=== PATIENT | male | born 1965 | race Two or more races ===

== ENCOUNTER 2025-02-19 16:00 | Inpatient (IN) | payer OTHER ==
[~2025-02-19] VITALS: Ht 193 cm; Wt 175.6 kg
[~2025-02-19 16:00] MED LIST: ALBU108A5 INH; METF-370 PO; METO-158 PO; MORP30TA5 PO; OXYC325T14 PO; PANT40T PO; PIOG1TAB37 PO; SUCR1TAB PO
[2025-02-19 16:13] VITALS: PULSE 155; RESP 22; O2SAT 96
--- NOTE | 2025-02-19 16:29 | ED.PDOC ---
GI ASSESSMENT HPI Comments 59-year-old male is brought in by ambulance for chief complaint of GI bleed. EMS reports, patient is coming from [facility] where he was transferred for admission due to possible GI hemorrhage. Per EMS, transferring physician spoke to Dr. Aragon d/t not having GI at initial facility or CT. Upon arrival to the emergency department, patient appears pale and has right colostomy in place with bright red bloody stool. Patient reports, he has had x2days of bright red bloody stools which has since, worsened today (02/19/25). No other symptoms or modifying factors are present at this time. 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, Medications, Allergies Allergies: Coded Allergies: NO KNOWN ALLERGIES (Unverified , 02/19/25) Information Source: Patient, Emergency Med Personnel Mode of Arrival: EMS Timing: Days Duration: Since onset Prehospital treatment: None Vomitus: None Stool: Other (Bloody stool) Severity: Moderate Recent: None Recent Hx of: Abdominal Operations (Colostomy) Pain Location: None Modifying Factors: Nothing Associated sign and symptoms: Blood in Stool Past Medical History PAST MEDICAL HISTORY: Denies Family History Family History: Unknown Social History Smoker: Non-Smoker Alcohol: Denies ETOH Use Drugs: Denies Drug Use Lives In: Home Constitutional: reports: fatigue; denies: chills, diaphoresis, fever, malaise, sweats, weakness, others EENTM: denies: blurred vision, double vision, ear bleeding, ear discharge, ear drainage, ear pain, ear ringing, eye pain, eye redness, hearing loss, mouth pain, mouth swelling, nasal discharge, nose bleeding, nose congestion, nose pain, photophobia, tearing, throat pain, throat swelling, voice changes, others Respiratory: denies: cough, hemoptysis, orthopnea, SOB at rest, shortness of breath, SOB with excertion, stridor, wheezing, others Cardiovascular: denies: chest pain, dizzy spells, diaphoresis, Dyspnea on exertion, edema, irregular heart beat, left arm pain, lightheadedness, palpitations, PND, syncope, others Gastrointestinal: denies: abdomen distended, abdominal pain, blood streaked bowels, constipated, diarrhea, dysphagia, difficulty swallowing, hematemesis, melena, nausea, poor appetite, poor fluid intake, rectal bleeding, rectal pain, vomiting, others Genitourinary: denies: burning, dysuria, flank pain, frequency, hematuria, incontinence, penile discharge, penile sore, pain, testicle pain, testicle swelling, urgency, others Neurological: denies: dizziness, fainting, headache, left sided numbness, left sided weakness, numbness, paresthesia, pre-existing deficit, right sided numbness, right sided weakness, seizure, speech problems, tingling, tremors, weakness, others Musculoskeletal: denies: back pain, gout, joint pain, joint swelling, muscle pain, muscle stiffness, neck pain, others Integumetry: denies: bruises, change in color, change in hair/nails, dryness, laceration, lesions, lumps, rash, wounds, others Allergic/Immunocompromised: denies: Difficulty Healing, Frequent Infections, Hives, Itching, others Hematologic/Lymphatic: denies: anemia, blood clots, easy bleeding, easy bruising, swollen glands, others Endocrine: denies: excessive hunger, excessive sweating, excessive thirst, excessive urination, flushing, intolerance to cold, intolerance to heat, unexplained weight gain, unexplained weight loss, others Psychiatric: denies: anxiety, bipolar disorder, depression, hopeless, panic disorder, schizophrenia, sleepless, suicidal, others All Other Systems: Reviewed and Negative Physical Exam General Appearance: Normal, Other (Pale-appearing) HEENT: Normal ENT Inspection, Pharynx Normal Neck: Full Range of Motion, Non-Tender, Normal, Normal Inspection Respiratory: Chest Non-Tender, Lungs Clear, No Accessory Muscle Use, No Respiratory Distress, Normal Breath Sounds Cardiovascular: No Edema, No Murmur, No Gallop, Normal Peripheral Pulses, Regular Rate/Rhythm Breast Exam: Deferred Gastrointestinal: No Organomegaly, No Pulsatile Mass, Normal Bowel Sounds, Soft, Other (Colostomy to right lower abdomen, bright-red feces noted, erythema) Genitalia: Deferred Pelvic: Deferred Rectal: Deferred Extremities: No calf tenderness, Normal capillary refill, Normal inspection, Normal range of motion, Non-tender, No pedal edema Musculoskeletal : Apperance: Normal Neurologic: Alert, oral communication instructor II-XII nml as Tested, No Motor Deficits, Normal Affect, Normal Mood, No Sensory Deficits Cerebellar Function: Normal Reflexes: Normal Skin: Dry, Normal Color, Warm Lymphatic: No Adenopathy Was a procedure done? Was a procedure done?: No GI differential Dx Differential Diagnosis: GI hemorrhage X-Ray, Labs, Meds, VS Vital Signs Date Time Temp Pulse Resp B/P (MAP) Pulse Ox O2 Delivery O2 Flow Rate FiO2 02/19/25 18:12 154 21 126/51 (76) 99 02/19/25 17:46 156 23 125/81 (96) 99 02/19/25 16:20 155 02/19/25 16:13 155 02/19/25 16:13 22 96 Nasal Cannula* 3 32 02/19/25 16:13 98.9 155 22 166/56 (92) 96 98.9 02/19/25 16:13 155 22 96 Nasal Cannula* 3 32 02/19/25 16:00 98.2 150 22 100/59 96 98.2 Lab Test 02/19/25 16:45 02/19/25 16:14 Range/Units Blood Gas Specimen Type Arterial Blood Gas Sample Site Right radial Blood Gas Patient Temperature 37.0 Arterial Blood Date Drawn [id number] Arterial Blood pH 7.512 H 7.350-7.450 Arterial Blood Partial Pressure CO2 37.6 35.0-48.0 mmHg Arterial Blood Partial Pressure O2 105.4 83.0-108.0 mmHg Arterial Blood HCO3 29.5 H 21.0-28.0 mmol/L Arterial Blood Oxygen Saturation 97.6 94.0-98.0 % Arterial Blood Base Excess 6.0 H -2.0-3.0 mmol/L Arterial Blood Oxyhemoglobin 94.3 94.0-98.0 % Arterial Blood Carboxyhemoglobin 3.0 H 0.5-1.5 % Arterial Blood Methemoglobin 0.4 0.0-1.5 % Juwan Test Yes Blood Gas Total Hemoglobin 7.80 L 13.5-17.5 g/dL Blood Gas Liter Flow 4.00 Blood Gas Modality Nasal cannula FiO2 % 36.0 White Blood Count 10.3 4.4-10.8 10^3/uL Red Blood Count 2.44 L 4.5-5.90 10^6/uL Hemoglobin 7.4 L 13.5-17.5 g/dL Hematocrit 22.4 L 41.0-53.0 % Mean Corpuscular Volume 91.9 80.0-100.0 fL Mean Corpuscular Hemoglobin 30.2 28.0-32.0 pg Mean Corpuscular Hemoglobin Concent 32.9 32.0-36.0 g/dL Red Cell Distribution Width 17.3 H 11.8-14.3 % Platelet Count 158 140-450 10^3/uL Mean Platelet Volume 10.2 6.9-10.8 fL Neutrophils (%) (Auto) 76.8 37.0-80.0 % Lymphocytes (%) (Auto) 11.8 10.0-50.0 % Monocytes (%) (Auto) 11.1 0.0-12.0 % Eosinophils (%) (Auto) 0.1 0.0-7.0 % Basophils (%) (Auto) 0.2 0.0-2.0 % Neutrophils # (Auto) 7.9 1.6-8.6 10 ^3/uL Lymphocytes # (Auto) 1.2 0.4-5.4 10 ^3/uL Monocytes # (Auto) 1.1 0-1.3 10 ^3/uL Eosinophils # (Auto) 0 0-0.8 10 ^3/uL Basophils # (Auto) 0 0-0.2 10 ^3/uL Nucleated Red Blood Cells 0.1 % Prothrombin Time 16.5 H 9.3-11.8 sec Prothrombin Time INR 1.63 H 0.9-1.15 Activated Partial Thromboplast Time 25.0 24.5-34.5 SEC Sodium Level 133 L 136-145 mmol/L Potassium Level 4.5 3.5-5.1 mmol/L Chloride Level 97 L 98-107 mmol/L Carbon Dioxide Level 32 H 20-31 mmol/L Anion Gap 4 L 5-15 Blood Urea Nitrogen 35 H 9-23 mg/dL Creatinine 1.09 0.700-1.30 mg/dL Glomerular Filtration Rate Calc 79 >90 mL/min BUN/Creatinine Ratio 32.1 H 10.0-20.0 Serum Glucose 487 *H 74-106 mg/dL Calcium Level 8.3 L 8.7-10.4 mg/dL Total Bilirubin 1.7 H 0.2-1.0 mg/dL Aspartate Amino Transferase (AST) 22 13-40 U/L Alanine Aminotransferase (ALT) 10 7-40 U/L Alkaline Phosphatase 87 46-116 U/L B-Type Natriuretic Peptide 517.71 0-100 pg/mL Total Protein 4.6 L 5.7-8.2 g/dL Albumin 2.6 L 3.2-4.8 g/dL Current Medications Medications (Trade) Dose Ordered Sig/Neha Route Start Time Stop Time Status Last Admin Sodium Chloride 1,000 ml @ 1,000 mls/hr Q1H ONCE IV 02/19/25 16:45 02/19/25 17:44 DC 02/19/25 16:59 Amiodarone HCl 100 ml @ 600 mls/hr ONCE ONCE IV 02/19/25 17:45 02/19/25 17:54 DC 02/19/25 17:50 Amiodarone HCL/ Dextrose 200 ml @ 33.33 mls/ hr ONCE ONCE IV 02/19/25 18:00 02/20/25 00:00 02/19/25 18:12 Time of 1ST Reevaluation: 16:30 Reevaluation 1ST: Unchanged Patient Education/Counseling: Diagnosis, Treatment Family Education/Counseling: No Family Present SEPSIS Sepsis Screen Physician Orders Ct Ab Pel With Iv Con Only (02/19/25 16:06) Chest Portable (02/19/25 16:06) Electrocardigram (02/19/25 16:27) Abg W/ Co-Ox (02/19/25 16:39) Amiodarone 360mg/200ml Premix (Nexterone (02/19/25 18:00) Amiodarone 360mg/200ml Premix (Nexterone (02/20/25 00:00) Calcium Ivpb (02/19/25 18:45) Vital Signs Date Time Temp Pulse Resp B/P (MAP) Pulse Ox O2 Delivery O2 Flow Rate FiO2 02/19/25 18:12 154 21 126/51 (76) 99 02/19/25 17:46 156 23 125/81 (96) 99 02/19/25 16:20 155 02/19/25 16:13 155 02/19/25 16:13 22 96 Nasal Cannula* 3 32 02/19/25 16:13 98.9 155 22 166/56 (92) 96 98.9 02/19/25 16:13 155 22 96 Nasal Cannula* 3 32 02/19/25 16:00 98.2 150 22 100/59 96 98.2 Laboratory Tests Test 02/19/25 16:14 White Blood Count 10.3 10^3/uL (4.4-10.8) Medications Medications Dose Ordered Sig/Neha Route Start Time Stop Time Status Last Admin Dose Admin Amiodarone HCl 100 ml @ 600 mls/hr ONCE ONCE IV 02/19/25 17:45 02/19/25 17:54 DC 02/19/25 17:50 Amiodarone HCL/ Dextrose 200 ml @ 33.33 mls/ hr ONCE ONCE IV 02/19/25 18:00 02/20/25 00:00 02/19/25 18:12 Sodium Chloride 1,000 ml @ 1,000 mls/hr Q1H ONCE IV 02/19/25 16:45 02/19/25 17:44 DC 02/19/25 16:59 Departure 1 Departure Time of Disposition: 18:45 (Patient with active gi bleed. will admit for blood transfusion and gi constultation) Impression: Primary Impression: GI bleed Qualified Codes: K92.2 - Gastrointestinal hemorrhage, unspecified Additional Impression: Colostomy hemorrhage Disposition: ADMITTED INPATIENT Admit to: [facility] Condition: Critical Critical Care Note Critical Care Time?: Yes Critical care comment: Active GI Bleed Authorized and Performed by: Ada Rahman MD Total critical care time: Approximately 47 minutes Due to a high probability of clinically significant, life threatening deterioration, the patient required my highest level of preparedness to intervene emergently and I personally spent this critical care time directly and personally managing the patient. This critical care time included obtaining a history; examining the patient; pulse oximetry; ordering and review of studies; arranging urgent treatment with development of a management plan; evaluation of patient's response to treatment; frequent reassessment; and, discussions with other providers. This critical care time was performed to assess and manage the high probability of imminent, life-threatening deterioration that could result in multi-organ failure. It was exclusive of separately billable procedures and treating other patients and teaching time. Please see my other sections and the rest of the note for further information on patient assessment and treatment. Stability Stability form required: No Heart Score Heart Score: Heart Score Response (Comments) Value History N/A 0 EKG N/A 0 Age N/A 0 Risk Factors N/A 0 Troponin N/A 0 Total 0 I personally scribed for ADA RAHMAN MD ([email or web address]) on 02/19/25 at 16:28. Electronically submitted by Elana Blank ([email or web address]). I personally scribed for ADA RAHMAN MD ([email or web address]) on 02/19/25 at 16:40. Electronically submitted by Elana Blank ([email or web address]). ADA RAHMAN MD Feb 19, 2025 16:28
[2025-02-19 16:35] LABS: Mean Corpuscular Hemoglobin 30.2 pg (28.0-32.0)
[2025-02-19 16:36] LABS: Hematocrit 22.4 % (41.0-53.0); Hemoglobin 7.4 g/dL (13.5-17.5); Mean Corpuscular Volume 91.9 fL (80.0-100.0); Nucleated Red Blood Cells % 0.1 %
--- NOTE | 2025-02-19 16:42 | DVH ---
CHEST RADIOGRAPH Indication: Gi bleed Technique: Single frontal view of the chest was obtained COMPARISON: None FINDINGS: Lines and Tubes: None Lungs: Congestion Pleura: No effusion. No pneumothorax. Cardiomediastinal contours: Unremarkable Bones: Unremarkable IMPRESSION: Increased interstital prominence. This may represent pulmonary vascular congestion and/or viral pneum onia. Clinical correlation advised.
[2025-02-19 16:48] LABS: INR 1.63 (0.9-1.15); Partial Thromboplastin Time 25.0 SEC (24.5-34.5); Prothrombin Time 16.5 sec (9.3-11.8)
[2025-02-19 16:50] LABS: Alanine Aminotransferase 10 U/L (7-40); Alkaline Phosphatase 87 U/L (46-116); Anion Gap 4 (5-15); BUN/Creatinine Ratio 32.1 (10.0-20.0); Potassium 4.5 mmol/L (3.5-5.1)
[2025-02-19 16:52] LABS: Albumin 2.6 g/dL (3.2-4.8); Bilirubin, Total 1.7 mg/dL (0.2-1.0); Blood Urea Nitrogen 35 mg/dL (9-23); Calcium 8.3 mg/dL (8.7-10.4); Carbon Dioxide 32 mmol/L (20-31); Chloride 97 mmol/L (98-107); Sodium 133 mmol/L (136-145); Total Protein 4.6 g/dL (5.7-8.2)
[2025-02-19 16:53] LABS: Glucose 487 mg/dL (74-106)
[2025-02-19 16:56] LABS: Base Excess 6.0 mmol/L (-2.0-3.0)
[2025-02-19] MEDS: SODIUM CHLORIDE 0.9% 1,000 ML IV ONE ×2 (16:59→21:45)
[2025-02-19] MEDS: IOHEXOL 300 MG/ML 100ML BOTTLE IJ ONE (17:34)
[2025-02-19] MEDS: AMIODARONE BOLUS KIT 100 ML IV ONE (17:50)
[2025-02-19] MEDS: AMIODARONE 360mg/200mL PREMIX 200 ML IV ONE (18:12)
--- NOTE | 2025-02-19 18:35 | DVH ---
Exam: CT CT AB PEL WITH IV CON ONLY History: gi bleed Comparison Study: None TECHNIQUE: A digital fats and oils loader image was obtained. During the uneventful, intravenous administration of c ontrast material, multislice data acquisition was obtained through the abdomen and pelvis. The data s et was subsequently reconstructed into axial images. Images reviewed on a wrist examination is an exa mination of axial and multiplanar reformations using a variety of window levels and settings. RADIATION DOSE: DLP 1516.71 mGy.cm; CTDI vol 26.61 mGy. Findings: Lungs: Trace bilateral pleural effusions. Heart: No cardiomegaly or pericardial effusion. Liver: Unremarkable. Gallbladder: Cholelithiasis without evidence of acute cholecystitis. Spleen: Unremarkable Pancreas: Unremarkable Adrenals: Unremarkable Kidneys: Bilateral renal cortical atrophy. GI tract: Duodenal wall thickening with adjacent inflammatory changes. : Unremarkable. Vasculature: Mild to moderate aortoiliac atherosclerosis. Lymphadenopathy: Absent Peritoneum: No ascites Musculoskeletal: Unremarkable Soft tissues: Partially visualized large right spigelian hernia containing mesenteric fat and bowel. Subcutaneous inflammatory changes along the bilateral hip and lower back. Impression: 1. No acute abdominopelvic abnormalities. 2. Duodenal wall thickening with adjacent inflammatory changes. Correlate for duodenitis. 3. Lithiasis without evidence of acute cholecystitis. 4. Partially visualized large right spigelian hernia containing mesenteric fat and bowel.
[2025-02-19] MEDS: CALCIUM GLUC 1,000mg/50ml-NS 50 ML IV SCH (18:59)
[2025-02-19] MEDS: InsuLIN REG 1unit/0.01ml Soln (100units/ml) IV ONE (18:59)
[2025-02-19] MEDS ORDERED: DEXTROSE (50%) 50ML SYRG IV PRN (20:30)
[2025-02-19] MEDS ORDERED: NITROGLYCERIN 0.4 MG SL TAB SL PRN (20:30)
[2025-02-19 21:39] LABS: Nucleated Red Blood Cells % 0.1 %
[2025-02-19] MEDS: PANTOPRAZOLE 40 MG/10 ML VIAL INJ IV ONE (21:39)
[2025-02-19 21:42] LABS: Hematocrit 22.4 % (41.0-53.0); Hemoglobin 7.5 g/dL (13.5-17.5); Mean Corpuscular Hemoglobin 31.3 pg (28.0-32.0); Mean Corpuscular Volume 93.3 fL (80.0-100.0)
[2025-02-19] MEDS: InsuLIN REG 1unit/0.01ml Soln (100units/ml) SC SCH (22:47)
--- NOTE | 2025-02-19 23:37 | DVHHP ---
ADMIT DATE: 02/19/2025 CHIEF COMPLAINT: Coming in for abdominal pain and bright red blood in his colostomy. 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 Apparently, the patient states he had episode of blood clots in his colostomy on Sunday and then apparently in the last 24 hours has been seeing bright red blood draining through his colostomy, which is normal for him. He denies any fevers or chills. He has had one episode of bleeding into his colostomy bag about 5 years ago, but does not recollect what was the cause of it at that time. The patient says he has not eaten today. He apparently denies any fevers or chills or any shortness of breath, but he is requiring minimal amount of oxygen currently on transfer here to [facility]. The patient says he has got some sharp pains in his chest, but no chest pressure, no nausea, no vomiting symptoms. He does have a mild cough without any phlegm. He did receive apparently 3 units of blood at [facility] and was transitioned here for further assessment and evaluation. The patient prior to transfer case was discussed with his livestock handler, Dr. Aragon, who is aware of the patient's transfer here to our facility. PAST MEDICAL HISTORY: Diabetes mellitus type 2, history of colostomy bag, history of hypertension, morbid obesity, acid reflux and chronic pain syndrome. PAST SURGICAL HISTORY: Had intracranial brain mass removal 5 years ago, had abdominal surgery with colostomy placement about 9 years ago, tonsillectomy and right knee surgery. SOCIAL HISTORY: Smokes tobacco since age 19. Currently about quarter of pack to half a pack a day. Occasional drinker. No illicit drugs. MEDICATIONS AT HOME: Include morphine extended-release tablets 30 mg 1 tablet a day, oxycodone/acetaminophen 10/325 p.r.n. t.i.d., pioglitazone 30 mg p.o. daily, albuterol handheld inhaler p.r.n. q. 4, pantoprazole 40 mg p.o. daily, Trulicity injections, metformin 500 mg 3 times a day and metoprolol 50 mg. MEDICATION ALLERGIES: No known drug allergies. REVIEW OF SYSTEMS: A 10-point review of systems was covered with the patient and was negative with the exception to what was present in history of present illness. PHYSICAL EXAMINATION: VITAL SIGNS: Temp 98.9, pulse rate 155, respiratory rate 22, blood pressure of 166/56, pulse ox about 96% on 2 liters nasal cannula. GENERAL: Seems to be alert and oriented to self, time, and place, not in acute distress, male, lying in bed, morbidly obese. HEENT: Normocephalic, atraumatic. Extraocular muscles are intact. Pupils are equally round and reactive to light and accommodation. Mucous membranes looked moist. CARDIOVASCULAR: S1, S2 positive. Irregularly irregular rhythm. No rubs, gallops or murmurs. LUNGS: Seem to be bilateral inspiratory rhonchi. Otherwise, no rales. ABDOMEN: Seems to be obese. Soft. Tenderness is kind of diffuse in the right mid, upper and lower abdominal quadrants. No guarding. No rebound. No abdominal rigidity. Bowel sounds again are present. The patient does have a colostomy present in the left lower mid quadrant area. There seems to be coffee ground-like material within the colostomy bag. EXTREMITIES: Lower extremity does have chronic venous skin changes with darkening of the skin. No edema. No clubbing. No cyanosis. NEUROLOGIC: No focal deficits. Cranial nerves testing II through XII overall seems to be intact. LABORATORY WORKUP: Shows white count of 10.3, H and H of 7.4 and 22.4, platelet count of 158,000. INR of 1.63. Sodium 132, potassium 4.5, chloride 97, carbon dioxide of 32, anion gap of 4, BUN of 35, creatinine 1.09, glucose of 487, hemoglobin A1c of 8.3, total bilirubin 1.7, AST of 22, ALT of 10, alkaline phosphatase 87, BNP of 517.71, albumin 2.6. Arterial blood gas was also completed and showed a pH of 7.512, pCO2 of 37.6, PaO2 of 105.4, bicarbonate 29.5. This is on 4 liters of nasal cannula oxygen. IMAGING: Chest x-ray shows increased interstitial prominence. This may represent pulmonary vascular congestion or viral pneumonia. Clinical correlation was advised. Abdominal pelvis CT with IV contrast was completed, shows no acute abdominopelvic abnormalities. Duodenal wall thickening with adjacent inflammatory changes correlate for duodenitis, lithiasis without evidence of acute cholecystitis, partially visualized large right spigelian hernia containing mesenteric fat and bowel. DIAGNOSES: * Acute GI bleeding. * New onset atrial fibrillation with rapid ventricular response. * Abdominal wall thickening, possibly duodenitis. * Acute blood loss anemia. * Diabetes mellitus type 2 with hyperglycemia. PLAN: The patient will be admitted to the medical telemetry floor for continuous cardiopulmonary monitoring. Consultation with Dr. Harper Aragon has been placed and is aware of the patient's arrival here to the hospital. The patient did have a CT of his abdomen and pelvis with IV contrast which shows duodenal wall thickening possibly due to duodenitis. The patient will be maintained at this point in time may be with fluid hydration with NS of 125 mL an hour. The patient will be started on Zosyn 3.375 IV q. 6 hours prophylactically. The patient has received 3 units of blood in the [facility]. We will order an additional unit of blood to keep the patient's hemoglobin above 8. The patient does have CBCs q. 6 hours. The patient will be placed on Protonix 40 b.i.d. We will order H. pylori stool testing to rule out possibility of ulcer. We will await further recommendations by Gastroenterology. The patient is also presenting with new onset of atrial fibrillation with rapid ventricular response. The patient says he has no history of this and does not take any anticoagulants. The patient's documentation from [place] says that this is a chronic finding; however, [facility] documentation does not reflect any history of atrial fibrillation. The patient currently denies it. The patient is not an anticoagulant candidate at this time due to acute GI bleeding and cardiology consultation has been requested by Dr. Olman Nunes. The patient will have an echocardiogram ordered for tomorrow morning. The patient has been initiated amiodarone protocol by the ER and will be continued on admission. The patient otherwise will be given Zofran 4 mg IV p.r.n. for nausea and vomiting. The patient is to have morning labs with CBC and BMP. The patient is a full code. SCDs to bilateral lower extremities for DVT prophylaxis. The patient has been placed on Accu-Cheks q. 6 hours with aggressive sliding scale insulin. Further recommendations given the patient's progression. Anupam Gray MD LM/BRENNA/CHAUNCEY TID: [id number] RECEIPT: [id number]
[2025-02-20] VITALS (8 sets, daily range): BP systolic 112–146; BP diastolic 48–100; PULSE 150–155; RESP 20–25; TEMP 97.8–98.6; O2SAT 98–99
[2025-02-20] MEDS: ACCU-CHEK COMFORT CURVE STRIP VI SCH (00:02)
[2025-02-20] MEDS: AMIODARONE 360mg/200mL PREMIX 200 ML IV SCH (00:17)
[2025-02-20] MEDS: PIPERACILLIN-TAZOB 3.375GM 100 ML IV SCH (00:25)
--- NOTE | 2025-02-20 00:49 | DVHINCON2 ---
Date of service: Feb 19, 2025 Referring Physician Yolanda Reason for Consultation Afib RVR History of Present Illness This is a 59-year-old male with a PMH of DM, HTN, HLD, Atrial fib, Colostomy bag who is transferred to [facility] [place] from [facility] by ambulance due to GI bleeding into his colostomy bag. The patient received 3 units PRBC at [facility]. Patient reports, he has had 2 days of bright red bloody stools which worsened today. W 10.3, Hgb 5.1 > 7.4, Plt 158, Na 133, K 4.5, Bun 35, Creatinine 1.09, Glucose 487, T Bili 1.7, LFTs normal, ALB 2.6, INR 1.63. CT ABD PEL shows duodenal wall thickening with adjacent inflammatory changes. Chest x-ray showed increased pulmonary vascular congestion. EKG: atrial fib with RVR 152. Patient was admitted to the hospital. I am asked to consult on this patient. Allergies: Coded Allergies: NO KNOWN ALLERGIES (Unverified , 02/19/25) Current Medications Current Medications Medications (Trade) Dose Ordered Sig/Neha Route PRN Reason Start Time Stop Time Status Last Admin Amiodarone HCL/ Dextrose 200 ml @ 16.66 mls/ hr Q12H IV 02/20/25 00:00 Calcium Gluconate/ Sodium Chloride 50 ml @ 100 mls/hr Q30M IV 02/19/25 18:45 02/19/25 19:44 DC 02/19/25 19:40 Pantoprazole Sodium (Protonix) 40 mg BID IV 02/20/25 10:00 Piperacillin Sod/ Tazobactam Sod 100 ml @ 25 mls/hr Q6HR IV 02/20/25 00:00 Ondansetron HCl (Zofran) 4 mg Q4HPRN PRN IV NAUSEA / VOMITING 02/19/25 20:30 Diagnostic Test (Pha) (Accu-Chek Comfort Curve T) 1 strip Q6HR 02/20/25 00:00 Insulin Human Regular (InsuLIN R) Q6HR SC 02/20/25 00:00 Dextrose 50 ml UD PRN IV Blood Sugar LESS THAN 60 02/19/25 20:30 Nitroglycerin (Ntrostat Sublingual) 0.4 mg Q5MINP PRN SL FOR CHEST PAIN 02/19/25 20:30 Morphine Sulfate 2 mg Q30M PRN IV FOR CHEST PAIN 02/19/25 20:30 Review of Systems Constitutional: reports: fatigue; denies: chills, diaphoresis, fever, malaise, sweats, weakness, others EENTM: denies: blurred vision, double vision, ear bleeding, ear discharge, ear drainage, ear pain, ear ringing, eye pain, eye redness, hearing loss, mouth pain, mouth swelling, nasal discharge, nose bleeding, nose congestion, nose pain, photophobia, tearing, throat pain, throat swelling, voice changes, others Respiratory: denies: cough, hemoptysis, orthopnea, SOB at rest, shortness of breath, SOB with excertion, stridor, wheezing, others Cardiovascular: denies: chest pain, dizzy spells, diaphoresis, Dyspnea on exertion, edema, irregular heart beat, left arm pain, lightheadedness, palpitations, PND, syncope, others Gastrointestinal: denies: abdomen distended, abdominal pain, blood streaked bowels, constipated, diarrhea, dysphagia, difficulty swallowing, hematemesis, melena, nausea, poor appetite, poor fluid intake, rectal bleeding, rectal pain, vomiting, others Genitourinary: denies: burning, dysuria, flank pain, frequency, hematuria, incontinence, penile discharge, penile sore, pain, testicle pain, testicle sw elling, urgency, others Neurological: denies: dizziness, fainting, headache, left sided numbness, left sided weakness, numbness, paresthesia, pre-existing deficit, right sided numbness, right sided weakness, seizure, speech problems, tingling, tremors, weakness, others Musculoskeletal: denies: back pain, gout, joint pain, joint swelling, muscle pain, muscle stiffness, neck pain, others Integumetry: denies: bruises, change in color, change in hair/nails, dryness, laceration, lesions, lumps, rash, wounds, others Allergic/Immunocompromised: denies: Difficulty Healing, Frequent Infections, Hives, Itching, others Hematologic/Lymphatic: denies: anemia, blood clots, easy bleeding, easy bruising, swollen glands, others Endocrine: denies: excessive hunger, excessive sweating, excessive thirst, excessive urination, flushing, intolerance to cold, intolerance to heat, unexplained weight gain, unexplained weight loss, others Psychiatric: denies: anxiety, bipolar disorder, depression, hopeless, panic disorder, schizophrenia, sleepless, suicidal, others All Other Systems: Reviewed and Negative Vital Signs Vital Signs Date Time Temp Pulse Resp B/P (MAP) Pulse Ox O2 Delivery O2 Flow Rate FiO2 02/19/25 21:00 97.8 152 16 117/64 (81) 98 97.8 02/19/25 19:30 Nasal Cannula* 4 36 Physical Exam GENERAL: Alert and oriented x 3. No acute distress. Pale appearing. EYES: PERRL, EOMI. Anicteric. HENT: Moist mucous membranes. LUNGS: Clear to auscultation bilaterally. CARDIOVASCULAR: Regular rate and rhythm. ABDOMEN: Colostomy to right lower abdomen, bright-red feces. EXTREMITIES: No edema. NEUROLOGIC: No focal neurological deficits. SKIN: Warm, dry. Labs/Diagnostic Data Labs Test 02/19/25 21:05 02/19/25 16:45 02/19/25 16:14 Range/Units White Blood Count 10.0 4.4-10.8 10^3/uL Red Blood Count 2.40 L 4.5-5.90 10^6/uL Hemoglobin 7.5 L 13.5-17.5 g/dL Hematocrit 22.4 L 41.0-53.0 % Mean Corpuscular Volume 93.3 80.0-100.0 fL Mean Corpuscular Hemoglobin 31.3 28.0-32.0 pg Mean Corpuscular Hemoglobin Concent 33.6 32.0-36.0 g/dL Red Cell Distribution Width 18.3 H 11.8-14.3 % Platelet Count 144 140-450 10^3/uL Mean Platelet Volume 9.9 6.9-10.8 fL Neutrophils (%) (Auto) 76.2 37.0-80.0 % Lymphocytes (%) (Auto) 11.7 10.0-50.0 % Monocytes (%) (Auto) 11.8 0.0-12.0 % Eosinophils (%) (Auto) 0.2 0.0-7.0 % Basophils (%) (Auto) 0.1 0.0-2.0 % Neutrophils # (Auto) 7.6 1.6-8.6 10 ^3/uL Lymphocytes # (Auto) 1.2 0.4-5.4 10 ^3/uL Monocytes # (Auto) 1.2 0-1.3 10 ^3/uL Eosinophils # (Auto) 0 0-0.8 10 ^3/uL Basophils # (Auto) 0 0-0.2 10 ^3/uL Nucleated Red Blood Cells 0.1 % Lactic Acid Level 1.9 0.4-2.0 mmol/L Troponin I High Sensitivity 11 </=54 ng/L Blood Gas Specimen Type Arterial Blood Gas Sample Site Right radial Blood Gas Patient Temperature 37.0 Arterial Blood Date Drawn [id number] Arterial Blood pH 7.512 H 7.350-7.450 Arterial Blood Partial Pressure CO2 37.6 35.0-48.0 mmHg Arterial Blood Partial Pressure O2 105.4 83.0-108.0 mmHg Arterial Blood HCO3 29.5 H 21.0-28.0 mmol/L Arterial Blood Oxygen Saturation 97.6 94.0-98.0 % Arterial Blood Base Excess 6.0 H -2.0-3.0 mmol/L Arterial Blood Oxyhemoglobin 94.3 94.0-98.0 % Arterial Blood Carboxyhemoglobin 3.0 H 0.5-1.5 % Arterial Blood Methemoglobin 0.4 0.0-1.5 % Juwan Test Yes Blood Gas Total Hemoglobin 7.80 L 13.5-17.5 g/dL Blood Gas Liter Flow 4.00 Blood Gas Modality Nasal cannula FiO2 % 36.0 Prothrombin Time 16.5 H 9.3-11.8 sec Prothrombin Time INR 1.63 H 0.9-1.15 Activated Partial Thromboplast Time 25.0 24.5-34.5 SEC Sodium Level 133 L 136-145 mmol/L Potassium Level 4.5 3.5-5.1 mmol/L Chloride Level 97 L 98-107 mmol/L Carbon Dioxide Level 32 H 20-31 mmol/L Anion Gap 4 L 5-15 Blood Urea Nitrogen 35 H 9-23 mg/dL Creatinine 1.09 0.700-1.30 mg/dL Glomerular Filtration Rate Calc 79 >90 mL/min BUN/Creatinine Ratio 32.1 H 10.0-20.0 Serum Glucose 487 *H 74-106 mg/dL Hemoglobin A1c 8.3 H <5.7 % A1C Calcium Level 8.3 L 8.7-10.4 mg/dL Total Bilirubin 1.7 H 0.2-1.0 mg/dL Aspartate Amino Transferase (AST) 22 13-40 U/L Alanine Aminotransferase (ALT) 10 7-40 U/L Alkaline Phosphatase 87 46-116 U/L B-Type Natriuretic Peptide 517.71 0-100 pg/mL Total Protein 4.6 L 5.7-8.2 g/dL Albumin 2.6 L 3.2-4.8 g/dL Assessment A Fib with RVR. GI bleed. Abdominal wall thickening. Acute blood loss anemia. Diabetes mellitus type 2 with hyperglycemia. HTN. HLD. Plan/Recommendation I agree with your ongoing assessment and care of plan. Trend troponin. Echocardiogram. IV Amiodarone. Morphine for pain management. GI prophylactics. IV antibiotics as ordered. Additional plan as per the hospital course. A total of 45 minutes was spent reviewing the patient record, examining the patient, making a diagnostic and therapeutic plan, discussing this plan with medical personnel, following up on diagnostic studies and following the patient for clinical stability excluding any and all procedures. At least 50% of this time was spent in direct, [id number] contact. Plan discussed with: Patient WEST MARTEL MD Feb 19, 2025 22:17
[2025-02-20] MEDS: MORPHINE SULFATE INJ 2 MG/ml SYRG IV PRN (01:01)
[2025-02-20] MEDS: INSULIN LANTUS (GLARGINE) 1 /0.01ml (100units/ml) SC SCH (01:02)
[2025-02-20 02:48] LABS: Hematocrit 24.1 % (41.0-53.0); Hemoglobin 7.8 g/dL (13.5-17.5); Mean Corpuscular Hemoglobin 29.9 pg (28.0-32.0); Mean Corpuscular Volume 92.4 fL (80.0-100.0); Nucleated Red Blood Cells % 0.1 %
[2025-02-20] MEDS: DIGOXIN (250MCG/ML) 2 ML AMPULE IV ONE ×2 (03:16→17:18)
[2025-02-20 05:03] LABS: Chloride 100 mmol/L (98-107); Potassium 3.8 mmol/L (3.5-5.1)
[2025-02-20 05:04] LABS: Anion Gap 3 (5-15)
[2025-02-20 05:09] LABS: BUN/Creatinine Ratio 24.0 (10.0-20.0)
[2025-02-20 05:12] LABS: Iron 56.0 ug/dL (65-175)
[2025-02-20 05:17] LABS: Total Iron Binding Capacity 285.0 ug/dL (250-425)
[2025-02-20 05:19] LABS: Blood Urea Nitrogen 25 mg/dL (9-23); Calcium 8.2 mg/dL (8.7-10.4); Carbon Dioxide 32 mmol/L (20-31); Glucose 324 mg/dL (74-106); Sodium 135 mmol/L (136-145)
--- NOTE | 2025-02-20 07:21 | DVHPN2 ---
Progress Note Date Seen: Feb 20, 2025 Medical Necessity Reason Pt with a Central, PICC or Fol: No Subjective Review of Systems: HEENT:Normal, CVS:Normal, RESPIRATORY:Normal, GI:Abnormal Objective vital signs Vital Sign Date Time Temp Pulse Resp B/P (MAP) Pulse Ox O2 Delivery O2 Flow Rate FiO2 02/20/25 05:25 152 23 131/57 (81) 98 02/20/25 05:11 98.3 98.3 02/19/25 19:30 Nasal Cannula* 4 36 Total Intake and Output 02/19/25 02/19/25 02/20/25 15:00 23:00 07:00 Intake Total 1183.33 ml Output Total 300 ml Balance 883.33 ml medications Current Medications Medications Dose Ordered Sig/Neha Route Start Time Stop Time Status Last Admin Dose Admin Amiodarone HCL/ Dextrose 200 ml @ 16.66 mls/ hr Q12H IV 02/20/25 00:00 02/20/25 00:17 16.66 MLS/HR Pantoprazole Sodium 40 mg BID IV 02/20/25 10:00 Piperacillin Sod/ Tazobactam Sod 100 ml @ 25 mls/hr Q6HR IV 02/20/25 00:00 02/20/25 05:30 25 MLS/HR Ondansetron HCl 4 mg Q4HPRN PRN IV 02/19/25 20:30 Diagnostic Test (Pha) 1 strip Q6HR 02/20/25 00:00 02/20/25 05:30 1 STRIP Insulin Human Regular Q6HR SC 02/20/25 00:00 02/20/25 05:31 16 UNITS Dextrose 50 ml UD PRN IV 02/19/25 20:30 Nitroglycerin 0.4 mg Q5MINP PRN SL 02/19/25 20:30 Morphine Sulfate 2 mg Q30M PRN IV 02/19/25 20:30 Morphine Sulfate 2 mg Q6HPRN PRN IV 02/20/25 00:45 02/20/25 01:01 2 MG Insulin Glargine 10 units HS SC 02/20/25 00:00 02/20/25 01:02 10 UNITS Examination: GENERAL:Normal, LUNGS:Normal, CVS:Abnormal laboratory and microbiology Laboratory Tests 02/20/25 04:03 Test 8/29/25 04:03 Range/Units Serum Glucose 324 #H 74-106 mg/dL Problem List/Assessment/Plan Problem List/Assessment/Plan 1) GI bleed 2) Anemia 2/2 above s/p PRBC transfusion 3) Afib RVR 4) Duodenitis/colitis 5) Obesity 6) HTN 7) s/p colostomy, done 9 years ago 8) Chronic pain Sx plan; 02/20----patient hgb most recent 7.8 and will transfuse blood as necessary for Hgb <7, will continue to trend H/H q6h, on IV ABx zosyn, PPI IV, GI consulted on the case and patient is NPO. amio gtt started due to afib RVR with cardiology consult, echo pending, continue all care, daily labs, datapower consultant input appreciated, will follow along Plan discussed with: Other (n) YASIR MARTIN MD Feb 20, 2025 07:20
[2025-02-20 08:14] LABS: Hematocrit 19.8 % (41.0-53.0)
[2025-02-20 08:15] LABS: Mean Corpuscular Hemoglobin 30.2 pg (28.0-32.0); Mean Corpuscular Volume 90.8 fL (80.0-100.0); Nucleated Red Blood Cells % 0.0 %
[2025-02-20 08:31] LABS: INR 1.39 (0.9-1.15); Prothrombin Time 14.3 sec (9.3-11.8)
[2025-02-20 08:36] LABS: Hemoglobin 6.6 g/dL (13.5-17.5)
[2025-02-20] MEDS: AMIODARONE BOLUS KIT 100 ML IV ONE (09:37)
[2025-02-20] MEDS: AMIODARONE 360mg/200mL PREMIX 200 ML IV ONE (10:03)
[2025-02-20] MEDS: phytonadione 10 MG in SODIUM CHL 0.9% 50 ML IV ONE (10:13)
[2025-02-20] MEDS: PANTOPRAZOLE 40 MG/10 ML VIAL INJ IV SCH (10:29)
[2025-02-20] MEDS: ONDANSETRON HCL 4 MG/2 ML VIAL IV PRN (11:33)
[2025-02-20] MEDS: ADENOSINE 6 MG/2 ML INJ IV ONE ×2 (13:02→13:05)
--- NOTE | 2025-02-20 13:25 | DVHINCON2 ---
GI Consult Consult Note GI consult note Date of Consultation: 02/20/2025 Chief Complaint: GI bleed Referring Physician: Dr. Rahman H&P: 59-year-old male seen in ER bed 11 for GI bleed, transferred from [facility]. Patient has mild lower abdominal epigastric pain on and off for the past one-week. No nausea or vomiting. Denies hematemesis. Patient has noticed black stool for one day along with red blood and jelly-like consistency in colostomy bag. Patient also had stool rectally one-week ago. Last EGD 3-4 years ago unsure about results. Patient has history of anemia last transfusion 2-1/2 years ago Past Medical History: Diabetes mellitus type 2, history of colostomy bag, history of hypertension, morbid obesity, acid reflux and chronic pain syndrome. Past Surgical History: Intracranial brain mass removal five years ago, abdominal surgery with colostomy nine years ago, tonsillectomy and right knee surgery Social History: + smoking, occasional drinking ETOH and denies use of illegal drugs. Family History: Noncontributory . Review of Systems: Constitutional: no fever, chill, weight loss HEENT: no eye pain, no hearing loss, no oral lesion, no scleral icterus Heart: no chest pain, no chest pressure Lung: no cough, no dyspnea with exertion Abdomen: see HPI Physical exam: General: NAD, AAOX3 Chest: lung mtz clear to auscultation Heart: RRR, no murmur Abdomen: Mild lower abdomen tenderness to palpation, +BS Labs: Labs Test 02/20/25 07:57 02/20/25 05:21 02/20/25 04:03 02/20/25 03:04 Range/Units White Blood Count 10.5 4.4-10.8 10^3/uL Red Blood Count 2.18 L 4.5-5.90 10^6/uL Hemoglobin 6.6 #*L 13.5-17.5 g/dL Hematocrit 19.8 #L 41.0-53.0 % Mean Corpuscular Volume 90.8 80.0-100.0 fL Mean Corpuscular Hemoglobin 30.2 28.0-32.0 pg Mean Corpuscular Hemoglobin Concent 33.3 32.0-36.0 g/dL Red Cell Distribution Width 17.8 H 11.8-14.3 % Platelet Count 133 L 140-450 10^3/uL Mean Platelet Volume 9.7 6.9-10.8 fL Neutrophils (%) (Auto) 81.4 H 37.0-80.0 % Lymphocytes (%) (Auto) 10.0 10.0-50.0 % Monocytes (%) (Auto) 7.6 0.0-12.0 % Eosinophils (%) (Auto) 0.7 0.0-7.0 % Basophils (%) (Auto) 0.3 0.0-2.0 % Neutrophils # (Auto) 8.5 1.6-8.6 10 ^3/uL Lymphocytes # (Auto) 1.1 0.4-5.4 10 ^3/uL Monocytes # (Auto) 0.8 0-1.3 10 ^3/uL Eosinophils # (Auto) 0.1 0-0.8 10 ^3/uL Basophils # (Auto) 0 0-0.2 10 ^3/uL Nucleated Red Blood Cells 0.0 % Prothrombin Time 14.3 H 9.3-11.8 sec Prothrombin Time INR 1.39 H 0.9-1.15 POC Glucose 333 H 70-106 mg/dl Sodium Level 135 L 136-145 mmol/L Potassium Level 3.8 3.5-5.1 mmol/L Chloride Level 100 98-107 mmol/L Carbon Dioxide Level 32 H 20-31 mmol/L Anion Gap 3 L 5-15 Blood Urea Nitrogen 25 #H 9-23 mg/dL Creatinine 1.04 0.700-1.30 mg/dL Glomerular Filtration Rate Calc 83 >90 mL/min BUN/Creatinine Ratio 24.0 H 10.0-20.0 Serum Glucose 324 #H 74-106 mg/dL Calcium Level 8.2 L 8.7-10.4 mg/dL Iron Level 56 L 65-175 ug/dL Total Iron Binding Capacity 285 250-425 ug/dL Percent Iron Saturation 19.6 L 20-55 % D-Dimer, Quantitative 1.64 H 0.0-0.49 mg/L FEU Test 02/20/25 02:21 02/19/25 23:55 02/19/25 21:05 02/19/25 16:45 Range/Units Troponin I High Sensitivity 9 </=54 ng/L Lactic Acid Level 1.9 0.4-2.0 mmol/L Blood Gas Specimen Type Arterial Blood Gas Sample Site Right radial Blood Gas Patient Temperature 37.0 Arterial Blood Date Drawn [id number] Arterial Blood pH 7.512 H 7.350-7.450 Arterial Blood Partial Pressure CO2 37.6 35.0-48.0 mmHg Arterial Blood Partial Pressure O2 105.4 83.0-108.0 mmHg Arterial Blood HCO3 29.5 H 21.0-28.0 mmol/L Arterial Blood Oxygen Saturation 97.6 94.0-98.0 % Arterial Blood Base Excess 6.0 H -2.0-3.0 mmol/L Arterial Blood Oxyhemoglobin 94.3 94.0-98.0 % Arterial Blood Carboxyhemoglobin 3.0 H 0.5-1.5 % Arterial Blood Methemoglobin 0.4 0.0-1.5 % Juwan Test Yes Blood Gas Total Hemoglobin 7.80 L 13.5-17.5 g/dL Blood Gas Liter Flow 4.00 Blood Gas Modality Nasal cannula FiO2 % 36.0 Test 02/19/25 16:14 Range/Units Activated Partial Thromboplast Time 25.0 24.5-34.5 SEC Hemoglobin A1c 8.3 H <5.7 % A1C Total Bilirubin 1.7 H 0.2-1.0 mg/dL Aspartate Amino Transferase (AST) 22 13-40 U/L Alanine Aminotransferase (ALT) 10 7-40 U/L Alkaline Phosphatase 87 46-116 U/L B-Type Natriuretic Peptide 517.71 0-100 pg/mL Total Protein 4.6 L 5.7-8.2 g/dL Albumin 2.6 L 3.2-4.8 g/dL Imaging: CT abdomen pelvis Impression: 1. No acute abdominopelvic abnormalities. 2. Duodenal wall thickening with adjacent inflammatory changes. Correlate for duodenitis. 3. Lithiasis without evidence of acute cholecystitis. 4. Partially visualized large right spigelian hernia containing mesenteric fat and bowel. Assessment: GI bleed Severe anemia Duodenitis Possible colitis Status post abdominal surgery with colostomy bag AFib with rapid rate Plan: Discussed with Dr. Mahesh Cortez with goal of hemoglobin of 7 IV Protonix b.i.d. Monitor labs Hold blood thinners Possible GI procedures when patient is stable from a cardiac point of view and has cardiac clearance We will continue to monitor patient Discussed plan with patient, family at bedside and RN Thank you for this consult Date of Service: Feb 20, 2025 Billing Provider: LINDY PARDO Common Visit Codes: CONSULT ONLY Consultation Codes: [id number] CONSULT <60MIN LINDY PARDO Feb 20, 2025 13:25
[2025-02-20] MEDS: HEPARIN SODIUM (PORCINE) 5000 UNITS/ML 1ML VIAL ONE (13:36)
[2025-02-20] MEDS ORDERED: dilTIAZem 25 MG/5 ML VIAL IV ONE (15:15)
[2025-02-20 16:00] LABS: Hemoglobin 7.5 g/dL (13.5-17.5)
[2025-02-20 16:02] LABS: Hematocrit 22.4 % (41.0-53.0); Mean Corpuscular Hemoglobin 30.4 pg (28.0-32.0); Mean Corpuscular Volume 90.6 fL (80.0-100.0); Nucleated Red Blood Cells % 0.2 %
[2025-02-20 20:08] LABS: Hematocrit 23.3 % (41.0-53.0); Hemoglobin 7.9 g/dL (13.5-17.5)
--- NOTE | 2025-02-20 22:20 | DVHPN2 ---
Progress Note - Dictate Date Seen: Feb 20, 2025 Medical Necessity Reason Pt with a Central, PICC or Fol: No Subjective Patient was seen and evaluated in follow up. Patient is on 3 LPM NC. Patient is complaining of abdominal pain. HGB 6.6, HCT 19.8, patient is receiving PRBC transfusion. Echocardiogram is ordered/pending. Telemetry reviewed. vital signs Vital Sign Date Time Temp Pulse Resp B/P (MAP) Pulse Ox O2 Delivery O2 Flow Rate FiO2 02/20/25 11:33 152 28 114/45 02/20/25 11:00 97.8 97.8 02/20/25 07:26 99 02/19/25 19:30 Nasal Cannula* 4 36 Total Intake and Output 02/19/25 02/19/25 02/20/25 15:00 23:00 07:00 Intake Total 1183.33 ml Output Total 300 ml Balance 883.33 ml medications Current Medications Medications Dose Ordered Sig/Neha Route Start Time Stop Time Status Last Admin Dose Admin Pantoprazole Sodium 40 mg BID IV 02/20/25 10:00 02/20/25 10:29 40 MG Piperacillin Sod/ Tazobactam Sod 100 ml @ 25 mls/hr Q6HR IV 02/20/25 00:00 02/20/25 05:30 25 MLS/HR Ondansetron HCl 4 mg Q4HPRN PRN IV 02/19/25 20:30 02/20/25 11:33 4 MG Diagnostic Test (Pha) 1 strip Q6HR 02/20/25 00:00 02/20/25 05:30 1 STRIP Insulin Human Regular Q6HR SC 02/20/25 00:00 02/20/25 05:31 16 UNITS Dextrose 50 ml UD PRN IV 02/19/25 20:30 Nitroglycerin 0.4 mg Q5MINP PRN SL 02/19/25 20:30 Morphine Sulfate 2 mg Q30M PRN IV 02/19/25 20:30 Morphine Sulfate 2 mg Q6HPRN PRN IV 02/20/25 00:45 02/20/25 11:33 2 MG Insulin Glargine 10 units HS SC 02/20/25 00:00 02/20/25 01:02 10 UNITS objective GENERAL: Alert and oriented x 3. No acute distress. Pale appearing. EYES: PERRL, EOMI. Anicteric. HENT: Moist mucous membranes. LUNGS: Clear to auscultation bilaterally. CARDIOVASCULAR: Regular rate and rhythm. ABDOMEN: Colostomy to right lower abdomen, bright-red feces. EXTREMITIES: No edema. NEUROLOGIC: No focal neurological deficits. SKIN: Warm, dry. laboratory and microbiology Laboratory Tests 02/20/25 07:57 02/20/25 04:03 Test 02/20/25 04:03 Range/Units Serum Glucose 324 #H 74-106 mg/dL Problem List A Fib with RVR. GI bleed. Abdominal wall thickening. Acute blood loss anemia. Diabetes mellitus type 2 with hyperglycemia. HTN. HLD. Assessment/Plan Continued all current supportive medical care. Echocardiogram. IV Amiodarone. Morphine for pain management. GI prophylactics. IV antibiotics as ordered. Additional plan as per the hospital course. Plan discussed with: Patient CC Plasma Assessment Blood Product Administration S: [id number] WEST MARTEL MD Feb 20, 2025 11:55
--- NOTE | 2025-02-20 23:24 | ECG ---
[facility] Test Date: 2025-02-19 Test Time: 16:20:28 Pat Name: LUIS FERNANDO JOSHI Department: Room: [address] [place] [address] Gender: M Certified Shorthand Reporter: GUILLAUME : 1965 Requested By: ADA HOWELL Order Number: [id number] Reading MD: Francisco Walton Measurements Intervals [place] Rate: 155 P: 0 ME: 0 QRS: -56 QRSD: 135 T: 94 QT: 371 QTc: 596 Interpretive Statements sinus tachycardia with a right bundle branch block Electronically Signed On 02-21-2025 16:22:57 PDT by Francisco Walton Please click the below link to view image of tracing.
[2025-02-21] VITALS (82 sets, daily range): BP systolic 61–155; BP diastolic 24–114; PULSE 107–201; RESP 11–31; TEMP 97.8–99.8; O2SAT 92–100
[2025-02-21] MEDS: MIDAZOLAM HCL 2MG/2ML 2ml VIAL (1mg/ml) ONE ×2 (01:33→01:34)
[2025-02-21] MEDS: MIDAZOLAM HCL 2MG/2ML 2ml VIAL (1mg/ml) IV ONE ×2 (02:06)
[2025-02-21] MEDS: METOPROLOL TARTRATE 1MG/1ML-5ML VIAL IV ONE (03:32)
[2025-02-21] MEDS: AMIODARONE 360mg/200mL PREMIX 200 ML IV SCH (03:43)
[2025-02-21] MEDS: AMIODARONE BOLUS KIT 100 ML IV ONE (03:43)
--- NOTE | 2025-02-21 04:33 | DVHOP ---
DATE OF SURGERY: 02/21/2025 TECHNIQUES PERFORMED: * Emergency case. * Electrical cardioversion. * Management of the conscious sedation. ASSISTANTS: Assisted by our staff over here is Apryl, she is an ICU nurse; Kortney, she is also an ICU nurse. LOCATION OF THE PATIENT: Emergency Room #9. INDICATIONS: The patient had atrial flutter with a rapid ventricular response, did not respond to IV amiodarone, did not respond to intravenous digoxin treatment also. DESCRIPTION OF PROCEDURE: Risks and benefits discussed, counseling done, questions answered. Information given. He had given me informed consent. He was given IV Versed 2 mg. Conscious sedation obtained. The electrical pads had been applied. It had been electrical cardioversion machine. He was put on a synchronous joules of 120 joules. After that, he was given 120 joules in a synchronous manner. The patient converted to sinus tachycardia. His heart rate was 160, now it is 115 per minute with underlying sinus tachycardia. CONCLUSION: Successful electrical cardioversion, no complications. PLAN OF ACTION: As follows: At this time, this patient needs to have endoscopy, so we are going to start him on IV amiodarone treatment, Cardizem treatment at this time, but he is cardiac clear. Ricky Nunes MD MP/AMANDEEP/DIEGO TID: [id number] RECEIPT: [id number] MTDD
[2025-02-21 04:38] LABS: Hematocrit 26.7 % (41.0-53.0); Hemoglobin 8.9 g/dL (13.5-17.5); Mean Corpuscular Hemoglobin 30.6 pg (28.0-32.0); Mean Corpuscular Volume 91.4 fL (80.0-100.0); Nucleated Red Blood Cells % 0.1 %
[2025-02-21 04:51] LABS: Chloride 103 mmol/L (98-107); Potassium 3.8 mmol/L (3.5-5.1); Sodium 137 mmol/L (136-145)
[2025-02-21 04:52] LABS: Anion Gap 7 (5-15); Carbon Dioxide 27 mmol/L (20-31)
[2025-02-21 04:53] LABS: Calcium 8.8 mg/dL (8.7-10.4)
[2025-02-21 04:58] LABS: BUN/Creatinine Ratio 12.0 (10.0-20.0); Blood Urea Nitrogen 12 mg/dL (9-23)
[2025-02-21 04:59] LABS: Glucose 154 mg/dL (74-106)
[2025-02-21] MEDS: MAGNESIUM SULFATE 1GM/100ML 100 ML IV SCH (05:48)
--- NOTE | 2025-02-21 07:39 | DVHPN2 ---
Progress Note Date Seen: Feb 21, 2025 Medical Necessity Reason Pt with a Central, PICC or Fol: No Subjective Patient reports: No new complaints Review of Systems: HEENT:Normal, CVS:Abnormal, RESPIRATORY:Normal, GI:Abnormal Objective vital signs Vital Sign Date Time Temp Pulse Resp B/P (MAP) Pulse Ox O2 Delivery O2 Flow Rate FiO2 02/21/25 06:30 123 18 114/39 (64) 100 02/21/25 04:01 98.8 98.8 02/21/25 02:15 Nasal Cannula* 2 28 Total Intake and Output 02/20/25 02/20/25 02/21/25 15:00 23:00 07:00 Intake Total 751 ml 900 ml 348.29 ml Output Total 0 ml 450 ml 465 ml Balance 751 ml 450 ml -116.71 ml medications Current Medications Medications Dose Ordered Sig/Neha Route Start Time Stop Time Status Last Admin Dose Admin Pantoprazole Sodium 40 mg BID IV 02/20/25 10:00 02/20/25 21:44 40 MG Piperacillin Sod/ Tazobactam Sod 100 ml @ 25 mls/hr Q6HR IV 02/20/25 00:00 02/21/25 05:47 25 MLS/HR Ondansetron HCl 4 mg Q4HPRN PRN IV 02/19/25 20:30 02/20/25 18:16 4 MG Diagnostic Test (Pha) 1 strip Q6HR 02/20/25 00:00 02/21/25 05:47 1 STRIP Insulin Human Regular Q6HR SC 02/20/25 00:00 02/20/25 14:32 4 UNITS Dextrose 50 ml UD PRN IV 02/19/25 20:30 Nitroglycerin 0.4 mg Q5MINP PRN SL 02/19/25 20:30 Morphine Sulfate 2 mg Q30M PRN IV 02/19/25 20:30 Morphine Sulfate 2 mg Q6HPRN PRN IV 02/20/25 00:45 02/21/25 00:43 2 MG Insulin Glargine 10 units HS SC 02/20/25 00:00 02/20/25 21:44 10 UNITS Amiodarone HCL/ Dextrose 200 ml @ 33.33 mls/ hr Q12H IV 02/21/25 01:45 02/21/25 03:43 33.33 MLS/HR Diltiazem HCl 125 ml @ 0 mls/hr Q0M IV 02/21/25 01:45 02/21/25 04:08 5 MLS/HR Magnesium Sulfate/ Dextrose 100 ml @ 100 mls/hr Q1HR IV 02/21/25 06:00 02/21/25 09:59 02/21/25 06:39 100 MLS/HR Examination: GENERAL:Normal, LUNGS:Normal, CVS:Abnormal, ABDOMEN:Abnormal laboratory and microbiology Laboratory Tests 02/21/25 03:52 Test 02/21/25 03:52 Range/Units Serum Glucose 154 #H 74-106 mg/dL Problem List/Assessment/Plan Problem List/Assessment/Plan 1) GI bleed 2) Anemia 2/2 above s/p PRBC transfusion 3) Afib RVR s/p DCCV 4) Duodenitis/colitis 5) Obesity 6) HTN 7) s/p colostomy, done 9 years ago 8) Chronic pain Sx plan; 02/20----patient hgb most recent 7.8 and will transfuse blood as necessary for Hgb <7, will continue to trend H/H q6h, on IV ABx zosyn, PPI IV, GI consulted on the case and patient is NPO. amio gtt started due to afib RVR with cardiology consult, echo pending, continue all care, daily labs, wellness consultant input appreciated, will follow along 02/21---most recent hgb 8.9 after 2 units PRBCs transfused yesterday, will continue to trend H/H, on IV ABx with Zosyn, remains NPO, was seen by cardiology earlier this AM and underwent successful DCCV as he was in afib HR 150s now cardioverted and is now sinus tachycardia, he is still on amio gtt and started on cardizem gtt fixed rate as per cardiology and is to continue these drips until endoscopy is done, GI on board and will plan for EGD, he is cardiac cleared to have endoscopy, continue all care, daily labs, will follow along Plan discussed with: Other (n) YASIR MARTIN MD Feb 21, 2025 07:39
--- NOTE | 2025-02-21 13:33 | DVHSR ---
APPROVED REPORT EXAM: Two-dimensional and M-mode echocardiogram with Doppler and color Doppler. Blood Pressure: 131/57 mmHg INDICATION Atrial fib with RVR RISK FACTORS Height: 74, Weight: 350 DIMENSIONS LVDd5.3 (3.8-5.7cm)LA (2D)5.2 (1.9-4.0cm)Aortic Root4.0 (2.0-3.7cm) LVDs3.9 (2.5-4.0cm)LA (MM) (1.9-4.0cm)Aortic Cusp Exc2.2 (1.5-2.0cm) EF (%) 52.0 (55-70%)Rt. Atrium5.6 (1.9-4.0cm)Asc. Aorta cm IVSd1.1 (0.7-1.1cm)RV (D) (1.8-2.4cm) PWd1.9 (0.7-1.1cm) Mitral Valve MitralMitral Stenosis E wave1.22m/sMV Mean GR.mmHg E/A ratio0.02D MVAcm2 Aortic Valve Aortic ValveAortic Stenosis V10.99m/Dimitri Mean GR.4mmHg V21.33m/Dimitri Peak GR.7mmHg LVOT Diameter2.5 (1.8-2.4cm)Doppler AVA3.65cm2 Pulmonic Valve V21.04m/s Tricuspid Valve TR Velocity2.37m/s [id number] Other Information Technically limited study due to high heart rate. Patient was laying flat on his back during exam. Conclusion Technically good study. Underlying tachycardia Biatrial enlargement. Concentric LVH. RV enlargement. Mild mitral annular calcification. Mild aortic sclerosis. Left ventricular function is preserved at 60% with normal RV function Trace MR. Mild PI. Mild TR. No pericardial effusion masses or vegetations.
[2025-02-21] MEDS: PANTOPRAZOLE 40mg/50ML NS AE 50 ML IV SCH (14:37)
[2025-02-21] MEDS: HYALURONIDASE 150 UNIT/1 ML SUBCUT ONE (14:45)
[2025-02-21 14:47] LABS: Hematocrit 16.6 % (41.0-53.0)
[2025-02-21 14:55] LABS: Hemoglobin 5.4 g/dL (13.5-17.5)
[2025-02-21] MEDS: NOREPINEPHRINE 8 MG/250ML KIT 250 ML IV SCH (15:15)
[2025-02-21] MEDS: OCTREOTIDE ACETATE 500 MCG in SODIUM CHL 0.9% 99 ML IV SCH (16:23)
[2025-02-21] MEDS: LIDOCAINE 1% (LOCAL ANESTH.) PF 5ml SDV ID ONE (17:43)
--- NOTE | 2025-02-21 18:59 | ECG ---
[facility] Test Date: 2025-02-21 Test Time: 01:43:12 Pat Name: LUIS FERNANDO JOSHI Department: Room: [address] [place] [address] A Gender: M Patient Registration Manager: IVON : 1965 Requested By: WEST MARTEL Order Number: [id number] Reading MD: Francisco Walton Measurements Intervals [place] Rate: 116 P: -2 IN: 179 QRS: -12 QRSD: 138 T: 146 QT: 384 QTc: 534 Interpretive Statements Sinus tachycardia Probable left atrial enlargement Nonspecific intraventricular conduction delay Repol abnrm suggests ischemia, anterolateral Electronically Signed On 02-22-2025 17:56:26 PDT by Francisco Walton Please click the below link to view image of tracing.
--- NOTE | 2025-02-21 19:24 | DVHPN2 ---
Progress Note - Dictate Date Seen: Feb 21, 2025 Medical Necessity Reason Pt with a Central, PICC or Fol: No Subjective Patient was seen and evaluated in follow up in the ICU. Patient underwent successful electrical cardioversion, no complications. At this time, this patient needs to have endoscopy, so we are going to start him on IV amiodarone treatment, Cardizem treatment at this time. The patient is cardiac clear. Patient is on 3 LPM NC. HGB 8.9, HCT 26.7, GLUC 202. vital signs Vital Sign Date Time Temp Pulse Resp B/P (MAP) Pulse Ox O2 Delivery O2 Flow Rate FiO2 02/21/25 07:30 119 19 95 Room Air* 0 21 02/21/25 06:30 114/39 (64) 02/21/25 04:01 98.8 98.8 Total Intake and Output 02/20/25 02/20/25 02/21/25 15:00 23:00 07:00 Intake Total 751 ml 900 ml 348.29 ml Output Total 0 ml 450 ml 465 ml Balance 751 ml 450 ml -116.71 ml medications Current Medications Medications Dose Ordered Sig/Neha Route Start Time Stop Time Status Last Admin Dose Admin Piperacillin Sod/ Tazobactam Sod 100 ml @ 25 mls/hr Q6HR IV 02/20/25 00:00 02/21/25 11:47 25 MLS/HR Ondansetron HCl 4 mg Q4HPRN PRN IV 02/19/25 20:30 02/20/25 18:16 4 MG Diagnostic Test (Pha) 1 strip Q6HR 02/20/25 00:00 02/21/25 05:47 1 STRIP Insulin Human Regular Q6HR SC 02/20/25 00:00 02/20/25 14:32 4 UNITS Dextrose 50 ml UD PRN IV 02/19/25 20:30 Nitroglycerin 0.4 mg Q5MINP PRN SL 02/19/25 20:30 Morphine Sulfate 2 mg Q30M PRN IV 02/19/25 20:30 Morphine Sulfate 2 mg Q6HPRN PRN IV 02/20/25 00:45 02/21/25 00:43 2 MG Insulin Glargine 10 units HS SC 02/20/25 00:00 02/20/25 21:44 10 UNITS Amiodarone HCL/ Dextrose 200 ml @ 33.33 mls/ hr Q12H IV 02/21/25 01:45 02/21/25 09:11 33.33 MLS/HR Diltiazem HCl 125 ml @ 0 mls/hr Q0M IV 02/21/25 01:45 02/21/25 04:08 5 MLS/HR Pantoprazole Sodium 80 mg BID IV 02/21/25 22:00 objective GENERAL: Alert and oriented x 3. No acute distress. Pale appearing. EYES: PERRL, EOMI. Anicteric. HENT: Moist mucous membranes. LUNGS: Clear to auscultation bilaterally. CARDIOVASCULAR: Regular rate and rhythm. ABDOMEN: Colostomy to right lower abdomen, bright-red feces. EXTREMITIES: No edema. NEUROLOGIC: No focal neurological deficits. SKIN: Warm, dry. laboratory and microbiology Laboratory Tests 02/21/25 03:52 Test 02/21/25 03:52 Range/Units Serum Glucose 154 #H 74-106 mg/dL Problem List A Fib with RVR. GI bleed. Abdominal wall thickening. Acute blood loss anemia. Diabetes mellitus type 2 with hyperglycemia. HTN. HLD. Assessment/Plan Continued all current supportive medical care. Echocardiogram. IV Amiodarone. IV Cardizem. Morphine for pain management. GI prophylactics. IV antibiotics as ordered. Additional plan as per the hospital course. Critical care time of 45 minutes provided to include time spent evaluation of patient at bedside, when appropriate patient/family education for diagnosis, treatment plan, review of pertinent medical information and discussion of care with specialty providers and PCP. Plan discussed with: Patient CC Plasma Assessment Blood Product Administration S: 10:45 WEST MARTEL MD Feb 21, 2025 12:15
[2025-02-21] MEDS: SODIUM CHLOR 0.9% PF (SALINE LOCK) 10ML VIAL/SYR IV SCH (21:07)
[2025-02-21] MEDS ORDERED: PANTOPRAZOLE 40 MG/10 ML VIAL INJ IV SCH (22:00)
[2025-02-21] MEDS: SODIUM CHLORIDE 0.9% 1,000 ML IV SCH (22:30)
[2025-02-21 22:34] LABS: Hematocrit 19.0 % (41.0-53.0)
[2025-02-21 22:49] LABS: Hemoglobin 6.3 g/dL (13.5-17.5)
--- NOTE | 2025-02-21 23:06 | DVHPN2 ---
Progress Note - Dictate Date Seen: Feb 21, 2025 (Late entryPatient seen at 10:00 a.m.) Medical Necessity Reason Pt with a Central, PICC or Fol: No Subjective Patient underwent cardioversion this morning and converted successfully to sinus rhythm Patient has had sinus tachycardia, patient had a hemoglobin of 8.9 this morning and was hemodynamically stable However later this afternoon the nurse reported a moderate amount of bleeding via the colostomy are most 1500 mL were reported His hemoglobin dropped down to 5.4. Patient has since received two more units of PRBC and last hemoglobin is reported at 6.3 Total 4 units PRBC during this admission and I believe patient may have received 2 units PRBC and [facility] Patient is known to me from [facility]. Patient had a similar episode of GI bleeding in October of 2021 I believe at that time his endoscopy had been suggestive of a duodenal ulcer that was treated with PPI, records have to be reviewed Patient has had a history of morbid obesity and a large right spigelian hernia containing mesenteric fat and bowel. Patient had followed up with MORENA Ochoa for possible repair of this hernia however he had been advised to lose weight vital signs Vital Sign Date Time Temp Pulse Resp B/P (MAP) Pulse Ox O2 Delivery O2 Flow Rate FiO2 02/21/25 22:28 110 17 107/55 02/21/25 20:40 98.3 98.3 02/21/25 18:45 100 02/21/25 07:30 Room Air* 0 21 Total Intake and Output 02/20/25 02/20/25 02/21/25 15:00 23:00 07:00 Intake Total 751 ml 900 ml 348.29 ml Output Total 0 ml 450 ml 465 ml Balance 751 ml 450 ml -116.71 ml medications Current Medications Medications Dose Ordered Sig/Neha Route Start Time Stop Time Status Last Admin Dose Admin Piperacillin Sod/ Tazobactam Sod 100 ml @ 25 mls/hr Q6HR IV 02/20/25 00:00 02/21/25 17:15 25 MLS/HR Ondansetron HCl 4 mg Q4HPRN PRN IV 02/19/25 20:30 02/20/25 18:16 4 MG Diagnostic Test (Pha) 1 strip Q6HR 02/20/25 00:00 02/21/25 17:15 1 STRIP Insulin Human Regular Q6HR SC 02/20/25 00:00 02/21/25 18:22 8 UNITS Dextrose 50 ml UD PRN IV 02/19/25 20:30 Nitroglycerin 0.4 mg Q5MINP PRN SL 02/19/25 20:30 Morphine Sulfate 2 mg Q30M PRN IV 02/19/25 20:30 Morphine Sulfate 2 mg Q6HPRN PRN IV 02/20/25 00:45 02/21/25 22:28 2 MG Insulin Glargine 10 units HS SC 02/20/25 00:00 02/20/25 21:44 10 UNITS Amiodarone HCL/ Dextrose 200 ml @ 33.33 mls/ hr Q12H IV 02/21/25 01:45 02/21/25 19:56 33.33 MLS/HR Diltiazem HCl 125 ml @ 0 mls/hr Q0M IV 02/21/25 01:45 02/21/25 21:52 5 MLS/HR Pantoprazole Sodium 80 mg BID IV 02/21/25 22:00 Cancel Pantoprazole Sodium 50 ml @ 10 mls/hr Q5H IV 02/21/25 13:45 02/21/25 21:51 10 MLS/HR Norepinephrine Bitartrate 250 ml @ 3.75 mls/hr Q24H IV 02/21/25 15:15 Octreotide Acetate 500 mcg/ Sodium Chloride 100 ml @ 10 mls/hr Q10H IV 02/21/25 15:15 02/21/25 21:53 10 MLS/HR Sodium Chloride 10 ml QSHIFT@10,22 IV 02/21/25 22:00 02/21/25 21:07 10 ML Sodium Chloride 1,000 ml @ 125 mls/hr Q8H IV 02/21/25 22:30 objective GENERAL: Sleeping not in acute distress, male, lying in bed, morbidly obese. HEENT: Normocephalic, atraumatic. Extraocular muscles are intact. Pupils are equally round and reactive to light and accommodation. Mucous membranes looked moist. CARDIOVASCULAR: S1, S2 positive. Irregularly irregular rhythm. No rubs, gallops or murmurs. LUNGS: Bilateral inspiratory rhonchi. Otherwise, no rales. ABDOMEN: Obese. Soft. Tenderness is kind of diffuse in the right mid, upper and lower abdominal quadrants. No guarding. No rebound. No abdominal rigidity. Bowel sounds again are present. The patient does have a colostomy present in the left lower mid quadrant area. There seems to be coffee ground-like material within the colostomy bag. EXTREMITIES: Lower extremity does have chronic venous skin changes with darkening of the skin. No edema. No clubbing. No cyanosis. NEUROLOGIC: No focal deficits. laboratory and microbiology Laboratory Tests 02/21/25 22:30 02/21/25 03:52 Test 02/21/25 03:52 Range/Units Serum Glucose 154 #H 74-106 mg/dL Problems(with codes): (1) Anemia (2) Colostomy hemorrhage (3) GI bleed Prognosis Plan Patient is going to be transfused two more units PRBC, two of FFP and one pack of platelets We are going to continue to monitor labs H&H every 8 hours IV Protonix drip at 10 milligrams/hour IV Sandostatin drip at 50 mics per hour Patient is also on a Cardizem and amiodarone drip for his AFib Cardiology is monitoring closely I will follow up patient with you I have tentatively schedule the patient for an endoscopy on 02/22/2025 but we will be standing by for an earlier endoscopy if patient's condition deteriorates Plan discussed with: Other (ICU Nurse) CC Plasma Assessment Blood Product Administration S: 10:45 EL NUNES MD Feb 21, 2025 23:06
[2025-02-22] VITALS (106 sets, daily range): BP systolic 95–129; BP diastolic 20–98; PULSE 105–110; RESP 11–22; TEMP 98.1–99.1; O2SAT 84–100
[2025-02-22] MEDS: SODIUM CHLORIDE 0.9% 1,000 ML IV SCH (01:57)
[2025-02-22 04:10] LABS: Hematocrit 21.9 % (41.0-53.0); Hemoglobin 7.5 g/dL (13.5-17.5); Nucleated Red Blood Cells % 0.1 %
[2025-02-22 04:20] LABS: Chloride 103 mmol/L (98-107); Potassium 3.6 mmol/L (3.5-5.1); Sodium 138 mmol/L (136-145)
[2025-02-22 04:21] LABS: Anion Gap 2 (5-15)
[2025-02-22 04:26] LABS: BUN/Creatinine Ratio 16.0 (10.0-20.0); Blood Urea Nitrogen 13 mg/dL (9-23); Mean Corpuscular Hemoglobin 30.5 pg (28.0-32.0); Mean Corpuscular Volume 89.4 fL (80.0-100.0)
[2025-02-22 04:59] LABS: Calcium 7.3 mg/dL (8.7-10.4); Carbon Dioxide 33 mmol/L (20-31); Glucose 216 mg/dL (74-106); Magnesium 1.5 mg/dL (1.6-2.6)
--- NOTE | 2025-02-22 07:00 | DVHPN2 ---
Progress Note Date Seen: Feb 22, 2025 Medical Necessity Reason Pt with a Central, PICC or Fol: No Subjective Patient reports: No new complaints Review of Systems: CVS:Normal, RESPIRATORY:Normal, GI:Abnormal Objective vital signs Vital Sign Date Time Temp Pulse Resp B/P (MAP) Pulse Ox O2 Delivery O2 Flow Rate FiO2 02/22/25 06:33 108 14 113/36 02/22/25 05:41 99.0 99.0 02/22/25 02:15 95 02/21/25 20:00 Room Air* 4 N/A Nasal Cannula* Total Intake and Output 02/21/25 02/21/25 02/22/25 15:00 23:00 07:00 Intake Total 616.64 ml 778.31 ml 812.48 ml Output Total 1700 ml 560 ml Balance 616.64 ml -921.69 ml 252.48 ml medications Current Medications Medications Dose Ordered Sig/Neha Route Start Time Stop Time Status Last Admin Dose Admin Piperacillin Sod/ Tazobactam Sod 100 ml @ 25 mls/hr Q6HR IV 02/20/25 00:00 02/22/25 06:24 25 MLS/HR Ondansetron HCl 4 mg Q4HPRN PRN IV 02/19/25 20:30 02/20/25 18:16 4 MG Diagnostic Test (Pha) 1 strip Q6HR 02/20/25 00:00 02/22/25 06:42 1 STRIP Insulin Human Regular Q6HR SC 02/20/25 00:00 02/22/25 06:44 8 UNITS Dextrose 50 ml UD PRN IV 02/19/25 20:30 Nitroglycerin 0.4 mg Q5MINP PRN SL 02/19/25 20:30 Morphine Sulfate 2 mg Q30M PRN IV 02/19/25 20:30 Morphine Sulfate 2 mg Q6HPRN PRN IV 02/20/25 00:45 02/22/25 06:33 2 MG Insulin Glargine 10 units HS SC 02/20/25 00:00 02/20/25 21:44 10 UNITS Amiodarone HCL/ Dextrose 200 ml @ 33.33 mls/ hr Q12H IV 02/21/25 01:45 02/22/25 06:23 33.33 MLS/HR Diltiazem HCl 125 ml @ 0 mls/hr Q0M IV 02/21/25 01:45 02/21/25 21:52 5 MLS/HR Pantoprazole Sodium 80 mg BID IV 02/21/25 22:00 Cancel Pantoprazole Sodium 50 ml @ 10 mls/hr Q5H IV 02/21/25 13:45 02/22/25 06:25 10 MLS/HR Norepinephrine Bitartrate 250 ml @ 3.75 mls/hr Q24H IV 02/21/25 15:15 02/21/25 23:12 3.75 MLS/HR Octreotide Acetate 500 mcg/ Sodium Chloride 100 ml @ 10 mls/hr Q10H IV 02/21/25 15:15 02/21/25 21:53 10 MLS/HR Sodium Chloride 10 ml QSHIFT@10,22 IV 02/21/25 22:00 02/21/25 21:07 10 ML Sodium Chloride 1,000 ml @ 125 mls/hr Q8H IV 02/21/25 22:30 02/22/25 23:30 02/21/25 22:30 125 MLS/HR Sodium Chloride 1,000 ml @ 75 mls/hr [id number] IV 02/22/25 01:45 02/22/25 01:57 75 MLS/HR Examination: GENERAL:Normal, LUNGS:Normal, CVS:Normal, ABDOMEN:Normal laboratory and microbiology Laboratory Tests 02/22/25 03:10 Test 02/22/25 03:10 Range/Units Serum Glucose 216 H 74-106 mg/dL Problem List/Assessment/Plan Problem List/Assessment/Plan 1) GI bleed 2) Anemia 2/2 above s/p PRBC transfusion 3) Afib RVR s/p DCCV 4) Duodenitis/colitis 5) Obesity 6) HTN 7) s/p colostomy, done 9 years ago 8) Chronic pain Sx plan; 02/20----patient hgb most recent 7.8 and will transfuse blood as necessary for Hgb <7, will continue to trend H/H q6h, on IV ABx zosyn, PPI IV, GI consulted on the case and patient is NPO. amio gtt started due to afib RVR with cardiology consult, echo pending, continue all care, daily labs, pre sales technical consultant input appreciated, will follow along 02/21---most recent hgb 8.9 after 2 units PRBCs transfused yesterday, will continue to trend H/H, on IV ABx with Zosyn, remains NPO, was seen by cardiology earlier this AM and underwent successful DCCV as he was in afib HR 150s now cardioverted and is now sinus tachycardia, he is still on amio gtt and started on cardizem gtt fixed rate as per cardiology and is to continue these drips until endoscopy is done, GI on board and will plan for EGD, he is cardiac cleared to have endoscopy, continue all care, daily labs, will follow along 02/22---Hgb yesterday dropped from 8.9 to 5.4 and he was transfused 2 units and repeat Hgb was 6.3 and thus another 2 more units of blood were ordered for transfusion and most recent hgb is 7.5 with the last unit transfusing now, he is now started on levophed for vasopressor support currently on 10 mcg levophed, GI is planning for EGD today, he is on PPI/octreotide gtt. NS at 125 ml/hr for hydration, as mentioned yesterday 02/21 the patient was cardioverted by cardiology for afib/flutter and now is sinus tachycardia on cardizem and amio gtts which are to be continued until endoscopy is done, will continue to trend Hgb and transfuse blood as needed, daily labs, supportive care, GI/cardiology consults appreciated, will continue to follow along with you Plan discussed with: Other (n) YASIR MARTIN MD Feb 22, 2025 07:00
[2025-02-22 07:38] LABS: INR 1.16 (0.9-1.15); Prothrombin Time 12.1 sec (9.3-11.8)
[2025-02-22] MEDS ORDERED: fentaNYL CITRATE 100 MCG/2 ML VL ONE (09:31)
--- NOTE | 2025-02-22 10:01 | DVHOP2 ---
Operative Report DATE OF OPERATION: 02/22/25 PROCEDURE: Upper Endoscopy with biopsy PREOPERATIVE INDICATION: The patient is a 59 -year-old male undergoing endoscopy for massive GI bleeding via ileostomy and prior history of duodenal ulcer disease and anemia POSTOPERATIVE DIAGNOSES: 1. Multiple and extensive ulceration of the postbulbar area of the duodenal with the surrounding duodenitis but no visible vessel or active bleeding at this time 2. 1-2 cm sliding-type hiatal hernia, minimal gastritis, otherwise normal examination up to the 2nd and 3rd part of the duodenal with no fresh or old blood in the upper GI tract PROCEDURE PERFORMED BY: [facility] NURSE: Janeth SCOPE: Olympus videoendoscope. ASA CLASS: 3 PREOPERATIVE MEDICATIONS: Mac sedationDr. Anderson PROCEDURE IN DETAIL: After obtaining an informed consent, the patient was placed on left lateral decubitus position. The patient was then sedated with the above medications. A bite block was placed between his teeth. The endoscope was then passed through the oropharynx, into the esophagus, and through the stomach and pylorus up to the second and third part of the duodenum. The endoscope was then withdrawn. The 2nd and 3rd part of the duodenum were normal. Patient had moderate duod enitis with extensive ulceration in the postbulbar area of the duodenum There were multiple medium and larger sized duodenal ulcers in this area. There were Shahab classification C with no active bleeding and no visible vessel at this time There was no fresh or old blood in the upper GI tract at this time. Patient had minimal gastritis. Duodenal and gastric biopsies were obtained. On retroflexion the fundus and cardia were normal. The endoscope was then withdrawn into the distal esophagus Patient had a 1-2 cm sliding-type hiatal hernia with no significant erosive esophagitis The remaining distal and proximal esophagus and oropharynx were unremarkable The patient tolerated the procedure well without difficulty. COMPLICATIONS : None SPECIMENS: Duodenal biopsies Gastric biopsies DISPOSITION: Transfer back to the ICU Stable PLAN: 1. Await for biopsy result 2. Continue Protonix drip at 10 milligrams/hour 3. Taper off IV Sandostatin drip once the current bag finishes 4. Trial of ice chips only and monitor labs 5. Carafate suspension 1 g p.o. 4 times a day 6. Patient has been extensively counseled about discontinuing aspirin and NSAIDs. Patient does take NSAIDs intermittently 7. 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
[2025-02-22] MEDS: SUCRALFATE 1 GM/10 ML ORAL SUSP PO SCH (11:35)
--- NOTE | 2025-02-22 16:27 | DVH ---
RIGHT UPPER EXTREMITY VENOUS DUPLEX REASON FOR EXAMINATION: RUE swelling, redness, and pain. COMPARISON: None TECHNIQUE: Using real-time freeze-frame technique with a high-frequency transducer, multiple longitu dinal and transverse sections were obtained. Simultaneous color flow and spectral Doppler imaging wa s performed. FINDINGS: Deep veins Internal jugular vein: Compressible. No thrombus identified. Expected Doppler flow. Subclavian vein: Expected Doppler flow. Axillary vein: Compressible. No thrombus identified. Expected Doppler flow. Brachial vein: Compressible. No thrombus identified. Expected Doppler flow. Radial vein: Compressible. No thrombus identified. Expected Doppler flow. Ulnar vein: Compressible. No thrombus identified. Expected Doppler flow. Superficial veins Cephalic vein: Compressible. No thrombus identified. Expected Doppler flow. Basilic vein: Compressible. No thrombus identified. Expected Doppler flow. There is edema of the subcutaneous tissues in the right upper extremity. IMPRESSION: No evidence of deep venous thrombosis.
--- NOTE | 2025-02-22 16:38 | DVH ---
VASCULAR ACCESS PROCEDURE REASON FOR EXAM: picc line placement FINDINGS: A single sonographic image was submitted. The Sherlock 3CG tip confirmation system image wa s also saved. Please refer to the operative report for details. IMPRESSION: Vascular access procedure. Please refer to the operative report for details.
[2025-02-22 23:00] LABS: Nucleated Red Blood Cells % 0.1 %
[2025-02-22 23:02] LABS: Hematocrit 17.6 % (41.0-53.0); Mean Corpuscular Hemoglobin 30.0 pg (28.0-32.0); Mean Corpuscular Volume 89.4 fL (80.0-100.0)
[2025-02-22 23:20] LABS: Hemoglobin 5.9 g/dL (13.5-17.5)
--- NOTE | 2025-02-22 23:52 | DVHPN2 ---
Progress Note - Dictate Date Seen: Feb 22, 2025 Medical Necessity Reason Pt with a Central, PICC or Fol: No Subjective Patient was seen and evaluated in follow up in the ICU. Patient is on 4 LPM NC. Patient went upper endoscopy which showed multiple and extensive ulceration of the postbulbar area of the duodenal with the surrounding duodenitis but no visible vessel or active bleeding at this time, 1-2 cm sliding-type hiatal hernia, minimal gastritis, otherwise normal examination up to the 2nd and 3rd part of the duodenal with no fresh or old blood in the upper GI tract. HGB 7.5, HCT 21.9, CO2 33, CA 7.3. Patient on Amiodarone, Levophed and Octreotide drips. vital signs Vital Sign Date Time Temp Pulse Resp B/P (MAP) Pulse Ox O2 Delivery O2 Flow Rate FiO2 02/22/25 12:00 106 02/22/25 11:45 19 117/48 (71) 96 02/22/25 11:18 98.7 98.7 02/22/25 07:30 Room Air* 4 N/A Nasal Cannula* Total Intake and Output 02/21/25 02/21/25 02/22/25 15:00 23:00 07:00 Intake Total 616.64 ml 778.31 ml 1981.64 ml Output Total 1700 ml 560 ml Balance 616.64 ml -921.69 ml 1421.64 ml medications Current Medications Medications Dose Ordered Sig/Neha Route Start Time Stop Time Status Last Admin Dose Admin Piperacillin Sod/ Tazobactam Sod 100 ml @ 25 mls/hr Q6HR IV 02/20/25 00:00 02/22/25 11:35 25 MLS/HR Ondansetron HCl 4 mg Q4HPRN PRN IV 02/19/25 20:30 02/20/25 18:16 4 MG Diagnostic Test (Pha) 1 strip Q6HR 02/20/25 00:00 02/22/25 11:37 1 STRIP Insulin Human Regular Q6HR SC 02/20/25 00:00 02/22/25 06:44 8 UNITS Dextrose 50 ml UD PRN IV 02/19/25 20:30 Nitroglycerin 0.4 mg Q5MINP PRN SL 02/19/25 20:30 Morphine Sulfate 2 mg Q30M PRN IV 02/19/25 20:30 Morphine Sulfate 2 mg Q6HPRN PRN IV 02/20/25 00:45 02/22/25 06:33 2 MG Insulin Glargine 10 units HS SC 02/20/25 00:00 02/20/25 21:44 10 UNITS Amiodarone HCL/ Dextrose 200 ml @ 33.33 mls/ hr Q12H IV 02/21/25 01:45 02/22/25 12:18 33.33 MLS/HR Diltiazem HCl 125 ml @ 0 mls/hr Q0M IV 02/21/25 01:45 02/21/25 21:52 5 MLS/HR Pantoprazole Sodium 80 mg BID IV 02/21/25 22:00 Cancel Pantoprazole Sodium 50 ml @ 10 mls/hr Q5H IV 02/21/25 13:45 02/22/25 11:36 10 MLS/HR Norepinephrine Bitartrate 250 ml @ 3.75 mls/hr Q24H IV 02/21/25 15:15 02/22/25 11:36 11.25 MLS/HR Octreotide Acetate 500 mcg/ Sodium Chloride 100 ml @ 10 mls/hr Q10H IV 02/21/25 15:15 02/22/25 08:30 10 MLS/HR Sodium Chloride 10 ml QSHIFT@10,22 IV 02/21/25 22:00 02/22/25 10:42 10 ML Sodium Chloride 1,000 ml @ 125 mls/hr Q8H IV 02/21/25 22:30 02/22/25 23:30 02/21/25 22:30 125 MLS/HR Sodium Chloride 1,000 ml @ 75 mls/hr [id number] IV 02/22/25 01:45 02/22/25 01:57 75 MLS/HR Sucralfate 1 gm QID@0600,1130,1700,2200 PO 02/22/25 11:30 02/22/25 11:35 1 GM objective GENERAL: Alert and oriented x 3. No acute distress. Pale appearing. EYES: PERRL, EOMI. Anicteric. HENT: Moist mucous membranes. LUNGS: Clear to auscultation bilaterally. CARDIOVASCULAR: Regular rate and rhythm. ABDOMEN: Colostomy to right lower abdomen, bright-red feces. EXTREMITIES: No edema. NEUROLOGIC: No focal neurological deficits. SKIN: Warm, dry. laboratory and microbiology Laboratory Tests 02/22/25 03:10 Test 02/22/25 03:10 Range/Units Serum Glucose 216 H 74-106 mg/dL Problem List A Fib with RVR. GI bleed. Abdominal wall thickening. Acute blood loss anemia. Diabetes mellitus type 2 with hyperglycemia. HTN. HLD. Assessment/Plan Continued all current supportive medical care. Echocardiogram. IV Amiodarone. IV Cardizem. Morphine for pain management. GI prophylactics. IV antibiotics as ordered. Vasopressors for hemodynamic support. Additional plan as per the hospital course. Critical care time of 45 minutes provided to include time spent evaluation of patient at bedside, when appropriate patient/family education for diagnosis, treatment plan, review of pertinent medical information and discussion of care with specialty providers and PCP. Plan discussed with: Patient CC Plasma Assessment Blood Product Administration S: 10:45 WEST MARTEL MD Feb 22, 2025 13:30
[2025-02-23] VITALS (114 sets, daily range): BP systolic 82–147; BP diastolic 29–92; PULSE 104–119; RESP 12–25; TEMP 98.1–98.9; O2SAT 83–99
[2025-02-23 06:24] LABS: Anion Gap 3 (5-15); Chloride 104 mmol/L (98-107); Potassium 3.5 mmol/L (3.5-5.1); Sodium 140 mmol/L (136-145)
[2025-02-23 06:28] LABS: Calcium 6.6 mg/dL (8.7-10.4); Carbon Dioxide 33 mmol/L (20-31)
[2025-02-23 06:30] LABS: BUN/Creatinine Ratio 11.3 (10.0-20.0)
[2025-02-23 06:35] LABS: Blood Urea Nitrogen 8 mg/dL (9-23); Glucose 199 mg/dL (74-106)
[2025-02-23 06:45] LABS: Nucleated Red Blood Cells % 0.2 %
[2025-02-23 06:47] LABS: Hematocrit 18.9 % (41.0-53.0); Mean Corpuscular Hemoglobin 29.3 pg (28.0-32.0); Mean Corpuscular Volume 85.6 fL (80.0-100.0)
[2025-02-23 07:32] LABS: Hemoglobin 6.5 g/dL (13.5-17.5)
--- NOTE | 2025-02-23 10:50 | DVHPN2 ---
Progress Note - Dictate Date Seen: Feb 23, 2025 Medical Necessity Reason Pt with a Central, PICC or Fol: No Subjective Patient was seen and evaluated in follow up in the ICU. Patient is on 4 LPM NC. Patient is complaining of RUE pain. Patient had a drop in H&H and is receiving PRBC transfusion. MG 1.3, magnesium is being replaced. MRSA is positive. vital signs Vital Sign Date Time Temp Pulse Resp B/P (MAP) Pulse Ox O2 Delivery O2 Flow Rate FiO2 02/23/25 07:45 106 15 127/46 (73) 97 02/23/25 07:30 Room Air* 4 N/A Nasal Cannula* 02/23/25 04:42 98.1 98.1 Total Intake and Output 02/22/25 02/22/25 02/23/25 15:00 23:00 07:00 Intake Total 975.39 ml 2373.89 ml 2322.89 ml Output Total 830 ml 2700 ml Balance 975.39 ml 1543.89 ml -377.11 ml medications Current Medications Medications Dose Ordered Sig/Neha Route Start Time Stop Time Status Last Admin Dose Admin Piperacillin Sod/ Tazobactam Sod 100 ml @ 25 mls/hr Q6HR IV 02/20/25 00:00 02/23/25 05:34 25 MLS/HR Ondansetron HCl 4 mg Q4HPRN PRN IV 02/19/25 20:30 02/20/25 18:16 4 MG Diagnostic Test (Pha) 1 strip Q6HR 02/20/25 00:00 02/23/25 05:44 1 STRIP Insulin Human Regular Q6HR SC 02/20/25 00:00 02/23/25 05:49 4 UNITS Dextrose 50 ml UD PRN IV 02/19/25 20:30 Nitroglycerin 0.4 mg Q5MINP PRN SL 02/19/25 20:30 Morphine Sulfate 2 mg Q30M PRN IV 02/19/25 20:30 Morphine Sulfate 2 mg Q6HPRN PRN IV 02/20/25 00:45 02/23/25 02:05 2 MG Insulin Glargine 10 units HS SC 02/20/25 00:00 02/22/25 21:42 10 UNITS Amiodarone HCL/ Dextrose 200 ml @ 33.33 mls/ hr Q12H IV 02/21/25 01:45 02/23/25 06:42 33.33 MLS/HR Diltiazem HCl 125 ml @ 0 mls/hr Q0M IV 02/21/25 01:45 02/23/25 00:18 5 MLS/HR Pantoprazole Sodium 80 mg BID IV 02/21/25 22:00 Cancel Pantoprazole Sodium 50 ml @ 10 mls/hr Q5H IV 02/21/25 13:45 02/23/25 08:39 10 MLS/HR Norepinephrine Bitartrate 250 ml @ 3.75 mls/hr Q24H IV 02/21/25 15:15 02/23/25 03:14 18.75 MLS/HR Octreotide Acetate 500 mcg/ Sodium Chloride 100 ml @ 10 mls/hr Q10H IV 02/21/25 15:15 02/23/25 03:14 10 MLS/HR Sodium Chloride 10 ml QSHIFT@10,22 IV 02/21/25 22:00 02/22/25 21:41 10 ML Sodium Chloride 1,000 ml @ 75 mls/hr [id number] IV 02/22/25 01:45 02/22/25 15:05 75 MLS/HR Sucralfate 1 gm QID@0600,1130,1700,2200 PO 02/22/25 11:30 02/23/25 05:33 1 GM objective GENERAL: Alert and oriented x 3. No acute distress. Pale appearing. EYES: PERRL, EOMI. Anicteric. HENT: Moist mucous membranes. LUNGS: Clear to auscultation bilaterally. CARDIOVASCULAR: Regular rate and rhythm. ABDOMEN: Colostomy to right lower abdomen, bright-red feces. EXTREMITIES: No edema. NEUROLOGIC: No focal neurological deficits. SKIN: Warm, dry. laboratory and microbiology Laboratory Tests 02/23/25 05:45 Test 02/23/25 05:45 Range/Units Serum Glucose 199 H 74-106 mg/dL Problem List A Fib with RVR. GI bleed. Abdominal wall thickening. Acute blood loss anemia. Diabetes mellitus type 2 with hyperglycemia. HTN. HLD. Assessment/Plan Continued all current supportive medical care. Echocardiogram. IV Amiodarone. IV Cardizem. Morphine for pain management. GI prophylactics. IV antibiotics as ordered. Vasopressors for hemodynamic support. Additional plan as per the hospital course. Critical care time of 45 minutes provided to include time spent evaluation of patient at bedside, when appropriate patient/family education for diagnosis, treatment plan, review of pertinent medical information and discussion of care with specialty providers and PCP. Dietary Evaluation Review Comments: 1) If patient remains NPO > 7 days, consider EN/TPN to meet at least 75% of estimated daily needs 2) Advance to 60g CCHO cardiac diet when medically feasible 3) Refer to outpatient RD/CDCES for weight management 4) Continue to monitor I&O, labs, and skin integrity Expected Outcomes/Goals: 1) patient to receive nutritional support within 7 days of NPO status 2) labs to improve 3) diet to advance 4) f/u in 3-5 days Plan discussed with: Patient CC Plasma Assessment Blood Product Administration S: 10:45 WEST MARTEL MD Feb 23, 2025 10:50
--- NOTE | 2025-02-23 11:13 | MEDREC ---
[facility] Intervention Section I [facility] Intervention: Review courses of therapy (MRSA SCREEN POSITIVE CONSIDER ADDING MUPIROCIN 2% OINTMENT 1 APPLICATION IN EACH NOSTRIL BID FOR 5 DAYS ) NADINE HAUSER PHARMACIST Feb 23, 2025 11:13
[2025-02-23] MEDS ORDERED: PROPOFOL 10 MG/ML IV ONE (11:17)
[2025-02-23 12:45] LABS: Hematocrit 15.0 % (41.0-53.0)
[2025-02-23 12:50] LABS: Hemoglobin 5.1 g/dL (13.5-17.5)
--- NOTE | 2025-02-23 13:20 | DVHPN2 ---
Progress Note - Dictate Date Seen: Feb 23, 2025 Has the PT tested + for MRSA If YES, has PT been informed?: Yes Medical Necessity Reason Pt with a Central, PICC or Fol: No Subjective Patient overnight had large amount of blood loss through ileostomy. Patient hemoglobin dropped and patient is slightly tachycardic this morning and he recieved 2 units of PRBC transfusion overnight. Patient has been ordered an additional 2 more units this morning. GI has been notified of patient profuse bleeding. Patient is currently on minimal levophed. vital signs Vital Sign Date Time Temp Pulse Resp B/P (MAP) Pulse Ox O2 Delivery O2 Flow Rate FiO2 02/23/25 12:43 98.9 108 15 113/58 98.9 02/23/25 07:45 97 02/23/25 07:30 Room Air* 4 N/A Nasal Cannula* Total Intake and Output 02/22/25 02/22/25 02/23/25 15:00 23:00 07:00 Intake Total 975.39 ml 2373.89 ml 2322.89 ml Output Total 830 ml 2700 ml Balance 975.39 ml 1543.89 ml -377.11 ml medications Current Medications Medications Dose Ordered Sig/Neha Route Start Time Stop Time Status Last Admin Dose Admin Piperacillin Sod/ Tazobactam Sod 100 ml @ 25 mls/hr Q6HR IV 02/20/25 00:00 02/23/25 11:26 25 MLS/HR Ondansetron HCl 4 mg Q4HPRN PRN IV 02/19/25 20:30 02/20/25 18:16 4 MG Diagnostic Test (Pha) 1 strip Q6HR 02/20/25 00:00 02/23/25 11:26 1 STRIP Insulin Human Regular Q6HR SC 02/20/25 00:00 02/23/25 05:49 4 UNITS Dextrose 50 ml UD PRN IV 02/19/25 20:30 Nitroglycerin 0.4 mg Q5MINP PRN SL 02/19/25 20:30 Morphine Sulfate 2 mg Q30M PRN IV 02/19/25 20:30 Morphine Sulfate 2 mg Q6HPRN PRN IV 02/20/25 00:45 02/23/25 10:46 2 MG Insulin Glargine 10 units HS SC 02/20/25 00:00 02/22/25 21:42 10 UNITS Amiodarone HCL/ Dextrose 200 ml @ 33.33 mls/ hr Q12H IV 02/21/25 01:45 02/23/25 12:35 33.33 MLS/HR Diltiazem HCl 125 ml @ 0 mls/hr Q0M IV 02/21/25 01:45 02/23/25 00:18 5 MLS/HR Pantoprazole Sodium 80 mg BID IV 02/21/25 22:00 Cancel Pantoprazole Sodium 50 ml @ 10 mls/hr Q5H IV 02/21/25 13:45 02/23/25 08:39 10 MLS/HR Norepinephrine Bitartrate 250 ml @ 3.75 mls/hr Q24H IV 02/21/25 15:15 02/23/25 03:14 18.75 MLS/HR Octreotide Acetate 500 mcg/ Sodium Chloride 100 ml @ 10 mls/hr Q10H IV 02/21/25 15:15 02/23/25 12:35 10 MLS/HR Sodium Chloride 10 ml QSHIFT@10,22 IV 02/21/25 22:00 02/23/25 10:46 10 ML Sodium Chloride 1,000 ml @ 75 mls/hr [id number] IV 02/22/25 01:45 02/22/25 15:05 75 MLS/HR Sucralfate 1 gm QID@0600,1130,1700,2200 PO 02/22/25 11:30 02/23/25 11:26 1 GM objective GEN: Morbidly Obese Male, Pale Looking HEENT: NC/AT, Dry MM CV: S1S2+, Tachycardia Lungs: Clear To auscultation bilaterally, no wheezing, rhonchi, or rales Abd: Right LQ ileostomy that is full of blood, soft, non tender, + BS LE: chronic venous stasis changes, no LE edema, onychomycosis of multiple nails laboratory and microbiology Laboratory Tests 02/23/25 12:31 02/23/25 05:45 Test 02/23/25 05:45 Range/Units Serum Glucose 199 H 74-106 mg/dL Problem List 1) Acute GI bleed 2) Acute Blood Loss Anemia 2/2 above s/p PRBC transfusion 3) Afib RVR s/p DCCV 4) Duodenitis/colitis Secondary Diagnosis: 5) Morbid Obesity 6) Essential HTN 7) Ileostomy, 8) Chronic pain syndrome Assessment/Plan 02/20----patient hgb most recent 7.8 and will transfuse blood as necessary for Hgb <7, will continue to trend H/H q6h, on IV ABx zosyn, PPI IV, GI consulted on the case and patient is NPO. amio gtt started due to afib RVR with cardiology consult, echo pending, continue all care, daily labs, organizational consultant input appreciated, will follow along 02/21---most recent hgb 8.9 after 2 units PRBCs transfused yesterday, will continue to trend H/H, on IV ABx with Zosyn, remains NPO, was seen by cardiology earlier this AM and underwent successful DCCV as he was in afib HR 150s now cardioverted and is now sinus tachycardia, he is still on amio gtt and started on cardizem gtt fixed rate as per cardiology and is to continue these drips until endoscopy is done, GI on board and will plan for EGD, he is cardiac cleared to have endoscopy, continue all care, daily labs, will follow along 02/22---Hgb yesterday dropped from 8.9 to 5.4 and he was transfused 2 units and repeat Hgb was 6.3 and thus another 2 more units of blood were ordered for transfusion and most recent hgb is 7.5 with the last unit transfusing now, he is now started on levophed for vasopressor support currently on 10 mcg levophed, GI is planning for EGD today, he is on PPI/octreotide gtt. NS at 125 ml/hr for hydration, as mentioned yesterday 02/21 the patient was cardioverted by cardiology for afib/flutter and now is sinus tachycardia on cardizem and amio gtts which are to be continued until endoscopy is done, will continue to trend Hgb and transfuse blood as needed, daily labs, supportive care, GI/cardiology consults appreciated, will continue to follow along with you. 02/23--- Patient overnight continues to have profuse bleeding with Hgb dropping to 5.9 and receiving additional 2 units of PRBC overnight. Patient Hgb Dropped to 5.1 this morning again. Patient has been ordered an additional 2 more units of PRBC in addition to FPP. GI is aware of patient blood loss and IR has been consulted for Arterial Immobilization. Patient to continue Levophed PRN To maintain MAPs > 65. Patient is currently on Zosyn IV Day 3 prophylactically. Patient to be discontinued of Diltiazem Drip and will maintain Amio drip. Patient will be initiated on SCDs for DVT prophylaxis. Incentive Spirometer to be started for 10x/hour. Dietary Evaluation Review Comments: 1) If patient remains NPO > 7 days, consider EN/TPN to meet at least 75% of estimated daily needs 2) Advance to 60g CCHO cardiac diet when medically feasible 3) Refer to outpatient RD/CDCES for weight management 4) Continue to monitor I&O, labs, and skin integrity Expected Outcomes/Goals: 1) patient to receive nutritional support within 7 days of NPO status 2) labs to improve 3) diet to advance 4) f/u in 3-5 days Plan discussed with: Patient CC Plasma Assessment Blood Product Administration S: 10:45 HODAN COSTELLO MD Feb 23, 2025 13:20
--- NOTE | 2025-02-23 17:04 | DVHPN2 ---
Progress Note Date Seen: Feb 23, 2025 Resident Creating Document: ALEXANDRIA BENZ RESIDENT Has the PT tested + for MRSA If YES, has PT been informed?: Yes Medical Necessity Reason Pt with a Central, PICC or Fol: No Subjective Review of Systems Patient seen and examined at bedside 2 L bloody output removed from the colostomy today Scheduled for procedure by IR in the a.m. Objective vital signs Vital Sign Date Time Temp Pulse Resp B/P (MAP) Pulse Ox O2 Delivery O2 Flow Rate FiO2 02/23/25 16:22 105 02/23/25 16:15 17 115/59 (77) 98 02/23/25 16:00 98.5 98.5 02/23/25 07:30 Room Air* 4 N/A Nasal Cannula* Total Intake and Output 02/22/25 02/22/25 02/23/25 15:00 23:00 07:00 Intake Total 975.39 ml 2373.89 ml 2322.89 ml Output Total 830 ml 2700 ml Balance 975.39 ml 1543.89 ml -377.11 ml medications Current Medications Medications Dose Ordered Sig/Neha Route Start Time Stop Time Status Last Admin Dose Admin Piperacillin Sod/ Tazobactam Sod 100 ml @ 25 mls/hr Q6HR IV 02/20/25 00:00 02/23/25 11:26 25 MLS/HR Ondansetron HCl 4 mg Q4HPRN PRN IV 02/19/25 20:30 02/20/25 18:16 4 MG Diagnostic Test (Pha) 1 strip Q6HR 02/20/25 00:00 02/23/25 11:26 1 STRIP Insulin Human Regular Q6HR SC 02/20/25 00:00 02/23/25 05:49 4 UNITS Dextrose 50 ml UD PRN IV 02/19/25 20:30 Nitroglycerin 0.4 mg Q5MINP PRN SL 02/19/25 20:30 Morphine Sulfate 2 mg Q30M PRN IV 02/19/25 20:30 Morphine Sulfate 2 mg Q6HPRN PRN IV 02/20/25 00:45 02/23/25 10:46 2 MG Insulin Glargine 10 units HS SC 02/20/25 00:00 02/22/25 21:42 10 UNITS Amiodarone HCL/ Dextrose 200 ml @ 33.33 mls/ hr Q12H IV 02/21/25 01:45 02/23/25 12:35 33.33 MLS/HR Diltiazem HCl 125 ml @ 0 mls/hr Q0M IV 02/21/25 01:45 02/23/25 00:18 5 MLS/HR Pantoprazole Sodium 80 mg BID IV 02/21/25 22:00 Cancel Pantoprazole Sodium 50 ml @ 10 mls/hr Q5H IV 02/21/25 13:45 02/23/25 13:25 10 MLS/HR Norepinephrine Bitartrate 250 ml @ 3.75 mls/hr Q24H IV 02/21/25 15:15 02/23/25 03:14 18.75 MLS/HR Octreotide Acetate 500 mcg/ Sodium Chloride 100 ml @ 10 mls/hr Q10H IV 02/21/25 15:15 02/23/25 12:35 10 MLS/HR Sodium Chloride 10 ml QSHIFT@10,22 IV 02/21/25 22:00 02/23/25 10:46 10 ML Sodium Chloride 1,000 ml @ 75 mls/hr [id number] IV 02/22/25 01:45 02/22/25 15:05 75 MLS/HR Sucralfate 1 gm QID@0600,1130,1700,2200 PO 02/22/25 11:30 02/23/25 11:26 1 GM Examination General Appearance: Cooperative. Well developed. Well nourished. NAD Pulmonary/Respiratory: Chest non-tender. Clear bilateral breath sounds, no crackles, no wheezing. Abdominal Exam: Normal bowel sounds. Soft. normal abdomen, no visible veins, Nontender. No hepatospenomegaly. Colostomy bag noted on the right abdominal wall, filled with dark red blood. Lower extremities: Leathery skin noted on left lower extremity, bilateral lower extremity scales noted. Neuro/Mental Status: A&O x4. Coherent. Thoughts/Psych: Normal thought pattern. Appropriate mood and affect. Good judgement and insight Skin Exam: Normal inspection. Normal color. Warm. Dry laboratory and microbiology Laboratory Tests 02/23/25 12:31 02/23/25 05:45 Test 02/23/25 05:45 Range/Units Serum Glucose 199 H 74-106 mg/dL Microbiology Date/Time Source Procedure Growth Status 02/21/25 17:30 Nose MRSA Screen - Final Methicillin Resistant S.aureus Complete Labs and/or images reviewed: Labs reviewed by me, Image(s) reviewed by me Problem List/Assessment/Plan Problem List/Assessment/Plan Acute blood loss anemia GI bleed Colostomy hemorrhage Plan: Transfuse another PRBC, platelet x1 Have 4 PRBCs standby use as needed NPO, no ice chips, no p.o. meds. Surgical consult Scheduled for procedure with IR in the a.m. IV Protonix IV octreotide Carafate Cardizem drip, amiodarone Cardiology on board Thank you so much for the opportunity to consult on your patient. GI team will follow the patient. In case of any questions or concerns please feel free to reach out. Plan discussed with Dr. Aragon Plan discussed with: Patient, Other (RN) Dietary Evaluation Review Comments: 1) If patient remains NPO > 7 days, consider EN/TPN to meet at least 75% of estimated daily needs 2) Advance to 60g CCHO cardiac diet when medically feasible 3) Refer to outpatient RD/CDCES for weight management 4) Continue to monitor I&O, labs, and skin integrity Expected Outcomes/Goals: 1) patient to receive nutritional support within 7 days of NPO status 2) labs to improve 3) diet to advance 4) f/u in 3-5 days CC Plasma Assessment Blood Product Administration S: 10:45 ALEXANDRIA BENZ RESIDENT Feb 23, 2025 17:04
--- NOTE | 2025-02-23 17:14 | DVHINCON2 ---
Date of service: Feb 23, 2025 History of Present Illness 59-year-old male transferred from [facility] secondary to GI bleeding. Patient underwent EGD by Dr. Aragon which showed multiple ulcers in the 1st po rtion of the duodenum. At the time of the scope there was no active bleeding however since then he has required 10 units of PRBC transfusion. Patient is currently pending possible IR embolization tomorrow. Past Medical History Diabetes mellitus. Hypertension. Morbid obesity. Acid reflux. Chronic pain syndrome. 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 Past Surgical History Laparoscopic diverting ileostomy. Right knee surgery. Family History: Patient reports no known family medical history. Family History Noncontributory Social History No alcohol, tobacco, IV drug abuse Allergies: Coded Allergies: NO KNOWN ALLERGIES (Unverified , 02/19/25) Home Meds Reported Medications Metoprolol Tartrate (Metoprolol Tartrate) 50 Mg Tab, 1 TAB PO BID for 100 Days, #200 02/20/25 Oxycodone W/ Acetaminophen (Apap/Oxycodone) 1 Tab Tab, 1 TAB PO TID for 30 Days, #90 02/20/25 Morphine Sulfate (Morphine Sulfate Cr) 30 Mg Tab, 1 TAB PO DAILY for 30 Days, #30 02/20/25 Sucralfate (Sucralfate) 1 Gm Tab, 1 TAB PO TID for 30 Days, #90 02/20/25 Pantoprazole Sodium Sesquihydr (Pantoprazole Sodium) 40 Mg Tab, 1 TAB PO DAILY for 90 Days, #90 02/20/25 Albuterol Sulfate (Albuterol Sulfate Hfa) 108 Mcg/Act Aer, 2 PUFF INH Q4-6HR PRN for 16 Days, #8.5 02/20/25 Pioglitazone Hydrochloride (PIOGLITAZONE HCL) 30 Mg Tab, 1 TAB PO DAILY for 100 Days, #100 02/20/25 Metformin Hydrochloride (Metformin Hcl) 500 Mg Tab, 1 TAB PO BID for 90 Days, #180 02/20/25 Vital Signs Vital Signs Date Time Temp Pulse Resp B/P (MAP) Pulse Ox O2 Delivery O2 Flow Rate FiO2 02/23/25 16:22 105 02/23/25 16:15 17 115/59 (77) 98 02/23/25 16:00 98.5 98.5 02/23/25 07:30 Room Air* 4 N/A Nasal Cannula* Physical Exam GEN: Morbidly obese male in no acute distress. Alert. HEENT: Normocephalic atraumatic. Moist mucous membranes. Anicteric sclerae. CV: RRR Respiratory: CTAB ABD: Obese abdomen. There was a right lower quadrant ileostomy with a large peristomal hernia. Abdomen is otherwise soft. Nontender. Labs/Diagnostic Data Labs Test 02/23/25 12:31 02/23/25 11:25 02/23/25 05:45 02/22/25 03:10 Range/Units Hemoglobin 5.1 #*L 13.5-17.5 g/dL Hematocrit 15.0 #L 41.0-53.0 % POC Glucose 175 H 70-106 mg/dl White Blood Count 5.0 # 4.4-10.8 10^3/uL Red Blood Count 2.21 L 4.5-5.90 10^6/uL Mean Corpuscular Volume 85.6 # 80.0-100.0 fL Mean Corpuscular Hemoglobin 29.3 28.0-32.0 pg Mean Corpuscular Hemoglobin Concent 34.3 32.0-36.0 g/dL Red Cell Distribution Width 19.5 H 11.8-14.3 % Platelet Count 113 L 140-450 10^3/uL Mean Platelet Volume 8.9 6.9-10.8 fL Neutrophils (%) (Auto) 62.4 37.0-80.0 % Lymphocytes (%) (Auto) 16.7 10.0-50.0 % Monocytes (%) (Auto) 14.0 H 0.0-12.0 % Eosinophils (%) (Auto) 5.7 0.0-7.0 % Basophils (%) (Auto) 1.2 0.0-2.0 % Neutrophils # (Auto) 3.1 1.6-8.6 10 ^3/uL Lymphocytes # (Auto) 0.8 0.4-5.4 10 ^3/uL Monocytes # (Auto) 0.7 0-1.3 10 ^3/uL Eosinophils # (Auto) 0.3 0-0.8 10 ^3/uL Basophils # (Auto) 0.1 0-0.2 10 ^3/uL Nucleated Red Blood Cells 0.2 % Sodium Level 140 136-145 mmol/L Potassium Level 3.5 3.5-5.1 mmol/L Chloride Level 104 98-107 mmol/L Carbon Dioxide Level 33 H 20-31 mmol/L Anion Gap 3 L 5-15 Blood Urea Nitrogen 8 L 9-23 mg/dL Creatinine 0.71 0.700-1.30 mg/dL Glomerular Filtration Rate Calc 106 >90 mL/min BUN/Creatinine Ratio 11.3 10.0-20.0 Serum Glucose 199 H 74-106 mg/dL Calcium Level 6.6 L 8.7-10.4 mg/dL Magnesium Level 1.3 L 1.6-2.6 mg/dL Prothrombin Time 12.1 H 9.3-11.8 sec Prothrombin Time INR 1.16 H 0.9-1.15 Test 02/20/25 04:03 02/20/25 03:04 02/20/25 02:21 02/19/25 23:55 Range/Units Iron Level 56 L 65-175 ug/dL Total Iron Binding Capacity 285 250-425 ug/dL Percent Iron Saturation 19.6 L 20-55 % D-Dimer, Quantitative 1.64 H 0.0-0.49 mg/L FEU Troponin I High Sensitivity 9 </=54 ng/L Helicobacter pylori Antigen Screen Negative Negative Test 02/19/25 21:05 02/19/25 16:45 02/19/25 16:14 Range/Units Lactic Acid Level 1.9 0.4-2.0 mmol/L Blood Gas Specimen Type Arterial Blood Gas Sample Site Right radial Blood Gas Patient Temperature 37.0 Arterial Blood Date Drawn [id number] Arterial Blood pH 7.512 H 7.350-7.450 Arterial Blood Partial Pressure CO2 37.6 35.0-48.0 mmHg Arterial Blood Partial Pressure O2 105.4 83.0-108.0 mmHg Arterial Blood HCO3 29.5 H 21.0-28.0 mmol/L Arterial Blood Oxygen Saturation 97.6 94.0-98.0 % Arterial Blood Base Excess 6.0 H -2.0-3.0 mmol/L Arterial Blood Oxyhemoglobin 94.3 94.0-98.0 % Arterial Blood Carboxyhemoglobin 3.0 H 0.5-1.5 % Arterial Blood Methemoglobin 0.4 0.0-1.5 % Juwan Test Yes Blood Gas Total Hemoglobin 7.80 L 13.5-17.5 g/dL Blood Gas Liter Flow 4.00 Blood Gas Modality Nasal cannula FiO2 % 36.0 Activated Partial Thromboplast Time 25.0 24.5-34.5 SEC Hemoglobin A1c 8.3 H <5.7 % A1C Total Bilirubin 1.7 H 0.2-1.0 mg/dL Aspartate Amino Transferase (AST) 22 13-40 U/L Alanine Aminotransferase (ALT) 10 7-40 U/L Alkaline Phosphatase 87 46-116 U/L B-Type Natriuretic Peptide 517.71 0-100 pg/mL Total Protein 4.6 L 5.7-8.2 g/dL Albumin 2.6 L 3.2-4.8 g/dL Microbiology Date/Time Source Procedure Growth Status 02/21/25 17:30 Nose MRSA Screen - Final Methicillin Resistant S.aureus Complete Assessment 1. Likely duodenal ulcer bleeding Plan/Recommendation 1. Agree with GI for IR consultation for possible embolization. Plan discussed with: Patient CEM LUTHER MD Feb 23, 2025 17:14
[2025-02-23 18:22] LABS: Hematocrit 18.4 % (41.0-53.0)
[2025-02-23 18:28] LABS: Hemoglobin 6.2 g/dL (13.5-17.5)
[2025-02-23] MEDS: PANTOPRAZOLE 40 MG/10 ML VIAL INJ IV ONE (20:17)
[2025-02-23] MEDS: MAGNESIUM SULFATE 1GM/100ML 100 ML IV SCH (21:06)
[2025-02-23] MEDS: PANTOPRAZOLE 40 MG/10 ML VIAL INJ IV SCH (22:30)
[2025-02-24] VITALS (103 sets, daily range): BP systolic 59–152; BP diastolic 24–110; PULSE 93–118; RESP 10–25; TEMP 98–99.8; O2SAT 83–100
[2025-02-24 03:38] LABS: Hematocrit 20.7 % (41.0-53.0); Mean Corpuscular Hemoglobin 28.6 pg (28.0-32.0); Mean Corpuscular Volume 84.1 fL (80.0-100.0); Nucleated Red Blood Cells % 0.2 %
[2025-02-24 03:41] LABS: Hemoglobin 7.0 g/dL (13.5-17.5)
[2025-02-24 03:46] LABS: Anion Gap 1 (5-15); Chloride 104 mmol/L (98-107); Potassium 3.7 mmol/L (3.5-5.1); Sodium 139 mmol/L (136-145)
[2025-02-24 03:51] LABS: Calcium 6.1 mg/dL (8.7-10.4); Carbon Dioxide 34 mmol/L (20-31)
[2025-02-24 03:53] LABS: BUN/Creatinine Ratio 11.1 (10.0-20.0)
[2025-02-24 03:56] LABS: Blood Urea Nitrogen 7 mg/dL (9-23); Glucose 189 mg/dL (74-106); Magnesium 1.6 mg/dL (1.6-2.6)
--- NOTE | 2025-02-24 07:36 | ECG ---
[facility] Test Date: 2025-02-23 Test Time: 20:00:13 Pat Name: LUIS FERNANDO JOSHI Department: icu Room: [address] [place] [address] A Gender: M Forming Operator: sarthak : 1965 Requested By: HODAN COSTELLO Order Number: [id number] Reading MD: Francisco Walton Measurements Intervals [place] Rate: 106 P: -53 NV: 162 QRS: -38 QRSD: 160 T: 121 QT: 411 QTc: 546 Interpretive Statements Ectopic atrial tachycardia, unifocal Right bundle branch block Abnormal lateral Q waves Electronically Signed On 02-26-2025 14:31:37 PDT by Francisco Walton Please click the below link to view image of tracing.
[2025-02-24 07:55] LABS: Hematocrit 19.6 % (41.0-53.0)
[2025-02-24 07:58] LABS: Hemoglobin 6.8 g/dL (13.5-17.5)
--- NOTE | 2025-02-24 08:14 | DVHPN2 ---
Progress Note - Dictate Date Seen: Feb 24, 2025 Has the PT tested + for MRSA If YES, has PT been informed?: Yes Medical Necessity Reason Pt with a Central, PICC or Fol: No Subjective E: cont to have high bloody output from ileostomy. latest Hgb is 6.8. getting 2 more units. no complaints. vital signs Vital Sign Date Time Temp Pulse Resp B/P (MAP) Pulse Ox O2 Delivery O2 Flow Rate FiO2 02/24/25 07:30 107 23 92/44 (60) 96 02/24/25 06:25 98.4 98.4 02/23/25 20:00 Nasal Cannula* 4 36 Total Intake and Output 02/23/25 02/23/25 02/24/25 15:00 23:00 07:00 Intake Total 1216.64 ml 2946.14 ml 2454.56 ml Output Total 3150 ml 1125 ml Balance 1216.64 ml -203.86 ml 1329.56 ml medications Current Medications Medications Dose Ordered Sig/Neha Route Start Time Stop Time Status Last Admin Dose Admin Piperacillin Sod/ Tazobactam Sod 100 ml @ 25 mls/hr Q6HR IV 02/20/25 00:00 02/24/25 06:11 25 MLS/HR Ondansetron HCl 4 mg Q4HPRN PRN IV 02/19/25 20:30 02/20/25 18:16 4 MG Diagnostic Test (Pha) 1 strip Q6HR 02/20/25 00:00 02/24/25 06:00 1 STRIP Insulin Human Regular Q6HR SC 02/20/25 00:00 02/24/25 06:41 4 UNITS Dextrose 50 ml UD PRN IV 02/19/25 20:30 Nitroglycerin 0.4 mg Q5MINP PRN SL 02/19/25 20:30 Morphine Sulfate 2 mg Q30M PRN IV 02/19/25 20:30 Morphine Sulfate 2 mg Q6HPRN PRN IV 02/20/25 00:45 02/24/25 01:26 2 MG Insulin Glargine 10 units HS SC 02/20/25 00:00 02/23/25 21:45 10 UNITS Amiodarone HCL/ Dextrose 200 ml @ 33.33 mls/ hr Q12H IV 02/21/25 01:45 02/24/25 06:10 33.33 MLS/HR Diltiazem HCl 125 ml @ 0 mls/hr Q0M IV 02/21/25 01:45 02/23/25 00:18 5 MLS/HR Pantoprazole Sodium 80 mg BID IV 02/21/25 22:00 Cancel Norepinephrine Bitartrate 250 ml @ 3.75 mls/hr Q24H IV 02/21/25 15:15 02/23/25 03:14 18.75 MLS/HR Octreotide Acetate 500 mcg/ Sodium Chloride 100 ml @ 10 mls/hr Q10H IV 02/21/25 15:15 02/23/25 22:41 10 MLS/HR Sodium Chloride 10 ml QSHIFT@10,22 IV 02/21/25 22:00 02/23/25 10:46 10 ML Sodium Chloride 1,000 ml @ 75 mls/hr [id number] IV 02/22/25 01:45 02/23/25 17:45 75 MLS/HR Sucralfate 1 gm QID@0600,1130,1700,2200 PO 02/22/25 11:30 02/23/25 11:26 1 GM Pantoprazole Sodium 80 mg TID IV 02/23/25 22:00 02/24/25 06:11 80 MG objective GEN: NAD ABD: soft. ileostomy with bloody output. laboratory and microbiology Laboratory Tests 02/24/25 07:35 02/24/25 03:05 Test 02/24/25 03:05 Range/Units Serum Glucose 189 H 74-106 mg/dL Assessment/Plan A: 1. Likely duodenal ulcer bleeding s/p multiple PRBC transfusions (lastest count is 16 units) P: 1. IR intervention today. Dietary Evaluation Review Comments: 1) If patient remains NPO > 7 days, consider EN/TPN to meet at least 75% of estimated daily needs 2) Advance to 60g CCHO cardiac diet when medically feasible 3) Refer to outpatient RD/CDCES for weight management 4) Continue to monitor I&O, labs, and skin integrity Expected Outcomes/Goals: 1) patient to receive nutritional support within 7 days of NPO status 2) labs to improve 3) diet to advance 4) f/u in 3-5 days Plan discussed with: Patient CC Plasma Assessment Blood Product Administration S: 10:45 CEM LUTHER MD Feb 24, 2025 08:14
[2025-02-24 08:29] LABS: INR 1.33 (0.9-1.15); Partial Thromboplastin Time 35.2 SEC (24.5-34.5); Prothrombin Time 13.7 sec (9.3-11.8)
[2025-02-24] MEDS: MORPHINE SULFATE INJ 2 MG/ml SYRG IV PRN (08:46)
--- NOTE | 2025-02-24 11:37 | DVHPN2 ---
Progress Note - Dictate Date Seen: Feb 24, 2025 Has the PT tested + for MRSA If YES, has PT been informed?: Yes Medical Necessity Reason Pt with a Central, PICC or Fol: No Subjective Patient denies any pain this AM. Reviewed medical history with patient. Discussed plan for today. vital signs Vital Sign Date Time Temp Pulse Resp B/P (MAP) Pulse Ox O2 Delivery O2 Flow Rate FiO2 02/24/25 11:19 99.3 109 11 112/92 99.3 02/24/25 10:15 96 02/24/25 08:00 Nasal Cannula* 4 36 Total Intake and Output 02/23/25 02/23/25 02/24/25 15:00 23:00 07:00 Intake Total 1216.64 ml 2946.14 ml 2576.64 ml Output Total 3150 ml 1125 ml Balance 1216.64 ml -203.86 ml 1451.64 ml medications Current Medications Medications Dose Ordered Sig/Neha Route Start Time Stop Time Status Last Admin Dose Admin Piperacillin Sod/ Tazobactam Sod 100 ml @ 25 mls/hr Q6HR IV 02/20/25 00:00 02/24/25 06:11 25 MLS/HR Ondansetron HCl 4 mg Q4HPRN PRN IV 02/19/25 20:30 02/20/25 18:16 4 MG Diagnostic Test (Pha) 1 strip Q6HR 02/20/25 00:00 02/24/25 06:00 1 STRIP Insulin Human Regular Q6HR SC 02/20/25 00:00 02/24/25 06:41 4 UNITS Dextrose 50 ml UD PRN IV 02/19/25 20:30 Nitroglycerin 0.4 mg Q5MINP PRN SL 02/19/25 20:30 Morphine Sulfate 2 mg Q30M PRN IV 02/19/25 20:30 02/24/25 08:46 2 MG Morphine Sulfate 2 mg Q6HPRN PRN IV 02/20/25 00:45 02/24/25 01:26 2 MG Insulin Glargine 10 units HS SC 02/20/25 00:00 02/23/25 21:45 10 UNITS Amiodarone HCL/ Dextrose 200 ml @ 33.33 mls/ hr Q12H IV 02/21/25 01:45 02/24/25 06:10 33.33 MLS/HR Diltiazem HCl 125 ml @ 0 mls/hr Q0M IV 02/21/25 01:45 02/23/25 00:18 5 MLS/HR Pantoprazole Sodium 80 mg BID IV 02/21/25 22:00 Cancel Norepinephrine Bitartrate 250 ml @ 3.75 mls/hr Q24H IV 02/21/25 15:15 02/23/25 03:14 18.75 MLS/HR Octreotide Acetate 500 mcg/ Sodium Chloride 100 ml @ 10 mls/hr Q10H IV 02/21/25 15:15 02/24/25 08:47 10 MLS/HR Sodium Chloride 10 ml QSHIFT@10,22 IV 02/21/25 22:00 02/24/25 08:48 10 ML Sodium Chloride 1,000 ml @ 75 mls/hr [id number] IV 02/22/25 01:45 02/24/25 08:48 75 MLS/HR Sucralfate 1 gm QID@0600,1130,1700,2200 PO 02/22/25 11:30 02/23/25 11:26 1 GM Pantoprazole Sodium 80 mg TID IV 02/23/25 22:00 02/24/25 06:11 80 MG objective General appearance: No acute distress. Obese Respiratory: Fine bibasilar crackles Cardiovascular: Regular rate and rhythm, no murmurs. No edema Abdomen: Soft, nondistended, nontender, bowel sounds present. Colostomy bag present. MSK: Normal range of motion. Neuro: Alert, no neurological deficits Psych: Appropriate mood and affect. laboratory and microbiology Laboratory Tests 02/24/25 07:35 02/24/25 03:05 Test 02/24/25 03:05 Range/Units Serum Glucose 189 H 74-106 mg/dL Assessment/Plan 1) Acute GI bleed 2) Acute Blood Loss Anemia 2/2 above s/p PRBC transfusion 3) Afib RVR s/p DCCV 4) Duodenitis/colitis Secondary Diagnosis: 5) Morbid Obesity 6) Essential HTN 7) Ileostomy, 8) Chronic pain syndrome Assessment/Plan 02/20----patient hgb most recent 7.8 and will transfuse blood as necessary for Hgb <7, will continue to trend H/H q6h, on IV ABx zosyn, PPI IV, GI consulted on the case and patient is NPO. amio gtt started due to afib RVR with cardiology consult, echo pending, continue all care, daily labs, c consultant input appreciated, will follow along 02/21---most recent hgb 8.9 after 2 units PRBCs transfused yesterday, will continue to trend H/H, on IV ABx with Zosyn, remains NPO, was seen by cardiology earlier this AM and underwent successful DCCV as he was in afib HR 150s now cardioverted and is now sinus tachycardia, he is still on amio gtt and started on cardizem gtt fixed rate as per cardiology and is to continue these drips until endoscopy is done, GI on board and will plan for EGD, he is cardiac cleared to have endoscopy, continue all care, daily labs, will follow along 02/22---Hgb yesterday dropped from 8.9 to 5.4 and he was transfused 2 units and repeat Hgb was 6.3 and thus another 2 more units of blood were ordered for transfusion and most recent hgb is 7.5 with the last unit transfusing now, he is now started on levophed for vasopressor support currently on 10 mcg levophed, GI is planning for EGD today, he is on PPI/octreotide gtt. NS at 125 ml/hr for hydration, as mentioned yesterday 02/21 the patient was cardioverted by cardiology for afib/flutter and now is sinus tachycardia on cardizem and amio gtts which are to be continued until endoscopy is done, will continue to trend Hgb and transfuse blood as needed, daily labs, supportive care, GI/cardiology consults appreciated, will continue to follow along with you. 02/23--- Patient overnight continues to have profuse bleeding with Hgb dropping to 5.9 and receiving additional 2 units of PRBC overnight. Patient Hgb Dropped to 5.1 this morning again. Patient has been ordered an additional 2 more units of PRBC in addition to FPP. GI is aware of patient blood loss and IR has been consulted for Arterial Immobilization. Patient to continue Levophed PRN To maintain MAPs > 65. Patient is currently on Zosyn IV Day 3 prophylactically. Patient to be discontinued of Diltiazem Drip and will maintain Amio drip. Patient will be initiated on SCDs for DVT prophylaxis. Incentive Spirometer to be started for 10x/hour. 9/2- Hgb noted to be 6.8 this AM, continues to be tachycardic with dark bloody output from colostomy bag. Pending arterial embolization with IR today. Remains on levophed. Amio drip to be continued. Plan for 2 additional units PRBC this AM. Dietary Evaluation Review Comments: 1) If patient remains NPO > 7 days, consider EN/TPN to meet at least 75% of estimated daily needs 2) Advance to 60g [facility] cardiac diet when medically feasible 3) Refer to outpatient RD/CDCES for weight management 4) Continue to monitor I&O, labs, and skin integrity Expected Outcomes/Goals: 1) patient to receive nutritional support within 7 days of NPO status 2) labs to improve 3) diet to advance 4) f/u in 3-5 days Plan discussed with: Patient CC Plasma Assessment Blood Product Administration S: 10:45 FLORENCIA VELASCO DO Feb 24, 2025 11:37
[2025-02-24] MEDS: IODIXANOL 320MG/ML 100ML BTL IV ONE (12:49)
[2025-02-24] MEDS: HEPARIN IN NS 1000Units/500mL 1,500 ML ONE (12:49)
[2025-02-24] MEDS: LIDOCAINE 2%HCL (LOCAL ANESTH.) INJ 20ML MDV ONE (13:47)
[2025-02-24] MEDS: fentaNYL CITRATE 100 MCG/2 ML VL ONE (13:47)
[2025-02-24] MEDS: MIDAZOLAM HCL 2MG/2ML 2ml VIAL (1mg/ml) ONE (13:47)
--- NOTE | 2025-02-24 14:23 | DVHPN2 ---
Progress Note Date Seen: Feb 24, 2025 Resident Creating Document: ALEXANDRIA BENZ RESIDENT Has the PT tested + for MRSA If YES, has PT been informed?: Yes Medical Necessity Reason Pt with a Central, PICC or Fol: No Subjective Review of Systems Patient seen and examined at bedside today Increasing pallor noted 475 mL bloody output from the colostomy today 575 mL bloody output from colostomy overnight Scheduled to undergo embolization with IR today Objective vital signs Vital Sign Date Time Temp Pulse Resp B/P (MAP) Pulse Ox O2 Delivery O2 Flow Rate FiO2 02/24/25 13:31 108 13 105/81 (89) 97 02/24/25 13:28 99.7 99.7 02/24/25 08:00 Nasal Cannula* 4 36 Total Intake and Output 02/23/25 02/23/25 02/24/25 15:00 23:00 07:00 Intake Total 1216.64 ml 2946.14 ml 2576.64 ml Output Total 3150 ml 1125 ml Balance 1216.64 ml -203.86 ml 1451.64 ml medications Current Medications Medications Dose Ordered Sig/Neha Route Start Time Stop Time Status Last Admin Dose Admin Piperacillin Sod/ Tazobactam Sod 100 ml @ 25 mls/hr Q6HR IV 02/20/25 00:00 02/24/25 06:11 25 MLS/HR Ondansetron HCl 4 mg Q4HPRN PRN IV 02/19/25 20:30 02/20/25 18:16 4 MG Diagnostic Test (Pha) 1 strip Q6HR 02/20/25 00:00 02/24/25 13:21 1 STRIP Insulin Human Regular Q6HR SC 02/20/25 00:00 02/24/25 13:22 4 UNITS Dextrose 50 ml UD PRN IV 02/19/25 20:30 Nitroglycerin 0.4 mg Q5MINP PRN SL 02/19/25 20:30 Morphine Sulfate 2 mg Q30M PRN IV 02/19/25 20:30 02/24/25 08:46 2 MG Morphine Sulfate 2 mg Q6HPRN PRN IV 02/20/25 00:45 02/24/25 01:26 2 MG Insulin Glargine 10 units HS SC 02/20/25 00:00 02/23/25 21:45 10 UNITS Amiodarone HCL/ Dextrose 200 ml @ 33.33 mls/ hr Q12H IV 02/21/25 01:45 02/24/25 06:10 33.33 MLS/HR Diltiazem HCl 125 ml @ 0 mls/hr Q0M IV 02/21/25 01:45 02/23/25 00:18 5 MLS/HR Pantoprazole Sodium 80 mg BID IV 02/21/25 22:00 Cancel Norepinephrine Bitartrate 250 ml @ 3.75 mls/hr Q24H IV 02/21/25 15:15 02/23/25 03:14 18.75 MLS/HR Octreotide Acetate 500 mcg/ Sodium Chloride 100 ml @ 10 mls/hr Q10H IV 02/21/25 15:15 02/24/25 08:47 10 MLS/HR Sodium Chloride 10 ml QSHIFT@10,22 IV 02/21/25 22:00 02/24/25 08:48 10 ML Sodium Chloride 1,000 ml @ 75 mls/hr [id number] IV 02/22/25 01:45 02/24/25 08:48 75 MLS/HR Sucralfate 1 gm QID@0600,1130,1700,2200 PO 02/22/25 11:30 02/23/25 11:26 1 GM Pantoprazole Sodium 80 mg TID IV 02/23/25 22:00 02/24/25 06:11 80 MG Examination General Appearance: Cooperative. Well developed. Well nourished. NAD Pulmonary/Respiratory: Chest non-tender. Clear bilateral breath sounds, no crackles, no wheezing. Abdominal Exam: Normal bowel sounds. Soft. normal abdomen, no visible veins, Nontender. No hepatospenomegaly. Colostomy bag noted on the right abdominal wall, filled with dark red blood. Lower extremities: Leathery skin noted on left lower extremity, bilateral lower extremity scales noted. Neuro/Mental Status: A&O x4. Coherent. Thoughts/Psych: Normal thought pattern. Appropriate mood and affect. Good judgement and insight Skin Exam: Normal inspection. Normal color. Warm. Dry laboratory and microbiology Laboratory Tests 02/24/25 07:35 02/24/25 03:05 Test 02/24/25 03:05 Range/Units Serum Glucose 189 H 74-106 mg/dL Microbiology Date/Time Source Procedure Growth Status 02/21/25 17:30 Nose MRSA Screen - Final Methicillin Resistant S.aureus Complete Labs and/or images reviewed: Labs reviewed by me, Image(s) reviewed by me Problem List/Assessment/Plan Problem List/Assessment/Plan Acute blood loss anemia GI bleed Colostomy hemorrhage Plan: Transfuse as needed to keep hemoglobin greater than 8 NPO, no ice chips, no p.o. meds. Surgical consult Scheduled for procedure with IR today IV Protonix IV octreotide Carafate Cardizem drip, amiodarone Cardiology on board EGD performed on 02/22/2025 showed multiple and extensive ulceration of the postbulbar area of the duodenum with a surrounding duodenitis but no visible vessel or active bleeding at this time. 1-2 cm sliding-type hiatal hernia, minimal gastritis, otherwise normal examination up to the 2nd and 3rd part of the duodenum with no fresh or old blood in the upper GI tract. Thank you so much for the opportunity to consult on your patient. GI team will follow the patient. In case of any questions or concerns please feel free to reach out. Plan discussed with Dr. Aragon Plan discussed with: Patient, Other (RN) Dietary Evaluation Review Comments: 1) If patient remains NPO > 7 days, consider EN/TPN to meet at least 75% of estimated daily needs 2) Advance to 60g CCHO cardiac diet when medically feasible 3) Refer to outpatient RD/[facility] for weight management 4) Continue to monitor I&O, labs, and skin integrity Expected Outcomes/Goals: 1) patient to receive nutritional support within 7 days of NPO status 2) labs to improve 3) diet to advance 4) f/u in 3-5 days CC Plasma Assessment Blood Product Administration S: 10:45 ALEXANDRIA BENZ RESIDENT Feb 24, 2025 14:23
--- NOTE | 2025-02-24 15:55 | DVH ---
XY ARTER/VENOUS EMBOLIZATION HISTORY: GDA EMBOLIZATION due to UGI hemorrhage s/p 14 u pRBC and hemodynamic instability with duoden al ulcer seen on endoscopy. PROCEDURE: Informed consent was obtained . The patient was positioned supine on the interventional ta ble. The right groin was prepped with chlorhexidine which was allowed to dry and then draped sterilel y. Time out was performed. The right common femoral artery was accessed with real-time ultrasound gu idance using a micropuncture set, an image documenting patency recorded to PACS, and a 6 Fr vascular sheath placed. The celiac artery was accessed with a SOS catheter and an angiogram was performed. The SMA was access ed with the SOS catheter and an angiogram was performed. Next, a microcatheter was microwire were use d to select for the replaced common hepatic artery and an angiogram was performed. The microcatheter was then placed into the replaced GDA /right gastroepiploic artery and angiogram was performed. A 4 m m x 30 cm cameron coil was deployed into the replaced GDA /right gastroepiploic artery. A completion ang iogram was performed. The catheter/sheath were removed and the arteriotomy closed using an angiosea l device.. No immediate complication was identified. FLUOROSCOPY TIME: 8.1 minutes. CONTRAST USED: 30 mL. DAP 94.35 SEDATION: Dr. Liudmila Tello was personally responsible for the administration of moderate sedation during the procedure performed, including the use of an independent trained observer who had no other duties during the procedure. The drugs utilized were IV fentanyl and versed (see nursing log for details). The total time of supervision by the attending physician was approximately 75 minutes. FINDINGS: Abnormal variant anatomy with a replaced common hepatic artery from the superior mesenteri c artery and an atrophic /short replaced GDA / prominent right gastroepiploic artery from the replace d common hepatic artery. Small branches were seen from the atrophic /short replaced GDA / prominent r ight gastroepiploic artery toward the duodenum. A coil was placed to near stasis with decreased vascu larity of the branches. IMPRESSION: Abnormal variant anatomy with a replaced common hepatic artery from the superior mesenteric artery an d an atrophic /short replaced GDA / prominent right gastroepiploic artery from the replaced common he patic artery. Small arterial branches were visualized toward the duodenum. A coil was placed to near stasis with d ecreased vascularity of the branches. No active contrast extravasation visualized in the branches from the SMA. PLAN: Right leg straight for 2 hours. Continue cares per ICU, continue to follow hemoglobin.
--- NOTE | 2025-02-24 15:56 | DVH ---
US US GUIDANCE FOR NEEDLE PLACEME, HISTORY: vascular access TECHNICAL DATA: Transverse and longitudinal sonographic images were obtained of the right common femo ral artery. COMPARISON: US US GUIDED VASCULAR ACCESS on DOS: 02/21/25 FINDINGS: IMPRESSION: US guidance for arterial access to the right common femoral artery.
[2025-02-24 20:11] LABS: Hemoglobin 7.3 g/dL (13.5-17.5)
[2025-02-24 20:12] LABS: Hematocrit 22.3 % (41.0-53.0)
--- NOTE | 2025-02-24 23:49 | DVHPN2 ---
Progress Note - Dictate Date Seen: Feb 24, 2025 Has the PT tested + for MRSA If YES, has PT been informed?: Yes Medical Necessity Reason Pt with a Central, PICC or Fol: No Subjective Patient was seen and evaluated in follow up in the ICU. Patient is on 4 LPM NC. Patient continues to have high bloody output from ileostomy. Pending arterial embolization with IR today. Drop in H&H, receiving PRBC transfusion. Patient remains on Levophed and Amiodarone drips. vital signs Vital Sign Date Time Temp Pulse Resp B/P (MAP) Pulse Ox O2 Delivery O2 Flow Rate FiO2 02/24/25 22:46 95 17 124/94 (104) 96 02/24/25 22:10 98.4 98.4 02/24/25 20:00 Nasal Cannula* 4 36 Total Intake and Output 02/23/25 02/23/25 02/24/25 15:00 23:00 07:00 Intake Total 1216.64 ml 2946.14 ml 2576.64 ml Output Total 3150 ml 1125 ml Balance 1216.64 ml -203.86 ml 1451.64 ml medications Current Medications Medications Dose Ordered Sig/Neha Route Start Time Stop Time Status Last Admin Dose Admin Piperacillin Sod/ Tazobactam Sod 100 ml @ 25 mls/hr Q6HR IV 02/20/25 00:00 02/24/25 17:24 25 MLS/HR Ondansetron HCl 4 mg Q4HPRN PRN IV 02/19/25 20:30 02/20/25 18:16 4 MG Diagnostic Test (Pha) 1 strip Q6HR 02/20/25 00:00 02/24/25 17:25 1 STRIP Insulin Human Regular Q6HR SC 02/20/25 00:00 02/24/25 17:31 4 UNITS Dextrose 50 ml UD PRN IV 02/19/25 20:30 Nitroglycerin 0.4 mg Q5MINP PRN SL 02/19/25 20:30 Morphine Sulfate 2 mg Q30M PRN IV 02/19/25 20:30 02/24/25 08:46 2 MG Morphine Sulfate 2 mg Q6HPRN PRN IV 02/20/25 00:45 02/24/25 22:11 2 MG Insulin Glargine 10 units HS SC 02/20/25 00:00 02/24/25 21:58 10 UNITS Amiodarone HCL/ Dextrose 200 ml @ 33.33 mls/ hr Q12H IV 02/21/25 01:45 02/24/25 18:01 33.33 MLS/HR Diltiazem HCl 125 ml @ 0 mls/hr Q0M IV 02/21/25 01:45 02/23/25 00:18 5 MLS/HR Pantoprazole Sodium 80 mg BID IV 02/21/25 22:00 Cancel Norepinephrine Bitartrate 250 ml @ 3.75 mls/hr Q24H IV 02/21/25 15:15 02/23/25 03:14 18.75 MLS/HR Octreotide Acetate 500 mcg/ Sodium Chloride 100 ml @ 10 mls/hr Q10H IV 02/21/25 15:15 02/24/25 18:01 10 MLS/HR Sodium Chloride 10 ml QSHIFT@10,22 IV 02/21/25 22:00 02/24/25 21:57 10 ML Sodium Chloride 1,000 ml @ 75 mls/hr [id number] IV 02/22/25 01:45 02/24/25 08:48 75 MLS/HR Sucralfate 1 gm QID@0600,1130,1700,2200 PO 02/22/25 11:30 02/24/25 17:24 1 GM Pantoprazole Sodium 80 mg TID IV 02/23/25 22:00 02/24/25 21:57 80 MG objective GENERAL: Alert and oriented x 3. No acute distress. Pale appearing. EYES: PERRL, EOMI. Anicteric. HENT: Moist mucous membranes. LUNGS: Clear to auscultation bilaterally. CARDIOVASCULAR: Regular rate and rhythm. ABDOMEN: Colostomy to right lower abdomen, bright-red feces. EXTREMITIES: No edema. NEUROLOGIC: No focal neurological deficits. SKIN: Warm, dry. laboratory and microbiology Laboratory Tests 02/24/25 19:52 02/24/25 03:05 Test 02/24/25 03:05 Range/Units Serum Glucose 189 H 74-106 mg/dL Problem List A Fib with RVR. GI bleed. Abdominal wall thickening. Acute blood loss anemia. Diabetes mellitus type 2 with hyperglycemia. HTN. HLD. Assessment/Plan Continued all current supportive medical care. Echocardiogram. IV Amiodarone. IV Cardizem. Morphine for pain management. GI prophylactics. IV antibiotics as ordered. Vasopressors for hemodynamic support. Additional plan as per the hospital course. Critical care time of 45 minutes provided to include time spent evaluation of patient at bedside, when appropriate patient/family education for diagnosis, treatment plan, review of pertinent medical information and discussion of care with specialty providers and PCP. Dietary Evaluation Review Comments: 1) If patient remains NPO > 7 days, consider EN/TPN to meet at least 75% of estimated daily needs 2) Advance to 60g CCHO cardiac diet when medically feasible 3) Refer to outpatient RD/[facility] for weight management 4) Continue to monitor I&O, labs, and skin integrity Expected Outcomes/Goals: 1) patient to receive nutritional support within 7 days of NPO status 2) labs to improve 3) diet to advance 4) f/u in 3-5 days Plan discussed with: Patient CC Plasma Assessment Blood Product Administration S: 10:45 WEST MARTEL MD Feb 24, 2025 23:49
[2025-02-25] VITALS (94 sets, daily range): BP systolic 52–143; BP diastolic 21–106; PULSE 77–131; RESP 8–28; TEMP 97.8–98.7; O2SAT 73–100
[2025-02-25] MEDS: FUROSEMIDE 20 MG/2 ML VIAL IV ONE (02:11)
[2025-02-25 02:13] LABS: Nucleated Red Blood Cells % 0.1 %
[2025-02-25 02:15] LABS: Hematocrit 22.4 % (41.0-53.0); Hemoglobin 7.4 g/dL (13.5-17.5); Mean Corpuscular Hemoglobin 29.2 pg (28.0-32.0); Mean Corpuscular Volume 87.8 fL (80.0-100.0)
--- NOTE | 2025-02-25 02:31 | DVH ---
RIGHT Upper Extremity Venous Duplex Clinical History: SWELLING OF THE ARM Comparison: US RT UPPER DVT on DOS: 02/22/25, US US GUIDED VASCULAR ACCESS on DOS: 02/21/25 Technique: Duplex Doppler evaluation of the venous system of the RIGHT lower neck and upper extremity including color Doppler and spectral/pulsed waveform analysis was performed. Findings: The internal jugular vein demonstrates appropriate compressibility and waveform variability. The subclavian vein is patent on color Doppler evaluation without intraluminal thrombus and demonstra quincy waveform variability. The visualized portion of the brachiocephalic vein is patent on color Doppler evaluation without intr aluminal thrombus and demonstrates waveform variability. The axillary vein demonstrates appropriate compressibility and waveform variability. The brachial veins demonstrate appropriate compressibility and patency on Doppler evaluation. The basilic vein demonstrates appropriate compressibility and patency on Doppler evaluation. The cephalic vein demonstrates appropriate compressibility and patency on Doppler evaluation. Impression: 1. No venous thrombus identified in the RIGHT upper extremity vessels evaluated above. 2. If clinical concern/symptoms persist or worsen, short-interval follow-up study is suggested.
[2025-02-25 04:02] LABS: Alkaline Phosphatase 52 U/L (46-116); Anion Gap 1 (5-15); BUN/Creatinine Ratio 9.4 (10.0-20.0); Blood Urea Nitrogen 9 mg/dL (9-23); Chloride 106 mmol/L (98-107); Magnesium 1.6 mg/dL (1.6-2.6); Potassium 3.9 mmol/L (3.5-5.1); Sodium 138 mmol/L (136-145)
[2025-02-25 04:04] LABS: Bilirubin, Total 0.7 mg/dL (0.2-1.0)
[2025-02-25 04:12] LABS: Alanine Aminotransferase < 9 U/L (7-40); Albumin 1.6 g/dL (3.2-4.8); Carbon Dioxide 31 mmol/L (20-31); Glucose 207 mg/dL (74-106); Total Protein 3.2 g/dL (5.7-8.2)
[2025-02-25 04:13] LABS: Calcium 5.8 mg/dL (8.7-10.4)
[2025-02-25] MEDS ORDERED: CALCIUM GLUC 1,000mg/50ml-NS 50 ML IV SCH (06:00)
[2025-02-25] MEDS: MAGNESIUM SULFATE 1GM/100ML 100 ML IV ONE (09:20)
--- NOTE | 2025-02-25 09:20 | DVHPN2 ---
Progress Note Date Seen: Feb 25, 2025 Has the PT tested + for MRSA If YES, has PT been informed?: Yes Medical Necessity Reason Pt with a Central, PICC or Fol: No Objective vital signs Vital Sign Date Time Temp Pulse Resp B/P (MAP) Pulse Ox O2 Delivery O2 Flow Rate FiO2 02/25/25 09:07 98.2 90 13 122/35 98.2 02/25/25 06:15 96 02/24/25 20:00 Nasal Cannula* 4 36 Total Intake and Output 02/24/25 02/24/25 02/25/25 15:00 23:00 07:00 Intake Total 1140.39 ml 2050.14 ml 1417.06 ml Output Total 1075 ml 900 ml Balance 1140.39 ml 975.14 ml 517.06 ml medications Current Medications Medications Dose Ordered Sig/Neha Route Start Time Stop Time Status Last Admin Dose Admin Piperacillin Sod/ Tazobactam Sod 100 ml @ 25 mls/hr Q6HR IV 02/20/25 00:00 02/25/25 04:46 25 MLS/HR Ondansetron HCl 4 mg Q4HPRN PRN IV 02/19/25 20:30 02/20/25 18:16 4 MG Diagnostic Test (Pha) 1 strip Q6HR 02/20/25 00:00 02/25/25 06:03 1 STRIP Insulin Human Regular Q6HR SC 02/20/25 00:00 02/25/25 05:09 4 UNITS Dextrose 50 ml UD PRN IV 02/19/25 20:30 Nitroglycerin 0.4 mg Q5MINP PRN SL 02/19/25 20:30 Morphine Sulfate 2 mg Q30M PRN IV 02/19/25 20:30 02/24/25 08:46 2 MG Morphine Sulfate 2 mg Q6HPRN PRN IV 02/20/25 00:45 02/25/25 04:50 2 MG Insulin Glargine 10 units HS SC 02/20/25 00:00 02/24/25 21:58 10 UNITS Amiodarone HCL/ Dextrose 200 ml @ 33.33 mls/ hr Q12H IV 02/21/25 01:45 02/25/25 04:48 33.33 MLS/HR Diltiazem HCl 125 ml @ 0 mls/hr Q0M IV 02/21/25 01:45 02/23/25 00:18 5 MLS/HR Pantoprazole Sodium 80 mg BID IV 02/21/25 22:00 Cancel Norepinephrine Bitartrate 250 ml @ 3.75 mls/hr Q24H IV 02/21/25 15:15 02/25/25 04:48 18.75 MLS/HR Octreotide Acetate 500 mcg/ Sodium Chloride 100 ml @ 10 mls/hr Q10H IV 02/21/25 15:15 02/24/25 23:57 10 MLS/HR Sodium Chloride 10 ml QSHIFT@10,22 IV 02/21/25 22:00 02/24/25 21:57 10 ML Sodium Chloride 1,000 ml @ 75 mls/hr [id number] IV 02/22/25 01:45 02/24/25 08:48 75 MLS/HR Sucralfate 1 gm QID@0600,1130,1700,2200 PO 02/22/25 11:30 02/24/25 17:24 1 GM Pantoprazole Sodium 80 mg TID IV 02/23/25 22:00 02/25/25 04:47 80 MG laboratory and microbiology Laboratory Tests 02/25/25 03:05 02/25/25 02:00 Test 02/25/25 03:05 Range/Units Serum Glucose 207 H 74-106 mg/dL Problem List/Assessment/Plan Problem List/Assessment/Plan 02/25/25 ASSUMED CARE FROM , PATIENT ADMITS TO DRINKING ALCOHOL; HAD EMBOLIZATION OF BLEEDING ULCER BY RADIOLOGIST YESTERDAY, NOW STILL SOME BLOOD PER ILEOSTOMY BUT NOT VOLUMINOUS PREVIOUSLY, MOST LIKELY JUST ALREADY SHED BLOOD, WILL FOLLOW Plan discussed with: Patient, Other Dietary Evaluation Review Comments: 1) If patient remains NPO > 7 days, consider EN/TPN to meet at least 75% of estimated daily needs 2) Advance to 60g CCHO cardiac diet when medically feasible 3) Refer to outpatient RD/CD[facility] for weight management 4) Continue to monitor I&O, labs, and skin integrity Expected Outcomes/Goals: 1) patient to receive nutritional support within 7 days of NPO status 2) labs to improve 3) diet to advance 4) f/u in 3-5 days ANNABELLA BEASLEY MD Feb 25, 2025 09:19
--- NOTE | 2025-02-25 13:58 | DVHPN2 ---
Progress Note Date Seen: Feb 25, 2025 Resident Creating Document: ALEXANDRIA BENZ RESIDENT Has the PT tested + for MRSA If YES, has PT been informed?: Yes Medical Necessity Reason Pt with a Central, PICC or Fol: No Subjective Review of Systems Patient seen and examined at bedside today 200 mL coffee-ground output from colostomy today, 500 mL yesterday Minimal to no urine output today, 350 mL yesterday Patient reports feeling better than yesterday Currently s/p 17 PRBCs, 3 FFP, 2 platelets transfusions. Objective vital signs Vital Sign Date Time Temp Pulse Resp B/P (MAP) Pulse Ox O2 Delivery O2 Flow Rate FiO2 02/25/25 12:30 92 17 112/82 (92) 97 02/25/25 12:00 97.9 97.9 02/25/25 08:00 Nasal Cannula* 4 36 Total Intake and Output 02/24/25 02/24/25 02/25/25 15:00 23:00 07:00 Intake Total 1140.39 ml 2050.14 ml 1417.06 ml Output Total 1075 ml 900 ml Balance 1140.39 ml 975.14 ml 517.06 ml medications Current Medications Medications Dose Ordered Sig/Neha Route Start Time Stop Time Status Last Admin Dose Admin Piperacillin Sod/ Tazobactam Sod 100 ml @ 25 mls/hr Q6HR IV 02/20/25 00:00 02/25/25 13:23 25 MLS/HR Ondansetron HCl 4 mg Q4HPRN PRN IV 02/19/25 20:30 02/20/25 18:16 4 MG Diagnostic Test (Pha) 1 strip Q6HR 02/20/25 00:00 02/25/25 13:24 1 STRIP Insulin Human Regular Q6HR SC 02/20/25 00:00 02/25/25 13:30 4 UNITS Dextrose 50 ml UD PRN IV 02/19/25 20:30 Nitroglycerin 0.4 mg Q5MINP PRN SL 02/19/25 20:30 Morphine Sulfate 2 mg Q30M PRN IV 02/19/25 20:30 02/24/25 08:46 2 MG Morphine Sulfate 2 mg Q6HPRN PRN IV 02/20/25 00:45 02/25/25 10:52 2 MG Insulin Glargine 10 units HS SC 02/20/25 00:00 02/24/25 21:58 10 UNITS Amiodarone HCL/ Dextrose 200 ml @ 33.33 mls/ hr Q12H IV 02/21/25 01:45 02/25/25 10:42 33.33 MLS/HR Diltiazem HCl 125 ml @ 0 mls/hr Q0M IV 02/21/25 01:45 02/23/25 00:18 5 MLS/HR Pantoprazole Sodium 80 mg BID IV 02/21/25 22:00 Cancel Norepinephrine Bitartrate 250 ml @ 3.75 mls/hr Q24H IV 02/21/25 15:15 02/25/25 04:48 18.75 MLS/HR Octreotide Acetate 500 mcg/ Sodium Chloride 100 ml @ 10 mls/hr Q10H IV 02/21/25 15:15 02/24/25 23:57 10 MLS/HR Sodium Chloride 10 ml QSHIFT@10,22 IV 02/21/25 22:00 02/25/25 10:42 10 ML Sodium Chloride 1,000 ml @ 75 mls/hr [id number] IV 02/22/25 01:45 02/24/25 08:48 75 MLS/HR Sucralfate 1 gm QID@0600,1130,1700,2200 PO 02/22/25 11:30 02/24/25 17:24 1 GM Pantoprazole Sodium 80 mg TID IV 02/23/25 22:00 02/25/25 04:47 80 MG Mupirocin 1 applic BID EACHNOSTRI 02/25/25 22:00 03/02/25 21:59 Examination General Appearance: Cooperative. Well developed. Well nourished. NAD Pulmonary/Respiratory: Chest non-tender. Clear bilateral breath sounds, no crackles, no wheezing. Abdominal Exam: Normal bowel sounds. Soft. normal abdomen, no visible veins, Nontender. No hepatospenomegaly. Colostomy bag noted on the right abdominal wall, filled with dark red blood. Lower extremities: Leathery skin noted on left lower extremity, bilateral lower extremity scales noted. Neuro/Mental Status: A&O x4. Coherent. Thoughts/Psych: Normal thought pattern. Appropriate mood and affect. Good judgement and insight Skin Exam: Normal inspection. Normal color. Warm. Dry laboratory and microbiology Laboratory Tests 02/25/25 03:05 02/25/25 02:00 Test 02/25/25 03:05 Range/Units Serum Glucose 207 H 74-106 mg/dL Microbiology Date/Time Source Procedure Growth Status 02/21/25 17:30 Nose MRSA Screen - Final Methicillin Resistant S.aureus Complete Labs and/or images reviewed: Labs reviewed by me, Image(s) reviewed by me Problem List/Assessment/Plan Problem List/Assessment/Plan Acute blood loss anemia GI bleed Colostomy hemorrhage Questionable hypovolemic shock Plan: Levophed 4 microgram/minutes Transfuse as needed to keep hemoglobin greater than 8 NPO, no ice chips, no p.o. meds. Surgical consult S/p arterial embolization IV Protonix IV octreotide Carafate amiodarone Cardiology on board EGD performed on 02/22/2025 showed multiple and extensive ulceration of the postbulbar area of the duodenum with a surrounding duodenitis but no visible vessel or active bleeding at this time. 1-2 cm sliding-type hiatal hernia, minimal gastritis, otherwise normal examination up to the 2nd and 3rd part of the duodenum with no fresh or old blood in the upper GI tract. Thank you so much for the opportunity to consult on your patient. GI team will follow the patient. In case of any questions or concerns please feel free to reach out. Plan discussed with Dr. Aragon Plan discussed with: Patient, Other (Father, RN) My Orders My Orders Orders - ALEXANDRIA BENZ RESIDENT Procedure Category Date Status Time Mupirocin 2% Oint PHA 02/25/25 In Process Mrsa Nares (Bactroban 22:00 Dietary Evaluation Review Comments: 1) If patient remains NPO > 7 days, consider EN/TPN to meet at least 75% of estimated daily needs 2) Advance to 60g CCHO cardiac diet when medically feasible 3) Refer to outpatient RD/CD[facility] for weight management 4) Continue to monitor I&O, labs, and skin integrity Expected Outcomes/Goals: 1) patient to receive nutritional support within 7 days of NPO status 2) labs to improve 3) diet to advance 4) f/u in 3-5 days CC Plasma Assessment Blood Product Administration S: 10:45 ALEXANDRIA BENZ RESIDENT Feb 25, 2025 13:58
--- NOTE | 2025-02-25 14:02 | DVHPN2 ---
Progress Note - Dictate Date Seen: Feb 25, 2025 Has the PT tested + for MRSA If YES, has PT been informed?: Yes Medical Necessity Reason Pt with a Central, PICC or Fol: No Subjective Patient denies any pain this AM. Reviewed medical history with patient. Discussed plan for today. Advised patient need to turn to avoid worsening sacral ulcer. vital signs Vital Sign Date Time Temp Pulse Resp B/P (MAP) Pulse Ox O2 Delivery O2 Flow Rate FiO2 02/25/25 12:30 92 17 112/82 (92) 97 02/25/25 12:00 97.9 97.9 02/25/25 08:00 Nasal Cannula* 4 36 Total Intake and Output 02/24/25 02/24/25 02/25/25 14:59 22:59 06:59 Intake Total 1132.89 ml 2042.64 ml 1554.14 ml Output Total 1075 ml 900 ml Balance 1132.89 ml 967.64 ml 654.14 ml medications Current Medications Medications Dose Ordered Sig/Neha Route Start Time Stop Time Status Last Admin Dose Admin Piperacillin Sod/ Tazobactam Sod 100 ml @ 25 mls/hr Q6HR IV 02/20/25 00:00 02/25/25 13:23 25 MLS/HR Ondansetron HCl 4 mg Q4HPRN PRN IV 02/19/25 20:30 02/20/25 18:16 4 MG Diagnostic Test (Pha) 1 strip Q6HR 02/20/25 00:00 02/25/25 13:24 1 STRIP Insulin Human Regular Q6HR SC 02/20/25 00:00 02/25/25 13:30 4 UNITS Dextrose 50 ml UD PRN IV 02/19/25 20:30 Nitroglycerin 0.4 mg Q5MINP PRN SL 02/19/25 20:30 Morphine Sulfate 2 mg Q30M PRN IV 02/19/25 20:30 02/24/25 08:46 2 MG Morphine Sulfate 2 mg Q6HPRN PRN IV 02/20/25 00:45 02/25/25 10:52 2 MG Insulin Glargine 10 units HS SC 02/20/25 00:00 02/24/25 21:58 10 UNITS Amiodarone HCL/ Dextrose 200 ml @ 33.33 mls/ hr Q12H IV 02/21/25 01:45 02/25/25 10:42 33.33 MLS/HR Diltiazem HCl 125 ml @ 0 mls/hr Q0M IV 02/21/25 01:45 02/23/25 00:18 5 MLS/HR Pantoprazole Sodium 80 mg BID IV 02/21/25 22:00 Cancel Norepinephrine Bitartrate 250 ml @ 3.75 mls/hr Q24H IV 02/21/25 15:15 02/25/25 04:48 18.75 MLS/HR Octreotide Acetate 500 mcg/ Sodium Chloride 100 ml @ 10 mls/hr Q10H IV 02/21/25 15:15 02/24/25 23:57 10 MLS/HR Sodium Chloride 10 ml QSHIFT@10,22 IV 02/21/25 22:00 02/25/25 10:42 10 ML Sodium Chloride 1,000 ml @ 75 mls/hr [id number] IV 02/22/25 01:45 02/24/25 08:48 75 MLS/HR Sucralfate 1 gm QID@0600,1130,1700,2200 PO 02/22/25 11:30 02/24/25 17:24 1 GM Pantoprazole Sodium 80 mg TID IV 02/23/25 22:00 02/25/25 04:47 80 MG Mupirocin 1 applic BID EACHNOSTRI 02/25/25 22:00 03/02/25 21:59 objective General appearance: No acute distress. Obese Respiratory: Fine bibasilar crackles Cardiovascular: Regular rate and rhythm, no murmurs. No edema Abdomen: Soft, nondistended, nontender, bowel sounds present. Colostomy bag present. MSK: Normal range of motion. Neuro: Alert, no neurological deficits Psych: Appropriate mood and affect. laboratory and microbiology Laboratory Tests 02/25/25 03:05 02/25/25 02:00 Test 02/25/25 03:05 Range/Units Serum Glucose 207 H 74-106 mg/dL Assessment/Plan 1) Acute GI bleed 2) Acute Blood Loss Anemia 2/2 above s/p PRBC transfusion 3) Afib RVR s/p DCCV 4) Duodenitis/colitis Secondary Diagnosis: 5) Morbid Obesity 6) Essential HTN 7) Ileostomy, 8) Chronic pain syndrome Assessment/Plan 02/20----patient hgb most recent 7.8 and will transfuse blood as necessary for Hgb <7, will continue to trend H/H q6h, on IV ABx zosyn, PPI IV, GI consulted on the case and patient is NPO. amio gtt started due to afib RVR with cardiology consult, echo pending, continue all care, daily labs, office 365 consultant input appreciated, will follow along 02/21---most recent hgb 8.9 after 2 units PRBCs transfused yesterday, will continue to trend H/H, on IV ABx with Zosyn, remains NPO, was seen by cardiology earlier this AM and underwent successful DCCV as he was in afib HR 150s now cardioverted and is now sinus tachycardia, he is still on amio gtt and started on cardizem gtt fixed rate as per cardiology and is to continue these drips until endoscopy is done, GI on board and will plan for EGD, he is cardiac cleared to have endoscopy, continue all care, daily labs, will follow along 02/22---Hgb yesterday dropped from 8.9 to 5.4 and he was transfused 2 units and repeat Hgb was 6.3 and thus another 2 more units of blood were ordered for transfusion and most recent hgb is 7.5 with the last unit transfusing now, he is now started on levophed for vasopressor support currently on 10 mcg levophed, GI is planning for EGD today, he is on PPI/octreotide gtt. NS at 125 ml/hr for hydration, as mentioned yesterday 02/21 the patient was cardioverted by cardiology for afib/flutter and now is sinus tachycardia on cardizem and amio gtts which are to be continued until endoscopy is done, will continue to trend Hgb and transfuse blood as needed, daily labs, supportive care, GI/cardiology consults appreciated, will continue to follow along with you. 02/23--- Patient overnight continues to have profuse bleeding with Hgb dropping to 5.9 and receiving additional 2 units of PRBC overnight. Patient Hgb Dropped to 5.1 this morning again. Patient has been ordered an additional 2 more units of PRBC in addition to FPP. GI is aware of patient blood loss and IR has been consulted for Arterial Immobilization. Patient to continue Levophed PRN To maintain MAPs > 65. Patient is currently on Zosyn IV Day 3 prophylactically. Patient to be discontinued of Diltiazem Drip and will maintain Amio drip. Patient will be initiated on SCDs for DVT prophylaxis. Incentive Spirometer to be started for 10x/hour. 02/24- Hgb noted to be 6.8 this AM, continues to be tachycardic with dark bloody output from colostomy bag. Pending arterial embolization with IR today. Remains on levophed. Amio drip to be continued. Plan for 2 additional units PRBC this AM. 02/25: Hgb stable at 7.4 this AM. Receiving additional unit PRBC. Underwent arterial embolization with IR on 02/24. Continues to have some dark output from colostomy but quantity decreased. Target BP goal SBP 100 given wide pulse pressure. Currently on levophed. Dietary Evaluation Review Comments: 1) If patient remains NPO > 7 days, consider EN/TPN to meet at least 75% of estimated daily needs 2) Advance to 60g CCHO cardiac diet when medically feasible 3) Refer to outpatient RD/[facility] for weight management 4) Continue to monitor I&O, labs, and skin integrity Expected Outcomes/Goals: 1) patient to receive nutritional support within 7 days of NPO status 2) labs to improve 3) diet to advance 4) f/u in 3-5 days Plan discussed with: Patient CC Plasma Assessment Blood Product Administration S: 10:45 FLORENCIA VELASCO DO Feb 25, 2025 14:02
--- NOTE | 2025-02-25 16:27 | DVHPN2 ---
Progress Note - Dictate Date Seen: Feb 25, 2025 Has the PT tested + for MRSA If YES, has PT been informed?: Yes Medical Necessity Reason Pt with a Central, PICC or Fol: No Subjective Patient was seen and evaluated in follow up in the ICU. Patient is on 4 LPM NC. Patient's family is at bedside. Patient is s/p embolization of bleeding ulcer by IR. Patient has some bloody output from ileostomy however bloody output has decreased from yesterday Patient received PRBC transfusion. HGB 7.4, HCT 22.4, CA 5.8. RUE Venous duplex showed no venous thrombus identified in the right upper extremity vessels. vital signs Vital Sign Date Time Temp Pulse Resp B/P (MAP) Pulse Ox O2 Delivery O2 Flow Rate FiO2 02/25/25 12:30 92 17 112/82 (92) 97 02/25/25 12:00 97.9 97.9 02/25/25 08:00 Nasal Cannula* 4 36 Total Intake and Output 02/24/25 02/24/25 02/25/25 15:00 23:00 07:00 Intake Total 1140.39 ml 2050.14 ml 1417.06 ml Output Total 1075 ml 900 ml Balance 1140.39 ml 975.14 ml 517.06 ml medications Current Medications Medications Dose Ordered Sig/Neha Route Start Time Stop Time Status Last Admin Dose Admin Piperacillin Sod/ Tazobactam Sod 100 ml @ 25 mls/hr Q6HR IV 02/20/25 00:00 02/25/25 04:46 25 MLS/HR Ondansetron HCl 4 mg Q4HPRN PRN IV 02/19/25 20:30 02/20/25 18:16 4 MG Diagnostic Test (Pha) 1 strip Q6HR 02/20/25 00:00 02/25/25 06:03 1 STRIP Insulin Human Regular Q6HR SC 02/20/25 00:00 02/25/25 05:09 4 UNITS Dextrose 50 ml UD PRN IV 02/19/25 20:30 Nitroglycerin 0.4 mg Q5MINP PRN SL 02/19/25 20:30 Morphine Sulfate 2 mg Q30M PRN IV 02/19/25 20:30 02/24/25 08:46 2 MG Morphine Sulfate 2 mg Q6HPRN PRN IV 02/20/25 00:45 02/25/25 10:52 2 MG Insulin Glargine 10 units HS SC 02/20/25 00:00 02/24/25 21:58 10 UNITS Amiodarone HCL/ Dextrose 200 ml @ 33.33 mls/ hr Q12H IV 02/21/25 01:45 02/25/25 10:42 33.33 MLS/HR Diltiazem HCl 125 ml @ 0 mls/hr Q0M IV 02/21/25 01:45 02/23/25 00:18 5 MLS/HR Pantoprazole Sodium 80 mg BID IV 02/21/25 22:00 Cancel Norepinephrine Bitartrate 250 ml @ 3.75 mls/hr Q24H IV 02/21/25 15:15 02/25/25 04:48 18.75 MLS/HR Octreotide Acetate 500 mcg/ Sodium Chloride 100 ml @ 10 mls/hr Q10H IV 02/21/25 15:15 02/24/25 23:57 10 MLS/HR Sodium Chloride 10 ml QSHIFT@10,22 IV 02/21/25 22:00 02/25/25 10:42 10 ML Sodium Chloride 1,000 ml @ 75 mls/hr [id number] IV 02/22/25 01:45 02/24/25 08:48 75 MLS/HR Sucralfate 1 gm QID@0600,1130,1700,2200 PO 02/22/25 11:30 02/24/25 17:24 1 GM Pantoprazole Sodium 80 mg TID IV 02/23/25 22:00 02/25/25 04:47 80 MG Mupirocin 1 applic BID EACHNOSTRI 02/25/25 22:00 03/02/25 21:59 objective GENERAL: Alert and oriented x 3. No acute distress. Pale appearing. EYES: PERRL, EOMI. Anicteric. HENT: Moist mucous membranes. LUNGS: Clear to auscultation bilaterally. CARDIOVASCULAR: Regular rate and rhythm. ABDOMEN: Colostomy to right lower abdomen, bright-red feces. EXTREMITIES: No edema. NEUROLOGIC: No focal neurological deficits. SKIN: Warm, dry. laboratory and microbiology Laboratory Tests 02/25/25 03:05 02/25/25 02:00 Test 02/25/25 03:05 Range/Units Serum Glucose 207 H 74-106 mg/dL Problem List A Fib with RVR. GI bleed. Abdominal wall thickening. Acute blood loss anemia. Diabetes mellitus type 2 with hyperglycemia. HTN. HLD. Assessment/Plan Continued all current supportive medical care. Echocardiogram. IV Amiodarone. GI prophylactics. IV antibiotics as ordered. Vasopressors for hemodynamic support. Additional plan as per the hospital course. Critical care time of 45 minutes provided to include time spent evaluation of patient at bedside, when appropriate patient/family education for diagnosis, treatment plan, review of pertinent medical information and discussion of care with specialty providers and PCP. Dietary Evaluation Review Comments: 1) If patient remains NPO > 7 days, consider EN/TPN to meet at least 75% of estimated daily needs 2) Advance to 60g CCHO cardiac diet when medically feasible 3) Refer to outpatient RD/CDCES for weight management 4) Continue to monitor I&O, labs, and skin integrity Expected Outcomes/Goals: 1) patient to receive nutritional support within 7 days of NPO status 2) labs to improve 3) diet to advance 4) f/u in 3-5 days Plan discussed with: Patient CC Plasma Assessment Blood Product Administration S: 10:45 WEST MARTEL MD Feb 25, 2025 13:24
[2025-02-25 16:51] LABS: Hematocrit 21.4 % (41.0-53.0); Hemoglobin 7.1 g/dL (13.5-17.5)
[2025-02-25] MEDS: MUPIROCIN 2% OINT 15gm or 22gm FOR MRSA NARES EACHNOSTRI SCH (22:01)
[2025-02-26] VITALS (95 sets, daily range): BP systolic 64–137; BP diastolic 26–86; PULSE 84–110; RESP 10–29; TEMP 98.4–101.5; O2SAT 88–100
[2025-02-26 03:31] LABS: Nucleated Red Blood Cells % 0.0 %
[2025-02-26 03:34] LABS: Hematocrit 21.3 % (41.0-53.0); Hemoglobin 7.3 g/dL (13.5-17.5); Mean Corpuscular Hemoglobin 28.9 pg (28.0-32.0); Mean Corpuscular Volume 85.0 fL (80.0-100.0)
[2025-02-26 03:44] LABS: Alkaline Phosphatase 74 U/L (46-116); Anion Gap 3 (5-15); BUN/Creatinine Ratio 13.1 (10.0-20.0); Blood Urea Nitrogen 13 mg/dL (9-23); Carbon Dioxide 31 mmol/L (20-31); Chloride 104 mmol/L (98-107); Potassium 3.7 mmol/L (3.5-5.1); Sodium 138 mmol/L (136-145)
[2025-02-26 03:45] LABS: Bilirubin, Total 0.6 mg/dL (0.2-1.0)
[2025-02-26 03:49] LABS: Alanine Aminotransferase < 9 U/L (7-40); Albumin 1.7 g/dL (3.2-4.8); Calcium 6.2 mg/dL (8.7-10.4); Glucose 135 mg/dL (74-106); Total Protein 3.3 g/dL (5.7-8.2)
--- NOTE | 2025-02-26 10:25 | DVHPN2 ---
Progress Note Date Seen: Feb 26, 2025 Resident Creating Document: ALEXANDRIA BENZ RESIDENT Has the PT tested + for MRSA If YES, has PT been informed?: Yes Medical Necessity Reason Pt with a Central, PICC or Fol: No Subjective Review of Systems Patient seen and examined at bedside Reports feeling better than yesterday Overnight transfusion reaction noted with shortness of breaths, chills, tachycardia and was placed on 10 L via Oxymizer Currently on 7 L 50 mL colostomy output, dark brown overnight No further colostomy output today Objective vital signs Vital Sign Date Time Temp Pulse Resp B/P (MAP) Pulse Ox O2 Delivery O2 Flow Rate FiO2 02/26/25 06:45 86 23 117/39 (65) 96 02/26/25 00:00 100.6 100.6 02/25/25 20:00 Nasal Cannula* 4 36 Total Intake and Output 02/25/25 02/25/25 02/26/25 15:00 23:00 07:00 Intake Total 1326.64 ml 1201.64 ml 1263.31 ml Output Total 900 ml 500 ml Balance 1326.64 ml 301.64 ml 763.31 ml medications Current Medications Medications Dose Ordered Sig/Neha Route Start Time Stop Time Status Last Admin Dose Admin Piperacillin Sod/ Tazobactam Sod 100 ml @ 25 mls/hr Q6HR IV 02/20/25 00:00 02/26/25 05:30 25 MLS/HR Ondansetron HCl 4 mg Q4HPRN PRN IV 02/19/25 20:30 02/20/25 18:16 4 MG Diagnostic Test (Pha) 1 strip Q6HR 02/20/25 00:00 02/26/25 06:00 1 STRIP Insulin Human Regular Q6HR SC 02/20/25 00:00 02/26/25 05:29 2 UNITS Dextrose 50 ml UD PRN IV 02/19/25 20:30 Nitroglycerin 0.4 mg Q5MINP PRN SL 02/19/25 20:30 Morphine Sulfate 2 mg Q30M PRN IV 02/19/25 20:30 02/24/25 08:46 2 MG Morphine Sulfate 2 mg Q6HPRN PRN IV 02/20/25 00:45 02/26/25 05:30 2 MG Insulin Glargine 10 units HS SC 02/20/25 00:00 02/25/25 22:10 10 UNITS Amiodarone HCL/ Dextrose 200 ml @ 33.33 mls/ hr Q12H IV 02/21/25 01:45 02/26/25 05:41 33.33 MLS/HR Diltiazem HCl 125 ml @ 0 mls/hr Q0M IV 02/21/25 01:45 02/23/25 00:18 5 MLS/HR Pantoprazole Sodium 80 mg BID IV 02/21/25 22:00 Cancel Norepinephrine Bitartrate 250 ml @ 3.75 mls/hr Q24H IV 02/21/25 15:15 02/25/25 17:23 7.5 MLS/HR Octreotide Acetate 500 mcg/ Sodium Chloride 100 ml @ 10 mls/hr Q10H IV 02/21/25 15:15 02/26/25 00:52 10 MLS/HR Sodium Chloride 10 ml QSHIFT@10,22 IV 02/21/25 22:00 02/25/25 22:01 10 ML Sodium Chloride 1,000 ml @ 75 mls/hr [id number] IV 02/22/25 01:45 02/25/25 22:23 75 MLS/HR Sucralfate 1 gm QID@0600,1130,1700,2200 PO 02/22/25 11:30 02/24/25 17:24 1 GM Pantoprazole Sodium 80 mg TID IV 02/23/25 22:00 02/26/25 05:30 80 MG Mupirocin 1 applic BID EACHNOSTRI 02/25/25 22:00 03/02/25 21:59 02/25/25 22:01 1 APPLIC Examination General Appearance: Cooperative. Well developed. Well nourished. NAD Pulmonary/Respiratory: Chest non-tender. Clear bilateral breath sounds, no crackles, no wheezing. Abdominal Exam: Normal bowel sounds. Soft. normal abdomen, no visible veins, Nontender. No hepatospenomegaly. Colostomy bag noted on the right abdominal wall Lower extremities: Leathery skin noted on left lower extremity, bilateral lower extremity scales noted. Neuro/Mental Status: A&O x4. Coherent. Thoughts/Psych: Normal thought pattern. Appropriate mood and affect. Good judgement and insight Skin Exam: Normal inspection. Normal color. Warm. Dry laboratory and microbiology Laboratory Tests 02/26/25 02:59 Test 02/26/25 02:59 Range/Units Serum Glucose 135 H 74-106 mg/dL Microbiology Date/Time Source Procedure Growth Status 02/21/25 17:30 Nose MRSA Screen - Final Methicillin Resistant S.aureus Complete Labs and/or images reviewed: Labs reviewed by me, Image(s) reviewed by me Problem List/Assessment/Plan Problem List/Assessment/Plan Acute blood loss anemia GI bleed Colostomy hemorrhage Questionable hypovolemic shock Plan: Okay to have ice chips Transfuse as needed to keep hemoglobin greater than 8 NPO, no p.o. meds. S/p arterial embolization IV Protonix IV octreotide Carafate amiodarone Cardiology on board EGD performed on 02/22/2025 showed multiple and extensive ulceration of the postbulbar area of the duodenum with a surrounding duodenitis but no visible vessel or active bleeding at this time. 1-2 cm sliding-type hiatal hernia, minimal gastritis, otherwise normal examination up to the 2nd and 3rd part of the duodenum with no fresh or old blood in the upper GI tract. Thank you so much for the opportunity to consult on your patient. We will sign off, in case of any questions or concerns please reach out to the covering mortar worker Dr. Paul. Plan discussed with Dr. Aragon Plan discussed with: Patient, Other (Father, RN) My Orders My Orders Orders - ALEXANDRIA BENZ RESIDENT Procedure Category Date Status Time Mupirocin 2% Oint PHA 02/25/25 In Process Mrsa Nares (Bactroban 22:00 Communication Order ORDERS 02/25/25 Transmitted 14:15 Npo Except Ice Chips JENNIFER 02/26/25 In Process 10:22 Npo (Nothing By DIET 02/26/25 Transmitted Mouth) Diet Lunch Dietary Evaluation Review Comments: 1) If patient remains NPO > 7 days, consider EN/TPN to meet at least 75% of estimated daily needs 2) Advance to 60g CCHO cardiac diet when medically feasible 3) Refer to outpatient RD/CD[facility] for weight management 4) Continue to monitor I&O, labs, and skin integrity Expected Outcomes/Goals: 1) patient to receive nutritional support within 7 days of NPO status 2) labs to improve 3) diet to advance 4) f/u in 3-5 days CC Plasma Assessment Blood Product Administration S: 10:45 ALEXANDRIA BENZ RESIDENT Feb 26, 2025 10:25
[2025-02-26] MEDS: NOREPINEPHRINE 8 MG/250ML KIT 250 ML IV SCH (11:10)
[2025-02-26] MEDS ORDERED: TPN PER PHARMACY 0 ML IV SCH (11:45)
--- NOTE | 2025-02-26 12:27 | DVHPN2 ---
Progress Note - Dictate Date Seen: Feb 26, 2025 Has the PT tested + for MRSA If YES, has PT been informed?: Yes Medical Necessity Reason Pt with a Central, PICC or Fol: No Subjective Patient was seen and evaluated in follow up in the ICU. Overnight per RN, the patient experienced PRBC transfusion reaction with shortness of breath, chills and tachycardia and was placed on 10 L via Oxymizer. Patient had 50 mL colostomy output, dark brown overnight. No further colostomy output noted during the day. WBC 17.7, HGB 7.3, HCT 21.3, CA 6.2. vital signs Vital Sign Date Time Temp Pulse Resp B/P (MAP) Pulse Ox O2 Delivery O2 Flow Rate FiO2 02/26/25 11:37 96/73 02/26/25 06:45 86 23 96 02/26/25 00:00 100.6 100.6 02/25/25 20:00 Nasal Cannula* 4 36 Total Intake and Output 02/25/25 02/25/25 02/26/25 15:00 23:00 07:00 Intake Total 1326.64 ml 1201.64 ml 1263.31 ml Output Total 900 ml 500 ml Balance 1326.64 ml 301.64 ml 763.31 ml medications Current Medications Medications Dose Ordered Sig/Neha Route Start Time Stop Time Status Last Admin Dose Admin Piperacillin Sod/ Tazobactam Sod 100 ml @ 25 mls/hr Q6HR IV 02/20/25 00:00 02/26/25 05:30 25 MLS/HR Ondansetron HCl 4 mg Q4HPRN PRN IV 02/19/25 20:30 02/20/25 18:16 4 MG Diagnostic Test (Pha) 1 strip Q6HR 02/20/25 00:00 02/26/25 06:00 1 STRIP Insulin Human Regular Q6HR SC 02/20/25 00:00 02/26/25 05:29 2 UNITS Dextrose 50 ml UD PRN IV 02/19/25 20:30 Nitroglycerin 0.4 mg Q5MINP PRN SL 02/19/25 20:30 Morphine Sulfate 2 mg Q30M PRN IV 02/19/25 20:30 02/24/25 08:46 2 MG Morphine Sulfate 2 mg Q6HPRN PRN IV 02/20/25 00:45 02/26/25 05:30 2 MG Insulin Glargine 10 units HS SC 02/20/25 00:00 02/25/25 22:10 10 UNITS Amiodarone HCL/ Dextrose 200 ml @ 33.33 mls/ hr Q12H IV 02/21/25 01:45 02/26/25 11:23 33.33 MLS/HR Diltiazem HCl 125 ml @ 0 mls/hr Q0M IV 02/21/25 01:45 02/23/25 00:18 5 MLS/HR Pantoprazole Sodium 80 mg BID IV 02/21/25 22:00 Cancel Octreotide Acetate 500 mcg/ Sodium Chloride 100 ml @ 10 mls/hr Q10H IV 02/21/25 15:15 02/26/25 11:08 10 MLS/HR Sodium Chloride 10 ml QSHIFT@10,22 IV 02/21/25 22:00 02/26/25 10:41 10 ML Sodium Chloride 1,000 ml @ 75 mls/hr [id number] IV 02/22/25 01:45 02/26/25 11:23 75 MLS/HR Sucralfate 1 gm QID@0600,1130,1700,2200 PO 02/22/25 11:30 02/24/25 17:24 1 GM Pantoprazole Sodium 80 mg TID IV 02/23/25 22:00 02/26/25 05:30 80 MG Mupirocin 1 applic BID EACHNOSTRI 02/25/25 22:00 03/02/25 21:59 02/26/25 10:42 1 APPLIC Norepinephrine Bitartrate 250 ml @ 3.75 mls/hr Q24H IV 02/26/25 11:00 02/26/25 11:10 26.25 MLS/HR Amino Acids 0 ml @ 0 mls/hr PER PHARMACY IV 02/26/25 11:45 UNV objective GENERAL: Alert and oriented x 3. No acute distress. Pale appearing. EYES: PERRL, EOMI. Anicteric. HENT: Moist mucous membranes. LUNGS: Clear to auscultation bilaterally. CARDIOVASCULAR: Regular rate and rhythm. ABDOMEN: Colostomy to right lower abdomen, bright-red feces. EXTREMITIES: No edema. NEUROLOGIC: No focal neurological deficits. SKIN: Warm, dry. laboratory and microbiology Laboratory Tests 02/26/25 02:59 Test 02/26/25 02:59 Range/Units Serum Glucose 135 H 74-106 mg/dL Problem List A Fib with RVR. GI bleed. Abdominal wall thickening. Acute blood loss anemia. Diabetes mellitus type 2 with hyperglycemia. HTN. HLD. Assessment/Plan Continued all current supportive medical care. Echocardiogram. IV Amiodarone. GI prophylactics. IV antibiotics as ordered. Morphine for pain management. Vasopressors for hemodynamic support. Additional plan as per the hospital course. Critical care time of 45 minutes provided to include time spent evaluation of patient at bedside, when appropriate patient/family education for diagnosis, treatment plan, review of pertinent medical information and discussion of care with specialty providers and PCP. Dietary Evaluation Review Comments: 1) If patient remains NPO > 7 days, consider EN/TPN to meet at least 75% of estimated daily needs 2) Advance to 60g CCHO cardiac diet when medically feasible 3) Refer to outpatient RD/[facility] for weight management 4) Continue to monitor I&O, labs, and skin integrity Expected Outcomes/Goals: 1) patient to receive nutritional support within 7 days of NPO status 2) labs to improve 3) diet to advance 4) f/u in 3-5 days Plan discussed with: Patient CC Plasma Assessment Blood Product Administration S: 10:45 WEST MARTEL MD Feb 26, 2025 12:07
[2025-02-26] MEDS ORDERED: ACETAMINOPHEN IV 1000 MG/100ML (10MG/ML) IV PRN (12:30)
[2025-02-26] MEDS: MAGNESIUM SULFATE 1GM/100ML 100 ML IV SCH (13:15)
--- NOTE | 2025-02-26 13:27 | DVH ---
INDICATION: increasing o2 requirement TECHNIQUE: Single frontal view of the chest was obtained COMPARISON: XY CHEST PORTABLE on DOS: 02/19/25, XR CHEST 1 VIEW on DOS: 02/17/23, XR CHEST 1 VIEW on DO S: 01/13/22, XR ACUTE ABDOM SERIES/PA CXR on DOS: 10/28/21, XY CHEST PORTABLE on DOS: 02/19/25 FINDINGS: Lines and Tubes: None Lungs: Congestion Pleura: No effusion. No pneumothorax. Cardiomediastinal contours: Unremarkable Bones: Unremarkable IMPRESSION: Increased interstital prominence. This may represent pulmonary vascular congestion and/or viral pneum onia. Clinical correlation advised.
--- NOTE | 2025-02-26 13:47 | DVHPN2 ---
Progress Note - Dictate Date Seen: Feb 26, 2025 Has the PT tested + for MRSA If YES, has PT been informed?: Yes Medical Necessity Reason Pt with a Central, PICC or Fol: No Subjective Patient requesting diet. Per GI, only ice chips. vital signs Vital Sign Date Time Temp Pulse Resp B/P (MAP) Pulse Ox O2 Delivery O2 Flow Rate FiO2 02/26/25 13:11 98 20 112/41 02/26/25 06:45 96 02/26/25 00:00 100.6 100.6 02/25/25 20:00 Nasal Cannula* 4 36 Total Intake and Output 02/25/25 02/25/25 02/26/25 15:00 23:00 07:00 Intake Total 1326.64 ml 1201.64 ml 1263.31 ml Output Total 900 ml 500 ml Balance 1326.64 ml 301.64 ml 763.31 ml medications Current Medications Medications Dose Ordered Sig/Neha Route Start Time Stop Time Status Last Admin Dose Admin Piperacillin Sod/ Tazobactam Sod 100 ml @ 25 mls/hr Q6HR IV 02/20/25 00:00 02/26/25 12:45 25 MLS/HR Ondansetron HCl 4 mg Q4HPRN PRN IV 02/19/25 20:30 02/20/25 18:16 4 MG Diagnostic Test (Pha) 1 strip Q6HR 02/20/25 00:00 02/26/25 12:03 1 STRIP Insulin Human Regular Q6HR SC 02/20/25 00:00 02/26/25 12:05 2 UNITS Dextrose 50 ml UD PRN IV 02/19/25 20:30 Nitroglycerin 0.4 mg Q5MINP PRN SL 02/19/25 20:30 Morphine Sulfate 2 mg Q30M PRN IV 02/19/25 20:30 02/24/25 08:46 2 MG Morphine Sulfate 2 mg Q6HPRN PRN IV 02/20/25 00:45 02/26/25 13:11 2 MG Insulin Glargine 10 units HS SC 02/20/25 00:00 02/25/25 22:10 10 UNITS Amiodarone HCL/ Dextrose 200 ml @ 33.33 mls/ hr Q12H IV 02/21/25 01:45 02/26/25 11:23 33.33 MLS/HR Diltiazem HCl 125 ml @ 0 mls/hr Q0M IV 02/21/25 01:45 02/23/25 00:18 5 MLS/HR Pantoprazole Sodium 80 mg BID IV 02/21/25 22:00 Cancel Octreotide Acetate 500 mcg/ Sodium Chloride 100 ml @ 10 mls/hr Q10H IV 02/21/25 15:15 02/26/25 11:08 10 MLS/HR Sodium Chloride 10 ml QSHIFT@10,22 IV 02/21/25 22:00 02/26/25 10:41 10 ML Sodium Chloride 1,000 ml @ 75 mls/hr [id number] IV 02/22/25 01:45 02/26/25 11:23 75 MLS/HR Sucralfate 1 gm QID@0600,1130,1700,2200 PO 02/22/25 11:30 02/24/25 17:24 1 GM Pantoprazole Sodium 80 mg TID IV 02/23/25 22:00 02/26/25 05:30 80 MG Mupirocin 1 applic BID EACHNOSTRI 02/25/25 22:00 03/02/25 21:59 02/26/25 10:42 1 APPLIC Norepinephrine Bitartrate 250 ml @ 3.75 mls/hr Q24H IV 02/26/25 11:00 02/26/25 11:10 26.25 MLS/HR Amino Acids 0 ml @ 0 mls/hr PER PHARMACY IV 02/26/25 11:45 Magnesium Sulfate/ Dextrose 100 ml @ 100 mls/hr Q1HR IV 02/26/25 13:00 02/26/25 14:59 02/26/25 13:15 100 MLS/HR Sodium Chloride 10 meq/Calcium Gluconate 6.975 meq/Magnesium Sulfate 10 meq/ Multivitamins 10 ml/Chromium/ Copper/Manganese/ Zinc 1 ml/Insulin Human Regular 5 units/Potassium Chloride 20 meq/ Amino Acids/ Dextrose/Purified Water 1,041.05 ml @ 43 mls/hr [id number] IV 02/26/25 22:00 02/27/25 21:59 objective General appearance: No acute distress. Obese Respiratory: Fine bibasilar crackles Cardiovascular: Regular rate and rhythm, no murmurs. No edema Abdomen: Soft, nondistended, nontender, bowel sounds present. Colostomy bag present. MSK: Normal range of motion. Neuro: Alert, no neurological deficits Psych: Appropriate mood and affect. laboratory and microbiology Laboratory Tests 02/26/25 02:59 Test 02/26/25 02:59 Range/Units Serum Glucose 135 H 74-106 mg/dL Assessment/Plan 1) Acute GI bleed 2) Acute Blood Loss Anemia 2/2 above s/p PRBC transfusion 3) Afib RVR s/p DCCV 4) Duodenitis/colitis Secondary Diagnosis: 5) Morbid Obesity 6) Essential HTN 7) Ileostomy, 8) Chronic pain syndrome Assessment/Plan 02/20----patient hgb most recent 7.8 and will transfuse blood as necessary for Hgb <7, will continue to trend H/H q6h, on IV ABx zosyn, PPI IV, GI consulted on the case and patient is NPO. amio gtt started due to afib RVR with cardiology consult, echo pending, continue all care, daily labs, color consultant input appreciated, will follow along 02/21---most recent hgb 8.9 after 2 units PRBCs transfused yesterday, will continue to trend H/H, on IV ABx with Zosyn, remains NPO, was seen by cardiology earlier this AM and underwent successful DCCV as he was in afib HR 150s now cardioverted and is now sinus tachycardia, he is still on amio gtt and started on cardizem gtt fixed rate as per cardiology and is to continue these drips until endoscopy is done, GI on board and will plan for EGD, he is cardiac cleared to have endoscopy, continue all care, daily labs, will follow along 02/22---Hgb yesterday dropped from 8.9 to 5.4 and he was transfused 2 units and repeat Hgb was 6.3 and thus another 2 more units of blood were ordered for transfusion and most recent hgb is 7.5 with the last unit transfusing now, he is now started on levophed for vasopressor support currently on 10 mcg levophed, GI is planning for EGD today, he is on PPI/octreotide gtt. NS at 125 ml/hr for hydration, as mentioned yesterday 02/21 the patient was cardioverted by cardiology for afib/flutter and now is sinus tachycardia on cardizem and amio gtts which are to be continued until endoscopy is done, will continue to trend Hgb and transfuse blood as needed, daily labs, supportive care, GI/cardiology consults appreciated, will continue to follow along with you. 02/23--- Patient overnight continues to have profuse bleeding with Hgb dropping to 5.9 and receiving additional 2 units of PRBC overnight. Patient Hgb Dropped to 5.1 this morning again. Patient has been ordered an additional 2 more units of PRBC in addition to FPP. GI is aware of patient blood loss and IR has been consulted for Arterial Immobilization. Patient to continue Levophed PRN To maintain MAPs > 65. Patient is currently on Zosyn IV Day 3 prophylactically. Patient to be discontinued of Diltiazem Drip and will maintain Amio drip. Patient will be initiated on SCDs for DVT prophylaxis. Incentive Spirometer to be started for 10x/hour. 02/24- Hgb noted to be 6.8 this AM, continues to be tachycardic with dark bloody output from colostomy bag. Pending arterial embolization with IR today. Remains on levophed. Amio drip to be continued. Plan for 2 additional units PRBC this AM. 02/25: Hgb stable at 7.4 this AM. Receiving additional unit PRBC. Underwent arterial embolization with IR on 02/24. Continues to have some dark output from colostomy but quantity decreased. Target BP goal SBP 100 given wide pulse pressure. Currently on levophed. 02/26: Requiring increased levophed today. Colostomy output reviewed, 50c overnight, improving. Patient noted to have blood transfusion reaction last night. Transfusion aborted. Likely due to sensitization to cumulative blood products. Patient noted to spike fever today of 1.4. Blood cultures lactic acid ordered. IV Tylenol ordered as patient [id number]. Chest x-ray shows increased interstitial prominence with increased oxygen requirement. Likely secondary to fluid overload. Will decrease IV fluids. Per GI, only ice chips at this time. Will start TPN. Dietary Evaluation Review Comments: 1) If patient remains NPO > 7 days, consider EN/TPN to meet at least 75% of estimated daily needs 2) [facility] when medically feasible 3) Refer to outpatient RD/[facility] for weight management 4) Continue to monitor I&O, labs, and skin integrity Expected Outcomes/Goals: 1) patient to receive nutritional support within 7 days of NPO status 2) labs to improve 3) diet to advance 4) f/u in 3-5 days Plan discussed with: Patient CC Plasma Assessment Blood Product Administration S: 10:45 FLORENCIA VELASCO DO Feb 26, 2025 13:47
[2025-02-26] MEDS: SODIUM CHLORIDE 0.9% 1,000 ML IV SCH (14:00)
[2025-02-26 15:29] LABS: Hematocrit 22.0 % (41.0-53.0); Hemoglobin 7.2 g/dL (13.5-17.5)
[2025-02-26 15:42] LABS: Triglycerides 107 mg/dL (< 150)
[2025-02-26] MEDS: CALCIUM GLUC 1,000mg/50ml-NS 50 ML IV ONE (17:37)
--- NOTE | 2025-02-26 19:43 | DVHCONRES ---
Date Seen: Feb 26, 2025 Resident Creating Document: JASON WILSON RESIDENT Reason for Consultation oliguria History of Present Illness 81-year-old male patient with past medical history of diabetes mellitus type 2, history of colostomy bag, history of hypertension, morbid obesity acid reflux and chronic pain syndrome presented with complaints of abdominal pain associated with bright red blood in the colostomy. GI was consulted and patient had colonoscopy 1st which revealed Multiple and extensive ulceration of the postbulbar area of the duodenum, has been transfused with 18 units of PRBC, 3 units of FFP, 2 units of platelets. Patient underwent arterial embolization with IR on 02/24. Patient started having increased with movement of norepinephrine. Nephrology was consulted for oliguria Patient seen and examined at bedside Currently on oxygen at 2 L On norepinephrine drip and TPN As per nurse, patient had 400 cc of urine last night and 525 cc in the morning Past Medical History As described in the HPI Past Surgical History As described in the HPI Family History: Patient reports no known family medical history. Allergies: Coded Allergies: NO KNOWN ALLERGIES (Unverified , 02/19/25) Home Meds Reported Medications Metoprolol Tartrate (Metoprolol Tartrate) 50 Mg Tab, 1 TAB PO BID for 100 Days, #200 02/20/25 Oxycodone W/ Acetaminophen (Apap/Oxycodone) 1 Tab Tab, 1 TAB PO TID for 30 Days, #90 02/20/25 Morphine Sulfate (Morphine Sulfate Cr) 30 Mg Tab, 1 TAB PO DAILY for 30 Days, #30 02/20/25 Sucralfate (Sucralfate) 1 Gm Tab, 1 TAB PO TID for 30 Days, #90 02/20/25 Pantoprazole Sodium Sesquihydr (Pantoprazole Sodium) 40 Mg Tab, 1 TAB PO DAILY for 90 Days, #90 02/20/25 Albuterol Sulfate (Albuterol Sulfate Hfa) 108 Mcg/Act Aer, 2 PUFF INH Q4-6HR PRN for 16 Days, #8.5 02/20/25 Pioglitazone Hydrochloride (PIOGLITAZONE HCL) 30 Mg Tab, 1 TAB PO DAILY for 100 Days, #100 02/20/25 Metformin Hydrochloride (Metformin Hcl) 500 Mg Tab, 1 TAB PO BID for 90 Days, #180 02/20/25 Current Medications Current Medications Medications (Trade) Dose Ordered Sig/Neha Route PRN Reason Start Time Stop Time Status Last Admin Mupirocin (Bactroban 2% Ointment) 1 applic BID EACHNOSTRI 02/25/25 22:00 03/02/25 21:59 02/26/25 10:42 Norepinephrine Bitartrate 250 ml @ 3.75 mls/hr Q24H IV 02/26/25 11:00 02/26/25 15:21 Amino Acids 0 ml @ 0 mls/hr PER PHARMACY IV 02/26/25 11:45 Acetaminophen (Ofirmev) 1,000 mg [id number] PRN IV PAIN SCALE 1-3 OR TEMP>100.4 02/26/25 12:30 02/26/25 12:31 DC Magnesium Sulfate/ Dextrose 100 ml @ 100 mls/hr Q1HR IV 02/26/25 13:00 02/26/25 14:59 DC 02/26/25 14:43 Sodium Chloride 10 meq/Calcium Gluconate 6.975 meq/Magnesium Sulfate 10 meq/ Multivitamins 10 ml/Chromium/ Copper/Manganese/ Zinc 1 ml/Insulin Human Regular 5 units/Potassium Chloride 20 meq/ Amino Acids/ Dextrose/Purified Water 1,041.05 ml @ 43 mls/hr [id number] IV 02/26/25 22:00 02/27/25 21:59 Sodium Chloride 1,000 ml @ 40 mls/hr Q24H IV 02/26/25 14:00 02/26/25 14:00 Review of Systems ROS Constitutional: No: Fever, Chills, Sweats, Weakness, Malaise, Other Eyes: No: Pain, Vision change, Conjunctivae inflammation, Eyelid inflammation, Other, Redness ENT: No: Ear pain, Ear discharge, Nose pain, Nose discharge, Nose congestion, Mouth pain, Mouth swelling, Throat pain, Throat swelling, Other Respiratory: No: Cough, Dry, Shortness of breath, SOB with excertion, Wheezing, Hemoptysis, Pleuritic Pain, Sputum, Wheezing, Other Cardiovascular: No: Chest Pain, Palpitations, Orthopnea, Paroxysmal Noc. Dyspnea, Edema, Lt Headedness, Other Gastrointestinal: GI bleed No: Nausea, Vomiting, Abdominal Pain, Diarrhea, Constipation, Melena, Hematochezia, Other Musculoskeletal: No: other, neck pain, shoulder pain, arm pain, back pain, hand pain, leg pain, foot pain Neurological:; No: Weakness, Numbness, Incoordination, Change in speech, Confusion, Seizures Vital Signs Vital Signs Date Time Temp Pulse Resp B/P (MAP) Pulse Ox O2 Delivery O2 Flow Rate FiO2 02/26/25 18:25 85/46 02/26/25 16:00 97 02/26/25 14:45 23 94 02/26/25 12:00 100.4 100.4 02/26/25 08:00 Nasal Cannula* 6 44 Physical Exam Examination General Appearance: Alert, Oriented X3, Cooperative, No acute distress HEENT: EOMI Respiratory: Clear to auscultation, Normal air movement Cardiovascular: Regular rate, Normal S1, Normal S2 Abdominal: Colostomy bag present Extremities: No cyanosis, No edema, Normal pulses, No tenderness/swelling Skin: No rashes, No breakdown Neuro: Normal speech and tone Labs/Diagnostic Data Labs Test 02/26/25 17:44 02/26/25 15:18 02/26/25 12:58 02/26/25 02:59 Range/Units POC Glucose 197 H 70-106 mg/dl Hemoglobin 7.2 L 13.5-17.5 g/dL Hematocrit 22.0 L 41.0-53.0 % Lactic Acid Level 1.9 0.4-2.0 mmol/L White Blood Count 17.7 #H 4.4-10.8 10^3/uL Red Blood Count 2.51 L 4.5-5.90 10^6/uL Mean Corpuscular Volume 85.0 80.0-100.0 fL Mean Corpuscular Hemoglobin 28.9 28.0-32.0 pg Mean Corpuscular Hemoglobin Concent 34.0 32.0-36.0 g/dL Red Cell Distribution Width 17.0 H 11.8-14.3 % Platelet Count 151 140-450 10^3/uL Mean Platelet Volume 8.5 6.9-10.8 fL Neutrophils (%) (Auto) 88.7 H 37.0-80.0 % Lymphocytes (%) (Auto) 3.9 L 10.0-50.0 % Monocytes (%) (Auto) 6.9 0.0-12.0 % Eosinophils (%) (Auto) 0.1 0.0-7.0 % Basophils (%) (Auto) 0.4 0.0-2.0 % Neutrophils # (Auto) 15.7 H 1.6-8.6 10 ^3/uL Lymphocytes # (Auto) 0.7 0.4-5.4 10 ^3/uL Monocytes # (Auto) 1.2 0-1.3 10 ^3/uL Eosinophils # (Auto) 0 0-0.8 10 ^3/uL Basophils # (Auto) 0.1 0-0.2 10 ^3/uL Nucleated Red Blood Cells 0.0 % Sodium Level 138 136-145 mmol/L Potassium Level 3.7 3.5-5.1 mmol/L Chloride Level 104 98-107 mmol/L Carbon Dioxide Level 31 20-31 mmol/L Anion Gap 3 L 5-15 Blood Urea Nitrogen 13 9-23 mg/dL Creatinine 0.99 0.700-1.30 mg/dL Glomerular Filtration Rate Calc 88 >90 mL/min BUN/Creatinine Ratio 13.1 10.0-20.0 Serum Glucose 135 H 74-106 mg/dL Calcium Level 6.2 L 8.7-10.4 mg/dL Phosphorus Level 1.6 L 2.4-5.1 mg/dL Magnesium Level 1.4 L 1.6-2.6 mg/dL Total Bilirubin 0.6 0.2-1.0 mg/dL Aspartate Amino Transferase (AST) 21 13-40 U/L Alanine Aminotransferase (ALT) < 9 7-40 U/L Alkaline Phosphatase 74 46-116 U/L Total Protein 3.3 L 5.7-8.2 g/dL Albumin 1.7 L 3.2-4.8 g/dL Prealbumin < 3.0 L 10.0-40.0 md/dL Triglycerides Level 107 < 150 mg/dL Test 02/24/25 08:02 02/20/25 04:03 02/20/25 03:04 02/20/25 02:21 Range/Units Prothrombin Time 13.7 H 9.3-11.8 sec Prothrombin Time INR 1.33 H 0.9-1.15 Activated Partial Thromboplast Time 35.2 H 24.5-34.5 SEC Iron Level 56 L 65-175 ug/dL Total Iron Binding Capacity 285 250-425 ug/dL Percent Iron Saturation 19.6 L 20-55 % D-Dimer, Quantitative 1.64 H 0.0-0.49 mg/L FEU Troponin I High Sensitivity 9 </=54 ng/L Test 02/19/25 23:55 02/19/25 16:45 02/19/25 16:14 Range/Units Helicobacter pylori Antigen Screen Negative Negative Blood Gas Specimen Type Arterial Blood Gas Sample Site Right radial Blood Gas Patient Temperature 37.0 Arterial Blood Date Drawn [id number] Arterial Blood pH 7.512 H 7.350-7.450 Arterial Blood Partial Pressure CO2 37.6 35.0-48.0 mmHg Arterial Blood Partial Pressure O2 105.4 83.0-108.0 mmHg Arterial Blood HCO3 29.5 H 21.0-28.0 mmol/L Arterial Blood Oxygen Saturation 97.6 94.0-98.0 % Arterial Blood Base Excess 6.0 H -2.0-3.0 mmol/L Arterial Blood Oxyhemoglobin 94.3 94.0-98.0 % Arterial Blood Carboxyhemoglobin 3.0 H 0.5-1.5 % Arterial Blood Methemoglobin 0.4 0.0-1.5 % Juwan Test Yes Blood Gas Total Hemoglobin 7.80 L 13.5-17.5 g/dL Blood Gas Liter Flow 4.00 Blood Gas Modality Nasal cannula FiO2 % 36.0 Hemoglobin A1c 8.3 H <5.7 % A1C B-Type Natriuretic Peptide 517.71 0-100 pg/mL Microbiology Date/Time Source Procedure Growth Status 02/21/25 17:30 Nose MRSA Screen - Final Methicillin Resistant S.aureus Complete Assessment Assessment # ?Oliguria -creatinine 0.99, previous 0.96 Input/Plan 3900/1400ml with a 2555 ml 30 ml of contrast used during the procedure # Shock # Acute GI bleed # Acute Blood Loss Anemia 2/2 above s/p PRBC transfusion # Afib RVR s/p DCCV # Duodenitis/colitis Plan/Recommendation Plan Strict I and O Monitor Kidney function and electrolytes pt is currently in shock, on vasopressors will monitor kidney function, currently normal kidney function, but might refle ct in later labs and/or urine output. Case discussion with Dr Mosley. Plan discussed with: Patient, Other JASON WILSON RESIDENT Feb 26, 2025 19:43
[2025-02-26] MEDS: TPN PER PHARMACY IV NR (21:27)
[2025-02-26 22:25] LABS: Hematocrit 16.5 % (41.0-53.0)
[2025-02-26 22:28] LABS: Hemoglobin 5.4 g/dL (13.5-17.5)
[2025-02-26] MEDS: ACETAMINOPHEN IV 1000 MG/100ML (10MG/ML) IV ONE (23:32)
[2025-02-26] MEDS: diphenhdrAMINE HCL 50 MG/1 ML VL IV ONE (23:33)
[2025-02-27] VITALS (110 sets, daily range): BP systolic 66–162; BP diastolic 31–94; PULSE 79–108; RESP 9–22; TEMP 98.2–99.1; O2SAT 82–100
[2025-02-27 04:01] LABS: Hematocrit 17.9 % (41.0-53.0)
[2025-02-27 04:13] LABS: INR 1.57 (0.9-1.15); Partial Thromboplastin Time 43.4 SEC (24.5-34.5); Prothrombin Time 15.9 sec (9.3-11.8)
[2025-02-27 04:17] LABS: Hemoglobin 6.2 g/dL (13.5-17.5)
[2025-02-27 04:51] LABS: Alkaline Phosphatase 80 U/L (46-116); Anion Gap 2 (5-15); BUN/Creatinine Ratio 14.9 (10.0-20.0); Blood Urea Nitrogen 15 mg/dL (9-23); Carbon Dioxide 30 mmol/L (20-31); Chloride 103 mmol/L (98-107); Magnesium 1.7 mg/dL (1.6-2.6); Potassium 3.8 mmol/L (3.5-5.1)
[2025-02-27 04:53] LABS: Bilirubin, Total 0.6 mg/dL (0.2-1.0)
[2025-02-27 04:56] LABS: Alanine Aminotransferase < 9 U/L (7-40); Albumin 1.3 g/dL (3.2-4.8); Calcium 5.9 mg/dL (8.7-10.4); Glucose 249 mg/dL (74-106); Sodium 135 mmol/L (136-145); Total Protein 2.9 g/dL (5.7-8.2)
[2025-02-27] MEDS: PHENYLEPHRINE IV 250 ML IV SCH (05:45)
[2025-02-27] MEDS: CALCIUM GLUC 1,000mg/50ml-NS 50 ML IV SCH (05:56)
[2025-02-27] MEDS: diphenhdrAMINE HCL 50 MG/1 ML VL IV PRN (06:30)
--- NOTE | 2025-02-27 09:11 | DVHPN2 ---
Progress Note Date Seen: Feb 27, 2025 Has the PT tested + for MRSA If YES, has PT been informed?: Yes Medical Necessity Reason Pt with a Central, PICC or Fol: No Objective vital signs Vital Sign Date Time Temp Pulse Resp B/P (MAP) Pulse Ox O2 Delivery O2 Flow Rate FiO2 02/27/25 08:51 98.5 85 14 140/62 98.5 02/27/25 06:15 93 02/26/25 18:00 Nasal Cannula* 6 44 Total Intake and Output 02/26/25 02/26/25 02/27/25 15:00 23:00 07:00 Intake Total 1672.89 ml 1322.64 ml 1077.50 ml Output Total 525 ml 50 ml Balance 1147.89 ml 1272.64 ml 1077.50 ml medications Current Medications Medications Dose Ordered Sig/Neha Route Start Time Stop Time Status Last Admin Dose Admin Piperacillin Sod/ Tazobactam Sod 100 ml @ 25 mls/hr Q6HR IV 02/20/25 00:00 02/27/25 06:07 25 MLS/HR Ondansetron HCl 4 mg Q4HPRN PRN IV 02/19/25 20:30 02/20/25 18:16 4 MG Diagnostic Test (Pha) 1 strip Q6HR 02/20/25 00:00 02/27/25 05:57 1 STRIP Insulin Human Regular Q6HR SC 02/20/25 00:00 02/27/25 06:04 12 UNITS Dextrose 50 ml UD PRN IV 02/19/25 20:30 Nitroglycerin 0.4 mg Q5MINP PRN SL 02/19/25 20:30 Morphine Sulfate 2 mg Q30M PRN IV 02/19/25 20:30 02/26/25 22:06 2 MG Morphine Sulfate 2 mg Q6HPRN PRN IV 02/20/25 00:45 02/26/25 13:11 2 MG Insulin Glargine 10 units HS SC 02/20/25 00:00 02/26/25 22:11 10 UNITS Amiodarone HCL/ Dextrose 200 ml @ 33.33 mls/ hr Q12H IV 02/21/25 01:45 02/26/25 23:25 33.33 MLS/HR Diltiazem HCl 125 ml @ 0 mls/hr Q0M IV 02/21/25 01:45 02/23/25 00:18 5 MLS/HR Pantoprazole Sodium 80 mg BID IV 02/21/25 22:00 Cancel Octreotide Acetate 500 mcg/ Sodium Chloride 100 ml @ 10 mls/hr Q10H IV 02/21/25 15:15 02/27/25 06:49 10 MLS/HR Sodium Chloride 10 ml QSHIFT@10,22 IV 02/21/25 22:00 02/26/25 22:09 10 ML Sucralfate 1 gm QID@0600,1130,1700,2200 PO 02/22/25 11:30 02/27/25 05:56 1 GM Pantoprazole Sodium 80 mg TID IV 02/23/25 22:00 02/27/25 05:55 80 MG Mupirocin 1 applic BID EACHNOSTRI 02/25/25 22:00 03/02/25 21:59 02/26/25 22:13 1 APPLIC Norepinephrine Bitartrate 250 ml @ 3.75 mls/hr Q24H IV 02/26/25 11:00 02/27/25 06:41 56.25 MLS/HR Amino Acids 0 ml @ 0 mls/hr PER PHARMACY IV 02/26/25 11:45 Sodium Chloride 10 meq/Calcium Gluconate 6.975 meq/Magnesium Sulfate 10 meq/ Multivitamins 10 ml/Chromium/ Copper/Manganese/ Zinc 1 ml/Insulin Human Regular 5 units/Potassium Chloride 20 meq/ Amino Acids/ Dextrose/Purified Water 1,041.05 ml @ 43 mls/hr [id number] IV 02/26/25 22:00 02/27/25 21:59 02/26/25 21:27 43 MLS/HR Sodium Chloride 1,000 ml @ 40 mls/hr Q24H IV 02/26/25 14:00 02/26/25 14:00 40 MLS/HR Phenylephrine HCl 250 ml @ 30 mls/hr Q8H20M IV 02/27/25 05:45 Diphenhydramine HCl 50 mg QHSP PRN IV 02/27/25 06:30 02/27/25 06:30 50 MG laboratory and microbiology Laboratory Tests 02/27/25 03:00 02/26/25 02:59 Test 02/27/25 03:00 Range/Units Serum Glucose 249 #H 74-106 mg/dL Problem List/Assessment/Plan Problem List/Assessment/Plan 02/25/25 ASSUMED CARE FROM , PATIENT ADMITS TO DRINKING ALCOHOL; HAD EMBOLIZATION OF BLEEDING ULCER BY RADIOLOGIST YESTERDAY, NOW STILL SOME BLOOD PER ILEOSTOMY BUT NOT VOLUMINOUS PREVIOUSLY, MOST LIKELY JUST ALREADY SHED BLOOD, WILL FOLLOW 02/27/25 continues to require transfusions(Unit# 20) ,when I told patient that he mayh need an operation he said "The only place whjere I would allow them to operate on me would be at [facility], I will n ot be operated on here" I recommend transferring patient to [facility] urgently! Plan discussed with: Patient Dietary Evaluation Review Comments: 1) If patient remains NPO > 7 days, consider EN/TPN to meet at least 75% of estimated daily needs 2) Advance to 60g CCHO cardiac diet when medically feasible 3) Refer to outpatient RD/[facility] for weight management 4) Continue to monitor I&O, labs, and skin integrity Expected Outcomes/Goals: 1) patient to receive nutritional support within 7 days of NPO status 2) labs to improve 3) diet to advance 4) f/u in 3-5 days ANNABELLA BEASLEY MD Feb 27, 2025 09:10
[2025-02-27] MEDS: VASOPRESSIN 20 UNITS in SODIUM CHL 0.9% 99 ML IV SCH (10:30)
--- NOTE | 2025-02-27 11:44 | DVHPN2 ---
Progress Note Date Seen: Feb 27, 2025 Resident Creating Document: JASON WILSON RESIDENT Has the PT tested + for MRSA If YES, has PT been informed?: Yes Medical Necessity Reason Pt with a Central, PICC or Fol: No Subjective Review of Systems History of Present Illness 81-year-old male patient with past medical history of diabetes mellitus type 2, history of colostomy bag, history of hypertension, morbid obesity acid reflux and chronic pain syndrome presented with complaints of abdominal pain associated with bright red blood in the colostomy. GI was consulted and patient had colonoscopy 1st which revealed Multiple and extensive ulceration of the postbulbar area of the duodenum, has been transfused with 18 units of PRBC, 3 units of FFP, 2 units of platelets. Patient underwent arterial embolization with IR on 02/24. Patient started having increased with movement of norepinephrine. Nephrology was consulted for oliguria Patient seen and examined at bedside Currently on oxygen at 2 L On norepinephrine drip and TPN As per nurse, patient had 400 cc of urine last night and 525 cc in the morning Past Medical History As described in the HPI Past Surgical History As described in the HPI Family History: Patient reports no known family medical history Interval Events 02/27/25 pt seen and examined at bedside on 2L Nasal Canula Input/Output 4.2 Lt/2.8Lt with a net of + 1.4Lt Objective vital signs Vital Sign Date Time Temp Pulse Resp B/P (MAP) Pulse Ox O2 Delivery O2 Flow Rate FiO2 02/27/25 11:00 136/39 02/27/25 10:31 90 13 98 02/27/25 10:25 98.6 98.6 02/27/25 09:32 Nasal Cannula* 6 44 Total Intake and Output 02/26/25 02/26/25 02/27/25 15:00 23:00 07:00 Intake Total 1672.89 ml 1322.64 ml 1310.08 ml Output Total 525 ml 50 ml 2250 ml Balance 1147.89 ml 1272.64 ml -939.92 ml medications Current Medications Medications Dose Ordered Sig/Neha Route Start Time Stop Time Status Last Admin Dose Admin Piperacillin Sod/ Tazobactam Sod 100 ml @ 25 mls/hr Q6HR IV 02/20/25 00:00 02/27/25 06:07 25 MLS/HR Ondansetron HCl 4 mg Q4HPRN PRN IV 02/19/25 20:30 02/20/25 18:16 4 MG Diagnostic Test (Pha) 1 strip Q6HR 02/20/25 00:00 02/27/25 05:57 1 STRIP Insulin Human Regular Q6HR SC 02/20/25 00:00 02/27/25 06:04 12 UNITS Dextrose 50 ml UD PRN IV 02/19/25 20:30 Nitroglycerin 0.4 mg Q5MINP PRN SL 02/19/25 20:30 Morphine Sulfate 2 mg Q30M PRN IV 02/19/25 20:30 02/26/25 22:06 2 MG Morphine Sulfate 2 mg Q6HPRN PRN IV 02/20/25 00:45 02/26/25 13:11 2 MG Insulin Glargine 10 units HS SC 02/20/25 00:00 02/26/25 22:11 10 UNITS Amiodarone HCL/ Dextrose 200 ml @ 33.33 mls/ hr Q12H IV 02/21/25 01:45 02/27/25 10:25 33.33 MLS/HR Diltiazem HCl 125 ml @ 0 mls/hr Q0M IV 02/21/25 01:45 02/23/25 00:18 5 MLS/HR Pantoprazole Sodium 80 mg BID IV 02/21/25 22:00 Cancel Octreotide Acetate 500 mcg/ Sodium Chloride 100 ml @ 10 mls/hr Q10H IV 02/21/25 15:15 02/27/25 06:49 10 MLS/HR Sodium Chloride 10 ml QSHIFT@10,22 IV 02/21/25 22:00 02/26/25 22:09 10 ML Sucralfate 1 gm QID@0600,1130,1700,2200 PO 02/22/25 11:30 02/27/25 05:56 1 GM Pantoprazole Sodium 80 mg TID IV 02/23/25 22:00 02/27/25 05:55 80 MG Mupirocin 1 applic BID EACHNOSTRI 02/25/25 22:00 03/02/25 21:59 02/26/25 22:13 1 APPLIC Norepinephrine Bitartrate 250 ml @ 3.75 mls/hr Q24H IV 02/26/25 11:00 02/27/25 10:25 56.25 MLS/HR Amino Acids 0 ml @ 0 mls/hr PER PHARMACY IV 02/26/25 11:45 Sodium Chloride 10 meq/Calcium Gluconate 6.975 meq/Magnesium Sulfate 10 meq/ Multivitamins 10 ml/Chromium/ Copper/Manganese/ Zinc 1 ml/Insulin Human Regular 5 units/Potassium Chloride 20 meq/ Amino Acids/ Dextrose/Purified Water 1,041.05 ml @ 43 mls/hr [id number] IV 02/26/25 22:00 02/27/25 21:59 02/26/25 21:27 43 MLS/HR Sodium Chloride 1,000 ml @ 40 mls/hr Q24H IV 02/26/25 14:00 02/26/25 14:00 40 MLS/HR Phenylephrine HCl 250 ml @ 30 mls/hr Q8H20M IV 02/27/25 05:45 Diphenhydramine HCl 50 mg QHSP PRN IV 02/27/25 06:30 02/27/25 06:30 50 MG Fat Emulsion Intravenous 50 ml/ Sodium Chloride 30 meq/Potassium Phosphate 15 meq/ Calcium Gluconate 9.3 meq/Magnesium Sulfate 14 meq/ Multivitamins 10 ml/Chromium/ Copper/Manganese/ Zinc 1 ml/Insulin Human Regular 10 units/Amino Acids/ Dextrose/Purified Water 1,045.5091 ml @ 43 mls/hr [id number] IV 02/27/25 22:00 02/28/25 21:59 Vasopressin 20 units/Sodium Chloride 100 ml @ 9 mls/hr Q11H7M IV 02/27/25 10:30 UNV Examination Examination General Appearance: Alert, Oriented X3, Cooperative, No acute distress HEENT: EOMI Respiratory: Clear to auscultation, Normal air movement Cardiovascular: Regular rate, Normal S1, Normal S2 Abdominal: Colostomy bag present Extremities: No cyanosis, No edema, Normal pulses, No tenderness/swelling Skin: No rashes, No breakdown Neuro: Normal speech and tone laboratory and microbiology Laboratory Tests 02/27/25 03:00 02/26/25 02:59 Test 02/27/25 03:00 Range/Units Serum Glucose 249 #H 74-106 mg/dL Microbiology Date/Time Source Procedure Growth Status 02/26/25 12:58 Blood Blood Culture - Preliminary Resulted 02/21/25 17:30 Nose MRSA Screen - Final Methicillin Resistant S.aureus Complete Labs and/or images reviewed: Labs reviewed by me, Image(s) reviewed by me Problem List/Assessment/Plan Problem List/Assessment/Plan Assessment and Plan # ?Oliguria -creatinine 0.99 increased to 1.01 today Input/Output 4.2 Lt /2.8Lt with a net of + 1.4Lt # Shock # Severe Anemia requiring Blood transfusion # Acute GI bleed # Acute Blood Loss Anemia 2/2 above s/p PRBC transfusion # Afib RVR s/p DCCV # Duodenitis/colitis Plan Strict I and O Monitor Kidney function and electrolytes pt is currently in shock, on vasopressors, IV fluids will monitor kidney function, currently normal kidney function, but might reflect in later labs and/or urine output Case discussion with Dr Mosley. Plan discussed with: Patient, Other Dietary Evaluation Review Comments: 1) If patient remains NPO > 7 days, consider EN/TPN to meet at least 75% of estimated daily needs 2) Advance to 60g CCHO cardiac diet when medically feasible 3) Refer to outpatient RD/[facility] for weight management 4) Continue to monitor I&O, labs, and skin integrity Expected Outcomes/Goals: 1) patient to receive nutritional support within 7 days of NPO status 2) labs to improve 3) diet to advance 4) f/u in 3-5 days CC Plasma Assessment Blood Product Administration S: 10:45 JASON WILSON RESIDENT Feb 27, 2025 11:44
--- NOTE | 2025-02-27 12:12 | DVHPN2 ---
Progress Note Date Seen: Feb 27, 2025 Resident Creating Document: ALEXANDRIA BENZ RESIDENT Has the PT tested + for MRSA If YES, has PT been informed?: Yes Medical Necessity Reason Pt with a Central, PICC or Fol: No Subjective Review of Systems Patient seen and examined at bedside Overnight 2200 mL bloody output from the colostomy, 200 mL bloody output from the colostomy so far today on 02/27/2025 Hemoglobin 6.2 and downtrending Blood culture growing Gram-negative rods Objective vital signs Vital Sign Date Time Temp Pulse Resp B/P (MAP) Pulse Ox O2 Delivery O2 Flow Rate FiO2 02/27/25 11:54 91 16 120/46 02/27/25 11:49 98.7 98.7 02/27/25 10:31 98 02/27/25 09:32 Nasal Cannula* 6 44 Total Intake and Output 02/26/25 02/26/25 02/27/25 15:00 23:00 07:00 Intake Total 1672.89 ml 1322.64 ml 1310.08 ml Output Total 525 ml 50 ml 2250 ml Balance 1147.89 ml 1272.64 ml -939.92 ml medications Current Medications Medications Dose Ordered Sig/Neha Route Start Time Stop Time Status Last Admin Dose Admin Piperacillin Sod/ Tazobactam Sod 100 ml @ 25 mls/hr Q6HR IV 02/20/25 00:00 02/27/25 11:41 25 MLS/HR Ondansetron HCl 4 mg Q4HPRN PRN IV 02/19/25 20:30 02/20/25 18:16 4 MG Diagnostic Test (Pha) 1 strip Q6HR 02/20/25 00:00 02/27/25 05:57 1 STRIP Insulin Human Regular Q6HR SC 02/20/25 00:00 02/27/25 11:46 12 UNITS Dextrose 50 ml UD PRN IV 02/19/25 20:30 Nitroglycerin 0.4 mg Q5MINP PRN SL 02/19/25 20:30 Morphine Sulfate 2 mg Q30M PRN IV 02/19/25 20:30 02/26/25 22:06 2 MG Morphine Sulfate 2 mg Q6HPRN PRN IV 02/20/25 00:45 02/27/25 11:54 2 MG Insulin Glargine 10 units HS SC 02/20/25 00:00 02/26/25 22:11 10 UNITS Amiodarone HCL/ Dextrose 200 ml @ 33.33 mls/ hr Q12H IV 02/21/25 01:45 02/27/25 10:25 33.33 MLS/HR Diltiazem HCl 125 ml @ 0 mls/hr Q0M IV 02/21/25 01:45 02/23/25 00:18 5 MLS/HR Pantoprazole Sodium 80 mg BID IV 02/21/25 22:00 Cancel Octreotide Acetate 500 mcg/ Sodium Chloride 100 ml @ 10 mls/hr Q10H IV 02/21/25 15:15 02/27/25 06:49 10 MLS/HR Sodium Chloride 10 ml QSHIFT@10,22 IV 02/21/25 22:00 02/26/25 22:09 10 ML Sucralfate 1 gm QID@0600,1130,1700,2200 PO 02/22/25 11:30 02/27/25 11:41 1 GM Pantoprazole Sodium 80 mg TID IV 02/23/25 22:00 02/27/25 05:55 80 MG Mupirocin 1 applic BID EACHNOSTRI 02/25/25 22:00 03/02/25 21:59 02/26/25 22:13 1 APPLIC Norepinephrine Bitartrate 250 ml @ 3.75 mls/hr Q24H IV 02/26/25 11:00 02/27/25 10:25 56.25 MLS/HR Amino Acids 0 ml @ 0 mls/hr PER PHARMACY IV 02/26/25 11:45 Sodium Chloride 10 meq/Calcium Gluconate 6.975 meq/Magnesium Sulfate 10 meq/ Multivitamins 10 ml/Chromium/ Copper/Manganese/ Zinc 1 ml/Insulin Human Regular 5 units/Potassium Chloride 20 meq/ Amino Acids/ Dextrose/Purified Water 1,041.05 ml @ 43 mls/hr [id number] IV 02/26/25 22:00 02/27/25 21:59 02/26/25 21:27 43 MLS/HR Sodium Chloride 1,000 ml @ 40 mls/hr Q24H IV 02/26/25 14:00 02/26/25 14:00 40 MLS/HR Phenylephrine HCl 250 ml @ 30 mls/hr Q8H20M IV 02/27/25 05:45 Diphenhydramine HCl 50 mg QHSP PRN IV 02/27/25 06:30 02/27/25 06:30 50 MG Fat Emulsion Intravenous 50 ml/ Sodium Chloride 30 meq/Potassium Phosphate 15 meq/ Calcium Gluconate 9.3 meq/Magnesium Sulfate 14 meq/ Multivitamins 10 ml/Chromium/ Copper/Manganese/ Zinc 1 ml/Insulin Human Regular 10 units/Amino Acids/ Dextrose/Purified Water 1,045.5091 ml @ 43 mls/hr [id number] IV 02/27/25 22:00 02/28/25 21:59 Vasopressin 20 units/Sodium Chloride 100 ml @ 9 mls/hr Q11H7M IV 02/27/25 10:30 Examination General Appearance: Cooperative. Well developed. Well nourished. NAD Pulmonary/Respiratory: Chest non-tender. Clear bilateral breath sounds, no crackles, no wheezing. Abdominal Exam: Normal bowel sounds. Soft. normal abdomen, no visible veins, Nontender. No hepatospenomegaly. Colostomy bag noted on the right abdominal wall Lower extremities: Leathery skin noted on left lower extremity, bilateral lower extremity scales noted. Neuro/Mental Status: A&O x4. Coherent. Thoughts/Psych: Normal thought pattern. Appropriate mood and affect. Good judgement and insight Skin Exam: Normal inspection. Normal color. Warm. Dry laboratory and microbiology Laboratory Tests 02/27/25 03:00 02/26/25 02:59 Test 02/27/25 03:00 Range/Units Serum Glucose 249 #H 74-106 mg/dL Microbiology Date/Time Source Procedure Growth Status 02/26/25 12:58 Blood Blood Culture - Preliminary Resulted 02/21/25 17:30 Nose MRSA Screen - Final Methicillin Resistant S.aureus Complete Labs and/or images reviewed: Labs reviewed by me, Image(s) reviewed by me Problem List/Assessment/Plan Problem List/Assessment/Plan Acute blood loss anemia GI bleed Colostomy hemorrhage Questionable hypovolemic shock Blood culture + GNR Plan: Strict NPO, no ice chips no p.o. medication Transfuse as needed to keep hemoglobin greater than 8 Patient refusing surgical intervention at the [facility], would like to be transferred to higher level of care Hand Bobbin Cleaner on board for transfer to higher level of care Reconsulted interventional radiology to re-evaluate for embolization Continue Clinimix S/p arterial embolization IV Protonix IV octreotide Carafate amiodarone Cardiology on board EGD performed on 02/22/2025 showed multiple and extensive ulceration of the postbulbar area of the duodenum with a surrounding duodenitis but no visible vessel or active bleeding at this time. 1-2 cm sliding-type hiatal hernia, minimal gastritis, otherwise normal examination up to the 2nd and 3rd part of the duodenum with no fresh or old blood in the upper GI tract. Thank you so much for the opportunity to consult on your patient. We will sign off, in case of any questions or concerns please reach out to the covering director of early childhood Dr. Paul on 02/27/[address] Neely over the weekend Plan discussed with Dr. Aragon Plan discussed with: Patient, Other (Father, RN) My Orders My Orders Orders - ALEXANDRIA BENZ RESIDENT Procedure Category Date Status Time * Radiologist Consult CONS 02/27/25 Transmitted 12:01 Dietary Evaluation Review Comments: 1) If patient remains NPO > 7 days, consider EN/TPN to meet at least 75% of estimated daily needs 2) Advance to 60g CCHO cardiac diet when medically feasible 3) Refer to outpatient RD/CDCES for weight management 4) Continue to monitor I&O, labs, and skin integrity Expected Outcomes/Goals: 1) patient to receive nutritional support within 7 days of NPO status 2) labs to improve 3) diet to advance 4) f/u in 3-5 days CC Plasma Assessment Blood Product Administration S: 10:45 ALEXANDRIA BEZN RESIDENT Feb 27, 2025 12:12
--- NOTE | 2025-02-27 13:19 | DVHPN2 ---
Progress Note - Dictate Date Seen: Feb 27, 2025 Has the PT tested + for MRSA If YES, has PT been informed?: Yes Medical Necessity Reason Pt with a Central, PICC or Fol: No Subjective Noted to have drop in Hgb overnight with over 2L colostomy output, concern for rebleed. vital signs Vital Sign Date Time Temp Pulse Resp B/P (MAP) Pulse Ox O2 Delivery O2 Flow Rate FiO2 02/27/25 13:00 96 16 129/42 (71) 92 02/27/25 12:15 Nasal Cannula* 6 44 02/27/25 11:49 98.7 98.7 Total Intake and Output 02/26/25 02/26/25 02/27/25 15:00 23:00 07:00 Intake Total 1672.89 ml 1322.64 ml 1310.08 ml Output Total 525 ml 50 ml 2250 ml Balance 1147.89 ml 1272.64 ml -939.92 ml medications Current Medications Medications Dose Ordered Sig/Neha Route Start Time Stop Time Status Last Admin Dose Admin Piperacillin Sod/ Tazobactam Sod 100 ml @ 25 mls/hr Q6HR IV 02/20/25 00:00 02/27/25 11:41 25 MLS/HR Ondansetron HCl 4 mg Q4HPRN PRN IV 02/19/25 20:30 02/20/25 18:16 4 MG Diagnostic Test (Pha) 1 strip Q6HR 02/20/25 00:00 02/27/25 12:00 1 STRIP Insulin Human Regular Q6HR SC 02/20/25 00:00 02/27/25 11:46 12 UNITS Dextrose 50 ml UD PRN IV 02/19/25 20:30 Nitroglycerin 0.4 mg Q5MINP PRN SL 02/19/25 20:30 Morphine Sulfate 2 mg Q30M PRN IV 02/19/25 20:30 02/26/25 22:06 2 MG Morphine Sulfate 2 mg Q6HPRN PRN IV 02/20/25 00:45 02/27/25 11:54 2 MG Insulin Glargine 10 units HS SC 02/20/25 00:00 02/26/25 22:11 10 UNITS Amiodarone HCL/ Dextrose 200 ml @ 33.33 mls/ hr Q12H IV 02/21/25 01:45 02/27/25 10:25 33.33 MLS/HR Diltiazem HCl 125 ml @ 0 mls/hr Q0M IV 02/21/25 01:45 02/23/25 00:18 5 MLS/HR Pantoprazole Sodium 80 mg BID IV 02/21/25 22:00 Cancel Octreotide Acetate 500 mcg/ Sodium Chloride 100 ml @ 10 mls/hr Q10H IV 02/21/25 15:15 02/27/25 06:49 10 MLS/HR Sodium Chloride 10 ml QSHIFT@10,22 IV 02/21/25 22:00 02/26/25 22:09 10 ML Sucralfate 1 gm QID@0600,1130,1700,2200 PO 02/22/25 11:30 02/27/25 11:41 1 GM Pantoprazole Sodium 80 mg TID IV 02/23/25 22:00 02/27/25 05:55 80 MG Mupirocin 1 applic BID EACHNOSTRI 02/25/25 22:00 03/02/25 21:59 02/26/25 22:13 1 APPLIC Norepinephrine Bitartrate 250 ml @ 3.75 mls/hr Q24H IV 02/26/25 11:00 02/27/25 10:25 56.25 MLS/HR Amino Acids 0 ml @ 0 mls/hr PER PHARMACY IV 02/26/25 11:45 Sodium Chloride 10 meq/Calcium Gluconate 6.975 meq/Magnesium Sulfate 10 meq/ Multivitamins 10 ml/Chromium/ Copper/Manganese/ Zinc 1 ml/Insulin Human Regular 5 units/Potassium Chloride 20 meq/ Amino Acids/ Dextrose/Purified Water 1,041.05 ml @ 43 mls/hr [id number] IV 02/26/25 22:00 02/27/25 21:59 02/26/25 21:27 43 MLS/HR Sodium Chloride 1,000 ml @ 40 mls/hr Q24H IV 02/26/25 14:00 02/26/25 14:00 40 MLS/HR Phenylephrine HCl 250 ml @ 30 mls/hr Q8H20M IV 02/27/25 05:45 Diphenhydramine HCl 50 mg QHSP PRN IV 02/27/25 06:30 02/27/25 06:30 50 MG Fat Emulsion Intravenous 50 ml/ Sodium Chloride 30 meq/Potassium Phosphate 15 meq/ Calcium Gluconate 9.3 meq/Magnesium Sulfate 14 meq/ Multivitamins 10 ml/Chromium/ Copper/Manganese/ Zinc 1 ml/Insulin Human Regular 10 units/Amino Acids/ Dextrose/Purified Water 1,045.5091 ml @ 43 mls/hr [id number] IV 02/27/25 22:00 02/28/25 21:59 Vasopressin 20 units/Sodium Chloride 100 ml @ 9 mls/hr Q11H7M IV 02/27/25 10:30 objective General appearance: No acute distress. Obese Respiratory: Fine bibasilar crackles Cardiovascular: Regular rate and rhythm, no murmurs. No edema Abdomen: Soft, nondistended, nontender, bowel sounds present. Colostomy bag present. MSK: Normal range of motion. Neuro: Alert, no neurological deficits Psych: Appropriate mood and affect. laboratory and microbiology Laboratory Tests 02/27/25 03:00 02/26/25 02:59 Test 02/27/25 03:00 Range/Units Serum Glucose 249 #H 74-106 mg/dL Assessment/Plan 1) Acute GI bleed 2) Acute Blood Loss Anemia 2/2 above s/p PRBC transfusion 3) Afib RVR s/p DCCV 4) Duodenitis/colitis Secondary Diagnosis: 5) Morbid Obesity 6) Essential HTN 7) Ileostomy, 8) Chronic pain syndrome Assessment/Plan 02/20----patient hgb most recent 7.8 and will transfuse blood as necessary for Hgb <7, will continue to trend H/H q6h, on IV ABx zosyn, PPI IV, GI consulted on the case and patient is NPO. amio gtt started due to afib RVR with cardiology consult, echo pending, continue all care, daily labs, leadership development consultant input appreciated, will follow along 02/21---most recent hgb 8.9 after 2 units PRBCs transfused yesterday, will continue to trend H/H, on IV ABx with Zosyn, remains NPO, was seen by cardiology earlier this AM and underwent successful DCCV as he was in afib HR 150s now cardioverted and is now sinus tachycardia, he is still on amio gtt and started on cardizem gtt fixed rate as per cardiology and is to continue these drips until endoscopy is done, GI on board and will plan for EGD, he is cardiac cleared to have endoscopy, continue all care, daily labs, will follow along 02/22---Hgb yesterday dropped from 8.9 to 5.4 and he was transfused 2 units and repeat Hgb was 6.3 and thus another 2 more units of blood were ordered for transfusion and most recent hgb is 7.5 with the last unit transfusing now, he is now started on levophed for vasopressor support currently on 10 mcg levophed, GI is planning for EGD today, he is on PPI/octreotide gtt. NS at 125 ml/hr for hydration, as mentioned yesterday 02/21 the patient was cardioverted by cardiology for afib/flutter and now is sinus tachycardia on cardizem and amio gtts which are to be continued until endoscopy is done, will continue to trend Hgb and transfuse blood as needed, daily labs, supportive care, GI/cardiology consults appreciated, will continue to follow along with you. 02/23--- Patient overnight continues to have profuse bleeding with Hgb dropping to 5.9 and receiving additional 2 units of PRBC overnight. Patient Hgb Dropped to 5.1 this morning again. Patient has been ordered an additional 2 more units of PRBC in addition to FPP. GI is aware of patient blood loss and IR has been consulted for Arterial Immobilization. Patient to continue Levophed PRN To maintain MAPs > 65. Patient is currently on Zosyn IV Day 3 prophylactically. Patient to be discontinued of Diltiazem Drip and will maintain Amio drip. Patient will be initiated on SCDs for DVT prophylaxis. Incentive Spirometer to be started for 10x/hour. 02/24- Hgb noted to be 6.8 this AM, continues to be tachycardic with dark bloody output from colostomy bag. Pending arterial embolization with IR today. Remains on levophed. Amio drip to be continued. Plan for 2 additional units PRBC this AM. 02/25: Hgb stable at 7.4 this AM. Receiving additional unit PRBC. Underwent arterial embolization with IR on 02/24. Continues to have some dark output from colostomy but quantity decreased. Target BP goal SBP 100 given wide pulse pressure. Currently on levophed. 9/4: Requiring increased levophed today. Colostomy output reviewed, 50c overnight, improving. Patient noted to have blood transfusion reaction last night. Transfusion aborted. Likely due to sensitization to cumulative blood products. Patient noted to spike fever today of 1.4. Blood cultures lactic acid ordered. IV Tylenol ordered as patient [id number]. Chest x-ray shows increased interstitial prominence with increased oxygen requirement. Likely secondary to fluid overload. Will decrease IV fluids. Per GI, only ice chips at this time. Will start TPN. 02/27: Increased Levophed requirement to 30 mcg. Vasopressin added as second line agent. Currently receiving 2 units PRBC with repeat H&H every 8 hours. Per GI, recommend transfer to higher level of care. Dietary Evaluation Review Comments: 1) If patient remains NPO > 7 days, consider EN/TPN to meet at least 75% of estimated daily needs 2) Advance to 60g CCHO cardiac diet when medically feasible 3) Refer to outpatient RD/CD[facility] for weight management 4) Continue to monitor I&O, labs, and skin integrity Expected Outcomes/Goals: 1) patient to receive nutritional support within 7 days of NPO status 2) labs to improve 3) diet to advance 4) f/u in 3-5 days Plan discussed with: Patient CC Plasma Assessment Blood Product Administration S: 10:45 FLORENCIA VELASCO DO Feb 27, 2025 13:19
[2025-02-27 14:15] LABS: Hematocrit 17.4 % (41.0-53.0)
[2025-02-27 14:17] LABS: Hemoglobin 5.6 g/dL (13.5-17.5)
[2025-02-27] MEDS: VASOPRESSIN 20 UNIT/ML ONE (14:52)
--- NOTE | 2025-02-27 17:05 | DVH ---
Exam: CT ANGIO AORTIC ABDOMINAL History: Revaluate;Arterial embolization Comparison Study: CTA ABDOMEN PELVIS on DOS: 10/28/21, CT-ABDOMEN PELVIS W on DOS: 04/08/20 Contrast: Type of contrast: Omnipaque 350 Contrast injected: 100 mL Contrast wasted: 0 TECHNIQUE: A digital ssn/ssbn weapons equipment operator image was obtained. During the uneventful, intravenous administration of c ontrast material, multislice data acquisition was obtained through the abdomen and pelvis. The data s et was subsequently reconstructed into axial images. Images were reviewed on a work station using a c ombination of axial and multiplanar using a variety of window levels and settings. Radiation Dose Information: CT Dose: CTDI volume is 8.88 mGy. Dose-length product is 1486.79 mGy*cm Omnipaque 350: 100 mL FINDINGS: Lung Bases: Small bibasilar pleural effusions and areas of atelectasis.. Normal heart size. No pleur al or pericardial effusion. Liver: The liver is normal in size. No focal lesions. Normal hepatic vascular enhancement. Gallbladder and Biliary Tree: Cholelithiasis Spleen: Unremarkable Pancreas: The pancreas is normal in appearance without focal lesions or abnormal enhancement. Adrenal Glands: Unremarkable Kidneys: Kidneys demonstrate normal symmetric enhancement without focal lesions, calculi or hydroneph rosis. Bladder: Unremarkable Bowel: The stomach is grossly normal in appearance. Small bowel and colon are normal in caliber and d istribution. The appendix is not visualized; however, no secondary findings of acute appendicitis erna ntified. Ascites: Scattered around liver spleen abdomen and pelvis Lymphadenopathy: No mesenteric, retroperitoneal or periportal lymphadenopathy. Abdominal Wall and Mesentery: Prominent ventral hernia to the right of midline with a defect in the a nterior abdominal wall measuring 5-6 cm with herniation of bowel and mesenteric fat into the subcutan eous tissues. Measurements are inaccurate since much of the contents of the hernia are out of field -of-view. Vasculature: The visualized abdominal aorta is normal in size and caliber. Aorta at diaphragm measure s 2.3 cm ; aorta below superior mesenteric artery measures 2.2 cm. Aorta below renal arteries measure s 1.7 cm. Aorta aortic bifurcation measures 11 12 mm. Right common iliac artery measures 8.4 mm ; lef t common iliac artery same level measures 10 mm. Abdominal and pelvic vessels demonstrate normal enha ncement. Pelvic Organs: Unremarkable Musculoskeletal: No aggressive focal bony lesions, acute fractures or dislocation. Soft tissues: Unremarkable. IMPRESSION: 1. Small bibasilar pleural effusions and areas of atelectasis are present. 2. Cholelithiasis. 3. Scattered ascites is seen around the liver, spleen, abdomen and pelvis. 4. Prominent ventral hernia to the right of midline with a 5-6 cm anterior abdominal wall defect and herniation of bowel and mesenteric fat into the subcutaneous tissues; measurements are limited by fie ld-of-view. 5. Kidneys demonstrate normal symmetric enhancement without focal lesions, calculi or hydronephrosis. 6. Bladder is unremarkable. 7. No mesenteric, retroperitoneal or periportal lymphadenopathy. 8. No aggressive focal bony lesions, acute fractures or dislocation. 9. Otherwise, normal CT of the abdomen and pelvis. 10. Embolic material visualized. No contrast noted distally.
--- NOTE | 2025-02-27 17:32 | DVHPN2 ---
Progress Note Date Seen: Feb 27, 2025 Has the PT tested + for MRSA If YES, has PT been informed?: Yes Medical Necessity Reason Pt with a Central, PICC or Fol: No Subjective Patient reports: Other (Patient continu to have bleeding via his ostomy. He is pending transfer to [facility]. 4 units PRBC and 4 units FFP ordered) Review of Systems: HEENT:Normal, CVS:Normal, RESPIRATORY:Normal, GI:Normal, :Normal, MSK:Normal, NEURO:Normal Objective vital signs Vital Sign Date Time Temp Pulse Resp B/P (MAP) Pulse Ox O2 Delivery O2 Flow Rate FiO2 02/27/25 17:08 98.7 93 16 119/44 98.7 02/27/25 16:00 98 Nasal Cannula* 6 44 Total Intake and Output 02/26/25 02/26/25 02/27/25 15:00 23:00 07:00 Intake Total 1672.89 ml 1322.64 ml 1310.08 ml Output Total 525 ml 50 ml 2250 ml Balance 1147.89 ml 1272.64 ml -939.92 ml medications Current Medications Medications Dose Ordered Sig/Neha Route Start Time Stop Time Status Last Admin Dose Admin Piperacillin Sod/ Tazobactam Sod 100 ml @ 25 mls/hr Q6HR IV 02/20/25 00:00 02/27/25 11:41 25 MLS/HR Ondansetron HCl 4 mg Q4HPRN PRN IV 02/19/25 20:30 02/20/25 18:16 4 MG Diagnostic Test (Pha) 1 strip Q6HR 02/20/25 00:00 02/27/25 12:00 1 STRIP Insulin Human Regular Q6HR SC 02/20/25 00:00 02/27/25 11:46 12 UNITS Dextrose 50 ml UD PRN IV 02/19/25 20:30 Nitroglycerin 0.4 mg Q5MINP PRN SL 02/19/25 20:30 Morphine Sulfate 2 mg Q30M PRN IV 02/19/25 20:30 02/26/25 22:06 2 MG Morphine Sulfate 2 mg Q6HPRN PRN IV 02/20/25 00:45 02/27/25 11:54 2 MG Insulin Glargine 10 units HS SC 02/20/25 00:00 02/26/25 22:11 10 UNITS Diltiazem HCl 125 ml @ 0 mls/hr Q0M IV 02/21/25 01:45 02/23/25 00:18 5 MLS/HR Pantoprazole Sodium 80 mg BID IV 02/21/25 22:00 Cancel Octreotide Acetate 500 mcg/ Sodium Chloride 100 ml @ 10 mls/hr Q10H IV 02/21/25 15:15 02/27/25 06:49 10 MLS/HR Sodium Chloride 10 ml QSHIFT@10,22 IV 02/21/25 22:00 02/26/25 22:09 10 ML Sucralfate 1 gm QID@0600,1130,1700,2200 PO 02/22/25 11:30 02/27/25 11:41 1 GM Pantoprazole Sodium 80 mg TID IV 02/23/25 22:00 02/27/25 05:55 80 MG Mupirocin 1 applic BID EACHNOSTRI 02/25/25 22:00 03/02/25 21:59 02/26/25 22:13 1 APPLIC Norepinephrine Bitartrate 250 ml @ 3.75 mls/hr Q24H IV 02/26/25 11:00 02/27/25 10:25 56.25 MLS/HR Amino Acids 0 ml @ 0 mls/hr PER PHARMACY IV 02/26/25 11:45 Sodium Chloride 10 meq/Calcium Gluconate 6.975 meq/Magnesium Sulfate 10 meq/ Multivitamins 10 ml/Chromium/ Copper/Manganese/ Zinc 1 ml/Insulin Human Regular 5 units/Potassium Chloride 20 meq/ Amino Acids/ Dextrose/Purified Water 1,041.05 ml @ 43 mls/hr [id number] IV 02/26/25 22:00 02/27/25 21:59 02/26/25 21:27 43 MLS/HR Sodium Chloride 1,000 ml @ 40 mls/hr Q24H IV 02/26/25 14:00 02/26/25 14:00 40 MLS/HR Phenylephrine HCl 250 ml @ 30 mls/hr Q8H20M IV 02/27/25 05:45 Diphenhydramine HCl 50 mg QHSP PRN IV 02/27/25 06:30 02/27/25 06:30 50 MG Fat Emulsion Intravenous 50 ml/ Sodium Chloride 30 meq/Potassium Phosphate 15 meq/ Calcium Gluconate 9.3 meq/Magnesium Sulfate 14 meq/ Multivitamins 10 ml/Chromium/ Copper/Manganese/ Zinc 1 ml/Insulin Human Regular 10 units/Amino Acids/ Dextrose/Purified Water 1,045.5091 ml @ 43 mls/hr [id number] IV 02/27/25 22:00 02/28/25 21:59 Vasopressin 20 units/Sodium Chloride 100 ml @ 9 mls/hr Q11H7M IV 02/27/25 10:30 02/27/25 14:52 9 MLS/HR Amiodarone HCl 200 ml @ 33.33 mls/ hr Q12H IV 02/27/25 17:30 Examination: GENERAL:Normal, HEENT:Normal, NECK:Normal, ABDOMEN:Abnormal (Ostomy bag right upper quadrant), MSK:Normal, NEURO:Normal laboratory and microbiology Laboratory Tests 02/27/25 14:00 02/27/25 03:00 02/26/25 02:59 Test 02/27/25 03:00 Range/Units Serum Glucose 249 #H 74-106 mg/dL Microbiology Date/Time Source Procedure Growth Status 02/26/25 13:09 Blood Blood Culture - Preliminary NO GROWTH AFTER 24 HOURS OF INCUBATION. Resulted 02/21/25 17:30 Nose MRSA Screen - Final Methicillin Resistant S.aureus Complete Problem List/Assessment/Plan Problems(with codes): (1) GI bleed (2) Colostomy hemorrhage (3) Anemia Problem List/Assessment/Plan 1. Agree with transfer to higher level of care at [facility]. 2. Transfuse PRBC and FFP 3. Follow H&H 4. Consider EGD, enteroscopy, and scope via ostomy if the patient is not transferred 5. Continue current medications 6. We will follow Plan discussed with: Patient Dietary Evaluation Review Comments: 1) If patient remains NPO > 7 days, consider EN/TPN to meet at least 75% of estimated daily needs 2) Advance to 60g CCHO cardiac diet when medically feasible 3) Refer to outpatient RD/CDCES for weight management 4) Continue to monitor I&O, labs, and skin integrity Expected Outcomes/Goals: 1) patient to receive nutritional support within 7 days of NPO status 2) labs to improve 3) diet to advance 4) f/u in 3-5 days CC Plasma Assessment Blood Product Administration S: 10:45 JUAN C GARCIA MD Feb 27, 2025 17:32
[2025-02-27] MEDS: AMIODARONE 450 MG/250 ML IV SCH (17:40)
[2025-02-27] MEDS: TPN PER PHARMACY IV NR (21:42)
--- NOTE | 2025-02-27 23:15 | DVHPN2 ---
Progress Note - Dictate Date Seen: Feb 27, 2025 Has the PT tested + for MRSA If YES, has PT been informed?: Yes Medical Necessity Reason Pt with a Central, PICC or Fol: No Subjective Patient was seen and evaluated in follow up in the ICU. Patient is on 6 LPM NC. Patient is on vasopressors for hemodynamic support. Patient is receiving TPN for nutritional support. Patient states he prefers to go to [facility] for HLOC. HGB 6.2, HCT 17.9, GLUC 264, CA 5.9. Chest x-ray shows increased interstitial prominence. vital signs Vital Sign Date Time Temp Pulse Resp B/P (MAP) Pulse Ox O2 Delivery O2 Flow Rate FiO2 02/27/25 11:49 98.7 91 16 111/50 98.7 02/27/25 10:31 98 02/27/25 09:32 Nasal Cannula* 6 44 Total Intake and Output 02/26/25 02/26/25 02/27/25 14:59 22:59 06:59 Intake Total 1489.14 ml 1507.64 ml 1259.58 ml Output Total 525 ml 50 ml 2250 ml Balance 964.14 ml 1457.64 ml -990.42 ml medications Current Medications Medications Dose Ordered Sig/Neha Route Start Time Stop Time Status Last Admin Dose Admin Piperacillin Sod/ Tazobactam Sod 100 ml @ 25 mls/hr Q6HR IV 02/20/25 00:00 02/27/25 11:41 25 MLS/HR Ondansetron HCl 4 mg Q4HPRN PRN IV 02/19/25 20:30 02/20/25 18:16 4 MG Diagnostic Test (Pha) 1 strip Q6HR 02/20/25 00:00 02/27/25 05:57 1 STRIP Insulin Human Regular Q6HR SC 02/20/25 00:00 02/27/25 11:46 12 UNITS Dextrose 50 ml UD PRN IV 02/19/25 20:30 Nitroglycerin 0.4 mg Q5MINP PRN SL 02/19/25 20:30 Morphine Sulfate 2 mg Q30M PRN IV 02/19/25 20:30 02/26/25 22:06 2 MG Morphine Sulfate 2 mg Q6HPRN PRN IV 02/20/25 00:45 02/26/25 13:11 2 MG Insulin Glargine 10 units HS SC 02/20/25 00:00 02/26/25 22:11 10 UNITS Amiodarone HCL/ Dextrose 200 ml @ 33.33 mls/ hr Q12H IV 02/21/25 01:45 02/27/25 10:25 33.33 MLS/HR Diltiazem HCl 125 ml @ 0 mls/hr Q0M IV 02/21/25 01:45 02/23/25 00:18 5 MLS/HR Pantoprazole Sodium 80 mg BID IV 02/21/25 22:00 Cancel Octreotide Acetate 500 mcg/ Sodium Chloride 100 ml @ 10 mls/hr Q10H IV 02/21/25 15:15 02/27/25 06:49 10 MLS/HR Sodium Chloride 10 ml QSHIFT@10,22 IV 02/21/25 22:00 02/26/25 22:09 10 ML Sucralfate 1 gm QID@0600,1130,1700,2200 PO 02/22/25 11:30 02/27/25 11:41 1 GM Pantoprazole Sodium 80 mg TID IV 02/23/25 22:00 02/27/25 05:55 80 MG Mupirocin 1 applic BID EACHNOSTRI 02/25/25 22:00 03/02/25 21:59 02/26/25 22:13 1 APPLIC Norepinephrine Bitartrate 250 ml @ 3.75 mls/hr Q24H IV 02/26/25 11:00 02/27/25 10:25 56.25 MLS/HR Amino Acids 0 ml @ 0 mls/hr PER PHARMACY IV 02/26/25 11:45 Sodium Chloride 10 meq/Calcium Gluconate 6.975 meq/Magnesium Sulfate 10 meq/ Multivitamins 10 ml/Chromium/ Copper/Manganese/ Zinc 1 ml/Insulin Human Regular 5 units/Potassium Chloride 20 meq/ Amino Acids/ Dextrose/Purified Water 1,041.05 ml @ 43 mls/hr [id number] IV 02/26/25 22:00 02/27/25 21:59 02/26/25 21:27 43 MLS/HR Sodium Chloride 1,000 ml @ 40 mls/hr Q24H IV 02/26/25 14:00 02/26/25 14:00 40 MLS/HR Phenylephrine HCl 250 ml @ 30 mls/hr Q8H20M IV 02/27/25 05:45 Diphenhydramine HCl 50 mg QHSP PRN IV 02/27/25 06:30 02/27/25 06:30 50 MG Fat Emulsion Intravenous 50 ml/ Sodium Chloride 30 meq/Potassium Phosphate 15 meq/ Calcium Gluconate 9.3 meq/Magnesium Sulfate 14 meq/ Multivitamins 10 ml/Chromium/ Copper/Manganese/ Zinc 1 ml/Insulin Human Regular 10 units/Amino Acids/ Dextrose/Purified Water 1,045.5091 ml @ 43 mls/hr [id number] IV 02/27/25 22:00 02/28/25 21:59 Vasopressin 20 units/Sodium Chloride 100 ml @ 9 mls/hr Q11H7M IV 02/27/25 10:30 objective GENERAL: Alert and oriented x 3. No acute distress. Pale appearing. EYES: PERRL, EOMI. Anicteric. HENT: Moist mucous membranes. LUNGS: Clear to auscultation bilaterally. CARDIOVASCULAR: Regular rate and rhythm. ABDOMEN: Colostomy to right lower abdomen, bright-red feces. EXTREMITIES: No edema. NEUROLOGIC: No focal neurological deficits. SKIN: Warm, dry. laboratory and microbiology Laboratory Tests 02/27/25 03:00 02/26/25 02:59 Test 02/27/25 03:00 Range/Units Serum Glucose 249 #H 74-106 mg/dL Problem List A Fib with RVR. GI bleed. Abdominal wall thickening. Acute blood loss anemia. Diabetes mellitus type 2 with hyperglycemia. HTN. HLD. Assessment/Plan Continued all current supportive medical care. Echocardiogram. IV Amiodarone. GI prophylactics. IV antibiotics as ordered. Vasopressors for hemodynamic support. Additional plan as per the hospital course. Critical care time of 45 minutes provided to include time spent evaluation of patient at bedside, when appropriate patient/family education for diagnosis, treatment plan, review of pertinent medical information and discussion of care with specialty providers and PCP. Dietary Evaluation Review Comments: 1) If patient remains NPO > 7 days, consider EN/TPN to meet at least 75% of estimated daily needs 2) [facility] when medically feasible 3) Refer to outpatient RD/[facility] for weight management 4) Continue to monitor I&O, labs, and skin integrity Expected Outcomes/Goals: 1) patient to receive nutritional support within 7 days of NPO status 2) labs to improve 3) diet to advance 4) f/u in 3-5 days Plan discussed with: Patient CC Plasma Assessment Blood Product Administration S: 10:45 WEST MARTEL MD Feb 27, 2025 11:58
[2025-02-28] VITALS (111 sets, daily range): BP systolic 47–165; BP diastolic 29–126; PULSE 74–120; RESP 9–25; TEMP 97.5–98.8; O2SAT 83–100
[2025-02-28] MEDS: AMIODARONE 450mg/250ml AE 250 ML IV SCH (01:19)
[2025-02-28 01:53] LABS: Hemoglobin 8.1 g/dL (13.5-17.5)
[2025-02-28 01:55] LABS: Hematocrit 24.4 % (41.0-53.0)
[2025-02-28 06:49] LABS: Hematocrit 16.8 % (41.0-53.0)
[2025-02-28 06:58] LABS: Hemoglobin 5.5 g/dL (13.5-17.5)
[2025-02-28 07:04] LABS: Alkaline Phosphatase 68 U/L (46-116); Anion Gap 5 (5-15); BUN/Creatinine Ratio 17.5 (10.0-20.0); Blood Urea Nitrogen 22 mg/dL (9-23); Carbon Dioxide 27 mmol/L (20-31); Chloride 102 mmol/L (98-107); Potassium 4.1 mmol/L (3.5-5.1)
[2025-02-28 07:05] LABS: Bilirubin, Total 0.7 mg/dL (0.2-1.0)
[2025-02-28] MEDS: IOHEXOL 350 MG/ML 100ML IJ ONE (07:29)
[2025-02-28 07:31] LABS: Alanine Aminotransferase < 9 U/L (7-40); Albumin 1.3 g/dL (3.2-4.8); Calcium 6.1 mg/dL (8.7-10.4); Glucose 338 mg/dL (74-106); Magnesium 1.5 mg/dL (1.6-2.6); Sodium 134 mmol/L (136-145); Total Protein 2.8 g/dL (5.7-8.2)
[2025-02-28] MEDS: CALCIUM GLUC 1,000mg/50ml-NS 50 ML IV SCH (11:19)
[2025-02-28] MEDS ORDERED: AMIODARONE 360mg/200mL PREMIX 200 ML IV SCH (11:30)
[2025-02-28] MEDS: PHENYLEPHRINE INJ 80 MG in SODIUM CHL 0.9% 242 ML IV SCH (12:00)
[2025-02-28] MEDS: NOREPINEPHRINE BITARTRATE 32 MG in SODIUM CHL 0.9% 218 ML IV SCH (12:15)
--- NOTE | 2025-02-28 13:36 | DVHINCON2 ---
Date of service: Feb 28, [address] Pepper Reason for Consultation Line placement History of Present Illness History Source: Patient Exam Limitations: No limitations HPI Patient is a 59-year old gentleman with a history of morbid obesity, diabetes, hypertension and colostomy who presented with blood noted from his colostomy. Was seen in the emergency room where he was found to be anemic requiring transfusion of blood products and he was admitted for further workup. Patient al so required pressors for hemodynamic support and was transferred to the ICU for management. Pulmonology was consulted to assist in placement of arterial line. Home Meds Reported Medications Metoprolol Tartrate (Metoprolol Tartrate) 50 Mg Tab, 1 TAB PO BID for 100 Days, #200 02/20/25 Oxycodone W/ Acetaminophen (Apap/Oxycodone) 1 Tab Tab, 1 TAB PO TID for 30 Days, #90 02/20/25 Morphine Sulfate (Morphine Sulfate Cr) 30 Mg Tab, 1 TAB PO DAILY for 30 Days, #30 02/20/25 Sucralfate (Sucralfate) 1 Gm Tab, 1 TAB PO TID for 30 Days, #90 02/20/25 Pantoprazole Sodium Sesquihydr (Pantoprazole Sodium) 40 Mg Tab, 1 TAB PO DAILY for 90 Days, #90 02/20/25 Albuterol Sulfate (Albuterol Sulfate Hfa) 108 Mcg/Act Aer, 2 PUFF INH Q4-6HR PRN for 16 Days, #8.5 02/20/25 Pioglitazone Hydrochloride (PIOGLITAZONE HCL) 30 Mg Tab, 1 TAB PO DAILY for 100 Days, #100 02/20/25 Metformin Hydrochloride (Metformin Hcl) 500 Mg Tab, 1 TAB PO BID for 90 Days, #180 02/20/25 Past Medical History Cardiac: HTN Pulmonary: No pertinent Hx Central Nervous System: No pertinent Hx GI: No pertinent Hx Hemotology/Oncology: No pertinent Hx Hepatobiliary: No pertinent Hx Psychiatric: No pertinent Hx Musculoskeletal: No pertinent Hx Rheumotologic: No pertinent Hx Infectious Disease: No peritnent Hx ENT: No pertinent Hx Renal/: No pertinent Hx Endocrine: NIDDM Dermatology: No pertinent Hx Past Surgical History: Other (colostomy ) Family History: No pertinent Hx Patient Family History: Patient reports no known family medical history. Smoker: No Hx (Negative) Alocohol: None Drugs: None Lives with: With family Domestic Violence: Neg Review of Systems Constitutional: No symptom reported Ears, Nose, & Throat: No symptom reported Eyes: No symptom reported Pulmonary/Respiratory: No symptom reported Cardiovascular: No symptom reported Gastrointestinal: Abnormal Stool Genitourinary: No symptom reported Musculoskeletal: No symptom reported Skin: No symptom reported Psychiatric: No symptom reported Endocrine: No symptom reported Hemotologic/Lymphatic: No symptom reported H&P Exam Vital Signs Vital Signs Date Time Temp Pulse Resp B/P (MAP) Pulse Ox O2 Delivery O2 Flow Rate FiO2 02/28/25 13:18 121 16 138/56 02/28/25 13:00 97 02/28/25 09:28 97.7 97.7 02/28/25 08:00 Nasal Cannula* 6 44 General Appeara: Well developed, Well nourished, Normal Appearance Head Exam: Normal inspection Neck Exam: Normal inspection, Non-tender, Normal alignment Eye Exam: bilateral eye Normal inspection, bilateral eye PERRL, bilateral eye EOMI Ear Exam: bilateral ear Auricle normal, bilateral ear Canal normal, bilateral ear TM normal Nasal Exam: Normal inspection Mouth: Normal Inspection Pulmonary/Respiratory: Decreased breath sounds Cardiovascular/Chest: Normal inspection Peripheral Pulses: 4+ Radial (R), 4+ Radial (L), 4+ Brachial (R), 4+ Brachial (L) Abdominal Exam: Normal bowel sounds Labs/Xrays Labs Test 02/28/25 12:27 02/28/25 11:05 02/28/25 06:37 02/27/25 03:00 Range/Units POC Glucose 333 H 70-106 mg/dl Fibrinogen 123 L 177-375 mg/dL Hemoglobin 5.5 #*L 13.5-17.5 g/dL Hematocrit 16.8 #L 41.0-53.0 % Sodium Level 134 L 136-145 mmol/L Potassium Level 4.1 3.5-5.1 mmol/L Chloride Level 102 98-107 mmol/L Carbon Dioxide Level 27 20-31 mmol/L Anion Gap 5 5-15 Blood Urea Nitrogen 22 9-23 mg/dL Creatinine 1.26 0.700-1.30 mg/dL Glomerular Filtration Rate Calc 66 >90 mL/min BUN/Creatinine Ratio 17.5 10.0-20.0 Serum Glucose 338 H 74-106 mg/dL Calcium Level 6.1 L 8.7-10.4 mg/dL Phosphorus Level 2.4 2.4-5.1 mg/dL Magnesium Level 1.5 L 1.6-2.6 mg/dL Total Bilirubin 0.7 0.2-1.0 mg/dL Aspartate Amino Transferase (AST) 25 13-40 U/L Alanine Aminotransferase (ALT) < 9 7-40 U/L Alkaline Phosphatase 68 46-116 U/L Total Protein 2.8 L 5.7-8.2 g/dL Albumin 1.3 L 3.2-4.8 g/dL Prothrombin Time 15.9 H 9.3-11.8 sec Prothrombin Time INR 1.57 H 0.9-1.15 Activated Partial Thromboplast Time 43.4 H 24.5-34.5 SEC Test 02/26/25 12:58 02/26/25 02:59 02/20/25 04:03 02/20/25 03:04 Range/Units Lactic Acid Level 1.9 0.4-2.0 mmol/L White Blood Count 17.7 #H 4.4-10.8 10^3/uL Red Blood Count 2.51 L 4.5-5.90 10^6/uL Mean Corpuscular Volume 85.0 80.0-100.0 fL Mean Corpuscular Hemoglobin 28.9 28.0-32.0 pg Mean Corpuscular Hemoglobin Concent 34.0 32.0-36.0 g/dL Red Cell Distribution Width 17.0 H 11.8-14.3 % Platelet Count 151 140-450 10^3/uL Mean Platelet Volume 8.5 6.9-10.8 fL Neutrophils (%) (Auto) 88.7 H 37.0-80.0 % Lymphocytes (%) (Auto) 3.9 L 10.0-50.0 % Monocytes (%) (Auto) 6.9 0.0-12.0 % Eosinophils (%) (Auto) 0.1 0.0-7.0 % Basophils (%) (Auto) 0.4 0.0-2.0 % Neutrophils # (Auto) 15.7 H 1.6-8.6 10 ^3/uL Lymphocytes # (Auto) 0.7 0.4-5.4 10 ^3/uL Monocytes # (Auto) 1.2 0-1.3 10 ^3/uL Eosinophils # (Auto) 0 0-0.8 10 ^3/uL Basophils # (Auto) 0.1 0-0.2 10 ^3/uL Nucleated Red Blood Cells 0.0 % Prealbumin < 3.0 L 10.0-40.0 md/dL Triglycerides Level 107 < 150 mg/dL Iron Level 56 L 65-175 ug/dL Total Iron Binding Capacity 285 250-425 ug/dL Percent Iron Saturation 19.6 L 20-55 % D-Dimer, Quantitative 1.64 H 0.0-0.49 mg/L FEU Test 02/20/25 02:21 02/19/25 23:55 02/19/25 16:45 02/19/25 16:14 Range/Units Troponin I High Sensitivity 9 </=54 ng/L Helicobacter pylori Antigen Screen Negative Negative Blood Gas Specimen Type Arterial Blood Gas Sample Site Right radial Blood Gas Patient Temperature 37.0 Arterial Blood Date Drawn [id number] Arterial Blood pH 7.512 H 7.350-7.450 Arterial Blood Partial Pressure CO2 37.6 35.0-48.0 mmHg Arterial Blood Partial Pressure O2 105.4 83.0-108.0 mmHg Arterial Blood HCO3 29.5 H 21.0-28.0 mmol/L Arterial Blood Oxygen Saturation 97.6 94.0-98.0 % Arterial Blood Base Excess 6.0 H -2.0-3.0 mmol/L Arterial Blood Oxyhemoglobin 94.3 94.0-98.0 % Arterial Blood Carboxyhemoglobin 3.0 H 0.5-1.5 % Arterial Blood Methemoglobin 0.4 0.0-1.5 % Juwan Test Yes Blood Gas Total Hemoglobin 7.80 L 13.5-17.5 g/dL Blood Gas Liter Flow 4.00 Blood Gas Modality Nasal cannula FiO2 % 36.0 Hemoglobin A1c 8.3 H <5.7 % A1C B-Type Natriuretic Peptide 517.71 0-100 pg/mL Microbiology Date/Time Source Procedure Growth Status 02/26/25 13:09 Blood Blood Culture - Preliminary NO GROWTH AFTER 48 HOURS OF INCUBATION. Resulted 02/21/25 17:30 Nose MRSA Screen - Final Methicillin Resistant S.aureus Complete Assessment/Plan Plan Impression Acute hypoxemic respiratory failure Hemorrhagic shock Pneumonia Anemia Patient seen and examined in ICU Events Low oxygen requirements On 2 liters nasal cannula On pressors for hemodynamic support Right axillary arterial line was placed for hemodynamic monitoring See separate note for procedure in detail S/p EGD Labs and imaging reviewed ABG reviewed Management Supplemental oxygen Titrate to maintain sats 90% or above Incentive spirometry Antibiotics F/u cultures Bronchodilators Monitor renal function Monitor electrolytes Supplement as needed Pressors as needed for hemodynamic support To maintain a mean arterial pressure of 65 mmHg Monitor hemoglobin Transfuse blood products as needed Awaiting HLOC transfer DVT prophylaxis Critical care time 35 minutes Plan discussed with: Patient SHARIF MONTGOMERY MD Feb 28, 2025 13:36
--- NOTE | 2025-02-28 13:37 | DVHNC2 ---
Procedure - Procedure- Right axillary arterial line catheter placement ultrasound guided Indication- Hemodynamic monitoring Procedure in detail Consent was obtained and timeout performed per protocol. The patient was placed in the supine position and the right axillary artery was localized using ultrasound SonoSite. ChloraPrep was used to clean the operative field, sterile drapes used to cover the area and local analgesia Lidocaine. The catheter was advanced over the wire with direct ultrasound guidance in the right axillary artery. The wire was removed, catheter flushed and attached to the transition device showing correct arterial waveform. Catheter was secured with 2 sutures and sterile dressing applied. No complications. SHARIF MONTGOMERY MD Feb 28, 2025 13:37
--- NOTE | 2025-02-28 14:00 | DVHPN2 ---
Progress Note - Dictate Date Seen: Feb 28, 2025 Has the PT tested + for MRSA If YES, has PT been informed?: Yes Medical Necessity Reason Pt with a Central, PICC or Fol: No Subjective Pressor requirement worsened overnight. Continues to have output from ostomy. vital signs Vital Sign Date Time Temp Pulse Resp B/P (MAP) Pulse Ox O2 Delivery O2 Flow Rate FiO2 02/28/25 13:18 121 16 138/56 02/28/25 13:00 97 02/28/25 09:28 97.7 97.7 02/28/25 08:00 Nasal Cannula* 6 44 Total Intake and Output 02/27/25 02/27/25 02/28/25 15:00 23:00 07:00 Intake Total 1998.23 ml 1796.15 ml 2217.06 ml Output Total 1310 ml Balance 1999.23 ml 1796.15 ml 907.06 ml medications Current Medications Medications Dose Ordered Sig/Neha Route Start Time Stop Time Status Last Admin Dose Admin Piperacillin Sod/ Tazobactam Sod 100 ml @ 25 mls/hr Q6HR IV 02/20/25 00:00 02/28/25 12:00 25 MLS/HR Ondansetron HCl 4 mg Q4HPRN PRN IV 02/19/25 20:30 02/20/25 18:16 4 MG Diagnostic Test (Pha) 1 strip Q6HR 02/20/25 00:00 02/28/25 12:28 1 STRIP Insulin Human Regular Q6HR SC 02/20/25 00:00 02/28/25 12:00 16 UNITS Dextrose 50 ml UD PRN IV 02/19/25 20:30 Nitroglycerin 0.4 mg Q5MINP PRN SL 02/19/25 20:30 Morphine Sulfate 2 mg Q30M PRN IV 02/19/25 20:30 02/26/25 22:06 2 MG Morphine Sulfate 2 mg Q6HPRN PRN IV 02/20/25 00:45 02/28/25 13:18 2 MG Insulin Glargine 10 units HS SC 02/20/25 00:00 02/27/25 21:43 10 UNITS Diltiazem HCl 125 ml @ 0 mls/hr Q0M IV 02/21/25 01:45 02/23/25 00:18 5 MLS/HR Pantoprazole Sodium 80 mg BID IV 02/21/25 22:00 Cancel Octreotide Acetate 500 mcg/ Sodium Chloride 100 ml @ 10 mls/hr Q10H IV 02/21/25 15:15 02/28/25 12:53 10 MLS/HR Sodium Chloride 10 ml QSHIFT@10,22 IV 02/21/25 22:00 02/28/25 09:32 10 ML Sucralfate 1 gm QID@0600,1130,1700,2200 PO 02/22/25 11:30 02/28/25 10:58 1 GM Pantoprazole Sodium 80 mg TID IV 02/23/25 22:00 02/28/25 06:01 80 MG Mupirocin 1 applic BID EACHNOSTRI 02/25/25 22:00 03/02/25 21:59 02/27/25 21:43 1 APPLIC Amino Acids 0 ml @ 0 mls/hr PER PHARMACY IV 02/26/25 11:45 Sodium Chloride 1,000 ml @ 40 mls/hr Q24H IV 02/26/25 14:00 02/26/25 14:00 40 MLS/HR Diphenhydramine HCl 50 mg QHSP PRN IV 02/27/25 06:30 02/27/25 06:30 50 MG Fat Emulsion Intravenous 50 ml/ Sodium Chloride 30 meq/Potassium Phosphate 15 meq/ Calcium Gluconate 9.3 meq/Magnesium Sulfate 14 meq/ Multivitamins 10 ml/Chromium/ Copper/Manganese/ Zinc 1 ml/Insulin Human Regular 10 units/Amino Acids/ Dextrose/Purified Water 1,045.5091 ml @ 43 mls/hr [id number] IV 02/27/25 22:00 02/28/25 21:59 02/27/25 21:42 43 MLS/HR Vasopressin 20 units/Sodium Chloride 100 ml @ 9 mls/hr Q11H7M IV 02/27/25 10:30 02/27/25 23:45 9 MLS/HR Phenylephrine HCl 80 mg/Sodium Chloride 250 ml @ 7.5 mls/hr Q24H IV 02/28/25 10:30 02/28/25 12:00 21.563 MLS/HR Norepinephrine Bitartrate 32 mg/ Sodium Chloride 250 ml @ 0.938 mls/ hr Q24H IV 02/28/25 10:30 02/28/25 12:15 14.063 MLS/HR Amiodarone HCL/ Dextrose 200 ml @ 33.333 mls/ hr Q12H IV 02/28/25 11:30 Magnesium Sulfate/ Dextrose 100 ml @ 100 mls/hr Q1HR IV 02/28/25 13:00 02/28/25 14:59 Fat Emulsion Intravenous 100 ml/Sodium Chloride 40 meq/ Potassium Phosphate 22 meq/ Calcium Gluconate 9.3 meq/Magnesium Sulfate 18 meq/ Multivitamins 10 ml/Chromium/ Copper/Manganese/ Zinc 1 ml/Insulin Human Regular 15 units/Amino Acids/ Dextrose/Purified Water 1,250.65 ml @ 52 mls/hr Q24H4M IV 02/28/25 22:00 03/01/25 21:59 objective General appearance: No acute distress. Obese Respiratory: Fine bibasilar crackles Cardiovascular: Regular rate and rhythm, no murmurs. No edema Abdomen: Soft, nondistended, nontender, bowel sounds present. Colostomy bag present. MSK: Normal range of motion. Neuro: Alert, no neurological deficits Psych: Appropriate mood and affect. laboratory and microbiology Laboratory Tests 02/28/25 06:37 02/26/25 02:59 Test 02/28/25 06:37 Range/Units Serum Glucose 338 H 74-106 mg/dL Assessment/Plan 1) Acute GI bleed 2) Acute Blood Loss Anemia 2/2 above s/p PRBC transfusion 3) Afib RVR s/p DCCV 4) Duodenitis/colitis Secondary Diagnosis: 5) Morbid Obesity 6) Essential HTN 7) Ileostomy, 8) Chronic pain syndrome Assessment/Plan 02/20----patient hgb most recent 7.8 and will transfuse blood as necessary for Hgb <7, will continue to trend H/H q6h, on IV ABx zosyn, PPI IV, GI consulted on the case and patient is NPO. amio gtt started due to afib RVR with cardiology consult, echo pending, continue all care, daily labs, technology applications consultant input appreciated, will follow along 02/21---most recent hgb 8.9 after 2 units PRBCs transfused yesterday, will continue to trend H/H, on IV ABx with Zosyn, remains NPO, was seen by cardiology earlier this AM and underwent successful DCCV as he was in afib HR 150s now cardioverted and is now sinus tachycardia, he is still on amio gtt and started on cardizem gtt fixed rate as per cardiology and is to continue these drips until endoscopy is done, GI on board and will plan for EGD, he is cardiac cleared to have endoscopy, continue all care, daily labs, will follow along 02/22---Hgb yesterday dropped from 8.9 to 5.4 and he was transfused 2 units and repeat Hgb was 6.3 and thus another 2 more units of blood were ordered for transfusion and most recent hgb is 7.5 with the last unit transfusing now, he is now started on levophed for vasopressor support currently on 10 mcg levophed, GI is planning for EGD today, he is on PPI/octreotide gtt. NS at 125 ml/hr for hydration, as mentioned yesterday 02/21 the patient was cardioverted by cardiology for afib/flutter and now is sinus tachycardia on cardizem and amio gtts which are to be continued until endoscopy is done, will continue to trend Hgb and transfuse blood as needed, daily labs, supportive care, GI/cardiology consults appreciated, will continue to follow along with you. 02/23--- Patient overnight continues to have profuse bleeding with Hgb dropping to 5.9 and receiving additional 2 units of PRBC overnight. Patient Hgb Dropped to 5.1 this morning again. Patient has been ordered an additional 2 more units of PRBC in addition to FPP. GI is aware of patient blood loss and IR has been consulted for Arterial Immobilization. Patient to continue Levophed PRN To maintain MAPs > 65. Patient is currently on Zosyn IV Day 3 prophylactically. Patient to be discontinued of Diltiazem Drip and will maintain Amio drip. Patient will be initiated on SCDs for DVT prophylaxis. Incentive Spirometer to be started for 10x/hour. 02/24- Hgb noted to be 6.8 this AM, continues to be tachycardic with dark bloody output from colostomy bag. Pending arterial embolization with IR today. Remains on levophed. Amio drip to be continued. Plan for 2 additional units PRBC this AM. 02/25: Hgb stable at 7.4 this AM. Receiving additional unit PRBC. Underwent arterial embolization with IR on 02/24. Continues to have some dark output from colostomy but quantity decreased. Target BP goal SBP 100 given wide pulse pressure. Currently on levophed. 02/26: Requiring increased levophed today. Colostomy output reviewed, 50c overnight, improving. Patient noted to have blood transfusion reaction last night. Transfusion aborted. Likely due to sensitization to cumulative blood products. Patient noted to spike fever today of 1.4. Blood cultures lactic acid ordered. IV Tylenol ordered as patient [id number]. Chest x-ray shows increased interstitial prominence with increased oxygen requirement. Likely secondary to fluid overload. Will decrease IV fluids. Per GI, only ice chips at this time. Will start TPN. 02/27: Increased Levophed requirement to 30 mcg. Vasopressin added as second line agent. Currently receiving 2 units PRBC with repeat H&H every 8 hours. Per GI, recommend transfer to higher level of care. 02/28: Pressor requirement increased overnight. Patient blood pressure titrated using blood pressure cuff. A-line placed femoral neck. Blood pressure readings. Subsequently noted to be on 2 pressors, Levophed and vasopressin. Patient continues to have output from colostomy with drop in hemoglobin. Additional PRBC and FFP ordered. Calcium gluconate ordered. Prognosis remains guarded. Pending transfer to higher level of care. Dietary Evaluation Review Comments: 1) If patient remains NPO > 7 days, consider EN/TPN to meet at least 75% of estimated daily needs 2) Advance to 60g C[facility] cardiac diet when medically feasible 3) Refer to outpatient RD/[facility] for weight management 4) Continue to monitor I&O, labs, and skin integrity Expected Outcomes/Goals: 1) patient to receive nutritional support within 7 days of NPO status 2) labs to improve 3) diet to advance 4) f/u in 3-5 days Plan discussed with: Patient CC Plasma Assessment Blood Product Administration S: 10:45 FLORENCIA VELASCO DO Feb 28, 2025 14:00
--- NOTE | 2025-02-28 14:57 | DVHPN2 ---
Progress Note Date Seen: Feb 28, 2025 Has the PT tested + for MRSA If YES, has PT been informed?: Yes Medical Necessity Reason Pt with a Central, PICC or Fol: Yes The following are medically ne: Central Line Subjective Patient reports: Feels worse Changes from previous H/P or p: Changes Review of Systems: Deferred Objective vital signs Vital Sign Date Time Temp Pulse Resp B/P (MAP) Pulse Ox O2 Delivery O2 Flow Rate FiO2 02/28/25 14:50 143/54 02/28/25 14:19 97.7 107 14 97.7 02/28/25 13:00 97 02/28/25 08:00 Nasal Cannula* 6 44 Total Intake and Output 02/27/25 02/27/25 02/28/25 15:00 23:00 07:00 Intake Total 1998.23 ml 1796.15 ml 2217.06 ml Output Total 1310 ml Balance 1999.23 ml 1796.15 ml 907.06 ml medications Current Medications Medications Dose Ordered Sig/Neha Route Start Time Stop Time Status Last Admin Dose Admin Piperacillin Sod/ Tazobactam Sod 100 ml @ 25 mls/hr Q6HR IV 02/20/25 00:00 02/28/25 12:00 25 MLS/HR Ondansetron HCl 4 mg Q4HPRN PRN IV 02/19/25 20:30 02/20/25 18:16 4 MG Diagnostic Test (Pha) 1 strip Q6HR 02/20/25 00:00 02/28/25 12:28 1 STRIP Insulin Human Regular Q6HR SC 02/20/25 00:00 02/28/25 12:00 16 UNITS Dextrose 50 ml UD PRN IV 02/19/25 20:30 Nitroglycerin 0.4 mg Q5MINP PRN SL 02/19/25 20:30 Morphine Sulfate 2 mg Q30M PRN IV 02/19/25 20:30 02/26/25 22:06 2 MG Morphine Sulfate 2 mg Q6HPRN PRN IV 02/20/25 00:45 02/28/25 13:18 2 MG Insulin Glargine 10 units HS SC 02/20/25 00:00 02/27/25 21:43 10 UNITS Diltiazem HCl 125 ml @ 0 mls/hr Q0M IV 02/21/25 01:45 02/23/25 00:18 5 MLS/HR Pantoprazole Sodium 80 mg BID IV 02/21/25 22:00 Cancel Octreotide Acetate 500 mcg/ Sodium Chloride 100 ml @ 10 mls/hr Q10H IV 02/21/25 15:15 02/28/25 12:53 10 MLS/HR Sodium Chloride 10 ml QSHIFT@10,22 IV 02/21/25 22:00 02/28/25 09:32 10 ML Sucralfate 1 gm QID@0600,1130,1700,2200 PO 02/22/25 11:30 02/28/25 10:58 1 GM Pantoprazole Sodium 80 mg TID IV 02/23/25 22:00 02/28/25 06:01 80 MG Mupirocin 1 applic BID EACHNOSTRI 02/25/25 22:00 03/02/25 21:59 02/27/25 21:43 1 APPLIC Amino Acids 0 ml @ 0 mls/hr PER PHARMACY IV 02/26/25 11:45 Sodium Chloride 1,000 ml @ 40 mls/hr Q24H IV 02/26/25 14:00 02/26/25 14:00 40 MLS/HR Diphenhydramine HCl 50 mg QHSP PRN IV 02/27/25 06:30 02/27/25 06:30 50 MG Fat Emulsion Intravenous 50 ml/ Sodium Chloride 30 meq/Potassium Phosphate 15 meq/ Calcium Gluconate 9.3 meq/Magnesium Sulfate 14 meq/ Multivitamins 10 ml/Chromium/ Copper/Manganese/ Zinc 1 ml/Insulin Human Regular 10 units/Amino Acids/ Dextrose/Purified Water 1,045.5091 ml @ 43 mls/hr [id number] IV 02/27/25 22:00 02/28/25 21:59 02/27/25 21:42 43 MLS/HR Vasopressin 20 units/Sodium Chloride 100 ml @ 9 mls/hr Q11H7M IV 02/27/25 10:30 02/27/25 23:45 9 MLS/HR Phenylephrine HCl 80 mg/Sodium Chloride 250 ml @ 7.5 mls/hr Q24H IV 02/28/25 10:30 02/28/25 12:00 21.563 MLS/HR Norepinephrine Bitartrate 32 mg/ Sodium Chloride 250 ml @ 0.938 mls/ hr Q24H IV 02/28/25 10:30 02/28/25 12:15 14.063 MLS/HR Amiodarone HCL/ Dextrose 200 ml @ 33.333 mls/ hr Q12H IV 02/28/25 11:30 Magnesium Sulfate/ Dextrose 100 ml @ 100 mls/hr Q1HR IV 02/28/25 13:00 02/28/25 14:59 Fat Emulsion Intravenous 100 ml/Sodium Chloride 40 meq/ Potassium Phosphate 22 meq/ Calcium Gluconate 9.3 meq/Magnesium Sulfate 18 meq/ Multivitamins 10 ml/Chromium/ Copper/Manganese/ Zinc 1 ml/Insulin Human Regular 15 units/Amino Acids/ Dextrose/Purified Water 1,250.65 ml @ 52 mls/hr Q24H4M IV 02/28/25 22:00 03/01/25 21:59 Examination: GENERAL:Abnormal, CVS:Abnormal, ABDOMEN:Abnormal laboratory and microbiology Laboratory Tests 02/28/25 06:37 02/26/25 02:59 Test 02/28/25 06:37 Range/Units Serum Glucose 338 H 74-106 mg/dL Microbiology Date/Time Source Procedure Growth Status 02/26/25 13:09 Blood Blood Culture - Preliminary NO GROWTH AFTER 48 HOURS OF INCUBATION. Resulted 02/21/25 17:30 Nose MRSA Screen - Final Methicillin Resistant S.aureus Complete Problem List/Assessment/Plan Problem List/Assessment/Plan Acute kidney injury hemodynamic due to volume loss afib RVR anemia due to GIB and high output ileostomy Duodenitis/colitis Morbid Obesity shock due to volume loss hypoalbuminemia continues to have anemia low h/h and hypotension rec IV albumin PRBC pressors to keep MAP > 65 critically ill GI Plan discussed with: Other Dietary Evaluation Review Comments: 1) If patient remains NPO > 7 days, consider EN/TPN to meet at least 75% of estimated daily needs 2) Advance to 60g CCHO cardiac diet when medically feasible 3) Refer to outpatient RD/CDCES for weight management 4) Continue to monitor I&O, labs, and skin integrity Expected Outcomes/Goals: 1) patient to receive nutritional support within 7 days of NPO status 2) labs to improve 3) diet to advance 4) f/u in 3-5 days Critical Care Time (mins): 33 CC Plasma Assessment Blood Product Administration S: 10:45 LUMA BUSTOS MD Feb 28, 2025 14:57
[2025-02-28] MEDS: MAGNESIUM SULFATE 1GM/100ML 100 ML IV SCH (15:15)
--- NOTE | 2025-02-28 15:46 | PRN ---
Misceleneous Note Note Note May 30, 2025 Subjective: Patient require more IV pressor support. EGD showed extensive ulceration in the postbulbar area. There was no active bleeding. Patient underwent IR intervention. However patient continues to have bleeding. Patient was to be transferred to tertiary facility for higher level of care. He is pending transfer Current Medications Medications (Trade) Dose Ordered Sig/Neha Route Start Time Stop Time Status Last Admin Dose Admin Piperacillin Sod/ Tazobactam Sod 100 ml @ 25 mls/hr Q6HR IV 02/20/25 00:00 02/28/25 12:00 25 MLS/HR Ondansetron HCl (Zofran) 4 mg Q4HPRN PRN IV 02/19/25 20:30 02/20/25 18:16 4 MG Diagnostic Test (Pha) (Accu-Chek Comfort Curve T) 1 strip Q6HR 02/20/25 00:00 02/28/25 12:28 1 STRIP Insulin Human Regular (InsuLIN R) Q6HR SC 02/20/25 00:00 02/28/25 12:00 16 UNITS Dextrose 50 ml UD PRN IV 02/19/25 20:30 Nitroglycerin (Ntrostat Sublingual) 0.4 mg Q5MINP PRN SL 02/19/25 20:30 Morphine Sulfate 2 mg Q30M PRN IV 02/19/25 20:30 02/26/25 22:06 2 MG Morphine Sulfate 2 mg Q6HPRN PRN IV 02/20/25 00:45 02/28/25 13:18 2 MG Insulin Glargine (Lantus) 10 units HS SC 02/20/25 00:00 02/27/25 21:43 10 UNITS Diltiazem HCl 125 ml @ 0 mls/hr Q0M IV 02/21/25 01:45 02/23/25 00:18 5 MLS/HR Pantoprazole Sodium (Protonix) 80 mg BID IV 02/21/25 22:00 Cancel Octreotide Acetate 500 mcg/ Sodium Chloride 100 ml @ 10 mls/hr Q10H IV 02/21/25 15:15 02/28/25 12:53 10 MLS/HR Sodium Chloride (Saline Lock Ns) 10 ml QSHIFT@10,22 IV 02/21/25 22:00 02/28/25 09:32 10 ML Sucralfate (Carafate Susp) 1 gm QID@0600,1130,1700,2200 PO 02/22/25 11:30 02/28/25 10:58 1 GM Pantoprazole Sodium (Protonix) 80 mg TID IV 02/23/25 22:00 02/28/25 15:15 80 MG Mupirocin (Bactroban 2% Ointment) 1 applic BID EACHNOSTRI 02/25/25 22:00 03/02/25 21:59 02/27/25 21:43 1 APPLIC Amino Acids 0 ml @ 0 mls/hr PER PHARMACY IV 02/26/25 11:45 Sodium Chloride 1,000 ml @ 40 mls/hr Q24H IV 02/26/25 14:00 02/26/25 14:00 40 MLS/HR Diphenhydramine HCl (Benadryl Injection) 50 mg QHSP PRN IV 02/27/25 06:30 02/27/25 06:30 50 MG Fat Emulsion Intravenous 50 ml/ Sodium Chloride 30 meq/Potassium Phosphate 15 meq/ Calcium Gluconate 9.3 meq/Magnesium Sulfate 14 meq/ Multivitamins 10 ml/Chromium/ Copper/Manganese/ Zinc 1 ml/Insulin Human Regular 10 units/Amino Acids/ Dextrose/Purified Water 1,045.5091 ml @ 43 mls/hr [id number] IV 02/27/25 22:00 02/28/25 21:59 02/27/25 21:42 43 MLS/HR Vasopressin 20 units/Sodium Chloride 100 ml @ 9 mls/hr Q11H7M IV 02/27/25 10:30 02/27/25 23:45 9 MLS/HR Phenylephrine HCl 80 mg/Sodium Chloride 250 ml @ 7.5 mls/hr Q24H IV 02/28/25 10:30 02/28/25 12:00 21.563 MLS/HR Norepinephrine Bitartrate 32 mg/ Sodium Chloride 250 ml @ 0.938 mls/ hr Q24H IV 02/28/25 10:30 02/28/25 12:15 14.063 MLS/HR Amiodarone HCL/ Dextrose 200 ml @ 33.333 mls/ hr Q12H IV 02/28/25 11:30 Fat Emulsion Intravenous 100 ml/Sodium Chloride 40 meq/ Potassium Phosphate 22 meq/ Calcium Gluconate 9.3 meq/Magnesium Sulfate 18 meq/ Multivitamins 10 ml/Chromium/ Copper/Manganese/ Zinc 1 ml/Insulin Human Regular 15 units/Amino Acids/ Dextrose/Purified Water 1,250.65 ml @ 52 mls/hr Q24H4M IV 02/28/25 22:00 03/01/25 21:59 Albumin Human 100 ml @ 100 mls/hr Q6HR IV 02/28/25 15:00 03/01/25 18:59 Vital Signs Date Time Temp Pulse Resp B/P (MAP) Pulse Ox O2 Delivery O2 Flow Rate FiO2 02/28/25 14:50 143/54 02/28/25 14:19 97.7 107 14 97.7 02/28/25 13:00 97 02/28/25 12:00 Nasal Cannula* 6 44 Alert, obese male NC/AT EOMI PERRLA O/P clear Tachycardic regular rhythm Soft nondistended nontender, ostomy in place in the right abdomen No clubbing cyanosis or edema Labs reviewed Impression: 1. Morbid obesity 2. Symptomatic anemia 3. GI bleeding 4.Large duodenal ulcer 5. AFib with RVR 6. ANA Patient is status post EGD and IR intervention for duodenal ulceration Recommendati 1. Continue supportive care IV Protonix,, pressor support , Sandostatin 2. Follow H&H and transfuse PRBC and FFP 3. Transfer to higher level care 4. Patient is too unstable for repeat endoscopy at this time 5. We will follow JUAN C GARCIA MD Feb 28, 2025 15:46
[2025-02-28] MEDS: ALBUMIN 25% 100 ML IV SCH (16:12)
[2025-02-28] MEDS: AMIODARONE 360mg/200mL PREMIX 200 ML IV SCH (16:57)
[2025-02-28] MEDS: SODIUM PHOSPHATES 20 MEQ in SODIUM CHL 0.9% 100 ML IV ONE (17:25)
[2025-02-28 17:58] LABS: Hematocrit 15.5 % (41.0-53.0)
[2025-02-28 18:08] LABS: Hemoglobin 5.2 g/dL (13.5-17.5)
[2025-02-28] MEDS: TPN PER PHARMACY IV NR (21:05)
[2025-02-28] MEDS ORDERED: TPN PER PHARMACY IV NR (22:00)
--- NOTE | 2025-02-28 23:24 | DVHPN2 ---
Progress Note - Dictate Date Seen: Feb 28, 2025 Has the PT tested + for MRSA If YES, has PT been informed?: Yes Medical Necessity Reason Pt with a Central, PICC or Fol: No Subjective Patient was seen and evaluated in follow up in the ICU. Patient is on 6 LPM NC. Pressor requirement increased overnight. Patient is receiving vasopressors for hemodynamic support. HGB 5.5, HCT 16.8, GLUC 338, CA 6.1. Patient receiving PRBC and FFP. Abdominal angiogram showed small bibasilar pleural effusions and areas of atelectasis are present, cholelithiasis, scattered ascites is seen around the liver, spleen, abdomen and pelvis, prominent ventral hernia to the right of midline with a 5-6 cm anterior abdominal wall defect and herniation of bowel and mesenteric fat into the subcutaneous tissues; measurements are limited by [id number]. vital signs Vital Sign Date Time Temp Pulse Resp B/P (MAP) Pulse Ox O2 Delivery O2 Flow Rate FiO2 02/28/25 09:28 97.7 80 14 71/53 97.7 02/28/25 09:01 97 02/28/25 08:00 Nasal Cannula* 6 44 Total Intake and Output 02/27/25 02/27/25 02/28/25 15:00 23:00 07:00 Intake Total 1999.23 ml 1796.15 ml 2217.06 ml Output Total 1310 ml Balance 1999.23 ml 1796.15 ml 907.06 ml medications Current Medications Medications Dose Ordered Sig/Neha Route Start Time Stop Time Status Last Admin Dose Admin Piperacillin Sod/ Tazobactam Sod 100 ml @ 25 mls/hr Q6HR IV 02/20/25 00:00 02/28/25 06:01 25 MLS/HR Ondansetron HCl 4 mg Q4HPRN PRN IV 02/19/25 20:30 02/20/25 18:16 4 MG Diagnostic Test (Pha) 1 strip Q6HR 02/20/25 00:00 02/28/25 05:47 1 STRIP Insulin Human Regular Q6HR SC 02/20/25 00:00 02/28/25 05:52 16 UNITS Dextrose 50 ml UD PRN IV 02/19/25 20:30 Nitroglycerin 0.4 mg Q5MINP PRN SL 02/19/25 20:30 Morphine Sulfate 2 mg Q30M PRN IV 02/19/25 20:30 02/26/25 22:06 2 MG Morphine Sulfate 2 mg Q6HPRN PRN IV 02/20/25 00:45 02/28/25 06:18 2 MG Insulin Glargine 10 units HS SC 02/20/25 00:00 02/27/25 21:43 10 UNITS Diltiazem HCl 125 ml @ 0 mls/hr Q0M IV 02/21/25 01:45 02/23/25 00:18 5 MLS/HR Pantoprazole Sodium 80 mg BID IV 02/21/25 22:00 Cancel Octreotide Acetate 500 mcg/ Sodium Chloride 100 ml @ 10 mls/hr Q10H IV 02/21/25 15:15 02/28/25 02:51 10 MLS/HR Sodium Chloride 10 ml QSHIFT@10,22 IV 02/21/25 22:00 02/28/25 09:32 10 ML Sucralfate 1 gm QID@0600,1130,1700,2200 PO 02/22/25 11:30 02/28/25 10:58 1 GM Pantoprazole Sodium 80 mg TID IV 02/23/25 22:00 02/28/25 06:01 80 MG Mupirocin 1 applic BID EACHNOSTRI 02/25/25 22:00 03/02/25 21:59 02/27/25 21:43 1 APPLIC Amino Acids 0 ml @ 0 mls/hr PER PHARMACY IV 02/26/25 11:45 Sodium Chloride 1,000 ml @ 40 mls/hr Q24H IV 02/26/25 14:00 02/26/25 14:00 40 MLS/HR Diphenhydramine HCl 50 mg QHSP PRN IV 02/27/25 06:30 02/27/25 06:30 50 MG Fat Emulsion Intravenous 50 ml/ Sodium Chloride 30 meq/Potassium Phosphate 15 meq/ Calcium Gluconate 9.3 meq/Magnesium Sulfate 14 meq/ Multivitamins 10 ml/Chromium/ Copper/Manganese/ Zinc 1 ml/Insulin Human Regular 10 units/Amino Acids/ Dextrose/Purified Water 1,045.5091 ml @ 43 mls/hr [id number] IV 02/27/25 22:00 02/28/25 21:59 02/27/25 21:42 43 MLS/HR Vasopressin 20 units/Sodium Chloride 100 ml @ 9 mls/hr Q11H7M IV 02/27/25 10:30 02/27/25 23:45 9 MLS/HR Phenylephrine HCl 80 mg/Sodium Chloride 250 ml @ 7.5 mls/hr Q24H IV 02/28/25 10:30 02/28/25 12:00 21.563 MLS/HR Norepinephrine Bitartrate 32 mg/ Sodium Chloride 250 ml @ 0.938 mls/ hr Q24H IV 02/28/25 10:30 02/28/25 12:15 14.063 MLS/HR Amiodarone HCL/ Dextrose 200 ml @ 33.333 mls/ hr Q12H IV 02/28/25 11:30 objective GENERAL: Alert and oriented x 3. No acute distress. Pale appearing. EYES: PERRL, EOMI. Anicteric. HENT: Moist mucous membranes. LUNGS: Clear to auscultation bilaterally. CARDIOVASCULAR: Regular rate and rhythm. ABDOMEN: Colostomy to right lower abdomen, bright-red feces. EXTREMITIES: No edema. NEUROLOGIC: No focal neurological deficits. SKIN: Warm, dry. laboratory and microbiology Laboratory Tests 02/28/25 06:37 02/26/25 02:59 Test 02/28/25 06:37 Range/Units Serum Glucose 338 H 74-106 mg/dL Problem List A Fib with RVR. GI bleed. Abdominal wall thickening. Acute blood loss anemia. Diabetes mellitus type 2 with hyperglycemia. HTN. HLD. Assessment/Plan Continued all current supportive medical care. Echocardiogram. IV Amiodarone. GI prophylactics. IV antibiotics as ordered. Vasopressors for hemodynamic support. Additional plan as per the hospital course. Critical care time of 45 minutes provided to include time spent evaluation of patient at bedside, when appropriate patient/family education for diagnosis, treatment plan, review of pertinent medical information and discussion of care with specialty providers and PCP. Dietary Evaluation Review Comments: 1) If patient remains NPO > 7 days, consider EN/TPN to meet at least 75% of estimated daily needs 2) Advance to 60g CCHO cardiac diet when medically feasible 3) Refer to outpatient RD/CDCES for weight management 4) Continue to monitor I&O, labs, and skin integrity Expected Outcomes/Goals: 1) patient to receive nutritional support within 7 days of NPO status 2) labs to improve 3) diet to advance 4) f/u in 3-5 days Plan discussed with: Patient CC Plasma Assessment Blood Product Administration S: 10:45 WEST MARTEL MD Feb 28, 2025 12:26
[2025-03-01] VITALS (116 sets, daily range): BP systolic 101–141; BP diastolic 41–62; PULSE 71–122; RESP 11–22; TEMP 97.6–99; O2SAT 94–100
[2025-03-01 00:23] LABS: Hematocrit 16.4 % (41.0-53.0)
[2025-03-01 00:25] LABS: Hemoglobin 5.7 g/dL (13.5-17.5)
[2025-03-01 04:25] LABS: Alkaline Phosphatase 52 U/L (46-116); Chloride 102 mmol/L (98-107)
[2025-03-01 04:26] LABS: Anion Gap 5 (5-15); BUN/Creatinine Ratio 20.8 (10.0-20.0); Bilirubin, Total 0.8 mg/dL (0.2-1.0); Blood Urea Nitrogen 21 mg/dL (9-23); Carbon Dioxide 28 mmol/L (20-31); Magnesium 1.6 mg/dL (1.6-2.6)
[2025-03-01 04:45] LABS: Alanine Aminotransferase < 9 U/L (7-40); Albumin 1.9 g/dL (3.2-4.8); Calcium 6.6 mg/dL (8.7-10.4); Glucose 236 mg/dL (74-106); Potassium 3.4 mmol/L (3.5-5.1); Sodium 135 mmol/L (136-145); Total Protein 3.3 g/dL (5.7-8.2)
[2025-03-01] MEDS: POTASSIUM CHL 20MEQ/100ML 100 ML IV ONE (06:48)
[2025-03-01 07:15] LABS: Hematocrit 13.8 % (41.0-53.0); Mean Corpuscular Hemoglobin 31.2 pg (28.0-32.0); Mean Corpuscular Volume 87.2 fL (80.0-100.0); Nucleated Red Blood Cells % 0.5 %
[2025-03-01 07:18] LABS: Hemoglobin 4.9 g/dL (13.5-17.5)
[2025-03-01 07:38] LABS: Anisocytosis Slight
[2025-03-01] MEDS: MORPHINE SULFATE INJ 2 MG/ml SYRG IV PRN (10:05)
--- NOTE | 2025-03-01 12:00 | DVHPN2 ---
Progress Note Date Seen: Mar 01, 2025 Has the PT tested + for MRSA If YES, has PT been informed?: Yes Medical Necessity Reason Pt with a Central, PICC or Fol: No The following are medically ne: Central Line Objective vital signs Vital Sign Date Time Temp Pulse Resp B/P (MAP) Pulse Ox O2 Delivery O2 Flow Rate FiO2 03/01/25 10:35 91 14 115/51 03/01/25 10:30 100 03/01/25 10:00 Nasal Cannula* 6 44 03/01/25 08:54 97.8 97.8 Total Intake and Output 02/28/25 02/28/25 03/01/25 15:00 23:00 07:00 Intake Total 1499.16 ml 2484.728 ml 2815.938 ml Output Total 500 ml 100 ml Balance 1499.16 ml 1984.728 ml 2715.938 ml medications Current Medications Medications Dose Ordered Sig/Neha Route Start Time Stop Time Status Last Admin Dose Admin Piperacillin Sod/ Tazobactam Sod 100 ml @ 25 mls/hr Q6HR IV 02/20/25 00:00 03/01/25 11:43 25 MLS/HR Ondansetron HCl 4 mg Q4HPRN PRN IV 02/19/25 20:30 02/20/25 18:16 4 MG Diagnostic Test (Pha) 1 strip Q6HR 02/20/25 00:00 03/01/25 07:36 1 STRIP Insulin Human Regular Q6HR SC 02/20/25 00:00 03/01/25 06:00 8 UNITS Dextrose 50 ml UD PRN IV 02/19/25 20:30 Nitroglycerin 0.4 mg Q5MINP PRN SL 02/19/25 20:30 Insulin Glargine 10 units HS SC 02/20/25 00:00 02/28/25 21:04 10 UNITS Diltiazem HCl 125 ml @ 0 mls/hr Q0M IV 02/21/25 01:45 02/23/25 00:18 5 MLS/HR Pantoprazole Sodium 80 mg BID IV 02/21/25 22:00 Cancel Octreotide Acetate 500 mcg/ Sodium Chloride 100 ml @ 10 mls/hr Q10H IV 02/21/25 15:15 03/01/25 07:33 10 MLS/HR Sodium Chloride 10 ml QSHIFT@10,22 IV 02/21/25 22:00 03/01/25 10:04 10 ML Sucralfate 1 gm QID@0600,1130,1700,2200 PO 02/22/25 11:30 03/01/25 11:32 1 GM Pantoprazole Sodium 80 mg TID IV 02/23/25 22:00 03/01/25 05:34 80 MG Mupirocin 1 applic BID EACHNOSTRI 02/25/25 22:00 03/02/25 21:59 02/28/25 21:06 1 APPLIC Amino Acids 0 ml @ 0 mls/hr PER PHARMACY IV 02/26/25 11:45 Sodium Chloride 1,000 ml @ 40 mls/hr Q24H IV 02/26/25 14:00 02/26/25 14:00 40 MLS/HR Diphenhydramine HCl 50 mg QHSP PRN IV 02/27/25 06:30 02/27/25 06:30 50 MG Vasopressin 20 units/Sodium Chloride 100 ml @ 9 mls/hr Q11H7M IV 02/27/25 10:30 03/01/25 07:33 9 MLS/HR Phenylephrine HCl 80 mg/Sodium Chloride 250 ml @ 7.5 mls/hr Q24H IV 02/28/25 10:30 02/28/25 12:00 21.563 MLS/HR Norepinephrine Bitartrate 32 mg/ Sodium Chloride 250 ml @ 0.938 mls/ hr Q24H IV 02/28/25 10:30 03/01/25 10:46 6.563 MLS/HR Amiodarone HCL/ Dextrose 200 ml @ 33.333 mls/ hr Q12H IV 02/28/25 11:30 03/01/25 08:48 33.333 MLS/HR Fat Emulsion Intravenous 100 ml/Sodium Chloride 40 meq/ Potassium Phosphate 22 meq/ Calcium Gluconate 9.3 meq/Magnesium Sulfate 18 meq/ Multivitamins 10 ml/Chromium/ Copper/Manganese/ Zinc 1 ml/Insulin Human Regular 15 units/Amino Acids/ Dextrose/Purified Water 1,250.65 ml @ 52 mls/hr Q24H4M IV 02/28/25 22:00 03/01/25 21:59 02/28/25 21:05 52 MLS/HR Albumin Human 100 ml @ 100 mls/hr Q6HR IV 02/28/25 15:00 03/01/25 18:59 03/01/25 11:33 100 MLS/HR Morphine Sulfate 2 mg Q6HPRN PRN IV 03/01/25 10:00 03/01/25 10:05 2 MG Examination: GENERAL:Abnormal, ABDOMEN:Abnormal laboratory and microbiology Laboratory Tests 03/01/25 06:30 03/01/25 03:44 Test 03/01/25 03:44 Range/Units Serum Glucose 236 #H 74-106 mg/dL Microbiology Date/Time Source Procedure Growth Status 02/26/25 13:09 Blood Blood Culture - Preliminary NO GROWTH AFTER 48 HOURS OF INCUBATION. Resulted 02/21/25 17:30 Nose MRSA Screen - Final Methicillin Resistant S.aureus Complete Problem List/Assessment/Plan Problem List/Assessment/Plan Acute kidney injury hemodynamic due to volume loss afib RVR anemia due to GIB and high output ileostomy Duodenitis/colitis Morbid Obesity shock due to volume loss hypoalbuminemia mildly elevated cr continues to have anemia low h/h and hypotension rec IV albumin PRBC pressors to keep MAP > 65 critically ill GI Plan discussed with: Patient My Orders My Orders Orders - LUMA BUSTOS MD Procedure Category Date Status Time Albumin 25% (Albutein) PHA 02/28/25 In Process 15:00 Dietary Evaluation Review Comments: 1) If patient remains NPO > 7 days, consider EN/TPN to meet at least 75% of estimated daily needs 2) Advance to 60g CCHO cardiac diet when medically feasible 3) Refer to outpatient RD/[facility] for weight management 4) Continue to monitor I&O, labs, and skin integrity Expected Outcomes/Goals: 1) patient to receive nutritional support within 7 days of NPO status 2) labs to improve 3) diet to advance 4) f/u in 3-5 days Total Time (mins): 33 CC Plasma Assessment Blood Product Administration S: 10:45 LUMA BUSTOS MD Mar 01, 2025 12:00
[2025-03-01] MEDS: CALCIUM GLUC 1,000mg/50ml-NS 50 ML IV SCH (13:14)
--- NOTE | 2025-03-01 13:15 | DVHPN2 ---
Progress Note - Dictate Date Seen: Mar 01, 2025 Has the PT tested + for MRSA If YES, has PT been informed?: Yes Medical Necessity Reason Pt with a Central, PICC or Fol: No The following are medically ne: Central Line vital signs Vital Sign Date Time Temp Pulse Resp B/P (MAP) Pulse Ox O2 Delivery O2 Flow Rate FiO2 03/01/25 12:14 98.1 92 16 124/51 98.1 03/01/25 10:30 100 03/01/25 10:00 Nasal Cannula* 6 44 Total Intake and Output 02/28/25 02/28/25 03/01/25 15:00 23:00 07:00 Intake Total 1499.16 ml 2484.728 ml 2815.938 ml Output Total 500 ml 100 ml Balance 1499.16 ml 1984.728 ml 2715.938 ml medications Current Medications Medications Dose Ordered Sig/Neha Route Start Time Stop Time Status Last Admin Dose Admin Piperacillin Sod/ Tazobactam Sod 100 ml @ 25 mls/hr Q6HR IV 02/20/25 00:00 03/01/25 11:43 25 MLS/HR Ondansetron HCl 4 mg Q4HPRN PRN IV 02/19/25 20:30 02/20/25 18:16 4 MG Diagnostic Test (Pha) 1 strip Q6HR 02/20/25 00:00 03/01/25 12:02 1 STRIP Insulin Human Regular Q6HR SC 02/20/25 00:00 03/01/25 12:01 8 UNITS Dextrose 50 ml UD PRN IV 02/19/25 20:30 Nitroglycerin 0.4 mg Q5MINP PRN SL 02/19/25 20:30 Insulin Glargine 10 units HS SC 02/20/25 00:00 02/28/25 21:04 10 UNITS Diltiazem HCl 125 ml @ 0 mls/hr Q0M IV 02/21/25 01:45 02/23/25 00:18 5 MLS/HR Pantoprazole Sodium 80 mg BID IV 02/21/25 22:00 Cancel Octreotide Acetate 500 mcg/ Sodium Chloride 100 ml @ 10 mls/hr Q10H IV 02/21/25 15:15 03/01/25 07:33 10 MLS/HR Sodium Chloride 10 ml QSHIFT@10,22 IV 02/21/25 22:00 03/01/25 10:04 10 ML Sucralfate 1 gm QID@0600,1130,1700,2200 PO 02/22/25 11:30 03/01/25 11:32 1 GM Pantoprazole Sodium 80 mg TID IV 02/23/25 22:00 03/01/25 05:34 80 MG Mupirocin 1 applic BID EACHNOSTRI 02/25/25 22:00 03/02/25 21:59 02/28/25 21:06 1 APPLIC Amino Acids 0 ml @ 0 mls/hr PER PHARMACY IV 02/26/25 11:45 Sodium Chloride 1,000 ml @ 40 mls/hr Q24H IV 02/26/25 14:00 02/26/25 14:00 40 MLS/HR Diphenhydramine HCl 50 mg QHSP PRN IV 02/27/25 06:30 02/27/25 06:30 50 MG Vasopressin 20 units/Sodium Chloride 100 ml @ 9 mls/hr Q11H7M IV 02/27/25 10:30 03/01/25 07:33 9 MLS/HR Phenylephrine HCl 80 mg/Sodium Chloride 250 ml @ 7.5 mls/hr Q24H IV 02/28/25 10:30 02/28/25 12:00 21.563 MLS/HR Norepinephrine Bitartrate 32 mg/ Sodium Chloride 250 ml @ 0.938 mls/ hr Q24H IV 02/28/25 10:30 03/01/25 10:46 6.563 MLS/HR Amiodarone HCL/ Dextrose 200 ml @ 33.333 mls/ hr Q12H IV 02/28/25 11:30 03/01/25 08:48 33.333 MLS/HR Fat Emulsion Intravenous 100 ml/Sodium Chloride 40 meq/ Potassium Phosphate 22 meq/ Calcium Gluconate 9.3 meq/Magnesium Sulfate 18 meq/ Multivitamins 10 ml/Chromium/ Copper/Manganese/ Zinc 1 ml/Insulin Human Regular 15 units/Amino Acids/ Dextrose/Purified Water 1,250.65 ml @ 52 mls/hr Q24H4M IV 02/28/25 22:00 03/01/25 21:59 02/28/25 21:05 52 MLS/HR Albumin Human 100 ml @ 100 mls/hr Q6HR IV 02/28/25 15:00 03/01/25 18:59 03/01/25 11:33 100 MLS/HR Morphine Sulfate 2 mg Q6HPRN PRN IV 03/01/25 10:00 03/01/25 10:05 2 MG Calcium Gluconate/ Sodium Chloride 50 ml @ 100 mls/hr Q30M IV 03/01/25 12:15 03/01/25 13:44 laboratory and microbiology Laboratory Tests 03/01/25 06:30 03/01/25 03:44 Test 03/01/25 03:44 Range/Units Serum Glucose 236 #H 74-106 mg/dL Assessment/Plan Impression Acute hypoxemic respiratory failure Hemorrhagic shock Pneumonia Anemia Patient seen and examined in ICU Events Low oxygen requirements On 2 liters nasal cannula On pressors for hemodynamic support Continues to have evidence of bleeding Hemoglobin trending down Followed by vascular surgery S/p EGD Labs and imaging reviewed ABG reviewed Management Supplemental oxygen Titrate to maintain sats 90% or above Incentive spirometry Continue antibiotics F/u cultures Bronchodilators Monitor renal function Monitor electrolytes Supplement as needed Pressors as needed for hemodynamic support To maintain a mean arterial pressure of 65 mmHg Monitor hemoglobin Transfuse blood products as needed DVT prophylaxis Critical care time 35 minutes Dietary Evaluation Review Comments: 1) If patient remains NPO > 7 days, consider EN/TPN to meet at least 75% of estimated daily needs 2) Advance to 60g CCHO cardiac diet when medically feasible 3) Refer to outpatient RD/[facility]CES for weight management 4) Continue to monitor I&O, labs, and skin integrity Expected Outcomes/Goals: 1) patient to receive nutritional support within 7 days of NPO status 2) labs to improve 3) diet to advance 4) f/u in 3-5 days Plan discussed with: Patient CC Plasma Assessment Blood Product Administration S: 10:45 SHARIF MONTGOMERY MD Mar 01, 2025 13:15
--- NOTE | 2025-03-01 15:30 | DVHPN2 ---
Progress Note - Dictate Date Seen: Mar 01, 2025 Has the PT tested + for MRSA If YES, has PT been informed?: Yes Medical Necessity Reason Pt with a Central, PICC or Fol: No The following are medically ne: Central Line Subjective Overnight continues to have drop in hemoglobin and received 4U overnight. vital signs Vital Sign Date Time Temp Pulse Resp B/P (MAP) Pulse Ox O2 Delivery O2 Flow Rate FiO2 03/01/25 15:17 98.0 89 14 123/50 98.0 03/01/25 14:15 100 03/01/25 14:00 Nasal Cannula* 6 44 Total Intake and Output 02/28/25 02/28/25 03/01/25 15:00 23:00 07:00 Intake Total 1499.16 ml 2484.728 ml 2815.938 ml Output Total 500 ml 100 ml Balance 1499.16 ml 1984.728 ml 2715.938 ml medications Current Medications Medications Dose Ordered Sig/Neha Route Start Time Stop Time Status Last Admin Dose Admin Piperacillin Sod/ Tazobactam Sod 100 ml @ 25 mls/hr Q6HR IV 02/20/25 00:00 03/01/25 11:43 25 MLS/HR Ondansetron HCl 4 mg Q4HPRN PRN IV 02/19/25 20:30 02/20/25 18:16 4 MG Diagnostic Test (Pha) 1 strip Q6HR 02/20/25 00:00 03/01/25 12:02 1 STRIP Insulin Human Regular Q6HR SC 02/20/25 00:00 03/01/25 12:01 8 UNITS Dextrose 50 ml UD PRN IV 02/19/25 20:30 Nitroglycerin 0.4 mg Q5MINP PRN SL 02/19/25 20:30 Insulin Glargine 10 units HS SC 02/20/25 00:00 02/28/25 21:04 10 UNITS Diltiazem HCl 125 ml @ 0 mls/hr Q0M IV 02/21/25 01:45 02/23/25 00:18 5 MLS/HR Pantoprazole Sodium 80 mg BID IV 02/21/25 22:00 Cancel Octreotide Acetate 500 mcg/ Sodium Chloride 100 ml @ 10 mls/hr Q10H IV 02/21/25 15:15 03/01/25 07:33 10 MLS/HR Sodium Chloride 10 ml QSHIFT@10,22 IV 02/21/25 22:00 03/01/25 10:04 10 ML Sucralfate 1 gm QID@0600,1130,1700,2200 PO 02/22/25 11:30 03/01/25 11:32 1 GM Pantoprazole Sodium 80 mg TID IV 02/23/25 22:00 03/01/25 13:26 80 MG Mupirocin 1 applic BID EACHNOSTRI 02/25/25 22:00 03/02/25 21:59 02/28/25 21:06 1 APPLIC Amino Acids 0 ml @ 0 mls/hr PER PHARMACY IV 02/26/25 11:45 Sodium Chloride 1,000 ml @ 40 mls/hr Q24H IV 02/26/25 14:00 02/26/25 14:00 40 MLS/HR Diphenhydramine HCl 50 mg QHSP PRN IV 02/27/25 06:30 02/27/25 06:30 50 MG Vasopressin 20 units/Sodium Chloride 100 ml @ 9 mls/hr Q11H7M IV 02/27/25 10:30 03/01/25 07:33 9 MLS/HR Phenylephrine HCl 80 mg/Sodium Chloride 250 ml @ 7.5 mls/hr Q24H IV 02/28/25 10:30 02/28/25 12:00 21.563 MLS/HR Norepinephrine Bitartrate 32 mg/ Sodium Chloride 250 ml @ 0.938 mls/ hr Q24H IV 02/28/25 10:30 03/01/25 10:46 6.563 MLS/HR Amiodarone HCL/ Dextrose 200 ml @ 33.333 mls/ hr Q12H IV 02/28/25 11:30 03/01/25 14:32 33.333 MLS/HR Fat Emulsion Intravenous 100 ml/Sodium Chloride 40 meq/ Potassium Phosphate 22 meq/ Calcium Gluconate 9.3 meq/Magnesium Sulfate 18 meq/ Multivitamins 10 ml/Chromium/ Copper/Manganese/ Zinc 1 ml/Insulin Human Regular 15 units/Amino Acids/ Dextrose/Purified Water 1,250.65 ml @ 52 mls/hr Q24H4M IV 02/28/25 22:00 03/01/25 21:59 02/28/25 21:05 52 MLS/HR Albumin Human 100 ml @ 100 mls/hr Q6HR IV 02/28/25 15:00 03/01/25 18:59 03/01/25 11:33 100 MLS/HR Morphine Sulfate 2 mg Q6HPRN PRN IV 03/01/25 10:00 03/01/25 10:05 2 MG Fat Emulsion Intravenous 200 ml/Sodium Chloride 60 meq/ Potassium Chloride 60 meq/ Potassium Phosphate 22 meq/ Calcium Gluconate 9.3 meq/Magnesium Sulfate 24 meq/ Multivitamins 10 ml/Chromium/ Copper/Manganese/ Zinc 1 ml/Insulin Human Regular 20 units/Amino Acids/ Dextrose 1,287.2 ml @ 53 mls/hr [id number] IV 03/01/25 22:00 03/02/25 21:59 objective General appearance: No acute distress. Obese Respiratory: Fine bibasilar crackles Cardiovascular: Regular rate and rhythm, no murmurs. No edema Abdomen: Soft, nondistended, nontender, bowel sounds present. Colostomy bag present. MSK: Normal range of motion. Neuro: Alert, no neurological deficits Psych: Appropriate mood and affect. laboratory and microbiology Laboratory Tests 03/01/25 06:30 03/01/25 03:44 Test 03/01/25 03:44 Range/Units Serum Glucose 236 #H 74-106 mg/dL Assessment/Plan 1) Acute GI bleed 2) Acute Blood Loss Anemia 2/2 above s/p PRBC transfusion 3) Afib RVR s/p DCCV 4) Duodenitis/colitis Secondary Diagnosis: 5) Morbid Obesity 6) Essential HTN 7) Ileostomy, 8) Chronic pain syndrome Assessment/Plan 02/20----patient hgb most recent 7.8 and will transfuse blood as necessary for Hgb <7, will continue to trend H/H q6h, on IV ABx zosyn, PPI IV, GI consulted on the case and patient is NPO. amio gtt started due to afib RVR with cardiology consult, echo pending, continue all care, daily labs, market research consultant input appreciated, will follow along 02/21---most recent hgb 8.9 after 2 units PRBCs transfused yesterday, will continue to trend H/H, on IV ABx with Zosyn, remains NPO, was seen by cardiology earlier this AM and underwent successful DCCV as he was in afib HR 150s now cardioverted and is now sinus tachycardia, he is still on amio gtt and started on cardizem gtt fixed rate as per cardiology and is to continue these drips until endoscopy is done, GI on board and will plan for EGD, he is cardiac cleared to have endoscopy, continue all care, daily labs, will follow along 02/22---Hgb yesterday dropped from 8.9 to 5.4 and he was transfused 2 units and repeat Hgb was 6.3 and thus another 2 more units of blood were ordered for transfusion and most recent hgb is 7.5 with the last unit transfusing now, he is now started on levophed for vasopressor support currently on 10 mcg levophed, GI is planning for EGD today, he is on PPI/octreotide gtt. NS at 125 ml/hr for hydration, as mentioned yesterday 02/21 the patient was cardioverted by cardiology for afib/flutter and now is sinus tachycardia on cardizem and amio gtts which are to be continued until endoscopy is done, will continue to trend Hgb and transfuse blood as needed, daily labs, supportive care, GI/cardiology consults appreciated, will continue to follow along with you. 02/23--- Patient overnight continues to have profuse bleeding with Hgb dropping to 5.9 and receiving additional 2 units of PRBC overnight. Patient Hgb Dropped to 5.1 this morning again. Patient has been ordered an additional 2 more units of PRBC in addition to FPP. GI is aware of patient blood loss and IR has been consulted for Arterial Immobilization. Patient to continue Levophed PRN To maintain MAPs > 65. Patient is currently on Zosyn IV Day 3 prophylactically. Patient to be discontinued of Diltiazem Drip and will maintain Amio drip. Patient will be initiated on SCDs for DVT prophylaxis. Incentive Spirometer to be started for 10x/hour. 02/24- Hgb noted to be 6.8 this AM, continues to be tachycardic with dark bloody output from colostomy bag. Pending arterial embolization with IR today. Remains on levophed. Amio drip to be continued. Plan for 2 additional units PRBC this AM. 02/25: Hgb stable at 7.4 this AM. Receiving additional unit PRBC. Underwent arterial embolization with IR on 02/24. Continues to have some dark output from colostomy but quantity decreased. Target BP goal SBP 100 given wide pulse pressure. Currently on levophed. 02/26: Requiring increased levophed today. Colostomy output reviewed, 50c overnight, improving. Patient noted to have blood transfusion reaction last night. Transfusion aborted. Likely due to sensitization to cumulative blood products. Patient noted to spike fever today of 1.4. Blood cultures lactic acid ordered. IV Tylenol ordered as patient [id number]. Chest x-ray shows increased interstitial prominence with increased oxygen requirement. Likely secondary to fluid overload. Will decrease IV fluids. Per GI, only ice chips at this time. Will start TPN. 02/27: Increased Levophed requirement to 30 mcg. Vasopressin added as second line agent. Currently receiving 2 units PRBC with repeat H&H every 8 hours. Per GI, recommend transfer to higher level of care. 02/28: Pressor requirement increased overnight. Patient blood pressure titrated using blood pressure cuff. A-line placed femoral neck. Blood pressure readings. Subsequently noted to be on 2 pressors, Levophed and vasopressin. Patient continues to have output from colostomy with drop in hemoglobin. Additional PRBC and FFP ordered. Calcium gluconate ordered. Prognosis remains guarded. Pending transfer to higher level of care. 03/01: Pressor requirement noted to decrease to Levophed and vasopressin. Patient continues to have drop in hemoglobin to 4.9 despite receiving 4 units PRBC in the last 24 hours. Continues to have a lot of output from the ostomy site. Additional 4 units PRBC ordered with FFP and platelets. Currently pending repeat IR embolization at the earliest scheduled for noon time on 03/02. Vascular surgery, Dr. Fairbanks consulted. Pending recommendations. Patient refusing surgery to be done at our facility and requesting transfer to [facility] [place] where he had his initial surgery done. Contacted Dr. Dunaway, general surgeon regarding plan of care. Awaiting follow-up at this time. Patient prognosis remains very guarded. Discussed with father and patient at bedside. Dietary Evaluation Review Comments: 1) If patient remains NPO > 7 days, consider EN/TPN to meet at least 75% of estimated daily needs 2) [facility] when medically feasible 3) Refer to outpatient RD/CD[facility] for weight management 4) Continue to monitor I&O, labs, and skin integrity Expected Outcomes/Goals: 1) patient to receive nutritional support within 7 days of NPO status 2) labs to improve 3) diet to advance 4) f/u in 3-5 days Plan discussed with: Patient CC Plasma Assessment Blood Product Administration S: 10:45 FLORENCIA VELASCO DO Mar 01, 2025 15:30
[2025-03-01 18:59] LABS: Hematocrit 17.9 % (41.0-53.0)
[2025-03-01 19:00] LABS: Hemoglobin 6.3 g/dL (13.5-17.5)
[2025-03-01] MEDS: TPN PER PHARMACY IV NR (22:00)
--- NOTE | 2025-03-01 22:56 | DVHPN2 ---
Progress Note - Dictate Date Seen: Mar 01, 2025 Has the PT tested + for MRSA If YES, has PT been informed?: Yes Medical Necessity Reason Pt with a Central, PICC or Fol: No The following are medically ne: Central Line Subjective Patient was seen and evaluated in follow up in the ICU. Patient is on 6 LPM NC. [facility] has declined patient's HLOC transfer. HGB 4.9, HCT 13.8, NA 135, K 3.4, GLUC 233, CA 6.6. vital signs Vital Sign Date Time Temp Pulse Resp B/P (MAP) Pulse Ox O2 Delivery O2 Flow Rate FiO2 03/01/25 12:29 98.0 93 13 117/46 98.0 03/01/25 10:30 100 03/01/25 10:00 Nasal Cannula* 6 44 Total Intake and Output 02/28/25 02/28/25 03/01/25 15:00 23:00 07:00 Intake Total 1499.16 ml 2484.728 ml 2815.938 ml Output Total 500 ml 100 ml Balance 1499.16 ml 1984.728 ml 2715.938 ml medications Current Medications Medications Dose Ordered Sig/Neha Route Start Time Stop Time Status Last Admin Dose Admin Piperacillin Sod/ Tazobactam Sod 100 ml @ 25 mls/hr Q6HR IV 02/20/25 00:00 03/01/25 11:43 25 MLS/HR Ondansetron HCl 4 mg Q4HPRN PRN IV 02/19/25 20:30 02/20/25 18:16 4 MG Diagnostic Test (Pha) 1 strip Q6HR 02/20/25 00:00 03/01/25 12:02 1 STRIP Insulin Human Regular Q6HR SC 02/20/25 00:00 03/01/25 12:01 8 UNITS Dextrose 50 ml UD PRN IV 02/19/25 20:30 Nitroglycerin 0.4 mg Q5MINP PRN SL 02/19/25 20:30 Insulin Glargine 10 units HS SC 02/20/25 00:00 02/28/25 21:04 10 UNITS Diltiazem HCl 125 ml @ 0 mls/hr Q0M IV 02/21/25 01:45 02/23/25 00:18 5 MLS/HR Pantoprazole Sodium 80 mg BID IV 02/21/25 22:00 Cancel Octreotide Acetate 500 mcg/ Sodium Chloride 100 ml @ 10 mls/hr Q10H IV 02/21/25 15:15 03/01/25 07:33 10 MLS/HR Sodium Chloride 10 ml QSHIFT@10,22 IV 02/21/25 22:00 03/01/25 10:04 10 ML Sucralfate 1 gm QID@0600,1130,1700,2200 PO 02/22/25 11:30 03/01/25 11:32 1 GM Pantoprazole Sodium 80 mg TID IV 02/23/25 22:00 03/01/25 13:26 80 MG Mupirocin 1 applic BID EACHNOSTRI 02/25/25 22:00 03/02/25 21:59 02/28/25 21:06 1 APPLIC Amino Acids 0 ml @ 0 mls/hr PER PHARMACY IV 02/26/25 11:45 Sodium Chloride 1,000 ml @ 40 mls/hr Q24H IV 02/26/25 14:00 02/26/25 14:00 40 MLS/HR Diphenhydramine HCl 50 mg QHSP PRN IV 02/27/25 06:30 02/27/25 06:30 50 MG Vasopressin 20 units/Sodium Chloride 100 ml @ 9 mls/hr Q11H7M IV 02/27/25 10:30 03/01/25 07:33 9 MLS/HR Phenylephrine HCl 80 mg/Sodium Chloride 250 ml @ 7.5 mls/hr Q24H IV 02/28/25 10:30 02/28/25 12:00 21.563 MLS/HR Norepinephrine Bitartrate 32 mg/ Sodium Chloride 250 ml @ 0.938 mls/ hr Q24H IV 02/28/25 10:30 03/01/25 10:46 6.563 MLS/HR Amiodarone HCL/ Dextrose 200 ml @ 33.333 mls/ hr Q12H IV 02/28/25 11:30 03/01/25 08:48 33.333 MLS/HR Fat Emulsion Intravenous 100 ml/Sodium Chloride 40 meq/ Potassium Phosphate 22 meq/ Calcium Gluconate 9.3 meq/Magnesium Sulfate 18 meq/ Multivitamins 10 ml/Chromium/ Copper/Manganese/ Zinc 1 ml/Insulin Human Regular 15 units/Amino Acids/ Dextrose/Purified Water 1,250.65 ml @ 52 mls/hr Q24H4M IV 02/28/25 22:00 03/01/25 21:59 02/28/25 21:05 52 MLS/HR Albumin Human 100 ml @ 100 mls/hr Q6HR IV 02/28/25 15:00 03/01/25 18:59 03/01/25 11:33 100 MLS/HR Morphine Sulfate 2 mg Q6HPRN PRN IV 03/01/25 10:00 03/01/25 10:05 2 MG Calcium Gluconate/ Sodium Chloride 50 ml @ 100 mls/hr Q30M IV 03/01/25 12:15 03/01/25 13:44 03/01/25 13:14 100 MLS/HR Fat Emulsion Intravenous 200 ml/Sodium Chloride 60 meq/ Potassium Chloride 60 meq/ Potassium Phosphate 22 meq/ Calcium Gluconate 9.3 meq/Magnesium Sulfate 24 meq/ Multivitamins 10 ml/Chromium/ Copper/Manganese/ Zinc 1 ml/Insulin Human Regular 20 units/Amino Acids/ Dextrose 1,287.2 ml @ 53 mls/hr [id number] IV 03/01/25 22:00 03/02/25 21:59 objective GENERAL: Alert and oriented x 3. No acute distress. Pale appearing. EYES: PERRL, EOMI. Anicteric. HENT: Moist mucous membranes. LUNGS: Clear to auscultation bilaterally. CARDIOVASCULAR: Regular rate and rhythm. ABDOMEN: Colostomy to right lower abdomen, bright-red feces. EXTREMITIES: No edema. NEUROLOGIC: No focal neurological deficits. SKIN: Warm, dry. laboratory and microbiology Laboratory Tests 03/01/25 06:30 03/01/25 03:44 Test 03/01/25 03:44 Range/Units Serum Glucose 236 #H 74-106 mg/dL Problem List A Fib with RVR. GI bleed. Abdominal wall thickening. Acute blood loss anemia. Diabetes mellitus type 2 with hyperglycemia. HTN. HLD. Assessment/Plan Continued all current supportive medical care. Echocardiogram. IV Amiodarone. GI prophylactics. IV antibiotics as ordered. Vasopressors for hemodynamic support. Additional plan as per the hospital course. Critical care time of 45 minutes provided to include time spent evaluation of patient at bedside, when appropriate patient/family education for diagnosis, treatment plan, review of pertinent medical information and discussion of care with specialty providers and PCP. Dietary Evaluation Review Comments: 1) If patient remains NPO > 7 days, consider EN/TPN to meet at least 75% of estimated daily needs 2) Advance to 60g [facility] cardiac diet when medically feasible 3) Refer to outpatient RD/[facility] for weight management 4) Continue to monitor I&O, labs, and skin integrity Expected Outcomes/Goals: 1) patient to receive nutritional support within 7 days of NPO status 2) labs to improve 3) diet to advance 4) f/u in 3-5 days Plan discussed with: Patient CC Plasma Assessment Blood Product Administration S: 10:45 WEST MARTEL MD Mar 01, 2025 13:44
[2025-03-02] VITALS (95 sets, daily range): BP systolic 90–139; BP diastolic 37–75; PULSE 81–131; RESP 11–22; TEMP 97.6–98.7; O2SAT 88–100
[2025-03-02 06:33] LABS: Alanine Aminotransferase < 9 U/L (7-40); Albumin 1.5 g/dL (3.2-4.8); Alkaline Phosphatase 53 U/L (46-116); Anion Gap 4 (5-15); BUN/Creatinine Ratio 20.7 (10.0-20.0); Bilirubin, Total 0.9 mg/dL (0.2-1.0); Blood Urea Nitrogen 17 mg/dL (9-23); Calcium 6.3 mg/dL (8.7-10.4); Carbon Dioxide 27 mmol/L (20-31); Chloride 104 mmol/L (98-107); Glucose 271 mg/dL (74-106); Magnesium 1.5 mg/dL (1.6-2.6); Potassium 3.9 mmol/L (3.5-5.1); Sodium 135 mmol/L (136-145); Total Protein 2.9 g/dL (5.7-8.2)
[2025-03-02 06:57] LABS: Hematocrit 17.4 % (41.0-53.0)
[2025-03-02 07:14] LABS: Hemoglobin 6.0 g/dL (13.5-17.5)
[2025-03-02 08:28] LABS: Hematocrit 17.3 % (41.0-53.0)
[2025-03-02 08:30] LABS: Mean Corpuscular Hemoglobin 29.3 pg (28.0-32.0); Mean Corpuscular Volume 85.0 fL (80.0-100.0)
[2025-03-02 08:38] LABS: Hemoglobin 5.9 g/dL (13.5-17.5)
[2025-03-02] MEDS ORDERED: POTASSIUM PHOSPHATE 44 MEQ in D5W 5% 250 ML IV ONE (09:00)
[2025-03-02] MEDS ORDERED: MAGNESIUM SULFATE 1GM/100ML 100 ML IV SCH (09:00)
[2025-03-02] MEDS ORDERED: IODIXANOL 320MG/ML 100ML BTL IV ONE (09:24)
[2025-03-02 09:25] LABS: Nucleated Red Blood Cells % 3.0 %; Total Cells Counted 100.0 (100)
[2025-03-02 09:26] LABS: RBC Morphology Normal
[2025-03-02] MEDS: MAGNESIUM SULFATE 1GM/100ML 100 ML IV SCH (10:20)
[2025-03-02] MEDS: CALCIUM GLUC 1,000mg/50ml-NS 50 ML IV SCH (10:20)
[2025-03-02] MEDS: CALCIUM GLUC 1,000mg/50ml-NS 50 ML IV ONE (10:20)
[2025-03-02] MEDS: MAGNESIUM SULFATE 1GM/100ML 200 ML IV ONE (10:47)
--- NOTE | 2025-03-02 10:56 | DVHCONRES ---
Date Seen: Mar 02, 2025 Resident Creating Document: CHON MCCLAIN Jr., MD Referring Physician icu Reason for Consultation GI Bleed History of Present Illness 59-year-old male transferred from [facility] secondary to GI bleeding. Patient underwent EGD by Dr. Aragon which showed multiple ulcers in the 1st portion of the duodenum. At the time of the scope there was no active bleeding however since then he has required 35 units of blood products. transfusion. 02/24/25 underwent IR embolization. Patient is currently pending possible repeat IR embolization tomorrow. Patient is currently refusing surgical intervention and asking for transfer. Past Medical History diabetes mellitus type 2, history of hypertension, morbid obesity acid reflux and chronic pain syndrome Past Surgical History ileostomy, knee surgery, T&A Family History: Patient reports no known family medical history. Social History +smoke, etoh Allergies: Coded Allergies: NO KNOWN ALLERGIES (Unverified , 02/19/25) Home Meds Reported Medications Metoprolol Tartrate (Metoprolol Tartrate) 50 Mg Tab, 1 TAB PO BID for 100 Days, #200 02/20/25 Oxycodone W/ Acetaminophen (Apap/Oxycodone) 1 Tab Tab, 1 TAB PO TID for 30 Days, #90 02/20/25 Morphine Sulfate (Morphine Sulfate Cr) 30 Mg Tab, 1 TAB PO DAILY for 30 Days, #30 02/20/25 Sucralfate (Sucralfate) 1 Gm Tab, 1 TAB PO TID for 30 Days, #90 02/20/25 Pantoprazole Sodium Sesquihydr (Pantoprazole Sodium) 40 Mg Tab, 1 TAB PO DAILY for 90 Days, #90 02/20/25 Albuterol Sulfate (Albuterol Sulfate Hfa) 108 Mcg/Act Aer, 2 PUFF INH Q4-6HR PRN for 16 Days, #8.5 02/20/25 Pioglitazone Hydrochloride (PIOGLITAZONE HCL) 30 Mg Tab, 1 TAB PO DAILY for 100 Days, #100 02/20/25 Metformin Hydrochloride (Metformin Hcl) 500 Mg Tab, 1 TAB PO BID for 90 Days, #180 02/20/25 Current Medications Current Medications Medications (Trade) Dose Ordered Sig/Neha Route PRN Reason Start Time Stop Time Status Last Admin Calcium Gluconate/ Sodium Chloride 50 ml @ 100 mls/hr Q30M IV 03/01/25 12:15 03/01/25 13:44 DC 03/01/25 14:31 Fat Emulsion Intravenous 200 ml/Sodium Chloride 60 meq/ Potassium Chloride 60 meq/ Potassium Phosphate 22 meq/ Calcium Gluconate 9.3 meq/Magnesium Sulfate 24 meq/ Multivitamins 10 ml/Chromium/ Copper/Manganese/ Zinc 1 ml/Insulin Human Regular 20 units/Amino Acids/ Dextrose 1,287.2 ml @ 53 mls/hr [id number] IV 03/01/25 22:00 03/02/25 21:59 03/01/25 22:00 Fat Emulsion Intravenous 200 ml/Sodium Chloride 40 meq/ Sodium Phosphate 22 meq/Potassium Chloride 60 meq/ Calcium Gluconate 9.3 meq/Magnesium Sulfate 28 meq/ Multivitamins 10 ml/Chromium/ Copper/Manganese/ Zinc 1 ml/Insulin Human Regular 24 units/Amino Acids/ Dextrose 1,283.74 ml @ 54 mls/hr [id number] IV 03/02/25 22:00 03/03/25 21:59 Magnesium Sulfate/ Dextrose 100 ml @ 100 mls/hr Q1HR IV 03/02/25 09:00 03/02/25 10:59 UNV Magnesium Sulfate/ Dextrose 100 ml @ 100 mls/hr Q1HR IV 03/02/25 10:00 03/02/25 12:59 03/02/25 10:20 Calcium Gluconate/ Sodium Chloride 50 ml @ 100 mls/hr Q30M IV 03/02/25 09:15 03/02/25 10:18 DC 03/02/25 10:20 Review of Systems all system reviewed Vital Signs Vital Signs Date Time Temp Pulse Resp B/P (MAP) Pulse Ox O2 Delivery O2 Flow Rate FiO2 03/02/25 10:30 102 15 136/51 (79) 96 03/02/25 08:41 98.1 98.1 03/02/25 08:00 Nasal Cannula* 6 44 Physical Exam Head eyes ears nose and throat exam eyes are nonicteric conjunctiva is pink neck was supple no JVD no lymphadenopathy no carotid bruits lungs are clear to ausc ultation heart was regular rate and rhythm abdomen soft. Has ileostomy in the right lower quadrant with air and bloody drainage. Lower extremities palpable femoral and pedal pulses. Labs/Diagnostic Data Labs Test 03/02/25 06:00 03/02/25 05:23 03/01/25 06:30 02/28/25 11:05 Range/Units White Blood Count 18.0 #H 4.4-10.8 10^3/uL Red Blood Count 2.03 L 4.5-5.90 10^6/uL Hemoglobin 5.9 *L 13.5-17.5 g/dL Hematocrit 17.3 L 41.0-53.0 % Mean Corpuscular Volume 85.0 80.0-100.0 fL Mean Corpuscular Hemoglobin 29.3 28.0-32.0 pg Mean Corpuscular Hemoglobin Concent 34.4 32.0-36.0 g/dL Red Cell Distribution Width 14.4 H 11.8-14.3 % Platelet Count 58 L 140-450 10^3/uL Mean Platelet Volume 10.7 6.9-10.8 fL Neutrophils (%) (Auto) 37.0-80.0 % Lymphocytes (%) (Auto) 10.0-50.0 % Monocytes (%) (Auto) 0.0-12.0 % Basophils (%) (Auto) 0.0-2.0 % Neutrophils # (Auto) 1.6-8.6 10 ^3/uL Lymphocytes # (Auto) 0.4-5.4 10 ^3/uL Monocytes # (Auto) 0-1.3 10 ^3/uL Differential Total Cells Counted 100.0 100 Neutrophils % (Manual) 74 37.0-80.0 Band Neutrophils % (Manual) 7 Lymphocytes % (Manual) 8 L 10.0-50.0 Monocytes % (Manual) 9 0-12 Eosinophils % (Manual) 1 0-7 Basophils % (Manual) 0 0.0-2.0 Metamyelocytes % (manual) 0 Myelocytes % (Manual) 0 Promyelocytes % (Manual) 0 Blast Cells % (Manual) 0 Nucleated Red Blood Cells 3.0 % Reactive Lymphocytes 1 Platelet Estimate Decreased Red Blood Cell Morphology Normal Sodium Level 135 L 136-145 mmol/L Potassium Level 3.9 3.5-5.1 mmol/L Chloride Level 104 98-107 mmol/L Carbon Dioxide Level 27 20-31 mmol/L Anion Gap 4 L 5-15 Blood Urea Nitrogen 17 9-23 mg/dL Creatinine 0.82 0.700-1.30 mg/dL Glomerular Filtration Rate Calc 102 >90 mL/min BUN/Creatinine Ratio 20.7 H 10.0-20.0 Serum Glucose 271 H 74-106 mg/dL Calcium Level 6.3 L 8.7-10.4 mg/dL Phosphorus Level 1.7 L 2.4-5.1 mg/dL Magnesium Level 1.5 L 1.6-2.6 mg/dL Total Bilirubin 0.9 0.2-1.0 mg/dL Aspartate Amino Transferase (AST) 18 13-40 U/L Alanine Aminotransferase (ALT) < 9 7-40 U/L Alkaline Phosphatase 53 46-116 U/L Total Protein 2.9 L 5.7-8.2 g/dL Albumin 1.5 L 3.2-4.8 g/dL POC Glucose 264 H 70-106 mg/dl Eosinophils (%) (Auto) 3.4 0.0-7.0 % Eosinophils # (Auto) 0.3 0-0.8 10 ^3/uL Basophils # (Auto) 0.1 0-0.2 10 ^3/uL Anisocytosis (manual) Slight Fibrinogen 123 L 177-375 mg/dL Test 02/27/25 03:00 02/26/25 12:58 02/26/25 02:59 02/20/25 04:03 Range/Units Prothrombin Time 15.9 H 9.3-11.8 sec Prothrombin Time INR 1.57 H 0.9-1.15 Activated Partial Thromboplast Time 43.4 H 24.5-34.5 SEC Lactic Acid Level 1.9 0.4-2.0 mmol/L Prealbumin < 3.0 L 10.0-40.0 md/dL Triglycerides Level 107 < 150 mg/dL Iron Level 56 L 65-175 ug/dL Total Iron Binding Capacity 285 250-425 ug/dL Percent Iron Saturation 19.6 L 20-55 % Test 02/20/25 03:04 02/20/25 02:21 02/19/25 23:55 02/19/25 16:45 Range/Units D-Dimer, Quantitative 1.64 H 0.0-0.49 mg/L FEU Troponin I High Sensitivity 9 </=54 ng/L Helicobacter pylori Antigen Screen Negative Negative Blood Gas Specimen Type Arterial Blood Gas Sample Site Right radial Blood Gas Patient Temperature 37.0 Arterial Blood Date Drawn [id number] Arterial Blood pH 7.512 H 7.350-7.450 Arterial Blood Partial Pressure CO2 37.6 35.0-48.0 mmHg Arterial Blood Partial Pressure O2 105.4 83.0-108.0 mmHg Arterial Blood HCO3 29.5 H 21.0-28.0 mmol/L Arterial Blood Oxygen Saturation 97.6 94.0-98.0 % Arterial Blood Base Excess 6.0 H -2.0-3.0 mmol/L Arterial Blood Oxyhemoglobin 94.3 94.0-98.0 % Arterial Blood Carboxyhemoglobin 3.0 H 0.5-1.5 % Arterial Blood Methemoglobin 0.4 0.0-1.5 % Juwan Test Yes Blood Gas Total Hemoglobin 7.80 L 13.5-17.5 g/dL Blood Gas Liter Flow 4.00 Blood Gas Modality Nasal cannula FiO2 % 36.0 Test 02/19/25 16:14 Range/Units Hemoglobin A1c 8.3 H <5.7 % A1C B-Type Natriuretic Peptide 517.71 0-100 pg/mL Microbiology Date/Time Source Procedure Growth Status 02/26/25 13:09 Blood Blood Culture - Preliminary NO GROWTH AFTER 72 HOURS OF INCUBATION. Resulted 02/21/25 17:30 Nose MRSA Screen - Final Methicillin Resistant S.aureus Complete Exam: CT ANGIO AORTIC ABDOMINAL History: Revaluate;Arterial embolization Comparison Study: CTA ABDOMEN PELVIS on DOS: 10/28/21, CT-ABDOMEN PELVIS W on DOS: 04/08/20 Contrast: Type of contrast: Omnipaque 350 Contrast injected: 100 mL Contrast wasted: 0 TECHNIQUE: A digital landscape architecture teacher image was obtained. During the uneventful, intr avenous administration of contrast material, multislice data acquisition was obtained through the abdomen and pelvis. The data set was subsequently reconstructed into axial images. Images were reviewed on a work station using a combination of axial and multiplanar using a variety of window levels and settings. Radiation Dose Information: CT Dose: CTDI volume is 8.88 mGy. Dose-length product is 1486.79 mGy*cm Omnipaque 350: 100 mL FINDINGS: Lung Bases: Small bibasilar pleural effusions and areas of atelectasis.. Normal heart size. No pleural or pericardial effusion. Liver: The liver is normal in size. No focal lesions. Normal hepatic vascular enhancement. Gallbladder and Biliary Tree: Cholelithiasis Spleen: Unremarkable Pancreas: The pancreas is normal in appearance without focal lesions or abnormal enhancement. Adrenal Glands: Unremarkable Kidneys: Kidneys demonstrate normal symmetric enhancement without focal lesions, calculi or hydronephrosis. Bladder: Unremarkable Bowel: The stomach is grossly normal in appearance. Small bowel and colon are normal in caliber and distribution. The appendix is not visualized; however, no secondary findings of acute appendicitis identified. Ascites: Scattered around liver spleen abdomen and pelvis Lymphadenopathy: No mesenteric, retroperitoneal or periportal lymphadenopathy. Abdominal Wall and Mesentery: Prominent ventral hernia to the right of midline with a defect in the anterior abdominal wall measuring 5-6 cm with herniation of bowel and mesenteric fat into the subcutaneous tissues. Measurements are inaccurate since much of the contents of the hernia are out of [id number]. Vasculature: The visualized abdominal aorta is normal in size and caliber. Aorta at diaphragm measures 2.3 cm ; aorta below superior mesenteric artery measures 2.2 cm. Aorta below renal arteries measures 1.7 cm. Aorta aortic bifurcation measures 11 12 mm. Right common iliac artery measures 8.4 mm ; left common iliac artery same level measures 10 mm. Abdominal and pelvic vessels demonstrate normal enhancement. Pelvic Organs: Unremarkable Musculoskeletal: No aggressive focal bony lesions, acute fractures or dislocation. Soft tissues: Unremarkable. IMPRESSION: 1. Small bibasilar pleural effusions and areas of atelectasis are present. 2. Cholelithiasis. 3. Scattered ascites is seen around the liver, spleen, abdomen and pelvis. 4. Prominent ventral hernia to the right of midline with a 5-6 cm anterior abdominal wall defect and herniation of bowel and mesenteric fat into the subcutaneous tissues; measurements are limited by [id number]. 5. Kidneys demonstrate normal symmetric enhancement without focal lesions, calculi or hydronephrosis. 6. Bladder is unremarkable. 7. No mesenteric, retroperitoneal or periportal lymphadenopathy. 8. No aggressive focal bony lesions, acute fractures or dislocation. 9. Otherwise, normal CT of the abdomen and pelvis. 10. Embolic material visualized. No contrast noted distally. Assessment 59-year-old with a recurrent GI bleed. Patient needs IR evaluation for possible further embolization. Discussed with the patient that he may need surgery if he continues to bleed and IR is unsuccessful. at this point in time he is refusing any surgery. Plan/Recommendation 59-year-old with a recurrent GI bleed. Patient needs IR evaluation for possible further embolization. Discussed with the patient that he may need surgery if he continues to bleed and IR is unsuccessful. at this point in time he is refusing any surgery. Plan discussed with: Patient CHON MCCLAIN Jr., MD Mar 02, 2025 10:56
[2025-03-02] MEDS: MORPHINE SULFATE 4 MG/ML SYR/VIAL ONE (11:10)
--- NOTE | 2025-03-02 12:00 | DVHPN2 ---
Progress Note Date Seen: Mar 02, 2025 Has the PT tested + for MRSA If YES, has PT been informed?: Yes Medical Necessity Reason Pt with a Central, PICC or Fol: No The following are medically ne: Central Line Subjective Other Systems: Patient seen and examined by myself today in follow-up Objective vital signs Vital Sign Date Time Temp Pulse Resp B/P (MAP) Pulse Ox O2 Delivery O2 Flow Rate FiO2 03/02/25 11:28 97.8 96 13 138/50 97.8 03/02/25 10:30 96 03/02/25 08:00 Nasal Cannula* 6 44 Total Intake and Output 03/01/25 03/01/25 03/02/25 15:00 23:00 07:00 Intake Total 1236.64 ml 2771.248 ml 1701.454 ml Output Total 2225 ml 2050 ml Balance 1236.64 ml 546.248 ml -348.546 ml medications Current Medications Medications Dose Ordered Sig/Neha Route Start Time Stop Time Status Last Admin Dose Admin Piperacillin Sod/ Tazobactam Sod 100 ml @ 25 mls/hr Q6HR IV 02/20/25 00:00 03/02/25 11:28 25 MLS/HR Ondansetron HCl 4 mg Q4HPRN PRN IV 02/19/25 20:30 02/20/25 18:16 4 MG Diagnostic Test (Pha) 1 strip Q6HR 02/20/25 00:00 03/02/25 11:22 1 STRIP Insulin Human Regular Q6HR SC 02/20/25 00:00 03/02/25 11:22 12 UNITS Dextrose 50 ml UD PRN IV 02/19/25 20:30 Nitroglycerin 0.4 mg Q5MINP PRN SL 02/19/25 20:30 Insulin Glargine 10 units HS SC 02/20/25 00:00 03/01/25 22:00 10 UNITS Diltiazem HCl 125 ml @ 0 mls/hr Q0M IV 02/21/25 01:45 02/23/25 00:18 5 MLS/HR Pantoprazole Sodium 80 mg BID IV 02/21/25 22:00 Cancel Octreotide Acetate 500 mcg/ Sodium Chloride 100 ml @ 10 mls/hr Q10H IV 02/21/25 15:15 03/02/25 02:54 10 MLS/HR Sodium Chloride 10 ml QSHIFT@10,22 IV 02/21/25 22:00 03/02/25 09:28 10 ML Sucralfate 1 gm QID@0600,1130,1700,2200 PO 02/22/25 11:30 03/02/25 06:25 1 GM Pantoprazole Sodium 80 mg TID IV 02/23/25 22:00 03/02/25 06:27 80 MG Mupirocin 1 applic BID EACHNOSTRI 02/25/25 22:00 03/02/25 21:59 03/02/25 09:28 1 APPLIC Amino Acids 0 ml @ 0 mls/hr PER PHARMACY IV 02/26/25 11:45 Sodium Chloride 1,000 ml @ 40 mls/hr Q24H IV 02/26/25 14:00 03/02/25 03:21 40 MLS/HR Diphenhydramine HCl 50 mg QHSP PRN IV 02/27/25 06:30 02/27/25 06:30 50 MG Vasopressin 20 units/Sodium Chloride 100 ml @ 9 mls/hr Q11H7M IV 02/27/25 10:30 03/02/25 02:54 9 MLS/HR Phenylephrine HCl 80 mg/Sodium Chloride 250 ml @ 7.5 mls/hr Q24H IV 02/28/25 10:30 02/28/25 12:00 21.563 MLS/HR Norepinephrine Bitartrate 32 mg/ Sodium Chloride 250 ml @ 0.938 mls/ hr Q24H IV 02/28/25 10:30 03/01/25 10:46 6.563 MLS/HR Amiodarone HCL/ Dextrose 200 ml @ 33.333 mls/ hr Q12H IV 02/28/25 11:30 03/02/25 09:30 33.333 MLS/HR Morphine Sulfate 2 mg Q6HPRN PRN IV 03/01/25 10:00 03/02/25 11:19 2 MG Fat Emulsion Intravenous 200 ml/Sodium Chloride 60 meq/ Potassium Chloride 60 meq/ Potassium Phosphate 22 meq/ Calcium Gluconate 9.3 meq/Magnesium Sulfate 24 meq/ Multivitamins 10 ml/Chromium/ Copper/Manganese/ Zinc 1 ml/Insulin Human Regular 20 units/Amino Acids/ Dextrose 1,287.2 ml @ 53 mls/hr [id number] IV 03/01/25 22:00 03/02/25 21:59 03/01/25 22:00 53 MLS/HR Fat Emulsion Intravenous 200 ml/Sodium Chloride 40 meq/ Sodium Phosphate 22 meq/Potassium Chloride 60 meq/ Calcium Gluconate 9.3 meq/Magnesium Sulfate 28 meq/ Multivitamins 10 ml/Chromium/ Copper/Manganese/ Zinc 1 ml/Insulin Human Regular 24 units/Amino Acids/ Dextrose 1,283.74 ml @ 54 mls/hr [id number] IV 03/02/25 22:00 03/03/25 21:59 Magnesium Sulfate/ Dextrose 100 ml @ 100 mls/hr Q1HR IV 03/02/25 09:00 03/02/25 10:59 UNV Magnesium Sulfate/ Dextrose 100 ml @ 100 mls/hr Q1HR IV 03/02/25 10:00 03/02/25 12:59 03/02/25 11:14 100 MLS/HR Examination: LUNGS:Normal, CVS:Normal, MSK:Abnormal laboratory and microbiology Laboratory Tests 03/02/25 06:00 Test 03/02/25 06:00 Range/Units Serum Glucose 271 H 74-106 mg/dL Microbiology Date/Time Source Procedure Growth Status 02/26/25 13:09 Blood Blood Culture - Preliminary NO GROWTH AFTER 72 HOURS OF INCUBATION. Resulted 02/21/25 17:30 Nose MRSA Screen - Final Methicillin Resistant S.aureus Complete Problem List/Assessment/Plan Problem List/Assessment/Plan Acute kidney injury hemodynamic due to volume loss afib RVR anemia due to GIB and high output ileostomy Duodenitis/colitis Morbid Obesity shock due to volume loss hypoalbuminemia Recommendation Kidney function resolved back to normal Increased urine output Strict I&Os Packed red blood cell transfusion p.r.n. Surgery consult We will continue to follow up Plan discussed with: Patient Dietary Evaluation Review Comments: 1) If patient remains NPO > 7 days, consider EN/TPN to meet at least 75% of estimated daily needs 2) Advance to 60g CCHO cardiac diet when medically feasible 3) Refer to outpatient RD/CDCES for weight management 4) Continue to monitor I&O, labs, and skin integrity Expected Outcomes/Goals: 1) patient to receive nutritional support within 7 days of NPO status 2) labs to improve 3) diet to advance 4) f/u in 3-5 days CC Plasma Assessment Blood Product Administration S: 10:45 CLEMENTE SOTO MD Mar 02, 2025 12:00
[2025-03-02] MEDS: SODIUM PHOSPHATES 40 MEQ in D5W 5% 250 ML IV ONE (13:31)
--- NOTE | 2025-03-02 15:09 | DVHPN2 ---
Progress Note - Dictate Date Seen: Mar 02, 2025 Has the PT tested + for MRSA If YES, has PT been informed?: Yes Medical Necessity Reason Pt with a Central, PICC or Fol: No The following are medically ne: Central Line Subjective Patient continues to have bleeding and >1.5L output from ileostomy. Hgb minimally improving. vital signs Vital Sign Date Time Temp Pulse Resp B/P (MAP) Pulse Ox O2 Delivery O2 Flow Rate FiO2 03/02/25 14:15 93 20 129/52 (77) 96 03/02/25 14:03 98.1 98.1 03/02/25 14:00 Nasal Cannula* 6 44 Total Intake and Output 03/01/25 03/01/25 03/02/25 15:00 23:00 07:00 Intake Total 1236.64 ml 2771.248 ml 1701.454 ml Output Total 2225 ml 2050 ml Balance 1236.64 ml 546.248 ml -348.546 ml medications Current Medications Medications Dose Ordered Sig/Neha Route Start Time Stop Time Status Last Admin Dose Admin Piperacillin Sod/ Tazobactam Sod 100 ml @ 25 mls/hr Q6HR IV 02/20/25 00:00 03/02/25 11:28 25 MLS/HR Ondansetron HCl 4 mg Q4HPRN PRN IV 02/19/25 20:30 02/20/25 18:16 4 MG Diagnostic Test (Pha) 1 strip Q6HR 02/20/25 00:00 03/02/25 11:22 1 STRIP Insulin Human Regular Q6HR SC 02/20/25 00:00 03/02/25 11:22 12 UNITS Dextrose 50 ml UD PRN IV 02/19/25 20:30 Nitroglycerin 0.4 mg Q5MINP PRN SL 02/19/25 20:30 Insulin Glargine 10 units HS SC 02/20/25 00:00 03/01/25 22:00 10 UNITS Diltiazem HCl 125 ml @ 0 mls/hr Q0M IV 02/21/25 01:45 02/23/25 00:18 5 MLS/HR Pantoprazole Sodium 80 mg BID IV 02/21/25 22:00 Cancel Octreotide Acetate 500 mcg/ Sodium Chloride 100 ml @ 10 mls/hr Q10H IV 02/21/25 15:15 03/02/25 02:54 10 MLS/HR Sodium Chloride 10 ml QSHIFT@10,22 IV 02/21/25 22:00 03/02/25 09:28 10 ML Sucralfate 1 gm QID@0600,1130,1700,2200 PO 02/22/25 11:30 03/02/25 06:25 1 GM Pantoprazole Sodium 80 mg TID IV 02/23/25 22:00 03/02/25 13:30 80 MG Mupirocin 1 applic BID EACHNOSTRI 02/25/25 22:00 03/02/25 21:59 03/02/25 09:28 1 APPLIC Amino Acids 0 ml @ 0 mls/hr PER PHARMACY IV 02/26/25 11:45 Sodium Chloride 1,000 ml @ 40 mls/hr Q24H IV 02/26/25 14:00 03/02/25 03:21 40 MLS/HR Diphenhydramine HCl 50 mg QHSP PRN IV 02/27/25 06:30 02/27/25 06:30 50 MG Vasopressin 20 units/Sodium Chloride 100 ml @ 9 mls/hr Q11H7M IV 02/27/25 10:30 03/02/25 02:54 9 MLS/HR Phenylephrine HCl 80 mg/Sodium Chloride 250 ml @ 7.5 mls/hr Q24H IV 02/28/25 10:30 02/28/25 12:00 21.563 MLS/HR Norepinephrine Bitartrate 32 mg/ Sodium Chloride 250 ml @ 0.938 mls/ hr Q24H IV 02/28/25 10:30 03/01/25 10:46 6.563 MLS/HR Amiodarone HCL/ Dextrose 200 ml @ 33.333 mls/ hr Q12H IV 02/28/25 11:30 03/02/25 13:45 33.333 MLS/HR Morphine Sulfate 2 mg Q6HPRN PRN IV 03/01/25 10:00 03/02/25 11:19 2 MG Fat Emulsion Intravenous 200 ml/Sodium Chloride 60 meq/ Potassium Chloride 60 meq/ Potassium Phosphate 22 meq/ Calcium Gluconate 9.3 meq/Magnesium Sulfate 24 meq/ Multivitamins 10 ml/Chromium/ Copper/Manganese/ Zinc 1 ml/Insulin Human Regular 20 units/Amino Acids/ Dextrose 1,287.2 ml @ 53 mls/hr [id number] IV 03/01/25 22:00 03/02/25 21:59 03/01/25 22:00 53 MLS/HR Fat Emulsion Intravenous 200 ml/Sodium Chloride 40 meq/ Sodium Phosphate 22 meq/Potassium Chloride 60 meq/ Calcium Gluconate 9.3 meq/Magnesium Sulfate 28 meq/ Multivitamins 10 ml/Chromium/ Copper/Manganese/ Zinc 1 ml/Insulin Human Regular 24 units/Amino Acids/ Dextrose 1,283.74 ml @ 54 mls/hr [id number] IV 03/02/25 22:00 03/03/25 21:59 Magnesium Sulfate/ Dextrose 100 ml @ 100 mls/hr Q1HR IV 03/02/25 09:00 03/02/25 10:59 UNV objective General appearance: Obese Respiratory: Fine bibasilar crackles Cardiovascular: Regular rate and rhythm, no murmurs. Abdomen: Ileostomy bag present. MSK: Normal range of motion. Neuro: Alert, no neurological deficits Psych: Frustrated laboratory and microbiology Laboratory Tests 03/02/25 06:00 Test 03/02/25 06:00 Range/Units Serum Glucose 271 H 74-106 mg/dL Assessment/Plan 1) Acute GI bleed 2) Acute Blood Loss Anemia 2/2 above s/p PRBC transfusion 3) Afib RVR s/p DCCV 4) Duodenitis/colitis Secondary Diagnosis: 5) Morbid Obesity 6) Essential HTN 7) Ileostomy, 8) Chronic pain syndrome Assessment/Plan 02/20----patient hgb most recent 7.8 and will transfuse blood as necessary for Hgb <7, will continue to trend H/H q6h, on IV ABx zosyn, PPI IV, GI consulted on the case and patient is NPO. amio gtt started due to afib RVR with cardiology consult, echo pending, continue all care, daily labs, advisor consultant input appreciated, will follow along 02/21---most recent hgb 8.9 after 2 units PRBCs transfused yesterday, will continue to trend H/H, on IV ABx with Zosyn, remains NPO, was seen by cardiology earlier this AM and underwent successful DCCV as he was in afib HR 150s now cardioverted and is now sinus tachycardia, he is still on amio gtt and started on cardizem gtt fixed rate as per cardiology and is to continue these drips until endoscopy is done, GI on board and will plan for EGD, he is cardiac cleared to have endoscopy, continue all care, daily labs, will follow along 02/22---Hgb yesterday dropped from 8.9 to 5.4 and he was transfused 2 units and repeat Hgb was 6.3 and thus another 2 more units of blood were ordered for transfusion and most recent hgb is 7.5 with the last unit transfusing now, he is now started on levophed for vasopressor support currently on 10 mcg levophed, GI is planning for EGD today, he is on PPI/octreotide gtt. NS at 125 ml/hr for hydration, as mentioned yesterday 02/21 the patient was cardioverted by cardiology for afib/flutter and now is sinus tachycardia on cardizem and amio gtts which are to be continued until endoscopy is done, will continue to trend Hgb and transfuse blood as needed, daily labs, supportive care, GI/cardiology consults appreciated, will continue to follow along with you. 02/23--- Patient overnight continues to have profuse bleeding with Hgb dropping to 5.9 and receiving additional 2 units of PRBC overnight. Patient Hgb Dropped to 5.1 this morning again. Patient has been ordered an additional 2 more units of PRBC in addition to FPP. GI is aware of patient blood loss and IR has been consulted for Arterial Immobilization. Patient to continue Levophed PRN To maintain MAPs > 65. Patient is currently on Zosyn IV Day 3 prophylactically. Patient to be discontinued of Diltiazem Drip and will maintain Amio drip. Patient will be initiated on SCDs for DVT prophylaxis. Incentive Spirometer to be started for 10x/hour. 02/24- Hgb noted to be 6.8 this AM, continues to be tachycardic with dark bloody output from colostomy bag. Pending arterial embolization with IR today. Remains on levophed. Amio drip to be continued. Plan for 2 additional units PRBC this AM. 02/25: Hgb stable at 7.4 this AM. Receiving additional unit PRBC. Underwent arterial embolization with IR on 02/24. Continues to have some dark output from colostomy but quantity decreased. Target BP goal SBP 100 given wide pulse pressure. Currently on levophed. 02/26: Requiring increased levophed today. Colostomy output reviewed, 50c overnight, improving. Patient noted to have blood transfusion reaction last night. Transfusion aborted. Likely due to sensitization to cumulative blood products. Patient noted to spike fever today of 1.4. Blood cultures lactic acid ordered. IV Tylenol ordered as patient [id number]. Chest x-ray shows increased interstitial prominence with increased oxygen requirement. Likely secondary to fluid overload. Will decrease IV fluids. Per GI, only ice chips at this time. Will start TPN. 02/27: Increased Levophed requirement to 30 mcg. Vasopressin added as second line agent. Currently receiving 2 units PRBC with repeat H&H every 8 hours. Per GI, recommend transfer to higher level of care. 02/28: Pressor requirement increased overnight. Patient blood pressure titrated using blood pressure cuff. A-line placed femoral neck. Blood pressure readings. Subsequently noted to be on 2 pressors, Levophed and vasopressin. Patient continues to have output from colostomy with drop in hemoglobin. Additional PRBC and FFP ordered. Calcium gluconate ordered. Prognosis remains guarded. Pending transfer to higher level of care. 03/01: Pressor requirement noted to decrease to Levophed and vasopressin. Patient continues to have drop in hemoglobin to 4.9 despite receiving 4 units PRBC in the last 24 hours. Continues to have a lot of output from the ostomy site. Additional 4 units PRBC ordered with FFP and platelets. Currently pending repeat IR embolization at the earliest scheduled for noon time on 03/02. Vascular surgery, Dr. Fairbanks consulted. Pending recommendations. Patient refusing surgery to be done at our facility and requesting transfer to [facility] where he had his initial surgery done. Contacted Dr. Dunaway, general surgeon regarding plan of care. Awaiting follow-up at this time. Patient prognosis remains very guarded. Discussed with father and patient at bedside. 03/02: Patient continues to have uncontrolled bleeding from ileostomy with drop in hemoglobin despite over 35 units of blood products transfused. Patient continues to have drop in hemoglobin faster than we can transfuse him. Transfer to higher level of care continues to be in place. Multiple calls have been placed to centers with physician to physician discussions. Currently, [facility] has refused to accept this patient for transfer. [facility] has refused to accept this patient for transfer. [facility] has a history with this patient from 9 years ago from his initial ileostomy surgery. Recent social services counselor note states that [facility] is continuing to review but believes patient is not bleeding at this time. This is inaccurate as patient is continuously requiring PRBC transfusion and having continuous output from his ileostomy. Will continue to try to transfer to higher level of care at this time. He is high risk for intervention, and beyond the abilities of our [facility] to operate safely on him if needed. Currently, GI lab has informed us that they are unavailable to provide any service to patient's as the lab is down and scopes are broken. Patient requires scoping of ileostomy to rule out any other source of bleed. Higher level of care request modified to include this. Patient remains in very critical condition. Patient was planning for repeat IR embolization today at noon time. I was informed that the patient was refusing this procedure due to "how painful it is and the shortness of breath it caused him." Had an extensive conversation with nurse Champion, patient's father Josh, and the patient himself at bedside. I made it very clear to the patient that he is in critical condition and his risk of mortality overall is extremely high at this time. Patient stated "it did not work last time so I do not want to try it again." I informed the patient that we could manage his pain for this procedure but he continued to refuse the procedure. Again I emphasized to the patient that I cannot force him to do anything against his will but his mortality is extremely high by continue to refuse this procedure. We will continue to attempt to offer this intervention to this patient if he changes his mind. Patient understood this risk of dying. Patient continued to request transfer to higher level of care. I spoke with the father independently and explained the risks again. He is aware that his son can at any moment given his condition and his refusal continues to put him in a dangerous position. He stated he would continue to talk to him and try to convince him of the procedure. Patient was seen by vascular surgery, Dr. Fairbanks and is currently refusing surgery at this time. Patient had refused surgery by general surgeon Dr. Perdomo. At this time, patient also requires repeat intervention by GI but the lab is currently down with no scopes available. Patient needs ileostomy scope to review for additional source of bleeding. Will continue to transfuse this patient. Currently received over 35 units of blood products and remains on pressor support with downtrending hemoglobin. Prognosis is poor at this time. Dietary Evaluation Review Comments: 1) If patient remains NPO > 7 days, consider EN/TPN to meet at least 75% of estimated daily needs 2) Advance to 60g CCHO cardiac diet when medically feasible 3) Refer to outpatient RD/CDCES for weight management 4) Continue to monitor I&O, labs, and skin integrity Expected Outcomes/Goals: 1) patient to receive nutritional support within 7 days of NPO status 2) labs to improve 3) diet to advance 4) f/u in 3-5 days Plan discussed with: Patient, Other CC Plasma Assessment Blood Product Administration S: 10:45 FLORENCIA VELASCO DO Mar 02, 2025 15:08
--- NOTE | 2025-03-02 16:07 | DVHPN2 ---
Progress Note Date Seen: Mar 02, 2025 Resident Creating Document: ALEXANDRIA BENZ RESIDENT Has the PT tested + for MRSA If YES, has PT been informed?: Yes Medical Necessity Reason Pt with a Central, PICC or Fol: No The following are medically ne: Central Line Subjective Review of Systems Ileostomy output today 200 mL dark red mixed with stool, overnight 1550 mL ileostomy output. S/p 36 PRBCs, 8 FFP, 3 platelets Patient continues to refuse surgical intervention at the [facility] and would like to be transferred Patient also refusing repeat intervention by Interventional Radiology as per patient last experience was uncomfortable and did not address the problem Objective vital signs Vital Sign Date Time Temp Pulse Resp B/P (MAP) Pulse Ox O2 Delivery O2 Flow Rate FiO2 03/02/25 15:28 88 13 129/50 03/02/25 15:18 98.0 98.0 03/02/25 14:15 96 03/02/25 14:00 Nasal Cannula* 6 44 Total Intake and Output 03/01/25 03/01/25 03/02/25 15:00 23:00 07:00 Intake Total 1236.64 ml 2771.248 ml 1701.454 ml Output Total 2225 ml 2050 ml Balance 1236.64 ml 546.248 ml -348.546 ml medications Current Medications Medications Dose Ordered Sig/Neha Route Start Time Stop Time Status Last Admin Dose Admin Piperacillin Sod/ Tazobactam Sod 100 ml @ 25 mls/hr Q6HR IV 02/20/25 00:00 03/02/25 11:28 25 MLS/HR Ondansetron HCl 4 mg Q4HPRN PRN IV 02/19/25 20:30 02/20/25 18:16 4 MG Diagnostic Test (Pha) 1 strip Q6HR 02/20/25 00:00 03/02/25 11:22 1 STRIP Insulin Human Regular Q6HR SC 02/20/25 00:00 03/02/25 11:22 12 UNITS Dextrose 50 ml UD PRN IV 02/19/25 20:30 Nitroglycerin 0.4 mg Q5MINP PRN SL 02/19/25 20:30 Insulin Glargine 10 units HS SC 02/20/25 00:00 03/01/25 22:00 10 UNITS Diltiazem HCl 125 ml @ 0 mls/hr Q0M IV 02/21/25 01:45 02/23/25 00:18 5 MLS/HR Pantoprazole Sodium 80 mg BID IV 02/21/25 22:00 Cancel Octreotide Acetate 500 mcg/ Sodium Chloride 100 ml @ 10 mls/hr Q10H IV 02/21/25 15:15 03/02/25 02:54 10 MLS/HR Sodium Chloride 10 ml QSHIFT@10,22 IV 02/21/25 22:00 03/02/25 09:28 10 ML Sucralfate 1 gm QID@0600,1130,1700,2200 PO 02/22/25 11:30 03/02/25 06:25 1 GM Pantoprazole Sodium 80 mg TID IV 02/23/25 22:00 03/02/25 13:30 80 MG Mupirocin 1 applic BID EACHNOSTRI 02/25/25 22:00 03/02/25 21:59 03/02/25 09:28 1 APPLIC Amino Acids 0 ml @ 0 mls/hr PER PHARMACY IV 02/26/25 11:45 Sodium Chloride 1,000 ml @ 40 mls/hr Q24H IV 02/26/25 14:00 03/02/25 03:21 40 MLS/HR Diphenhydramine HCl 50 mg QHSP PRN IV 02/27/25 06:30 02/27/25 06:30 50 MG Vasopressin 20 units/Sodium Chloride 100 ml @ 9 mls/hr Q11H7M IV 02/27/25 10:30 03/02/25 02:54 9 MLS/HR Phenylephrine HCl 80 mg/Sodium Chloride 250 ml @ 7.5 mls/hr Q24H IV 02/28/25 10:30 02/28/25 12:00 21.563 MLS/HR Norepinephrine Bitartrate 32 mg/ Sodium Chloride 250 ml @ 0.938 mls/ hr Q24H IV 02/28/25 10:30 03/01/25 10:46 6.563 MLS/HR Amiodarone HCL/ Dextrose 200 ml @ 33.333 mls/ hr Q12H IV 02/28/25 11:30 03/02/25 13:45 33.333 MLS/HR Morphine Sulfate 2 mg Q6HPRN PRN IV 03/01/25 10:00 9/8/25 15:28 2 MG Fat Emulsion Intravenous 200 ml/Sodium Chloride 60 meq/ Potassium Chloride 60 meq/ Potassium Phosphate 22 meq/ Calcium Gluconate 9.3 meq/Magnesium Sulfate 24 meq/ Multivitamins 10 ml/Chromium/ Copper/Manganese/ Zinc 1 ml/Insulin Human Regular 20 units/Amino Acids/ Dextrose 1,287.2 ml @ 53 mls/hr [id number] IV 03/01/25 22:00 03/02/25 21:59 03/01/25 22:00 53 MLS/HR Fat Emulsion Intravenous 200 ml/Sodium Chloride 40 meq/ Sodium Phosphate 22 meq/Potassium Chloride 60 meq/ Calcium Gluconate 9.3 meq/Magnesium Sulfate 28 meq/ Multivitamins 10 ml/Chromium/ Copper/Manganese/ Zinc 1 ml/Insulin Human Regular 24 units/Amino Acids/ Dextrose 1,283.74 ml @ 54 mls/hr [id number] IV 03/02/25 22:00 03/03/25 21:59 Magnesium Sulfate/ Dextrose 100 ml @ 100 mls/hr Q1HR IV 03/02/25 09:00 03/02/25 10:59 UNV Examination General Appearance: Cooperative. Well developed. Well nourished. NAD Pulmonary/Respiratory: Chest non-tender. Clear bilateral breath sounds, no crackles, no wheezing. Abdominal Exam: Normal bowel sounds. Soft. normal abdomen, no visible veins, Nontender. No hepatospenomegaly. Ileostomy bag noted on the right abdominal wall Lower extremities: Leathery skin noted on left lower extremity, bilateral lower extremity scales noted. Neuro/Mental Status: A&O x4. Coherent. Thoughts/Psych: Normal thought pattern. Appropriate mood and affect. Good judgement and insight Skin Exam: Normal inspection. Normal color. Warm. Dry laboratory and microbiology Laboratory Tests 03/02/25 06:00 Test 03/02/25 06:00 Range/Units Serum Glucose 271 H 74-106 mg/dL Microbiology Date/Time Source Procedure Growth Status 02/26/25 13:09 Blood Blood Culture - Preliminary NO GROWTH AFTER 72 HOURS OF INCUBATION. Resulted 02/21/25 17:30 Nose MRSA Screen - Final Methicillin Resistant S.aureus Complete Labs and/or images reviewed: Labs reviewed by me, Image(s) reviewed by me Problem List/Assessment/Plan Problem List/Assessment/Plan Acute blood loss anemia GI bleed Colostomy hemorrhage Questionable hypovolemic shock Blood culture + GNR Plan: Strict NPO, no ice chips no p.o. medication Transfuse as needed to keep hemoglobin greater than 8 Patient refusing surgical intervention at the [facility], would like to be transferred to higher level of care Production Quality Analyst on board for transfer to higher level of care Reconsulted interventional radiology to re-evaluate for embolization, patient refused procedure Continue Clinimix S/p arterial embolization IV Protonix IV octreotide Carafate amiodarone Cardiology on board EGD performed on 02/22/2025 showed multiple and extensive ulceration of the postbulbar area of the duodenum with a surrounding duodenitis but no visible vessel or active bleeding at this time. 1-2 cm sliding-type hiatal hernia, minimal gastritis, otherwise normal examination up to the 2nd and 3rd part of the duodenum with no fresh or old blood in the upper GI tract. Recommend transferring to higher level of care for possible EGD, enteroscopy, scope via ostomy versus surgery Thank you so much for the opportunity to consult on your patient. We will sign off, in case of any questions or concerns please reach out to the covering director of architecture Dr. Paul on 02/27/[address] Neely over the weekend Plan discussed with Dr. Aragon Plan discussed with: Other (RN) Dietary Evaluation Review Comments: 1) If patient remains NPO > 7 days, consider EN/TPN to meet at least 75% of estimated daily needs 2) Advance to 60g CCHO cardiac diet when medically feasible 3) Refer to outpatient RD/[facility]CES for weight management 4) Continue to monitor I&O, labs, and skin integrity Expected Outcomes/Goals: 1) patient to receive nutritional support within 7 days of NPO status 2) labs to improve 3) diet to advance 4) f/u in 3-5 days CC Plasma Assessment Blood Product Administration S: 10:45 ALEXANDRIA BENZ RESIDENT Mar 02, 2025 16:07
--- NOTE | 2025-03-02 16:55 | DVHPN2 ---
Progress Note - Dictate Date Seen: Mar 02, 2025 Has the PT tested + for MRSA If YES, has PT been informed?: Yes Medical Necessity Reason Pt with a Central, PICC or Fol: No The following are medically ne: Central Line vital signs Vital Sign Date Time Temp Pulse Resp B/P (MAP) Pulse Ox O2 Delivery O2 Flow Rate FiO2 03/02/25 16:20 98.0 88 16 97 03/02/25 15:28 129/50 03/02/25 14:00 Nasal Cannula* 6 44 Total Intake and Output 03/01/25 03/01/25 03/02/25 15:00 23:00 07:00 Intake Total 1236.64 ml 2771.248 ml 1701.454 ml Output Total 2225 ml 2050 ml Balance 1236.64 ml 546.248 ml -348.546 ml medications Current Medications Medications Dose Ordered Sig/Neha Route Start Time Stop Time Status Last Admin Dose Admin Piperacillin Sod/ Tazobactam Sod 100 ml @ 25 mls/hr Q6HR IV 02/20/25 00:00 03/02/25 11:28 25 MLS/HR Ondansetron HCl 4 mg Q4HPRN PRN IV 02/19/25 20:30 02/20/25 18:16 4 MG Diagnostic Test (Pha) 1 strip Q6HR 02/20/25 00:00 03/02/25 11:22 1 STRIP Insulin Human Regular Q6HR SC 02/20/25 00:00 03/02/25 11:22 12 UNITS Dextrose 50 ml UD PRN IV 02/19/25 20:30 Nitroglycerin 0.4 mg Q5MINP PRN SL 02/19/25 20:30 Insulin Glargine 10 units HS SC 02/20/25 00:00 03/01/25 22:00 10 UNITS Diltiazem HCl 125 ml @ 0 mls/hr Q0M IV 02/21/25 01:45 02/23/25 00:18 5 MLS/HR Pantoprazole Sodium 80 mg BID IV 02/21/25 22:00 Cancel Octreotide Acetate 500 mcg/ Sodium Chloride 100 ml @ 10 mls/hr Q10H IV 02/21/25 15:15 03/02/25 02:54 10 MLS/HR Sodium Chloride 10 ml QSHIFT@10,22 IV 02/21/25 22:00 03/02/25 09:28 10 ML Sucralfate 1 gm QID@0600,1130,1700,2200 PO 02/22/25 11:30 03/02/25 06:25 1 GM Pantoprazole Sodium 80 mg TID IV 02/23/25 22:00 03/02/25 13:30 80 MG Mupirocin 1 applic BID EACHNOSTRI 02/25/25 22:00 03/02/25 21:59 03/02/25 09:28 1 APPLIC Amino Acids 0 ml @ 0 mls/hr PER PHARMACY IV 02/26/25 11:45 Sodium Chloride 1,000 ml @ 40 mls/hr Q24H IV 02/26/25 14:00 03/02/25 03:21 40 MLS/HR Diphenhydramine HCl 50 mg QHSP PRN IV 02/27/25 06:30 02/27/25 06:30 50 MG Vasopressin 20 units/Sodium Chloride 100 ml @ 9 mls/hr Q11H7M IV 02/27/25 10:30 03/02/25 02:54 9 MLS/HR Phenylephrine HCl 80 mg/Sodium Chloride 250 ml @ 7.5 mls/hr Q24H IV 02/28/25 10:30 02/28/25 12:00 21.563 MLS/HR Norepinephrine Bitartrate 32 mg/ Sodium Chloride 250 ml @ 0.938 mls/ hr Q24H IV 02/28/25 10:30 03/01/25 10:46 6.563 MLS/HR Amiodarone HCL/ Dextrose 200 ml @ 33.333 mls/ hr Q12H IV 02/28/25 11:30 03/02/25 13:45 33.333 MLS/HR Morphine Sulfate 2 mg Q6HPRN PRN IV 03/01/25 10:00 03/02/25 15:28 2 MG Fat Emulsion Intravenous 200 ml/Sodium Chloride 60 meq/ Potassium Chloride 60 meq/ Potassium Phosphate 22 meq/ Calcium Gluconate 9.3 meq/Magnesium Sulfate 24 meq/ Multivitamins 10 ml/Chromium/ Copper/Manganese/ Zinc 1 ml/Insulin Human Regular 20 units/Amino Acids/ Dextrose 1,287.2 ml @ 53 mls/hr [id number] IV 03/01/25 22:00 9/8/25 21:59 03/01/25 22:00 53 MLS/HR Fat Emulsion Intravenous 200 ml/Sodium Chloride 40 meq/ Sodium Phosphate 22 meq/Potassium Chloride 60 meq/ Calcium Gluconate 9.3 meq/Magnesium Sulfate 28 meq/ Multivitamins 10 ml/Chromium/ Copper/Manganese/ Zinc 1 ml/Insulin Human Regular 24 units/Amino Acids/ Dextrose 1,283.74 ml @ 54 mls/hr [id number] IV 03/02/25 22:00 03/03/25 21:59 Magnesium Sulfate/ Dextrose 100 ml @ 100 mls/hr Q1HR IV 03/02/25 09:00 03/02/25 10:59 UNV laboratory and microbiology Laboratory Tests 03/02/25 06:00 Test 03/02/25 06:00 Range/Units Serum Glucose 271 H 74-106 mg/dL Assessment/Plan Impression Acute hypoxemic respiratory failure Hemorrhagic shock Pneumonia Anemia Patient seen and examined in ICU Events Low oxygen requirements On 2 liters nasal cannula On pressors for hemodynamic support Hemoglobin trending down 5.9 following blood Tx Followed by vascular surgery S/p EGD Labs and imaging reviewed ABG reviewed Management Supplemental oxygen Titrate to maintain sats 90% or above Incentive spirometry Continue antibiotics F/u cultures Bronchodilators Monitor renal function Monitor electrolytes Supplement as needed Pressors as needed for hemodynamic support To maintain a mean arterial pressure of 65 mmHg Monitor hemoglobin Transfuse blood products as needed DVT prophylaxis Critical care time 35 minutes Dietary Evaluation Review Comments: 1) If patient remains NPO > 7 days, consider EN/TPN to meet at least 75% of estimated daily needs 2) Advance to 60g CCHO cardiac diet when medically feasible 3) Refer to outpatient RD/CDCES for weight management 4) Continue to monitor I&O, labs, and skin integrity Expected Outcomes/Goals: 1) patient to receive nutritional support within 7 days of NPO status 2) labs to improve 3) diet to advance 4) f/u in 3-5 days Plan discussed with: Patient CC Plasma Assessment Blood Product Administration S: 10:45 SHARIF MONTGOMERY MD Mar 02, 2025 16:55
--- NOTE | 2025-03-02 18:17 | DVHDS2 ---
Discharge Summary Date of Admission Feb 19, 2025 at 20:16 Date of Discharge: Feb 27, 2025 Labs/Diagnostic Data: Laboratory Results Test 03/02/25 17:22 03/02/25 06:00 03/01/25 06:30 02/28/25 11:05 POC Glucose 266 mg/dl (70-106) White Blood Count 18.0 10^3/uL (4.4-10.8) Red Blood Count 2.03 10^6/uL (4.5-5.90) Hemoglobin 5.9 g/dL (13.5-17.5) Hematocrit 17.3 % (41.0-53.0) Mean Corpuscular Volume 85.0 fL (80.0-100.0) Mean Corpuscular Hemoglobin 29.3 pg (28.0-32.0) Mean Corpuscular Hemoglobin Concent 34.4 g/dL (32.0-36.0) Red Cell Distribution Width 14.4 % (11.8-14.3) Platelet Count 58 10^3/uL (140-450) Mean Platelet Volume 10.7 fL (6.9-10.8) Neutrophils (%) (Auto) % (37.0-80.0) Lymphocytes (%) (Auto) % (10.0-50.0) Monocytes (%) (Auto) % (0.0-12.0) Basophils (%) (Auto) % (0.0-2.0) Neutrophils # (Auto) 10 ^3/uL (1.6-8.6) Lymphocytes # (Auto) 10 ^3/uL (0.4-5.4) Monocytes # (Auto) 10 ^3/uL (0-1.3) Differential Total Cells Counted 100.0 (100) Neutrophils % (Manual) 74 (37.0-80.0) Band Neutrophils % (Manual) 7 Lymphocytes % (Manual) 8 (10.0-50.0) Monocytes % (Manual) 9 (0-12) Eosinophils % (Manual) 1 (0-7) Basophils % (Manual) 0 (0.0-2.0) Metamyelocytes % (manual) 0 Myelocytes % (Manual) 0 Promyelocytes % (Manual) 0 Blast Cells % (Manual) 0 Nucleated Red Blood Cells 3.0 % Reactive Lymphocytes 1 Platelet Estimate Decreased Red Blood Cell Morphology Normal Sodium Level 135 mmol/L (136-145) Potassium Level 3.9 mmol/L (3.5-5.1) Chloride Level 104 mmol/L (98-107) Carbon Dioxide Level 27 mmol/L (20-31) Anion Gap 4 (5-15) Blood Urea Nitrogen 17 mg/dL (9-23) Creatinine 0.82 mg/dL (0.700-1.30) Glomerular Filtration Rate Calc 102 mL/min (>90) BUN/Creatinine Ratio 20.7 (10.0-20.0) Serum Glucose 271 mg/dL (74-106) Calcium Level 6.3 mg/dL (8.7-10.4) Phosphorus Level 1.7 mg/dL (2.4-5.1) Magnesium Level 1.5 mg/dL (1.6-2.6) Total Bilirubin 0.9 mg/dL (0.2-1.0) Aspartate Amino Transferase (AST) 18 U/L (13-40) Alanine Aminotransferase (ALT) < 9 U/L (7-40) Alkaline Phosphatase 53 U/L (46-116) Total Protein 2.9 g/dL (5.7-8.2) Albumin 1.5 g/dL (3.2-4.8) Eosinophils (%) (Auto) 3.4 % (0.0-7.0) Eosinophils # (Auto) 0.3 10 ^3/uL (0-0.8) Basophils # (Auto) 0.1 10 ^3/uL (0-0.2) Anisocytosis (manual) Slight Fibrinogen 123 mg/dL (177-375) Test 02/27/25 03:00 02/26/25 12:58 02/26/25 02:59 02/20/25 04:03 Prothrombin Time 15.9 sec (9.3-11.8) Prothrombin Time INR 1.57 (0.9-1.15) Activated Partial Thromboplast Time 43.4 SEC (24.5-34.5) Lactic Acid Level 1.9 mmol/L (0.4-2.0) Prealbumin < 3.0 md/dL (10.0-40.0) Triglycerides Level 107 mg/dL (< 150) Iron Level 56 ug/dL (65-175) Total Iron Binding Capacity 285 ug/dL (250-425) Percent Iron Saturation 19.6 % (20-55) Test 02/20/25 03:04 02/20/25 02:21 02/19/25 23:55 02/19/25 16:45 D-Dimer, Quantitative 1.64 mg/L FEU (0.0-0.49) Troponin I High Sensitivity 9 ng/L (</=54) Helicobacter pylori Antigen Screen Negative (Negative) Blood Gas Specimen Type Arterial Blood Gas Sample Site Right radial Blood Gas Patient Temperature 37.0 Arterial Blood Date Drawn [id number] Arterial Blood pH 7.512 (7.350-7.450) Arterial Blood Partial Pressure CO2 37.6 mmHg (35.0-48.0) Arterial Blood Partial Pressure O2 105.4 mmHg (83.0-108.0) Arterial Blood HCO3 29.5 mmol/L (21.0-28.0) Arterial Blood Oxygen Saturation 97.6 % (94.0-98.0) Arterial Blood Base Excess 6.0 mmol/L (-2.0-3.0) Arterial Blood Oxyhemoglobin 94.3 % (94.0-98.0) Arterial Blood Carboxyhemoglobin 3.0 % (0.5-1.5) Arterial Blood Methemoglobin 0.4 % (0.0-1.5) Juwan Test Yes Blood Gas Total Hemoglobin 7.80 g/dL (13.5-17.5) Blood Gas Liter Flow 4.00 Blood Gas Modality Nasal cannula FiO2 % 36.0 Test 02/19/25 16:14 Hemoglobin A1c 8.3 % A1C (<5.7) B-Type Natriuretic Peptide 517.71 pg/mL (0-100) Other Laboratory Tests 03/02/25 06:00 Brief Hx & Hospital Course: Briefly, this is a 59-year-old morbidly obese male, history of type 2 diabetes, chronic pain dependence, 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 Patient was transferred to [facility] for GI evaluation. Patient underwent EGD which showed duodenal ulcers without a bleeding vessel. During his hospitalization, patient's hemoglobin continued to drop. He was noted to require vasopressor support which stabilized with Levophed and vasopressin. During his hospitalization, patient continued to have 1-1/2 to 2 L of dark output from his ileostomy. Interventional radiology was consulted and patient underwent embolization of the superior pancreaticoduodenal artery and inferior pancreaticoduodenal artery. Patient's bleeding appeared to be controlled for 24 hours and had decreased output of about 50 mL during that period. He was kept n.p.o. and slowly began on ice chips. The following day his hemoglobin continued to drop and output returned to about 2 L in a 24-hour period. Hemoglobin was noted to range from 5-7 and then persistently was noted to be below 6.3 over the last 3 days. Patient has been constantly transfused and he is received over 37 PRBCs just at [facility], 8 FFP, and 3 platelets. Patient is incredibly high risk due to his morbid obesity. He maintained his oxygen requirement at 6 L nasal cannula. No renal failure was noted during his hospitalization. Patient required a repeat GI evaluation and scope via the ileostomy but GI lab was noted to be down for 2 days with no ability to scope in addition no availability of appropriately sized scope. Patient also was pending repeat intervention radiology intervention. Higher level of care was placed for GI consultation and interventional radiology invention with high risk surgical intervention if needed. Full hospital course in detail below. Patient ultimately transferred to [facility] who kindly agreed to assist us in the care of this patient. Overall prognosis remains guarded. Hospital Course: 02/20----patient hgb most recent 7.8 and will transfuse blood as necessary for Hgb <7, will continue to trend H/H q6h, on IV ABx zosyn, PPI IV, GI consulted on the case and patient is NPO. amio gtt started due to afib RVR with cardiology consult, echo pending, continue all care, daily labs, c consultant input appreciated, will follow along 02/21---most recent hgb 8.9 after 2 units PRBCs transfused yesterday, will continue to trend H/H, on IV ABx with Zosyn, remains NPO, was seen by cardiology earlier this AM and underwent successful DCCV as he was in afib HR 150s now cardioverted and is now sinus tachycardia, he is still on amio gtt and started on cardizem gtt fixed rate as per cardiology and is to continue these drips until endoscopy is done, GI on board and will plan for EGD, he is cardiac cleared to have endoscopy, continue all care, daily labs, will follow along 02/22---Hgb yesterday dropped from 8.9 to 5.4 and he was transfused 2 units and repeat Hgb was 6.3 and thus another 2 more units of blood were ordered for transfusion and most recent hgb is 7.5 with the last unit transfusing now, he is now started on levophed for vasopressor support currently on 10 mcg levophed, GI is planning for EGD today, he is on PPI/octreotide gtt. NS at 125 ml/hr for hydration, as mentioned yesterday 02/21 the patient was cardioverted by cardiology for afib/flutter and now is sinus tachycardia on cardizem and amio gtts which are to be continued until endoscopy is done, will continue to trend Hgb and transfuse blood as needed, daily labs, supportive care, GI/cardiology consults appreciated, will continue to follow along with you. 02/23--- Patient overnight continues to have profuse bleeding with Hgb dropping to 5.9 and receiving additional 2 units of PRBC overnight. Patient Hgb Dropped to 5.1 this morning again. Patient has been ordered an additional 2 more units of PRBC in addition to FPP. GI is aware of patient blood loss and IR has been consulted for Arterial Immobilization. Patient to continue Levophed PRN To maintain MAPs > 65. Patient is currently on Zosyn IV Day 3 prophylactically. Patient to be discontinued of Diltiazem Drip and will maintain Amio drip. Patient will be initiated on SCDs for DVT prophylaxis. Incentive Spirometer to be started for 10x/hour. 02/24- Hgb noted to be 6.8 this AM, continues to be tachycardic with dark bloody output from colostomy bag. Pending arterial embolization with IR today. Remains on levophed. Amio drip to be continued. Plan for 2 additional units PRBC this AM. 02/25: Hgb stable at 7.4 this AM. Receiving additional unit PRBC. Underwent arterial embolization with IR on 02/24. Continues to have some dark output from colostomy but quantity decreased. Target BP goal SBP 100 given wide pulse pressure. Currently on levophed. 02/26: Requiring increased levophed today. Colostomy output reviewed, 50c overnight, improving. Patient noted to have blood transfusion reaction last night. Transfusion aborted. Likely due to sensitization to cumulative blood products. Patient noted to spike fever today of 1.4. Blood cultures lactic acid ordered. IV Tylenol ordered as patient [id number]. Chest x-ray shows increased interstitial prominence with increased oxygen requirement. Likely secondary to fluid overload. Will decrease IV fluids. Per GI, only ice chips at this time. Will start TPN. 02/27: Increased Levophed requirement to 30 mcg. Vasopressin added as second line agent. Currently receiving 2 units PRBC with repeat H&H every 8 hours. Per GI, recommend transfer to higher level of care. 02/28: Pressor requirement increased overnight. Patient blood pressure titrated using blood pressure cuff. A-line placed femoral neck. Blood pressure readings. Subsequently noted to be on 2 pressors, Levophed and vasopressin. Patient continues to have output from colostomy with drop in hemoglobin. Additional PRBC and FFP ordered. Calcium gluconate ordered. Prognosis remains guarded. Pending transfer to higher level of care. 03/01: Pressor requirement noted to decrease to Levophed and vasopressin. Patient continues to have drop in hemoglobin to 4.9 despite receiving 4 units PRBC in the last 24 hours. Continues to have a lot of output from the ostomy site. Additional 4 units PRBC ordered with FFP and platelets. Currently pending repeat IR embolization at the earliest scheduled for noon time on 03/02. Vascular surgery, Dr. Fairbanks consulted. Pending recommendations. Patient refusing surgery to be done at our facility and requesting transfer [place] [facility] [place] he had his initial surgery done. Contacted Dr. Dunaway, general surgeon regarding plan of care. Awaiting follow-up at this time. Patient prognosis remains very guarded. Discussed with father and patient at bedside. 03/02: Patient continues to have uncontrolled bleeding from ileostomy with drop in hemoglobin despite over 35 units of blood products transfused. Patient continues to have drop in hemoglobin faster than we can transfuse him. Transfer to higher level of care continues to be in place. Multiple calls have been placed to centers with physician to physician discussions. Currently, [facility] has refused to accept this patient for transfer. [facility] has refused to accept this patient for transfer. [facility] has a history with this patient from 9 years ago from his initial ileostomy surgery. Recent social work administrator note states that [employer] is continuing to review but believes patient is not bleeding at this time. This is inaccurate as patient is continuously requiring PRBC transfusion and having continuous output from his ileostomy. Will continue to try to transfer to higher level of care at this time. He is high risk for intervention, and beyond the abilities of our [facility] to operate safely on him if needed. Currently, GI lab has informed us that they are unavailable to provide any service to patient's as the lab is down and scopes are broken. Patient requires scoping of ileostomy to rule out any other source of bleed. Higher level of care request modified to include this. Patient remains in very critical condition. Patient was planning for repeat IR embolization today at noon time. I was informed that the patient was refusing this procedure due to "how painful it is and the shortness of breath it caused him." Had an extensive conversation with nurse Akira, patient's father Josh, and the patient himself at bedside. I made it very clear to the patient that he is in critical condition and his risk of mortality overall is extremely high at this time. Patient stated "it did not work last time so I do not want to try it again." I informed the patient that we could manage his pain for this procedure but he continued to refuse the procedure. Again I emphasized to the patient that I cannot force him to do anything against his will but his mortality is extremely high by continue to refuse this procedure. We will continue to attempt to offer this intervention to this patient if he changes his mind. Patient understood this risk of dying. Patient continued to request transfer to higher level of care. I spoke with the father independently and explained the risks again. He is aware that his son can at any moment given his condition and his refusal continues to put him in a dangerous position. He stated he would continue to talk to him and try to convince him of the procedure. Patient was seen by vascular surgery, Dr. Fairbanks and is currently refusing surgery at this time. Patient had refused surgery by general surgeon Dr. Perdomo. At this time, patient also requires repeat intervention by GI but the lab is currently down with no scopes available. Patient needs ileostomy scope to review for additional source of bleeding. Will continue to transfuse this patient. Currently received over 35 units of blood products and remains on pressor support with downtrending hemoglobin. Prognosis is poor at this time. Condition at Discharge: Critical Final Diagnosis/Problems List GI BLEED Secondary Diagnosis: 1) Acute GI bleed 2) Acute Blood Loss Anemia 2/2 above s/p PRBC transfusion 3) Afib RVR s/p DCCV 4) Duodenitis/colitis Secondary Diagnosis: 5) Morbid Obesity 6) Essential HTN 7) Ileostomy 8) Chronic pain syndrome Discharge Disposition: Still a Patient Discharge Instruct/Medications Diet: See Comment Diet comment: NPO except ICE CHIPS Activity: Bed rest Scheduled Albuterol Sulfate (Albuterol Sulfate Hfa), 2 PUFF INH Q4-6HR PRN, (Reported) Metformin Hydrochloride (Metformin Hcl), 1 TAB PO BID, (Reported) Metoprolol Tartrate (Metoprolol Tartrate), 1 TAB PO BID, (Reported) Morphine Sulfate (Morphine Sulfate Cr), 1 TAB PO DAILY, (Reported) Oxycodone W/ Acetaminophen (Apap/Oxycodone), 1 TAB PO TID, (Reported) Pantoprazole Sodium Sesquihydr (Pantoprazole Sodium), 1 TAB PO DAILY, (Reported) Pioglitazone Hydrochloride (Pioglitazone Hcl), 1 TAB PO DAILY, (Reported) Sucralfate (Sucralfate), 1 TAB PO TID, (Reported) Discharge Statement: "Patient was advised to return to the ER or call 911 if any headaches, dizziness, shortness of breath, chest pain, abdominal pain, bleeding, fevers, or worsening of medical condition. Patient was counseled about treatment plan, medications, possible side effects, patientverbalized understanding. All questions were answered to the best of my ability. This discharge took greater then 30 minutes in planning, reviewing documentation, counseling the patient, and discussing with other team members." ASSESSMENT ASSESSMENT Assessment GI BLEED FLORENCIA VELASCO DO Mar 02, 2025 18:17
[2025-03-02] MEDS ORDERED: TPN PER PHARMACY IV NR (22:00)
--- NOTE | 2025-03-02 23:01 | DVHPN2 ---
Progress Note - Dictate Date Seen: Mar 02, 2025 Has the PT tested + for MRSA If YES, has PT been informed?: Yes Medical Necessity Reason Pt with a Central, PICC or Fol: No The following are medically ne: Central Line Subjective Patient was seen and evaluated in follow up in the ICU. Patient remains on supplemental O2. Patient is resting in bed. Patient was accepted to [facility] and is being transferred today. vital signs Vital Sign Date Time Temp Pulse Resp B/P (MAP) Pulse Ox O2 Delivery O2 Flow Rate FiO2 03/02/25 19:15 102 115/63 (80) 88 03/02/25 19:00 17 03/02/25 18:00 Nasal Cannula* 6 44 03/02/25 17:11 97.7 97.7 Total Intake and Output 03/01/25 03/01/25 03/02/25 15:00 23:00 07:00 Intake Total 1236.64 ml 2771.248 ml 1701.454 ml Output Total 2225 ml 2050 ml Balance 1236.64 ml 546.248 ml -348.546 ml medications Current Medications Medications Dose Ordered Sig/Neha Route Start Time Stop Time Status Last Admin Dose Admin Pantoprazole Sodium 80 mg BID IV 02/21/25 22:00 Cancel Magnesium Sulfate/ Dextrose 100 ml @ 100 mls/hr Q1HR IV 03/02/25 09:00 03/02/25 10:59 UNV objective GENERAL: Alert and oriented x 3. No acute distress. Pale appearing. EYES: PERRL, EOMI. Anicteric. HENT: Moist mucous membranes. LUNGS: Clear to auscultation bilaterally. CARDIOVASCULAR: Regular rate and rhythm. ABDOMEN: Colostomy to right lower abdomen, bright-red feces. EXTREMITIES: No edema. NEUROLOGIC: No focal neurological deficits. SKIN: Warm, dry. laboratory and microbiology Laboratory Tests 03/02/25 06:00 Test 03/02/25 06:00 Range/Units Serum Glucose 271 H 74-106 mg/dL Problem List A Fib with RVR. GI bleed. Abdominal wall thickening. Acute blood loss anemia. Diabetes mellitus type 2 with hyperglycemia. HTN. HLD. Assessment/Plan Continued all current supportive medical care. Echocardiogram. IV Amiodarone. GI prophylactics. IV antibiotics as ordered. Vasopressors for hemodynamic support. Additional plan as per the hospital course. Critical care time of 45 minutes provided to include time spent evaluation of patient at bedside, when appropriate patient/family education for diagnosis, treatment plan, review of pertinent medical information and discussion of care with specialty providers and PCP. Dietary Evaluation Review Comments: 1) If patient remains NPO > 7 days, consider EN/TPN to meet at least 75% of estimated daily needs 2) Advance to 60g CCHO cardiac diet when medically feasible 3) Refer to outpatient RD/CDCES for weight management 4) Continue to monitor I&O, labs, and skin integrity Expected Outcomes/Goals: 1) patient to receive nutritional support within 7 days of NPO status 2) labs to improve 3) diet to advance 4) f/u in 3-5 days Plan discussed with: Patient CC Plasma Assessment Blood Product Administration S: 10:45 WEST MARTEL MD Mar 02, 2025 23:01
--- NOTE | 2025-03-04 16:31 | ECG ---
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
== END 2025-03-02 19:35 | disposition short-term general hospital (02) | DRG 356 ==
LOC: ER 16:00 → EDBD 16:00 → OVERFLOW 20:16 → ICU WEST 02-21 16:23
PROVIDERS: ADMIT Hospitalist; ATTEND Student in an Organized Health Care Education/Training Program
PROC: 30233N1 Transfusion of Nonautologous Red Blood Cells into Peripheral Vein, Percutaneous Approach (ICD-10-PCS; 2025-02-20)
PROC: 5A2204Z Restoration of Cardiac Rhythm, Single (ICD-10-PCS; 2025-02-21)
PROC: 02HV33Z Insertion of Infusion Device into Superior Vena Cava, Percutaneous Approach (ICD-10-PCS; 2025-02-21)
PROC: B548ZZA Ultrasonography of Superior Vena Cava, Guidance (ICD-10-PCS; 2025-02-21)
PROC: 0DB98ZX Excision of Duodenum, Via Natural or Artificial Opening Endoscopic, Diagnostic (ICD-10-PCS; 2025-02-22)
PROC: 0DB68ZX Excision of Stomach, Via Natural or Artificial Opening Endoscopic, Diagnostic (ICD-10-PCS; 2025-02-22)
PROC: 30233K1 Transfusion of Nonautologous Frozen Plasma into Peripheral Vein, Percutaneous Approach (ICD-10-PCS; 2025-02-22)
PROC: 30233R1 Transfusion of Nonautologous Platelets into Peripheral Vein, Percutaneous Approach (ICD-10-PCS; 2025-02-22)
PROC: 04L43DZ Occlusion of Splenic Artery with Intraluminal Device, Percutaneous Approach (ICD-10-PCS; principal; 2025-02-24)
PROC: 04L33DZ Occlusion of Hepatic Artery with Intraluminal Device, Percutaneous Approach (ICD-10-PCS; 2025-02-24)
PROC: B41B1ZZ Fluoroscopy of Other Intra-Abdominal Arteries using Low Osmolar Contrast (ICD-10-PCS; 2025-02-24)
PROC: 03HY32Z Insertion of Monitoring Device into Upper Artery, Percutaneous Approach (ICD-10-PCS; 2025-02-28)
DX: K29.81 Duodenitis with bleeding (principal); J96.01 Acute respiratory failure with hypoxia; R57.8 Other shock; D62 Acute posthemorrhagic anemia; I48.92 Unspecified atrial flutter; Z68.41 Body mass index [BMI] 40.0-44.9, adult; K94.11 Enterostomy hemorrhage; K26.4 Chronic or unspecified duodenal ulcer with hemorrhage; K29.71 Gastritis, unspecified, with bleeding; K52.9 Noninfective gastroenteritis and colitis, unspecified; E78.5 Hyperlipidemia, unspecified; I10 Essential (primary) hypertension; I48.91 Unspecified atrial fibrillation; E11.65 Type 2 diabetes mellitus with hyperglycemia; E66.01 Morbid (severe) obesity due to excess calories; K44.9 Diaphragmatic hernia without obstruction or gangrene; G89.4 Chronic pain syndrome; K43.9 Ventral hernia without obstruction or gangrene; K21.9 Gastro-esophageal reflux disease without esophagitis; E87.70 Fluid overload, unspecified; T80.89XA Other complications following infusion, transfusion and therapeutic injection, initial encounter; Z79.899 Other long term (current) drug therapy; Z79.84 Long term (current) use of oral hypoglycemic drugs; Z79.891 Long term (current) use of opiate analgesic; Y84.8 Other medical procedures as the cause of abnormal reaction of the patient, or of later complication, without mention of misadventure at the time of the procedure; Y92.238 Other place in hospital as the place of occurrence of the external cause
CPT/HCPCS: 36415; 36430; 36569; 36600; 36620; 37243; 71045; 74175; 74177; 76937; 76942; 80048; 80053; 82040; 82805; 82962; 83036; 83540; 83550; 83605; 83735; 83880; 84100; 84478; 84484; 85007; 85014; 85018; 85025; 85027; 85379; 85384; 85610; 85730; 86850; 86900; 86901; 86920; 87040; 87077; 87081; 87186; 92960; 93005; 93306; 93971; 96365; 99152; 99291; C1894; G0378; J0131; J0153; J1815; J2250; J2405; J2470; J2543; J2704; J3430; J3470; J3480; J7060; J7131; P9047; Q9967